=== PATIENT | female | born 1940 | race Caucasian/White ===

== ENCOUNTER 2017-03-14 11:59 | Inpatient (IN) | payer MEDICARE ==
[~2017-03-14] VITALS: Ht 172.7 cm; Wt 88.1 kg
[2017-03-14 16:15] VITALS: BP 138/79
--- NOTE | 2017-03-14 16:46 | Occupational Therapy Eval ---
OT Evaluation-General/PLF Medical Diagnosis Admission Date Mar 14, 2017 at 16:15 Medical Diagnosis: L3-L5 laminectomy Onset Date: Mar 10, 2017 Therapy Diagnosis Therapy Diagnosis: decr self care, weakness, decr funct mobility, decr activity tolerance Precautions Precautions/Isolations: Standard Precautions Weight Bear Status Weight Bearing Restriction: Weight Bearing/Tolerated Referral Physician: Herb Referral Reason: Evaluation/Treatment Referral Comments No excessive bending, twisting, heavy lifting. Keep incision dry (no showering for 3 weeks, per pt) Medical History Pertinent Medical History: Atrial Fib, Neuropathy (L LE), Rheumatoid Arthritis Additional Medical History Spinal stenosis, lumbar. Spondylolisthesis L4-L5. Foot drop L. 15 year hx back problems. hernia repair Current History Elective procedure. Had OT and PT at Reviewed History: Yes Social History Home: Single Level Current Living Status: Spouse Entry Into Home: Ramp ADL-Prior Level of Function ADL PLOF Comments Pt reported that has been able to manage all of her basic self care needs prior to surgery. She used a 4WW and SPC at home. 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 She still drives and loves to garden and read. 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 Pain reported 2/10 and not described. Appearance Alert, cooperative Current Glasses/Contacts: Yes Hearing Aids: No Dentures/Partials: No Hand Dominance: Right Upper Extremity ROM Grossly WFL bilat. Arthritic changes in hands Upper Extremity Sensation Pt reports no problems Upper Extremity Strength grossly 4/5 bilat ADL-Treatment Functional [place] Measure 0=Not Assessed/NA 4=Minimal Assistance 1=Total Assistance 5=Supervision or Setup 2=Maximal Assistance 6=Modified [place] 3=Moderate Assistance 7=Complete IndependenceIRFPAI Quality Coding Scale 6 Independent with activity with or without an assistive device 5 Patient requires set up or clean up by helper. Patient completes activity by themselves 4 Supervision or touching assist (CGA). [place] provide cues , steadying assist 3 The helper provides less than half the effort to complete the activity 2 The helper provides more than half the effort to complete the activity 1 Dependent. The helper does all the effort to complete an activity 7 Patient refused to complete or attempt activity 9 The patient did not perform the activity before the current illness or injury 88 Not attempted due to Medical conditions or safety concerns Transfers (B, C, W/C) (FIM): 4 (CGA, FWW) Shower Transfer (FIM): 0 (Unable, per physician orders) Education OT Patient Education: Purpose of tx/functional activities, Rehab process, Transfer techniques, Use of adapted equipment Teaching Recipient: Patient Teaching Methods: Discussion Response to Teaching: Verbalize Understanding OT Short Term Goals Short Term Goals Time Frame: Mar 21, 2017 Eating(FIM): 7 Upper Body Dressing(FIM): 5 Lower Body Dressing(FIM): 5 Toileting(FIM): 5 Toilet/Commode Transfer(FIM): 5 1=Demonstrate adherence to instructed precautions during ADL tasks. 2=Patient will verbalize/demonstrate understanding of assistive devices/ modifications for ADL. 3=Patient will improve strength/tolerance for activity to enable patient to perform ADL's. OT Correction Goals Knitter Machine Goals Time Frame: April 04, 2017 Eating (FIM): 7 (no dentures) Eating (QC): 6 Groomin Oral Hygiene (QC): 6 Bathing(FIM): 6 Shower/Bathe Self (QC): 6 Upper Body Dressing(FIM): 6 Upper Body Dressing (QC): 6 Lower Body Dressing(FIM): 6 Lower Body Dressing (QC): 6 On/Off Footwear (QC): 6 Toileting(FIM): 6 Toileting Hygiene (QC): 6 Toilet/Commode Transfer(FIM): 6 Toilet/Commode Transfer (QC): 6 Shower Transfer(FIM): 6 Additional Goals: 1-Demonstrate ADL Tasks, 2-Verbalize Understanding, 3- ImproveStrength/Estuardo 1=Demonstrate adherence to instructed precautions during ADL tasks. 2=Patient will verbalize/demonstrate understanding of assistive devices/ modifications for ADL. 3=Patient will improve strength/tolerance for activity to enable patient to perform ADL's. OT Education/Plan Problem List/Assessment Assessment: Decreased Activ Tolerance, Decreased UE Strength, Dependent Transfers, Impaired Funct Balance, Impaired Self-Care Skills Pt would benefit from skilled OT to increase her independence in basic self care to allow her to return home safely to live with her and decrease caregiver burden. Discharge Recommendations Plan/Recommendations: Continue POC Target Placement home with spouse Treatment Plan/Plan of Care Treatment,Training & Education: Yes Patient would benefit from OT for education, treatment and training to promote independence in ADL's, mobility, safety and/or upper extremity function for ADL' s. Treatment Duration: April 04, 2017 # of days/week 5-6 Visits Per Week: 10-11 Minutes/Day (M-F): 75-90 Minutes/Day (Sat/Vera): PRN Agreement: Yes Rehab Potential: Good Time/GCodes Start Time: 16:10 Stop Time: 16:35 Total Time Billed (hr/min): 35 Billed Treatment Time visit, 25 minutes evaluation moderate intensity BALAJI LYNN OT Mar 14, 2017 16:46
[2017-03-14] MEDS ORDERED: DILTIAZEM 60 MG (CARDIZEM) TAB PO PRN (17:15)
--- NOTE | 2017-03-14 17:45 | PM&R Post Admission Assessment ---
Post Admission Physician Asses The preadmission screen agrees with the post admission assessment that the patient is a good candidate for inpatient rehabilitation. The patient will have a comprehensive program of inpatient rehabilitation with a goal of maximizing level of functional dependence prior to discharge home with [family]. The patient will have PT/OT ninety minutes per day, each discipline, five days a week for gait strengthening, conditioning, balance, ADLs , any patient/family/caregiver training necessary. Speech therapy to do cognitive assessment and treat as indicted. Rehabilitation nursing to assist with bowel, bladder, skin, wound care, medication administration, pain management. Parts Control Clerk to assist with discharge planning, community reentry. SCD's for DVT prophylaxis. She appears to be well motivated to participate in three hours of therapy a day. She should be able to tolerate three hours of therapy a day from a medical standpoint. She should benefit from the three hours of therapy a day. She has a reasonable discharge plan, reasonable discharge rehabilitation goals and a supportive family. She has various comorbidities that need to be closely monitored with medications and treatments adjusted on a daily basis as needed. These include: A FIb Chronic antoicoagulation RA Chronic pain Left foot drop with idiopathic Peripheral neuropathy Barriers to discharge for this patient who had been independent prior to this and for her to be modified independent to supervision for ADLs and mobility skills prior to discharge home with [family], so as to lessen the burden of the caregivers. Risks for this patient include: 1. Fall 2. Fracture 3. DVT 4. Pulmonary embolism 5. Wound infection 6. Skin breakdown 7. Contractures 8. Poorly controlled pain 9. Urinary retention 10. UTI 11. Respiratory infection 12. Aspiration 13. Poorly contolled A FIB 14. SUB or Supratherapeutic INR for chronic anticoagulation 15. Flare of RA Estimated Length of Stay: 14 days Prognosis: Rehab prognosis appears good for goal of discharge home with spouse modified independent to supervision for ADLs and mobility skills. ENRIQUE MEJIA MD Mar 14, 2017 17:45
[2017-03-14 18:17] VITALS: BP 119/60
--- NOTE | 2017-03-14 18:27 | HISTORY AND PHYSICAL ---
DATE OF SERVICE: 03/14/2017 CHIEF COMPLAINT: Difficulty with walking, left leg weakness and numbness. HISTORY OF PRESENT ILLNESS: The patient is a 76-year-old female who had recently moved to [place] with her to be near her daughter who had lumbar spine surgery for lumbar spinal stenosis with radiculopathy, left leg associated with weakness and numbness with Dr. Weinstein at [facility]. The patient is referred here for inpatient rehabilitation. Currently she is min assist for transfers, set up for eating and grooming, min assist for upper body dressing, mod assist for lower body dressing and toileting. PAST MEDICAL HISTORY: Lumbar spinal stenosis with spondylolisthesis L4-L5 associated with left foot drop. She has a left AFO. She reports the weakness and numbness is improving somewhat postoperatively. She has had a 15 year history of back pain. History of atrial fibrillation, rheumatoid arthritis, as well as idiopathic peripheral neuropathy associated with numbness and tingling in both legs. PAST SURGICAL HISTORY: As per above, hemorrhoidectomy, inguinal hernia repair, thyroid surgery, parathyroidectomy, colonoscopy, ablation of dysrhythmia focus with electrophysiological lab, cardiology. ALLERGIES: SULFA. FAMILY HISTORY: Noncontributory. SOCIAL HISTORY: Essentially as per above. She is retired. REVIEW OF SYSTEMS: A 10 point review of systems is significant for left leg pain, numbness, left foot drop, irregular heart beat. MEDICATIONS: Colace 100 mg p.o. b.i.d., ferrous sulfate 325 mg p.o. t.i.d., hydrocodone APAP 5/325 1-2 tablets p.o. q. 4 hours as needed, Tylenol 650 mg 2 tablets b.i.d. p.r.n. pain, amiodarone 200 mg p.o. daily, ASA 1 mg p.o. daily, vitamin D3 2000 units p.o. daily, diltiazem CD 120 mg p.o. daily, Lexapro 10 mg p.o. q. evening, folic acid 1 mg p.o. daily, Plaquenil 200 mg p.o. b.i.d., Xalatan 0.5% 1 drop both eyes at bedtime, Protonix 40 mg p.o. daily, multivitamin 1 tablet p.o. daily, Coumadin 4.5 mg at bedtime. PHYSICAL EXAMINATION: GENERAL: Significant for a pleasant female appearing stated age, alert and oriented, no acute distress. VITAL SIGNS: She is afebrile, pulse 74, blood pressure 103/55, respirations 18. HEENT: Vision ,hearing and speech grossly intact. No oral lesion is noted. NECK: Supple without mass. HEART: Regular rhythm. LUNGS: Clear. ABDOMEN: Soft, nontender, bowel sounds present. SPINE: Incision site covered with clean dressing, no drainage noted. EXTREMITIES: Trace edema both ankles, no calf tenderness. MUSCULOSKELETAL: The patient has functional passive range of motion of all 4 extremities. NEUROLOGIC: She has a left foot drop with poor left ankle dorsiflexion. She has numbness in the left foot but sensation to touch is grossly intact. This compared to the right. Strength in both upper extremities 4/5. She has arthritic changes in both hands. Strength right lower extremity 4- to 4/5, left lower extremity 4/5 proximal distal at the ankle, 2/5 dorsiflexion, plantar flexion 3+/5. Cognition appears grossly intact. IMPRESSION: 1. Ambulatory dysfunction secondary to lumbar spinal stenosis L3-L5 with spondylolisthesis L4-5 with resulting spinal cord dysfunction, nontraumatic with associated lumbosacral radiculopathy left leg with left foot drop. 2. Rheumatoid arthritis on Plaquenil. 3. Idiopathic peripheral neuropathy. 4. Glaucoma on eye drops. 5. Atrial fibrillation controlled with medications. 6. Chronic anticoagulation. PLAN: The patient will have a comprehensive program of inpatient rehabilitation with goal of maximizing level of function of independence prior to discharge home with spouse. She indicates that they bought a [employer] style home with easy access near their daughter in [place]. She indicates that Dr. Frances will be her PCP. The patient will have PT/OT 90 minutes per day each weak, 5 days a week for 2 weeks with goal of maximizing level of function independence prior to discharge home with spouse and home health care. The patient will have speech for cognitive assessment with treatment as indicated. Rehabilitation nursing to assist with bowel, bladder, skin, wound care, medication administration, pain management. computing services director to assist with discharge planning, community re-entry. Consult Dr. Frances for medical management. Routine admission labs including PT/INR. ESTIMATED LENGTH OF STAY: Two weeks. PROGNOSIS: Rehab prognosis appears good with a goal of discharging to home with spouse with home health care, modified independence to supervision for ADLs and mobility skills. DIET: Regular. CODE STATUS: Full code. Job ID: [id number] DocumentID: [id number] Dictated Date: 03/14/2017 17:33:14 Chief Engineering Division Date: 03/14/2017 18:26:48 Dictated By: ENRIQUE MEJIA MD MTDD
[2017-03-14 18:31] VITALS: BP 136/77
[2017-03-14] MEDS: HYDROXYCHLOROQUINE 200 MG (PLAQUENIL) TAB PO SCH (20:30)
[2017-03-14] MEDS: LATANOPROST 0.005% (XALATAN) OPHTH SOLN 2.5 ML OU SCH (20:30)
[2017-03-14] MEDS: DOCUSATE SODIUM 100 MG (COLACE) CAP PO SCH (20:30)
[2017-03-14] MEDS: warFARin 2 MG (COUMADIN) TAB PO SCH (20:30)
[2017-03-15] MEDS: HYDROcodone/APAP 5 MG/325 MG (LORTAB) TAB PO PRN ×2 (04:19→22:54)
[2017-03-15 05:39] VITALS: BP 106/67
[2017-03-15 06:08] LABS: BASOPHILS % (AUTO) 0 % (0-10); EOSINOPHILS # (AUTO) 0.2 10^3/uL (0.0-0.3); EOSINOPHILS % (AUTO) 4 % (0-10); LYMPHOCYTES # (AUTO) 0.7 X 10^3 (1.0-4.0); LYMPHOCYTES % (AUTO) 15 % (12-44); MEAN CORPUSCULAR HEMOGLOBIN 31 PG (25-34); MEAN CORPUSCULAR HGB CONC 31 G/DL (32-36); MEAN CORPUSCULAR VOLUME 100 FL (80-99); MEAN PLATELET VOLUME 9.8 FL (7.4-10.4); MONOCYTES # (AUTO) 0.5 X 10^3 (0.0-1.0); MONOCYTES % (AUTO) 11 % (0-12); NEUTROPHILS # (AUTO) 3.2 X 10^3 (1.8-7.8); NEUTROPHILS % (AUTO) 70 % (42-75); PLATELET COUNT 195 10^3/uL (130-400); RED BLOOD COUNT 2.28 10^6/uL (4.35-5.85); WHITE BLOOD COUNT 4.6 10^3/uL (4.3-11.0)
[2017-03-15 06:11] LABS: PROTHROMBIN TIME PATIENT 13.2 SEC (12.2-14.7)
[2017-03-15 06:20] LABS: ALANINE AMINOTRANSFERASE 36 U/L (0-55); ALBUMIN 2.7 G/DL (3.2-4.5); ANION GAP 8 MMOL/L (5-14); ASPARTATE AMINO TRANSFERASE 32 U/L (5-34); BILIRUBIN,TOTAL 0.7 MG/DL (0.1-1.0); BLOOD UREA NITROGEN 9 MG/DL (7-18); BUN/CREATININE RATIO 13; CALCIUM 8.2 MG/DL (8.5-10.1); CARBON DIOXIDE 27 MMOL/L (21-32); CHLORIDE 106 MMOL/L (98-107); CREATININE SERUM 0.69 MG/DL (0.60-1.30); GFR ESTIMATED > 60; GLUCOSE 95 MG/DL (70-105); POTASSIUM 3.2 MMOL/L (3.6-5.0); SODIUM 141 MMOL/L (135-145)
[2017-03-15] MEDS: PANTOPRAZOLE 40 MG (PROTONIX) TAB PO SCH (06:28)
[2017-03-15] MEDS: FERROUS SULF 325 MG (IRON) TAB PO SCH ×3 (06:28→16:44)
[2017-03-15] MEDS: MULTIVIT W/MINERALS TAB (THERAGRAN M) PO SCH (06:28)
--- NOTE | 2017-03-15 07:04 | Physical Therapy Evaluation ---
PT Evaluation-General Medical Diagnosis Admission Date Mar 14, 2017 at 16:15 Medical Diagnosis: L3-L5 laminectomy Onset Date: Mar 10, 2017 Therapy Diagnosis Therapy Diagnosis: general debility Height/Weight Height (Feet): 5 Height (Inches): 8.00 Weight (Pounds): 198 Weight (Ounces): 2.0 Precautions Precautions/Isolations: Fall Prevention, Standard Precautions Weight Bear Status Weight Bearing Restriction: Weight Bearing/Tolerated Referral Physician: Herb Reason for Referral: Evaluation/Treatment Medical History Pertinent Medical History: Atrial Fib, Arthritis, Neuropathy (L LE), Rheumatoid Arthritis Additional Medical History drop left LE (has AFO) Current History s/p spinal fusion Reviewed History: Yes Social History Home: Single Level Current Living Status: Spouse Entry Into Home: Ramp Prior/Core FIM Prior Level of Function Functional [place] Measure 0=Not Assessed/NA 4=Minimal Assistance 1=Total Assistance 5=Supervision or Setup 2=Maximal Assistance 6=Modified [place] 3=Moderate Assistance 7=Complete [place] Bed Mobility: 6 Transfers (B,C,W/C) (FIM): 6 Gait: 6 has FWW and cane established PT Evaluation-Current Subjective Patient agreeable to participate with PT. Pain Numeric Pain Scale: 2 Location: Lower Location Body Site: Back Pain Description: Acute Pt/Family Goals return to home Objective Patient Orientation: Normal For Age Problem Solving: Good ROM/Strength ROM Lower Extremities bilateral LE WFL Strenght Lower Extremities right knee flexion/extension 4/5; hip flexion 4/5; ankle dorsi/plantarflexion 4/ 5 left knee flexion/extension 3/5; hip flexion 3-/5; ankle dorsi 2-/5 plantarflexion 2/5 Integumentary/Posture Integumentary refer to nursing notes Bowel Incontinence: No Bladder Incontinence: No Posture slight trunk flexed posture in stand Neuromuscular (Tone, Coordination, Reflexes) diminished coordination secondary to bilateral LE neuropathy from spinal stenosis Sensory Vision: Wears Glasses Hearing: Functional Hand Dominance: Right Sensation Right Lower Extremit: Impaired Sensation Left Lower Extremity: Impaired Transfers Functional [place] Measure 0=Not Assessed/NA 4=Minimal Assistance 1=Total Assistance 5=Supervision or Setup 2=Maximal Assistance 6=Modified [place] 3=Moderate Assistance 7=Complete IndependenceIRFPAI Quality Coding Scale 6 Independent with activity with or without an assistive device 5 Patient requires set up or clean up by helper. Patient completes activity by themselves 4 Supervision or touching assist (CGA). [place] provide cues , steadying assist 3 The helper provides less than half the effort to complete the activity 2 The helper provides more than half the effort to complete the activity 1 Dependent. The helper does all the effort to complete an activity 7 Patient refused to complete or attempt activity 9 The patient did not perform the activity before the current illness or injury 88 Not attempted due to Medical conditions or safety concerns Transfers (B, C, W/C) (FIM): 5 Scootin Rollin Roll Left to Right (QC): 5 Supine to/from Sit: 5 Sit to/from Stand: 5 Sit to Lying (QC): 5 Lying to Sitting/Side of Bed(Q: 5 Sit to Stand (QC): 5 Chair/Kps-yw-Ddfzh Xfer(QC): 5 Car Transfer (QC): 5 (simulated) Gait Does the Patient Walk?: Yes Mode of Locomotion: Walk Anticipated Mode of Locomotion: Walk Gait (FIM): 5 Distance (FIM): 3=150 ft Walk 10 feet (QC): 5 Walk 50 ft with 2 Turns(QC): 5 Walk 150 ft (QC): 5 Walking 10ft/uneven surface-QC: 5 Distance: 250' x 4; 150' x 4 Gait Level of Assist: 5 Gait Persons Needed: 1 Gait Assistive Device: FWW Comments/Gait Description noted Trendelenburg gait with left drop foot with AFO in place Stairs Stairs (FIM): 4 #of Steps: 8 Level of Assist: 4 1 Step (curb) (QC): 4 4 Steps (QC): 4 12 Steps (QC): 88 step to sequence Balance Sitting Static: Normal Sitting Dynamic: Normal Standing Static: Normal Standing Dynamic: Normal Treatment Gait training with FWW and SBA to address functional mobility and strength. Ambulate FWW 250' x 4; 150' x 4 with steady gait sequence. Patient requires recovery periods secondary to fatigue. Assessment/Needs 77 y.o. female, will benefit from short term skilled PT to address functional strength and mobility to improve current LOF and to safely return to home with spouse at maximum LOF. Rehab Potential: Good PT Short Term Goals Short Term Goals Time Frame: Mar 21, 2017 Transfers (B,C,W/C) (FIM): 6 Gait (FIM): 6 Distance (FIM): 3=150 ft Gait Assistive Device: FWW PT Fpc Goals Fpc Goals PT Fpc Goals Time Frame: March 28, 2017 Transfers (B,C,W/C) (FIM): 6 Sit to Lying (QC): 6 Lying-Sitting on Side/Bed(QC): 6 Sit to Stand (QC): 6 Rollin Roll Left to Right (QC): 6 Chair/Efa-xq-Cjche Xfer(QC): 6 Car Transfer (QC): 6 Does the Patient Walk: Yes Gait (FIM): 6 Gait distance (FIM): 3=150 ft Distance: 250' Walk 10 feet (QC): 6 Walk 10ft-Uneven Surface(QC): 6 Walk 50ft with 2 Turns (QC): 6 Walk 150 ft (QC): 6 Gait Level of Assist: 6 Gait Assistive Device: FWW Stairs (FIM): 6 # of Steps: 12 1 Step (curb) (QC): 6 4 Steps (QC): 6 12 Steps (QC): 6 Stairs Level Of Assist: 6 Picking up an Object (QC): 88 Patient has precautions to not bend over, push or pull PT Plan Problem List Problem List: Activity Tolerance, Functional Strength Treatment/Plan Treatment Plan: Continue Plan of Care Treatment Plan: Bed Mobility, Education, Functional Activity Estuardo, Functional Strength, Group Therapy, Gait, Safety, Therapeutic Exercise, Transfers Treatment Duration: March 28, 2017 # of days/week 6 Minutes/Day (M-F): 60-90 Minutes/Day (Sat/Vera): PRN Pt/Family Agrees w/Plan: Yes Safety Risks/Education Patient Education: Safety Issues Teaching Recipient: Patient Teaching Methods: Discussion Response to Teaching: Verbalize Understanding Discharge Recommendations Therapy D/C Recommendations: Home w/ Family Support Time/GCodes Time In: 655 Time Out: 825 Total Billed Treatment Time: 90 Total Billed Treatment 1 visit EVHighC 60 min Gt x 2 30 min ERIS TURNER PT Mar 15, 2017 07:04
[2017-03-15] MEDS ORDERED: ONDANSETRON 4 MG (ZOFRAN) ORAL DISSOLVE TAB PO PRN (07:45)
[2017-03-15 08:05] VITALS: BP 123/72
[2017-03-15] MEDS: DILTIAZEM 60 MG (CARDIZEM) TAB PO SCH (08:06)
[2017-03-15] MEDS: VITAMIN D3 1,000 UNITS (CHOLECALCIFEROL) TABLET PO SCH (08:06)
[2017-03-15] MEDS: DOCUSATE SODIUM 100 MG (COLACE) CAP PO SCH ×2 (08:06→21:25)
[2017-03-15] MEDS: AMIODARONE 200 MG (CORDARONE) TAB PO SCH (08:06)
[2017-03-15] MEDS: FOLIC ACID 1 MG TAB PO SCH (08:07)
[2017-03-15] MEDS: ASPIRIN 81 MG CHEW (CHILDREN'S ASA) PO SCH (08:07)
[2017-03-15] MEDS: HYDROXYCHLOROQUINE 200 MG (PLAQUENIL) TAB PO SCH ×2 (08:08→21:25)
--- NOTE | 2017-03-15 10:59 | Occupational Ther Daily Note ---
OT Current Status-Daily Note Subjective Pt alert, sitting EOB with nrsg present. Pt agreed to therapy. No c/o pain at this time. Mental Status/Objective Patient Orientation: Person, Place, Time, Situation Functional [place] Measure 0=Not Assessed/NA 4=Minimal Assistance 1=Total Assistance 5=Supervision or Setup 2=Maximal Assistance 6=Modified [place] 3=Moderate Assistance 7=Complete [place] ADL-Treatment Functional [place] Measure 0=Not Assessed/NA 4=Minimal Assistance 1=Total Assistance 5=Supervision or Setup 2=Maximal Assistance 6=Modified [place] 3=Moderate Assistance 7=Complete IndependenceIRFPAI Quality Coding Scale 6 Independent with activity with or without an assistive device 5 Patient requires set up or clean up by helper. Patient completes activity by themselves 4 Supervision or touching assist (CGA). [place] provide cues , steadying assist 3 The helper provides less than half the effort to complete the activity 2 The helper provides more than half the effort to complete the activity 1 Dependent. The helper does all the effort to complete an activity 7 Patient refused to complete or attempt activity 9 The patient did not perform the activity before the current illness or injury 88 Not attempted due to Medical conditions or safety concerns Eating (FIM): 6 (Pt able to set self up and feed self.) Eating (QC): 6 (Pt able to set self up and feed self.) Grooming (FIM): 5 (Using FWW, pt stands at sink to complete grooming with SBA. Then sitting in recliner to apply makeup.) Oral Hygiene (QC): 4 (Standing at sink with SBA using FWW pt is able to complete.) Bathing (FIM): 4 (After set up, pt completed sponge bath (due to incision pt is not allowed to take shower at this time). Pt unable to reach to feet due to precautions. SBA when standing to cleanse buttocks and lauren area.) Bathing Location: L Arm, R Arm, L Upper Leg, R Upper Leg, Chest, Abdomen, Buttocks, Perineal Area Shower/Bathe Self (QC): 3 (After set up, pt completed sponge bath (due to incision pt is not allowed to take shower at this time). Pt unable to reach to feet due to precautions. SBA when standing to cleanse buttocks and lauren area.) Upper Body (FIM): 5 (After set up, pt is able to complete upper body dressing.) Upper Body Dressing (QC): 5 (After set up, pt is able to complete upper body dressing.) Lower Body Dressing (FIM): 2 (Pt is able to doff pants with SBA. Pt brings foot up to don underwear and pants without twisting or bending then SBA to hike pants over hips. Pt unable to don socks and shoes. Pt will be educated on using AE to complete lower body dressing.) Lower Body Dressing (QC): 2 (Pt is able to doff pants with SBA. Pt brings foot up to don underwear and pants without twisting or bending then SBA to hike pants over hips. Pt unable to don socks and shoes. Pt will be educated on using AE to complete lower body dressing.) On/Off Footwear (QC): 2 (Pt requires assistance to don socks and shoes. Pt is able to doff shoes after shoes are untied then assist to doff socks.) Toileting (FIM): 5 (Using FWW, grabbars and elevated seat pt is able to complete with SBA.) Toileting Hygiene (QC): 4 (Using FWW, grabbars and elevated seat pt is able to complete with SBA.) Transfers (B, C, W/C) (FIM): 4 (Using FWW, pt is CGA with stand pivot transfers when standing from a low surface.) Toilet/Commode Transfer (FIM): 4 (Using grabbars and elevated seat pt is able to complete transfer with CGA.) Toilet Transfer (QC): 4 (Using grabbars and elevated seat pt is able to complete transfer with CGA.) Pt was given AE for lower body dressing (dressing stick, video operator, long handle shoe horn and long handle sponge). Pt already has sock aide. Discussed ARU expectations and description then pt's home environment. Pt has tub shower and stated that daughter has gotten some kind of seat to transfer into shower then they need to put up more grabbars. After therapy, pt sitting in recliner with call light/phone in reach. All needs met in room. OT Short Term Goals Short Term Goals Time Frame: Mar 21, 2017 Eating(FIM): 7 Upper Body Dressing(FIM): 5 Lower Body Dressing(FIM): 5 Toileting(FIM): 5 Transfers (B,C,W/C) (FIM): 6 Toilet/Commode Transfer(FIM): 5 1=Demonstrate adherence to instructed precautions during ADL tasks. 2=Patient will verbalize/demonstrate understanding of assistive devices/ modifications for ADL. 3=Patient will improve strength/tolerance for activity to enable patient to perform ADL's. OT Correction Goals Electric Freight Car Operator Goals Time Frame: April 04, 2017 Eating (FIM): 7 (no dentures) Eating (QC): 6 Groomin Oral Hygiene (QC): 6 Bathing(FIM): 6 Shower/Bathe Self (QC): 6 Upper Body Dressing(FIM): 6 Upper Body Dressing (QC): 6 Lower Body Dressing(FIM): 6 Lower Body Dressing (QC): 6 On/Off Footwear (QC): 6 Toileting(FIM): 6 Toileting Hygiene (QC): 6 Toilet/Commode Transfer(FIM): 6 Toilet/Commode Transfer (QC): 6 Shower Transfer(FIM): 6 Additional Goals: 1-Demonstrate ADL Tasks, 2-Verbalize Understanding, 3- ImproveStrength/Estuardo 1=Demonstrate adherence to instructed precautions during ADL tasks. 2=Patient will verbalize/demonstrate understanding of assistive devices/ modifications for ADL. 3=Patient will improve strength/tolerance for activity to enable patient to perform ADL's. OT Education/Plan Problem List/Assessment Pt would benefit from skilled OT to increase her independence in basic self care to allow her to return home safely to live with her and decrease caregiver burden. Discharge Recommendations Plan/Recommendations: Continue POC Treatment Plan/Plan of Care Patient would benefit from OT for education, treatment and training to promote independence in ADL's, mobility, safety and/or upper extremity function for ADL' s. Treatment Duration: April 04, 2017 Visits Per Week: 10-11 Minutes/Day (M-F): 75-90 Minutes/Day (Sat/Vera): PRN Agreement: Yes Rehab Potential: Good Time/GCodes Start Time: 08:35 Stop Time: 10:05 Total Time Billed (hr/min): 90 Billed Treatment Time 1 visit-ADL 6 (90 min) JES FRANKS Mar 15, 2017 10:59
[2017-03-15] MEDS ORDERED: NS IV 500 ML 500 ML IV SCH (12:03)
--- NOTE | 2017-03-15 12:07 | Consultation-Hospitalist ---
HPI History of Present Illness: HPI/Chief Complaint CC: Medical management following lumbar spine surgery for lumbar stenosis causing left foot drop HPI: This is a 77-year-old white female new clinic patient of mine that moved from [place] to [place] to be closer to her daughter who is director of public works at assisted living facility in [place] who presents to inpatient rehabilitation following an uncomplicated lumbar spine surgery. I did speak with orthopedic surgery from [facility] who reported transfusion 1 unit without complications and 1 dose of iron infusion and overall had an uncomplicated hospital course. I reviewed her labs today showing hemoglobin of 7.1 and potassium 3.2 and I did speak with her in depth and she is agreeable to 1 more unit of blood and then continuing iron infusions for the full 4 more doses. Her bowel meds are doing pretty well and declines any additional medication. Limiting pain meds and doing well walking. Source: patient Exam Limitations: no limitations Date Seen 03/15/17 Attending Physician Lobito Estevez MD PCP No,Local Physician Referring Physician Date of Admission Mar 14, 2017 at 16:15 Home Medications & Allergies Home Medications Reviewed patient Home Medication Reconciliation Form Allergies Allergies Coded Allergies acetaminophen (Verified Allergy, Unknown, NAUSEA, 03/14/17) per pt doesn't want to take it because family and friends have had bad experiences (i.e. Confusion, hallucinations, etc.) oxycodone (Verified Allergy, Unknown, NAUSEA, 03/14/17) per pt doesn't want to take it because family and friends have had bad experiences (i.e. Confusion, hallucinations, etc.) Uncoded Allergies Sulfa ( Allergy, Unknown, RASH, 03/14/17) childhood reaction Past Ykjmpys-Zfztoe-Kasyzh Hx Patient Social History Marrital Status: Employed/Student: retired Alcohol Use: Denies Use Recreational Drug Use: No Smoking Status: Never a Smoker Physical Abuse Screen: No Sexual Abuse: No Recent Foreign Travel: No Contact w/other who traveled: No Recent Hop[facility]izations: Yes ([facility]) Recent Infectious Disease Expo: No Surgeries HX Surgeries: Yes Surgeries: Orthopedic Respiratory Hx Respiratory Disorders: No Cardiovascular Hx Cardiovascular Disorders: Yes Cardiac Disorders: Atrial Fibrillation, High Cholesterol, Hypertension Neurological Hx Neurological Disorders: Yes Neurological Disorders: Neuropathy Genitourinary Hx Genitourinary Disorders: No Gastrointestinal Hx Gastrointestinal Disorders: Yes Gastrointestinal Disorders: Hemorrhoids Musculoskeletal Hx Musculoskeletal Disorders: Yes Musculoskeletal Disorders: Arthritis, Rheumatoid Arthritis, Foot Drop Endocrine Hx Endocrine Disorders: No HEENT HX ENT Disorders: No HEENT Disorders: Glaucoma Cancer Hx Cancer: No Psychosocial Hx Psychiatric Problems: No Behavioral Health Disorders: Depression Integumentary HX Skin/Integumentary Disorder: No Blood Transfusions Adverse Reaction to a Blood Tr: No Review of Systems Constitutional: see HPI, weakness EENTM: no symptoms reported Respiratory: no symptoms reported Cardiovascular: no symptoms reported Gastrointestinal: no symptoms reported Genitourinary: no symptoms reported Musculoskeletal: back pain Skin: no symptoms reported Psychiatric/Neurological: No Symptoms Reported All Other Systems Reviewed Negative Unless Noted: Yes Physical Exam Physical Exam Vital Signs Vital Sign - Last 12Hours 03/14/17 16:15 Temp 97.0 Pulse 73 Resp 20 B/P (MAP) 138/79 Pulse Ox 98 O2 Delivery Room Air Capillary Refill : General Appearance: No Apparent Distress, WD/WN, Chronically ill Eyes: Bilateral Eye Normal Inspection, Bilateral Eye PERRL HEENT: PERRL/EOMI, Normal ENT Inspection, Pharynx Normal Neck: Full Range of Motion, Normal Inspection, Non Tender, Supple, Carotid Bruit Respiratory: Chest Non Tender, Lungs Clear, Normal Breath Sounds, No Accessory Muscle Use, No Respiratory Distress Cardiovascular: No Edema, No Gallop, No JVD, No Murmur, Normal Peripheral Pulses, Irregularly Irregular Gastrointestinal: Normal Bowel Sounds, No Organomegaly, No Pulsatile Mass, Non Tender, Soft Back: Normal Inspection, No CVA Tenderness, No Vertebral Tenderness Extremity: Normal Capillary Refill, Normal Inspection, Normal Range of Motion, Non Tender, No Calf Tenderness, No Pedal Edema Neurologic/Psychiatric: Alert, Oriented x3, No Motor/Sensory Deficits, Normal Mood/Affect Skin: Normal Color, Warm/Dry Lymphatic: No Adenopathy Results Results/Procedures Lab Laboratory Tests 03/15/17 05:15 Assessment/Plan Admission Diagnosis Assessment: Status post uncomplicated lumbar spine surgery due to severe lumbar stenosis causing left foot drop by Dr. 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 Monitor closely for AF with RVR Clinical Quality Measures DVT/VTE Risk/Contraindication: Risk Factor Score Per Nursin RFS Level Per Nursing on Admit: 4+=Very High YSABEL GREEN DO Mar 15, 2017 12:07
[2017-03-15] MEDS: KCL 10 MEQ TAB (MICRO K) PO SCH ×2 (13:45→16:44)
[2017-03-15 15:53] VITALS: BP 107/68
[2017-03-15 16:08] VITALS: BP 121/73
[2017-03-15 18:00] VITALS: BP 111/72
[2017-03-15 18:30] VITALS: BP 111/72
[2017-03-15] MEDS: LATANOPROST 0.005% (XALATAN) OPHTH SOLN 2.5 ML OU SCH (21:25)
[2017-03-15] MEDS: warFARin 2 MG (COUMADIN) TAB PO SCH (21:25)
[2017-03-15] MEDS: POLYETHYLENE GLYCOL 17 GM (MIRALAX) PACK PO SCH (21:25)
[2017-03-16 05:36] LABS: BASOPHILS % (AUTO) 0 % (0-10); EOSINOPHILS # (AUTO) 0.2 10^3/uL (0.0-0.3); EOSINOPHILS % (AUTO) 5 % (0-10); LYMPHOCYTES % (AUTO) 23 % (12-44); MEAN CORPUSCULAR HEMOGLOBIN 30 PG (25-34); MEAN CORPUSCULAR HGB CONC 31 G/DL (32-36); MEAN CORPUSCULAR VOLUME 96 FL (80-99); MEAN PLATELET VOLUME 9.2 FL (7.4-10.4); MONOCYTES # (AUTO) 0.5 X 10^3 (0.0-1.0); MONOCYTES % (AUTO) 11 % (0-12); NEUTROPHILS # (AUTO) 2.7 X 10^3 (1.8-7.8); NEUTROPHILS % (AUTO) 60 % (42-75); PLATELET COUNT 222 10^3/uL (130-400); RED BLOOD COUNT 2.95 10^6/uL (4.35-5.85); RED CELL DISTRIBUTION WIDTH 16.6 % (10.0-14.5); WHITE BLOOD COUNT 4.5 10^3/uL (4.3-11.0)
[2017-03-16 05:50] LABS: INR 1.1 (0.8-1.4); PROTHROMBIN TIME PATIENT 13.4 SEC (12.2-14.7)
[2017-03-16] MEDS: PANTOPRAZOLE 40 MG (PROTONIX) TAB PO SCH (06:25)
[2017-03-16] MEDS: MULTIVIT W/MINERALS TAB (THERAGRAN M) PO SCH (06:25)
[2017-03-16] MEDS: KCL 10 MEQ TAB (MICRO K) PO SCH ×3 (06:26→16:11)
[2017-03-16] MEDS: FERROUS SULF 325 MG (IRON) TAB PO SCH (06:26)
[2017-03-16 06:27] LABS: ALANINE AMINOTRANSFERASE 44 U/L (0-55); ANION GAP 9 MMOL/L (5-14); ASPARTATE AMINO TRANSFERASE 41 U/L (5-34); BLOOD UREA NITROGEN 9 MG/DL (7-18); BUN/CREATININE RATIO 12; CALCIUM 8.8 MG/DL (8.5-10.1); CARBON DIOXIDE 27 MMOL/L (21-32); CHLORIDE 107 MMOL/L (98-107); CREATININE SERUM 0.74 MG/DL (0.60-1.30); GFR ESTIMATED > 60; GLUCOSE 90 MG/DL (70-105); POTASSIUM 3.4 MMOL/L (3.6-5.0); SODIUM 143 MMOL/L (135-145); TOTAL PROTEIN 5.5 G/DL (6.4-8.2)
[2017-03-16] MEDS: VITAMIN D3 1,000 UNITS (CHOLECALCIFEROL) TABLET PO SCH (09:38)
[2017-03-16] MEDS: AMIODARONE 200 MG (CORDARONE) TAB PO SCH (09:38)
[2017-03-16] MEDS: DOCUSATE SODIUM 100 MG (COLACE) CAP PO SCH ×2 (09:39→21:07)
[2017-03-16] MEDS: ASPIRIN 81 MG CHEW (CHILDREN'S ASA) PO SCH (09:39)
[2017-03-16] MEDS: HYDROXYCHLOROQUINE 200 MG (PLAQUENIL) TAB PO SCH ×2 (09:39→21:07)
[2017-03-16] MEDS: DILTIAZEM 60 MG (CARDIZEM) TAB PO SCH (09:39)
[2017-03-16] MEDS: FOLIC ACID 1 MG TAB PO SCH (09:39)
[2017-03-16] MEDS: IRON SUCROSE INJECTION 200 MG in NS (IVPB) 100 ML IV SCH (11:05)
[2017-03-16 11:11] VITALS: BP 128/80
--- NOTE | 2017-03-16 14:02 | Progress Note-Hospitalist ---
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 I did speak with orthopedic surgery from [facility] who reported transfusion 1 unit without complications and 1 dose of iron infusion and overall had an uncomplicated hospital course. I reviewed her labs today showing hemoglobin of 7.1 and potassium 3.2 and I did speak with her in depth and she is agreeable to 1 more unit of blood and then continuing iron infusions for the full 4 more doses. Her bowel meds are doing pretty well and declines any additional medication. Limiting pain meds and doing well walking. Progress Notes/Assess & Plan Date Seen 03/16/17 Admission Dx/Process Assessment: Status post uncomplicated lumbar spine surgery due to severe lumbar stenosis causing left foot drop by Dr. 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 Hyperparathyroidism Diagonsis/Assessment & Plan Patient had an uneventful transfusion yesterday Started iron infusions today and will complete 4 more doses Having edema since she had her legs down all night because she couldn't sleep and she slept in a chair Daughter at the bedside right now No other issues Compression stockings placed Multivitamin makes her nauseated No fever, vital signs stable, pleasant, frail Irregular rate and rhythm 1+ edema Laboratory Tests 03/16/17 05:30 Assessment: Status post uncomplicated lumbar spine surgery due to severe lumbar stenosis causing left foot drop by Dr. 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
[2017-03-16 17:51] VITALS: BP 126/78
[2017-03-16] MEDS: warFARin 2 MG (COUMADIN) TAB PO SCH (21:08)
[2017-03-16] MEDS: HYDROcodone/APAP 5 MG/325 MG (LORTAB) TAB PO PRN (21:09)
[2017-03-16] MEDS: POLYETHYLENE GLYCOL 17 GM (MIRALAX) PACK PO SCH (21:11)
[2017-03-16] MEDS: LATANOPROST 0.005% (XALATAN) OPHTH SOLN 2.5 ML OU SCH (21:11)
[2017-03-17 06:00] VITALS: BP 129/77
[2017-03-17] MEDS: PANTOPRAZOLE 40 MG (PROTONIX) TAB PO SCH (06:30)
[2017-03-17] MEDS: KCL 10 MEQ TAB (MICRO K) PO SCH ×2 (06:31→17:30)
[2017-03-17] MEDS: HYDROXYCHLOROQUINE 200 MG (PLAQUENIL) TAB PO SCH ×2 (08:32→20:58)
[2017-03-17] MEDS: DILTIAZEM 60 MG (CARDIZEM) TAB PO SCH (08:32)
[2017-03-17] MEDS: AMIODARONE 200 MG (CORDARONE) TAB PO SCH (08:33)
[2017-03-17] MEDS: FOLIC ACID 1 MG TAB PO SCH (08:33)
[2017-03-17] MEDS: ASPIRIN 81 MG CHEW (CHILDREN'S ASA) PO SCH (08:33)
[2017-03-17] MEDS: DOCUSATE SODIUM 100 MG (COLACE) CAP PO SCH ×2 (08:33→20:59)
[2017-03-17] MEDS: VITAMIN D3 1,000 UNITS (CHOLECALCIFEROL) TABLET PO SCH (08:33)
--- NOTE | 2017-03-17 10:32 | ST Cognitive Linguistic Eval ---
Speech Evaluation-General Medical Diagnosis L3-L5 laminectomy Onset Date: Mar 10, 2017 Therapy Diagnosis Therapy Diagnosis: Cognitive Linguistic Function WNL Precautions Precautions/Isolations: Standard Precautions Referral Referring Physician: Dr. Lobito Estevez Reason for Referral: Evaluation/Treatment Cognitive Screen Medical History Pertinent Medical History: Atrial Fib, Arthritis, Neuropathy (L LE), Rheumatoid Arthritis Glaucoma Reviewed History: Yes Social History Current Living Status: Spouse Speech PLF-Current Status Prior Level of Function The patient denied cognitive, speech, or language challenges prior to admission. Subjective The patient was recently admitted to [facility] following a lumbar spine procedure. The patient greeted the clinician appropriately and agreed to participate in the cognitive screen on this date. Language Eval: Auditory Comprehends Simple Yes/No Ques: Functional Indent/Objects Multiple [place]: Functional Ident/Pics in Multiple [place]: Functional Follows 1-Step Commands: Functional Follows Complex Directions: Functional Follows General Conversations: Functional Language Eval: Verbal Language Completes Spontaneous Greeting: Functional Produces Auto, Serial Info: Functional Imitates Simple Words/Phrases: Functional Word Finding: Functional Requests Basic Needs: Functional States Basic Personal Info: Functional Expresses Complex Ideas: Functional Cognitive Patient Orientation The patient was oriented to name, location, month, day of week, date, and year ( independently). Objective Cognitive Domain Attention: WNL Memory: WNL Problem Solving: Functional Executive Functions: WNL Objective Impression The patient demonstrated cognitive linguistic skills within normal limits and appropriate for completion of ADL's. Communication/Social Cognition Comprehension: 6 Expression: 6 Social Interaction: 6 Problem Solvin Speech Patient Assess Expression of Ideas/Wants: Expression (4) Understanding [place] Content: Understands (4) Brief Interview-Mental Status: Yes Repetition of Three Words: Three (3) Temporal Orientation: Year: Correct (3) Temporal Orientation: Month: Accurate within 5 days(2) Temporal Orientation: Day: Correct (1) Recall : Wear to say "Sock": Yes, no cue required (2) Recall : Color: Yes, no cue required (2) Recall : Bed: Yes, no cue required (2) Speech-Plan Treatment Plan Speech Therapy Treatment Plan: Discontinue ST Evaluation, only. Rehab Potential: Good Safety Risks/Education Teaching Recipient: Patient Teaching Methods: Discussion Response to Teaching: Verbalize Understanding Education Topics Provided: Results, Recommendations, Plan of Care Time Speech Therapy Time In: 08:30 Speech Therapy Time Out: 08:45 Total Billed Time: 15 Billed Treatment Time 1, PETER RETANA Mar 17, 2017 10:31
--- NOTE | 2017-03-17 11:59 | Physical Therapy Daily Note ---
PT Daily Note-Current Subjective Pt. states she is not sleeping well here in this hospital bed . States she is making progress though and sees improvement in right foot DF already. Pain Numeric Pain Scale: 2 Location: Medial Location Body Site: Back Pain Description: Ache Mental Status Patient Orientation: Normal For Age Transfers Functional [place] Measure 0=Not Assessed/NA 4=Minimal Assistance 1=Total Assistance 5=Supervision or Setup 2=Maximal Assistance 6=Modified [place] 3=Moderate Assistance 7=Complete IndependenceIRFPAI Quality Coding Scale 6 Independent with activity with or without an assistive device 5 Patient requires set up or clean up by helper. Patient completes activity by themselves 4 Supervision or touching assist (CGA). [place] provide cues , steadying assist 3 The helper provides less than half the effort to complete the activity 2 The helper provides more than half the effort to complete the activity 1 Dependent. The helper does all the effort to complete an activity 7 Patient refused to complete or attempt activity 9 The patient did not perform the activity before the current illness or injury 88 Not attempted due to Medical conditions or safety concerns Transfers (B, C, W/C) (FIM): 5 Scootin Rollin Supine to/from Sit: 5 Sit to/from Stand: 5 Bed to/from Chair: 5 Gait Training Does the Patient Walk?: Yes Gait (FIM): 5 Distance (FIM): 3=150 ft (x3) Gait Level of Assist: 5 Gait Persons Needed: 1 Gait Assistive Device: FWW skilled instruction for DF with each step on right. improving. Pt. declines wearing AFO and shoe and hopes she will not have to wear AFO at all Stair Training Stair Training: Handrails/: 2 handrails Stairs (FIM): 5 #of Steps: 8 Stairs: Pattern: Step to Level of Assist: 5 Exercises Supine Ex: Ankle pumps, Quad Set, Rolling, Glut sets, Heel Slides, Short Arc Quads, Scooting, Hip abd/add Supine Reps: 15 Seated Therapy Exercises: Ankle pumps, Sit to stand, Long arc quads, Hip flexion Seated Reps: 10 Treatments experimented with rolling left and right and positioning on side for alternative position for sleep. Pt. found this comfortable and may try this tonight Assessment Current Status: Good Progress PT Short Term Goals Short Term Goals Time Frame: Mar 21, 2017 Transfers (B,C,W/C) (FIM): 6 Gait (FIM): 6 Distance (FIM): 3=150 ft Gait Assistive Device: FWW PT Penitentiary Goals Field Servicer Goals PT Penitentiary Goals Time Frame: March 28, 2017 Transfers (B,C,W/C) (FIM): 6 Sit to Lying (QC): 6 Lying-Sitting on Side/Bed(QC): 6 Sit to Stand (QC): 6 Rollin Roll Left to Right (QC): 6 Chair/Jih-zb-Wnhaw Xfer(QC): 6 Car Transfer (QC): 6 Does the Patient Walk: Yes Gait (FIM): 6 Gait distance (FIM): 3=150 ft Distance: 250' Walk 10 feet (QC): 6 Walk 10ft-Uneven Surface(QC): 6 Walk 50ft with 2 Turns (QC): 6 Walk 150 ft (QC): 6 Gait Level of Assist: 6 Gait Assistive Device: FWW Stairs (FIM): 6 # of Steps: 12 1 Step (curb) (QC): 6 4 Steps (QC): 6 12 Steps (QC): 6 Stairs Level Of Assist: 6 Picking up an Object (QC): 88 PT Plan Treatment/Plan Treatment Plan: Continue Plan of Care Treatment Plan: Bed Mobility, Education, Functional Activity [place], Functional Strength, Group Therapy, Gait, Safety, Therapeutic Exercise, Transfers Treatment Duration: March 28, 2017 Minutes/Day (M-F): 60-90 Minutes/Day (Sat/Vera): PRN Safety Risks/Education Patient Education: Gait Training, Transfer Techniques, Steps Teaching Recipient: Patient Teaching Methods: Demonstration, Discussion Response to Teaching: Verbalize Understanding, Return Demonstration Time/GCodes Time In: 1115 Time Out: 1200 Total Billed Treatment Time: 45 Total Billed Treatment 1,GT15m,FA15m,EX15m G Codes Necessary: MANASA Giron UNDERGROUND ELECTRICIAN Mar 17, 2017 11:58
--- NOTE | 2017-03-17 15:01 | Therapy Group Daily Note ---
Therapy Daily Group Note Patient Education Topic Home Safety Exercises LE Seated Exercise, Sit to/from Stand, UE Exercise Other/Notes Pt. attended group PT OT ST session this date. Pt. ambulated to from with FWW and CGA. Pt. introduced self and was social. Education and game this date focused on Home safety aspects. Pts did sit to stand and bag toss onto a safety topic written on scattered pieces of paper on floor. Pts expressed her views of safety of electrical cords etc. Voice exercises were also done per WAREHOUSE PICKER. Pt. to room after with min assist and bello at hand etc. Start Time: 13:00 Stop Time: 14:15 Total Billed Treatment Time: 75 Total Billed Treatment 1,GRP MANASA BARBER RRT Mar 17, 2017 15:01
--- NOTE | 2017-03-17 15:11 | Occupational Ther Daily Note ---
OT Current Status-Daily Note Subjective Pt alert, sitting in recliner. Pt agreed to therapy. No c/o pain. Mental Status/Objective Patient Orientation: Person, Place, Time, Situation Functional [place] Measure 0=Not Assessed/NA 4=Minimal Assistance 1=Total Assistance 5=Supervision or Setup 2=Maximal Assistance 6=Modified [place] 3=Moderate Assistance 7=Complete [place] Attachments: IV ADL-Treatment Pt stated that she had already completed sponge bath and dressed upper body and donned pants by self. Functional [place] Measure 0=Not Assessed/NA 4=Minimal Assistance 1=Total Assistance 5=Supervision or Setup 2=Maximal Assistance 6=Modified [place] 3=Moderate Assistance 7=Complete IndependenceIRFPAI Quality Coding Scale 6 Independent with activity with or without an assistive device 5 Patient requires set up or clean up by helper. Patient completes activity by themselves 4 Supervision or touching assist (CGA). [place] provide cues , steadying assist 3 The helper provides less than half the effort to complete the activity 2 The helper provides more than half the effort to complete the activity 1 Dependent. The helper does all the effort to complete an activity 7 Patient refused to complete or attempt activity 9 The patient did not perform the activity before the current illness or injury 88 Not attempted due to Medical conditions or safety concerns On/Off Footwear (QC): 3 (Pt able to use sock aide to don socks then requires min A to don shoes and tie.) Other Treatment Pt completed arm bike duration 15 min at 15 rausch resistance to increase strength and activity tolerance for daily functional skills. 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 Pt completed fine motor and UE strengthening tasks. 1# wt attached to wrist while completing resistive fine motor skills to increase strength for daily functional tasks. After therapy, pt sitting in recliner with call light/phone in reach. All needs met in room. Education OT Patient Education: Modified ADL techniques, Use of adapted equipment Teaching Recipient: Patient Teaching Methods: Demonstration Response to Teaching: Verbalize Understanding, Return Demonstration OT Short Term Goals Short Term Goals Time Frame: Mar 21, 2017 Eating(FIM): 7 Upper Body Dressing(FIM): 5 Lower Body Dressing(FIM): 5 Toileting(FIM): 5 Transfers (B,C,W/C) (FIM): 6 Toilet/Commode Transfer(FIM): 5 1=Demonstrate adherence to instructed precautions during ADL tasks. 2=Patient will verbalize/demonstrate understanding of assistive devices/ modifications for ADL. 3=Patient will improve strength/tolerance for activity to enable patient to perform ADL's. OT Livestock Commission Agent Goals Livestock Commission Agent Goals Time Frame: April 04, 2017 Eating (FIM): 7 (no dentures) Eating (QC): 6 Groomin Oral Hygiene (QC): 6 Bathing(FIM): 6 Shower/Bathe Self (QC): 6 Upper Body Dressing(FIM): 6 Upper Body Dressing (QC): 6 Lower Body Dressing(FIM): 6 Lower Body Dressing (QC): 6 On/Off Footwear (QC): 6 Toileting(FIM): 6 Toileting Hygiene (QC): 6 Toilet/Commode Transfer(FIM): 6 Toilet/Commode Transfer (QC): 6 Shower Transfer(FIM): 6 Additional Goals: 1-Demonstrate ADL Tasks, 2-Verbalize Understanding, 3- ImproveStrength/Estuardo 1=Demonstrate adherence to instructed precautions during ADL tasks. 2=Patient will verbalize/demonstrate understanding of assistive devices/ modifications for ADL. 3=Patient will improve strength/tolerance for activity to enable patient to perform ADL's. OT Education/Plan Problem List/Assessment Pt would benefit from skilled OT to increase her independence in basic self care to allow her to return home safely to live with her and decrease caregiver burden. Discharge Recommendations Plan/Recommendations: Continue POC Treatment Plan/Plan of Care Patient would benefit from OT for education, treatment and training to promote independence in ADL's, mobility, safety and/or upper extremity function for ADL' s. Treatment Duration: April 04, 2017 Visits Per Week: 10-11 Minutes/Day (M-F): 75-90 Minutes/Day (Sat/Vera): PRN Agreement: Yes Rehab Potential: Good Time/GCodes Start Time: 10:00 Stop Time: 11:00 Total Time Billed (hr/min): 60 Billed Treatment Time 1 visit-FA 2 (30 min) EX 2 (30 min) JES FRANKS Mar 17, 2017 15:11
[2017-03-17 18:00] VITALS: BP 138/83
--- NOTE | 2017-03-17 20:15 | PM & R (SOAP) Progress Note ---
Subjective Subjective/Events-last exam Patient was seen in her room earlier this evening and incision site viewed with RN Incision healing well and non drainage noted. Celeste in place Patient SBA for transfers Appreciate DR Tilley notes and orders.Had a transfusion of 1 unit PRBCS over the weekend for postop anemia Objective Exam Last Set of Vital Signs Vital Signs Date Time Temp Pulse Resp B/P (MAP) Pulse Ox O2 Delivery O2 Flow Rate FiO2 03/17/17 18:00 96.2 68 16 138/83 98 Room Air Capillary Refill : I&O Intake and Output 03/17/17 00:00 Intake Total 1280 ml Balance 1280 ml Intake Oral 1280 ml # Voids 6 # Bowel Movements 1 General: Alert, Oriented X3, Cooperative, No Acute Distress HEENT: Atraumatic, PERRLA, EOMI, Mucous Memb Moist/[place]: Supple, No JVD Lungs: Clear to Auscultation Heart: Regular Rate Abdomen: Normal Bowel Sounds, Soft, No Tenderness Extremities: No Edema Skin: Other (incision as per above) Neuro: Other (left foot drop) Results Lab Laboratory Tests 03/15/17 05:15: White Blood Count 4.6, Red Blood Count 2.28L, Hemoglobin 7.1L, Hematocrit 23L, Mean Corpuscular Volume 100H, Mean Corpuscular Hemoglobin 31, Mean Corpuscular Hemoglobin Concent 31L, Red Cell Distribution Width 14.0, Platelet Count 195, Mean Platelet Volume 9.8, Neutrophils (%) (Auto) 70, Lymphocytes (%) (Auto) 15, Monocytes (%) (Auto) 11, Eosinophils (%) (Auto) 4, Basophils (%) (Auto) 0, Neutrophils # (Auto) 3.2, Lymphocytes # (Auto) 0.7L, Monocytes # (Auto) 0.5, Eosinophils # (Auto) 0.2, Basophils # (Auto) 0.0, Prothrombin Time 13.2, INR Comment 1.0, Sodium Level 141, Potassium Level 3.2L, Chloride Level 106, Carbon Dioxide Level 27, Anion Gap 8, Blood Urea Nitrogen 9, Creatinine 0.69, Estimat Glomerular Filtration Rate > 60, BUN/Creatinine Ratio 13, Glucose Level 95, Calcium Level 8.2L, Total Bilirubin 0.7, Aspartate Amino Transf (AST/SGOT) 32, Alanine Aminotransferase (ALT/SGPT) 36, Alkaline Phosphatase 56, Total Protein 5.0L, Albumin 2.7L 03/16/17 05:30: White Blood Count 4.5, Red Blood Count 2.95L, Hemoglobin 8.8#L, Hematocrit 28L, Mean Corpuscular Volume 96, Mean Corpuscular Hemoglobin 30, Mean Corpuscular Hemoglobin Concent 31L, Red Cell Distribution Width 16.6H, Platelet Count 222, Mean Platelet Volume 9.2, Neutrophils (%) (Auto) 60, Lymphocytes (%) (Auto) 23, Monocytes (%) (Auto) 11, Eosinophils (%) (Auto) 5, Basophils (%) (Auto) 0, Neutrophils # (Auto) 2.7, Lymphocytes # (Auto) 1.0, Monocytes # (Auto) 0.5, Eosinophils # (Auto) 0.2, Basophils # (Auto) 0.0, Prothrombin Time 13.4, INR Comment 1.1, Sodium Level 143, Potassium Level 3.4L, Chloride Level 107, Carbon Dioxide Level 27, Anion Gap 9, Blood Urea Nitrogen 9, Creatinine 0.74, Estimat Glomerular Filtration Rate > 60, BUN/Creatinine Ratio 12, Glucose Level 90, Calcium Level 8.8, Total Bilirubin 1.0, Aspartate Amino Transf (AST/SGOT) 41H, Alanine Aminotransferase (ALT/SGPT) 44, Alkaline Phosphatase 62, Total Protein 5.5L, Albumin 3.0L Assessment/Plan Assessment Lumbar spinal stenosis s/p decompression and fusion KUM 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
[2017-03-17] MEDS: LATANOPROST 0.005% (XALATAN) OPHTH SOLN 2.5 ML OU SCH (20:58)
[2017-03-17] MEDS: warFARin 2 MG (COUMADIN) TAB PO SCH (20:58)
[2017-03-17] MEDS: POLYETHYLENE GLYCOL 17 GM (MIRALAX) PACK PO SCH (21:01)
[2017-03-17] MEDS: HYDROcodone/APAP 5 MG/325 MG (LORTAB) TAB PO PRN (23:02)
[2017-03-18 06:00] VITALS: BP 129/75
[2017-03-18] MEDS: KCL 10 MEQ TAB (MICRO K) PO SCH ×2 (06:32→17:09)
[2017-03-18] MEDS: PANTOPRAZOLE 40 MG (PROTONIX) TAB PO SCH (06:32)
[2017-03-18 06:36] LABS: INR 1.1 (0.8-1.4); PROTHROMBIN TIME PATIENT 13.7 SEC (12.2-14.7)
[2017-03-18] MEDS: IRON SUCROSE INJECTION 200 MG in NS (IVPB) 100 ML IV SCH (07:44)
[2017-03-18] MEDS: HYDROXYCHLOROQUINE 200 MG (PLAQUENIL) TAB PO SCH ×2 (07:52→20:11)
[2017-03-18] MEDS: VITAMIN D3 1,000 UNITS (CHOLECALCIFEROL) TABLET PO SCH (07:52)
[2017-03-18] MEDS: DOCUSATE SODIUM 100 MG (COLACE) CAP PO SCH ×2 (07:53→20:08)
[2017-03-18] MEDS: DILTIAZEM 60 MG (CARDIZEM) TAB PO SCH (07:53)
[2017-03-18] MEDS: ASPIRIN 81 MG CHEW (CHILDREN'S ASA) PO SCH (07:53)
[2017-03-18] MEDS: FOLIC ACID 1 MG TAB PO SCH (07:54)
[2017-03-18] MEDS: AMIODARONE 200 MG (CORDARONE) TAB PO SCH (07:54)
--- NOTE | 2017-03-18 11:59 | Physical Therapy Daily Note ---
PT Daily Note-Current Subjective Pt. feels she is better today and has more DF in feet/ankles today. Pain Numeric Pain Scale: 2 Location: Right Location Body Site: Hip Pain Description: Ache Mental Status Patient Orientation: Normal For Age Transfers Functional [place] Measure 0=Not Assessed/NA 4=Minimal Assistance 1=Total Assistance 5=Supervision or Setup 2=Maximal Assistance 6=Modified [place] 3=Moderate Assistance 7=Complete IndependenceIRFPAI Quality Coding Scale 6 Independent with activity with or without an assistive device 5 Patient requires set up or clean up by helper. Patient completes activity by themselves 4 Supervision or touching assist (CGA). [place] provide cues , steadying assist 3 The helper provides less than half the effort to complete the activity 2 The helper provides more than half the effort to complete the activity 1 Dependent. The helper does all the effort to complete an activity 7 Patient refused to complete or attempt activity 9 The patient did not perform the activity before the current illness or injury 88 Not attempted due to Medical conditions or safety concerns Transfers (B, C, W/C) (FIM): 6 Scootin Rollin Supine to/from Sit: 6 Sit to/from Stand: 6 Bed to/from Chair: 6 Gait Training Does the Patient Walk?: Yes Gait (FIM): 5 Distance (FIM): 3=150 ft (175x2) Gait Level of Assist: 5 Gait Persons Needed: 1 Gait Assistive Device: FWW kyphotic, slow, careful about DF concentrating on DF Stair Training Stair Training: Handrails/: 2 handrails Stairs (FIM): 5 #of Steps: 8 Stairs: Pattern: Step to Level of Assist: 5 Exercises Supine Ex: Ankle pumps, Quad Set, Rolling, Glut sets, Heel Slides, Short Arc Quads, Scooting, Hip abd/add Supine Reps: 15 NuStep Minutes: 10 NuStep Workload: 2 Treatments sidelying clam shells x12 ea Assessment Current Status: Good Progress good progress PT Short Term Goals Short Term Goals Time Frame: Mar 21, 2017 Transfers (B,C,W/C) (FIM): 6 Gait (FIM): 6 Distance (FIM): 3=150 ft Gait Assistive Device: FWW PT Longterm Goals Dealer Compliance Representative Goals PT Longterm Goals Time Frame: March 28, 2017 Transfers (B,C,W/C) (FIM): 6 Sit to Lying (QC): 6 Lying-Sitting on Side/Bed(QC): 6 Sit to Stand (QC): 6 Rollin Roll Left to Right (QC): 6 Chair/Hyh-hj-Myfix Xfer(QC): 6 Car Transfer (QC): 6 Does the Patient Walk: Yes Gait (FIM): 6 Gait distance (FIM): 3=150 ft Distance: 250' Walk 10 feet (QC): 6 Walk 10ft-Uneven Surface(QC): 6 Walk 50ft with 2 Turns (QC): 6 Walk 150 ft (QC): 6 Gait Level of Assist: 6 Gait Assistive Device: FWW Stairs (FIM): 6 # of Steps: 12 1 Step (curb) (QC): 6 4 Steps (QC): 6 12 Steps (QC): 6 Stairs Level Of Assist: 6 Picking up an Object (QC): 88 PT Plan Treatment/Plan Treatment Plan: Continue Plan of Care Treatment Plan: Bed Mobility, Education, Functional Activity Estuardo, Functional Strength, Group Therapy, Gait, Safety, Therapeutic Exercise, Transfers Treatment Duration: March 28, 2017 Minutes/Day (M-F): 60-90 Minutes/Day (Sat/Vera): PRN Safety Risks/Education Patient Education: Gait Training, Transfer Techniques, Steps Teaching Recipient: Patient, Primary Caregiver Response to Teaching: Verbalize Understanding, Return Demonstration, Reinforcement Needed Time/GCodes Time In: 1100 Time Out: 1200 Total Billed Treatment Time: 60 Total Billed Treatment 1,FA20m,EX25m,GT15m G Codes Necessary: MANASA Giron CANDY DECORATOR Mar 18, 2017 11:59
--- NOTE | 2017-03-18 15:00 | Physical Therapy Daily Note ---
PT Daily Note-Current Subjective Pt. sleeping hard in the chair upon arrival. States she would like to go home Fri or Sat but she has some iron injections scheduled Pain Numeric Pain Scale: 0-No Pain Mental Status Patient Orientation: Normal For Age Transfers Functional [place] Measure 0=Not Assessed/NA 4=Minimal Assistance 1=Total Assistance 5=Supervision or Setup 2=Maximal Assistance 6=Modified [place] 3=Moderate Assistance 7=Complete IndependenceIRFPAI Quality Coding Scale 6 Independent with activity with or without an assistive device 5 Patient requires set up or clean up by helper. Patient completes activity by themselves 4 Supervision or touching assist (CGA). [place] provide cues , steadying assist 3 The helper provides less than half the effort to complete the activity 2 The helper provides more than half the effort to complete the activity 1 Dependent. The helper does all the effort to complete an activity 7 Patient refused to complete or attempt activity 9 The patient did not perform the activity before the current illness or injury 88 Not attempted due to Medical conditions or safety concerns all TRFs mod I Gait Training Gait Assistive Device: FWW gait [id number], retro gait and side steps in narrow areas, no LOB Stair Training up/down 12 steps with SBA only Assessment Current Status: Good Progress PT Short Term Goals Short Term Goals Time Frame: Mar 21, 2017 Transfers (B,C,W/C) (FIM): 6 Gait (FIM): 6 Distance (FIM): 3=150 ft Gait Assistive Device: FWW PT Tattoo And Body Artist Goals Snf Goals PT Tattoo And Body Artist Goals Time Frame: March 28, 2017 Transfers (B,C,W/C) (FIM): 6 Sit to Lying (QC): 6 Lying-Sitting on Side/Bed(QC): 6 Sit to Stand (QC): 6 Rollin Roll Left to Right (QC): 6 Chair/Vux-ip-Cndvl Xfer(QC): 6 Car Transfer (QC): 6 Does the Patient Walk: Yes Gait (FIM): 6 Gait distance (FIM): 3=150 ft Distance: 250' Walk 10 feet (QC): 6 Walk 10ft-Uneven Surface(QC): 6 Walk 50ft with 2 Turns (QC): 6 Walk 150 ft (QC): 6 Gait Level of Assist: 6 Gait Assistive Device: FWW Stairs (FIM): 6 # of Steps: 12 1 Step (curb) (QC): 6 4 Steps (QC): 6 12 Steps (QC): 6 Stairs Level Of Assist: 6 Picking up an Object (QC): 88 PT Plan Treatment/Plan Treatment Plan: Continue Plan of Care Treatment Plan: Bed Mobility, Education, Functional Activity Estuardo, Functional Strength, Group Therapy, Gait, Safety, Therapeutic Exercise, Transfers Treatment Duration: March 28, 2017 Minutes/Day (M-F): 60-90 Minutes/Day (Sat/Vera): PRN Safety Risks/Education Patient Education: Gait Training, Transfer Techniques, Steps Teaching Recipient: Patient Teaching Methods: Demonstration, Discussion Response to Teaching: Verbalize Understanding, Return Demonstration discussed safe chair approach and management of FWW during this Time/GCodes Time In: 1430 Time Out: 1500 Total Billed Treatment Time: 30 Total Billed Treatment 1,GT30m G Codes Necessary: MANASA Giron CLINICAL IMMUNOLOGIST Mar 18, 2017 15:00
--- NOTE | 2017-03-18 15:25 | Occupational Ther Daily Note ---
OT Current Status-Daily Note Subjective Pt seen in room, up in recliner, agreeable to OT. No pain mentioned Appearance Alert, cooperative Mental Status/Objective Functional [place] Measure 0=Not Assessed/NA 4=Minimal Assistance 1=Total Assistance 5=Supervision or Setup 2=Maximal Assistance 6=Modified [place] 3=Moderate Assistance 7=Complete [place] ADL-Treatment Pt was concerned about edema on tops of feet and around ankles. She said she had worn LENNY hose and, when she took them off, she was swollen around the tops of the socks and the tops of her feet. it was also uncomfortable and made it harder to put slipper socks on. Gentle retrograde massage done to tops of both feet and around ankles and pt education on how to do it so that she can have her and daughter help her with this. Edema did decrease around ankles and top of foot and pt reported her feet felt much better. Got the OK from Dr Estevez to put jared wraps on feet to maintain the decreased edema. Feet wrapped in figure of 8 wrap to just above ankles and larger slipper socks put on over them. Pt walked to gym with SBA for safety, FWW and said her feet felt good. Pt can take the wraps off if they become uncomfortable or when she is in bed. Functional [place] Measure 0=Not Assessed/NA 4=Minimal Assistance 1=Total Assistance 5=Supervision or Setup 2=Maximal Assistance 6=Modified [place] 3=Moderate Assistance 7=Complete IndependenceIRFPAI Quality Coding Scale 6 Independent with activity with or without an assistive device 5 Patient requires set up or clean up by helper. Patient completes activity by themselves 4 Supervision or touching assist (CGA). [place] provide cues , steadying assist 3 The helper provides less than half the effort to complete the activity 2 The helper provides more than half the effort to complete the activity 1 Dependent. The helper does all the effort to complete an activity 7 Patient refused to complete or attempt activity 9 The patient did not perform the activity before the current illness or injury 88 Not attempted due to Medical conditions or safety concerns Other Treatment In the gym, pt did 15 minutes bilat UE exercise on the arm bike set at 25W resistance. This is to strengthen arms to help with transfers and safety during ADLs. She did not require any rest or recovery breaks. Pt walked back to room with SBA for safety, FWW and was left up in recliner, all needs met. Education OT Patient Education: Progress toward Goal/Update tx plan, Purpose of tx/ functional activities, Other (edema management and retrograde massage, jared wrapping) Teaching Recipient: Patient Teaching Methods: Demonstration, Discussion Response to Teaching: Verbalize Understanding, Return Demonstration OT Short Term Goals Short Term Goals Time Frame: Mar 21, 2017 Eating(FIM): 7 Upper Body Dressing(FIM): 5 Lower Body Dressing(FIM): 5 Toileting(FIM): 5 Transfers (B,C,W/C) (FIM): 6 Toilet/Commode Transfer(FIM): 5 1=Demonstrate adherence to instructed precautions during ADL tasks. 2=Patient will verbalize/demonstrate understanding of assistive devices/ modifications for ADL. 3=Patient will improve strength/tolerance for activity to enable patient to perform ADL's. OT Cause Analyst Goals Cause Analyst Goals Time Frame: April 04, 2017 Eating (FIM): 7 (no dentures) Eating (QC): 6 Groomin Oral Hygiene (QC): 6 Bathing(FIM): 6 Shower/Bathe Self (QC): 6 Upper Body Dressing(FIM): 6 Upper Body Dressing (QC): 6 Lower Body Dressing(FIM): 6 Lower Body Dressing (QC): 6 On/Off Footwear (QC): 6 Toileting(FIM): 6 Toileting Hygiene (QC): 6 Toilet/Commode Transfer(FIM): 6 Toilet/Commode Transfer (QC): 6 Shower Transfer(FIM): 6 Additional Goals: 1-Demonstrate ADL Tasks, 2-Verbalize Understanding, 3- ImproveStrength/Estuardo 1=Demonstrate adherence to instructed precautions during ADL tasks. 2=Patient will verbalize/demonstrate understanding of assistive devices/ modifications for ADL. 3=Patient will improve strength/tolerance for activity to enable patient to perform ADL's. OT Education/Plan Problem List/Assessment Pt would benefit from skilled OT to increase her independence in basic self care to allow her to return home safely to live with her and decrease caregiver burden. Discharge Recommendations Plan/Recommendations: Continue POC Treatment Plan/Plan of Care Patient would benefit from OT for education, treatment and training to promote independence in ADL's, mobility, safety and/or upper extremity function for ADL' s. Treatment Duration: April 04, 2017 Visits Per Week: 10-11 Minutes/Day (M-F): 75-90 Minutes/Day (Sat/Vera): PRN Agreement: Yes Rehab Potential: Good Time/GCodes Start Time: 10:00 Stop Time: 11:00 Total Time Billed (hr/min): 60 Billed Treatment Time visit, 40 minutes neuromotor, 20 minutes exercise BALAJI LYNN OT Mar 18, 2017 15:25
--- NOTE | 2017-03-18 15:50 | Occupational Ther Daily Note ---
OT Current Status-Daily Note Subjective Pt seen in room, up in recliner, agreeable to OT. Pt reported feet still felt good in the jared wraps Appearance Alert, cooperative Mental Status/Objective Functional [place] Measure 0=Not Assessed/NA 4=Minimal Assistance 1=Total Assistance 5=Supervision or Setup 2=Maximal Assistance 6=Modified [place] 3=Moderate Assistance 7=Complete [place] ADL-Treatment Functional [place] Measure 0=Not Assessed/NA 4=Minimal Assistance 1=Total Assistance 5=Supervision or Setup 2=Maximal Assistance 6=Modified [place] 3=Moderate Assistance 7=Complete IndependenceIRFPAI Quality Coding Scale 6 Independent with activity with or without an assistive device 5 Patient requires set up or clean up by helper. Patient completes activity by themselves 4 Supervision or touching assist (CGA). [place] provide cues , steadying assist 3 The helper provides less than half the effort to complete the activity 2 The helper provides more than half the effort to complete the activity 1 Dependent. The helper does all the effort to complete an activity 7 Patient refused to complete or attempt activity 9 The patient did not perform the activity before the current illness or injury 88 Not attempted due to Medical conditions or safety concerns Toileting (FIM): 5 Toilet/Commode Transfer (FIM): 5 Other Treatment Pt walked to gym with SBA for safety, FWW and did bilat UE exercise with 1# exercise bar. Although she has a 10# lifting restriction for her back, she reported that her earth moving technician has limited her to about 3# lifting with her hands, to prevent wrist swelling. Pt did 15 reps bilat UE ex with bar, working on shoulders, elbows and wrists. She also did 15 reps bilat UE ex with 1# weight on each arm, for shoulders, elbows, forearms and wrists. Pt did 10 reps bilat shoulder AROM with hold to help decrease tension in shoulders and increase comfortable range, and she was shown how to do arm chair pushups to strengthen shoulders, as needed for transfers. These did not cause any pain in her back. Pt walked back to room, toileted with SBA and SBA toilet transfer and then was returned to her recliner, all needs met. Education OT Patient Education: Exercise program, Progress toward Goal/Update tx plan Teaching Recipient: Patient Teaching Methods: Discussion Response to Teaching: Verbalize Understanding OT Short Term Goals Short Term Goals Time Frame: Mar 21, 2017 Eating(FIM): 7 Upper Body Dressing(FIM): 5 Lower Body Dressing(FIM): 5 Toileting(FIM): 5 Transfers (B,C,W/C) (FIM): 6 Toilet/Commode Transfer(FIM): 5 1=Demonstrate adherence to instructed precautions during ADL tasks. 2=Patient will verbalize/demonstrate understanding of assistive devices/ modifications for ADL. 3=Patient will improve strength/tolerance for activity to enable patient to perform ADL's. OT Care Home Goals Care Home Goals Time Frame: April 04, 2017 Eating (FIM): 7 (no dentures) Eating (QC): 6 Groomin Oral Hygiene (QC): 6 Bathing(FIM): 6 Shower/Bathe Self (QC): 6 Upper Body Dressing(FIM): 6 Upper Body Dressing (QC): 6 Lower Body Dressing(FIM): 6 Lower Body Dressing (QC): 6 On/Off Footwear (QC): 6 Toileting(FIM): 6 Toileting Hygiene (QC): 6 Toilet/Commode Transfer(FIM): 6 Toilet/Commode Transfer (QC): 6 Shower Transfer(FIM): 6 Additional Goals: 1-Demonstrate ADL Tasks, 2-Verbalize Understanding, 3- ImproveStrength/[place] 1=Demonstrate adherence to instructed precautions during ADL tasks. 2=Patient will verbalize/demonstrate understanding of assistive devices/ modifications for ADL. 3=Patient will improve strength/tolerance for activity to enable patient to perform ADL's. OT Education/Plan Problem List/Assessment Pt would benefit from skilled OT to increase her independence in basic self care to allow her to return home safely to live with her and decrease caregiver burden. Discharge Recommendations Plan/Recommendations: Continue POC Treatment Plan/Plan of Care Patient would benefit from OT for education, treatment and training to promote independence in ADL's, mobility, safety and/or upper extremity function for ADL' s. Treatment Duration: April 04, 2017 Visits Per Week: 10-11 Minutes/Day (M-F): 75-90 Minutes/Day (Sat/Vera): PRN Agreement: Yes Rehab Potential: Good Time/GCodes Start Time: 13:00 Stop Time: 13:30 Total Time Billed (hr/min): 30 Billed Treatment Time visit, 25 minutes exercise, 5 minutes ADL BALAJI LYNN OT Mar 18, 2017 15:50
[2017-03-18 18:59] VITALS: BP 135/80
--- NOTE | 2017-03-18 19:36 | PM & R (SOAP) Progress Note ---
Subjective Subjective/Events-last exam Patient was seen in her room this AM Progressing well with therapies Appreciate DR Tilley note and dulce anemia improving with replacement,Patient Modified Independent for transfers Objective Exam Last Set of Vital Signs Vital Signs Date Time Temp Pulse Resp B/P (MAP) Pulse Ox O2 Delivery O2 Flow Rate FiO2 03/18/17 06:00 98.3 72 18 129/75 93 Room Air Capillary Refill : I&O Intake and Output 03/18/17 00:00 Intake Total 2200 ml Balance 2200 ml Intake Oral 2200 ml # Voids 9 General: Alert, Oriented X3, Cooperative, No Acute Distress HEENT: Atraumatic, PERRLA, EOMI, Mucous Memb Moist/[place] Neck: Supple, No JVD Lungs: Clear to Auscultation Heart: Regular Rate Abdomen: Normal Bowel Sounds, Soft, No Tenderness Extremities: No Edema Skin: Other (incision as per above) Neuro: Other (left foot drop) Results Lab Laboratory Tests 03/16/17 05:30: White Blood Count 4.5, Red Blood Count 2.95L, Hemoglobin 8.8#L, Hematocrit 28L, Mean Corpuscular Volume 96, Mean Corpuscular Hemoglobin 30, Mean Corpuscular Hemoglobin Concent 31L, Red Cell Distribution Width 16.6H, Platelet Count 222, Mean Platelet Volume 9.2, Neutrophils (%) (Auto) 60, Lymphocytes (%) (Auto) 23, Monocytes (%) (Auto) 11, Eosinophils (%) (Auto) 5, Basophils (%) (Auto) 0, Neutrophils # (Auto) 2.7, Lymphocytes # (Auto) 1.0, Monocytes # (Auto) 0.5, Eosinophils # (Auto) 0.2, Basophils # (Auto) 0.0, Prothrombin Time 13.4, INR Comment 1.1, Sodium Level 143, Potassium Level 3.4L, Chloride Level 107, Carbon Dioxide Level 27, Anion Gap 9, Blood Urea Nitrogen 9, Creatinine 0.74, Estimat Glomerular Filtration Rate > 60, BUN/Creatinine Ratio 12, Glucose Level 90, Calcium Level 8.8, Total Bilirubin 1.0, Aspartate Amino Transf (AST/SGOT) 41H, Alanine Aminotransferase (ALT/SGPT) 44, Alkaline Phosphatase 62, Total Protein 5.5L, Albumin 3.0L 03/18/17 06:15: Prothrombin Time 13.7, INR Comment 1.1 Assessment/Plan Assessment Lumbar spinal stenosis s/p decompression and fusion [facility] Left foot drop associated with above RA on Plaquenil Hypokalemia replacement provided A FIB controlled with meds Chronic anticoagulation Post-op anemia improved s/p transfusion 1 unit PRBCS Plan Continue PT/OT F/U with DR Frances PRN Team CONference tomorrow 03/19/17 Monitor INR and adjust meds as needed ENRIQUE MEJIA MD Mar 18, 2017 19:36
--- NOTE | 2017-03-18 19:42 | Individualized Plan of Care ---
Individualized Plan of Care Rehab Nursing IPOC Order Admission Date Mar 14, 2017 at 16:15 Current Orders Orders Cbc With Automated Diff (03/19/17 06:00) Comprehensive Metabolic Panel (03/19/17 06:00) Protime With Inr (03/19/17 06:00) Patient Visit (03/18/17 ) Functional Activities, Ea 15 (03/18/17 ) Gait Training, Ea 15 Min (03/18/17 ) Exercise Therap, Ea 15 Min (03/18/17 ) Rehab Nursing Orders: Diseage Management, Edu in Press Rel Techn, Hydration Management, Nutrition Management, Pain Management PT IPOC Problem List: Activity Tolerance, Functional Strength Treatment Plan: Continue Plan of Care Bed Mobility, Education, Functional Activity Estuardo, Functional Strength, Group Therapy, Gait, Safety, Therapeutic Exercise, Transfers Treatment Duration: March 28, 2017 Visits Per Week: 10-11 Minutes/Day (M-F): 60-90 Minutes/Day (Sat/Vera): PRN OT IPOC Problems: Decreased Activ Tolerance, Decreased UE Strength, Dependent Transfers , Impaired Funct Balance, Impaired Self-Care Skills OT Problems Pt would benefit from skilled OT to increase her independence in basic self care to allow her to return home safely to live with her and decrease caregiver burden. Treatment Duration: April 04, 2017 Visits Per Week: 10-11 Minutes/Day (M-F): 75-90 Minutes/Day (Sat/Vera): PRN ST IPOC Speech Therapy Treatment Plan: Discontinue ST Physician IPOC Medical Issues being managed closely and that require the 24 hour availability of a physician: postop anemia, Chronic anticoagulation for a fib pain management , Medical Issues: Bowel/Bladder Function, DVT Prophylaxis, Falls Precautions, Fluid/Electrolyte/Nutrition Balance, Infection Protection, Pain Management, Wound Care, Other (List) (as per above) Brief Synthesis of Preadmission Screen, Post-Admission Evaluation, and Therapy Evaluations: Patient is a 77 yo female who recently moved to this area to be near daughter who has had corrective Lumbar spine surgery for painful Spinal stenosis assocated with left foot drop and radiculopathy.Referred to IRU for ongoing care and therapies Had significant Postop anemia and Transfusion provided with improvement Patient chronically anticoagulated with Coumadin for A FIB Whitaker d been Modified Independent prior to this Medical Prognosis: good Anticipated Length of Stay: 03/28/17 Rehab Goals Modified Independent for adls and mobility skills Anticipated discharge destinat: Home with spouse and C ENRIQUE MEJIA MD Mar 18, 2017 19:42
[2017-03-18] MEDS: POLYETHYLENE GLYCOL 17 GM (MIRALAX) PACK PO SCH (20:07)
[2017-03-18] MEDS: warFARin 2 MG (COUMADIN) TAB PO SCH (20:07)
[2017-03-18] MEDS: LATANOPROST 0.005% (XALATAN) OPHTH SOLN 2.5 ML OU SCH (20:09)
[2017-03-19 05:00] VITALS: BP 123/79
[2017-03-19] MEDS: PANTOPRAZOLE 40 MG (PROTONIX) TAB PO SCH (06:13)
[2017-03-19] MEDS: KCL 10 MEQ TAB (MICRO K) PO SCH ×2 (06:14→11:29)
[2017-03-19 06:46] LABS: BASOPHILS % (AUTO) 1 % (0-10); EOSINOPHILS # (AUTO) 0.4 10^3/uL (0.0-0.3); EOSINOPHILS % (AUTO) 6 % (0-10); LYMPHOCYTES # (AUTO) 1.1 X 10^3 (1.0-4.0); LYMPHOCYTES % (AUTO) 18 % (12-44); MEAN CORPUSCULAR HEMOGLOBIN 30 PG (25-34); MEAN CORPUSCULAR HGB CONC 31 G/DL (32-36); MEAN CORPUSCULAR VOLUME 97 FL (80-99); MEAN PLATELET VOLUME 8.9 FL (7.4-10.4); MONOCYTES # (AUTO) 0.4 X 10^3 (0.0-1.0); MONOCYTES % (AUTO) 7 % (0-12); NEUTROPHILS % (AUTO) 68 % (42-75); PLATELET COUNT 387 10^3/uL (130-400); RED CELL DISTRIBUTION WIDTH 15.2 % (10.0-14.5); WHITE BLOOD COUNT 5.9 10^3/uL (4.3-11.0)
[2017-03-19 06:49] LABS: INR 1.2 (0.8-1.4); PROTHROMBIN TIME PATIENT 15.1 SEC (12.2-14.7)
[2017-03-19 07:04] LABS: ALBUMIN 3.6 G/DL (3.2-4.5); BILIRUBIN,TOTAL 0.8 MG/DL (0.1-1.0); CALCIUM 9.6 MG/DL (8.5-10.1); CREATININE SERUM 0.92 MG/DL (0.60-1.30); POTASSIUM 4.4 MMOL/L (3.6-5.0); TOTAL PROTEIN 6.6 G/DL (6.4-8.2)
[2017-03-19] MEDS: FOLIC ACID 1 MG TAB PO SCH (08:05)
[2017-03-19] MEDS: ASPIRIN 81 MG CHEW (CHILDREN'S ASA) PO SCH (08:06)
[2017-03-19] MEDS: AMIODARONE 200 MG (CORDARONE) TAB PO SCH (08:06)
[2017-03-19] MEDS: HYDROXYCHLOROQUINE 200 MG (PLAQUENIL) TAB PO SCH ×2 (08:06→20:54)
[2017-03-19] MEDS: DILTIAZEM 60 MG (CARDIZEM) TAB PO SCH (08:07)
[2017-03-19] MEDS: DOCUSATE SODIUM 100 MG (COLACE) CAP PO SCH ×2 (08:07→20:55)
[2017-03-19] MEDS: VITAMIN D3 1,000 UNITS (CHOLECALCIFEROL) TABLET PO SCH (08:07)
--- NOTE | 2017-03-19 08:57 | Occupational Ther Daily Note ---
OT Current Status-Daily Note Subjective Pt seen in room, up in recliner, agreeable to OT. No pain mentioned. Appearance Alert, cooperative Mental Status/Objective Functional [place] Measure 0=Not Assessed/NA 4=Minimal Assistance 1=Total Assistance 5=Supervision or Setup 2=Maximal Assistance 6=Modified [place] 3=Moderate Assistance 7=Complete [place] ADL-Treatment Pt described how she bathed herself with setup this morning. She sits on a chair at the sink and nursing brought her towels. She ran her sponge bath water and washed all parts, standing at the sink for support, if needed. She dressed herself after clothes were brought to her but put her dirty ones away, with supervision. She did not have to use any assistive devices for dressing this morning but has been using the hand wrapper operator to cone picker items. She also grooms at the sink mod I. She reported that the BSC over the toilet now feels too tall for her (it was helpful when she first came here to have the arms for help with transfers. She walked to the bathroom SBA, FWW and practiced getting on and off tall toilet, problem-solving where to put her hands for best support and to avoid twisting. She was able to get up and down without help and felt safe with the transfer. Pt and OT problem-solved where her might place a grab bar by her toilet at home. Pt education/discussion on other equipment she may need in her bathroom. Pt educ on different types of reachers - some are better for use in the kitchen. She is interested in energy conservation and joint protection information, since she has RA and some ulnar drift already in her hands (jessy L index). There are many assistive devices that can help save her hands from potential future deformities and make ADLs easier. Pt had questions about how long to use her walker, when she can use a cane, when she can use her FWW - referred to PT. She also reported that she is not wearing her AFO at this time because the felt that it was contributing to numbness in her foot - she said her foot does not drag when she walks. Pt walked to closet with FWW and retrieved a book - pt educ on keeping close to objects in closet to avoid strain on her back and risk of falling. pt left up in recliner, all needs met. Functional [place] Measure 0=Not Assessed/NA 4=Minimal Assistance 1=Total Assistance 5=Supervision or Setup 2=Maximal Assistance 6=Modified [place] 3=Moderate Assistance 7=Complete IndependenceIRFPAI Quality Coding Scale 6 Independent with activity with or without an assistive device 5 Patient requires set up or clean up by helper. Patient completes activity by themselves 4 Supervision or touching assist (CGA). [place] provide cues , steadying assist 3 The helper provides less than half the effort to complete the activity 2 The helper provides more than half the effort to complete the activity 1 Dependent. The helper does all the effort to complete an activity 7 Patient refused to complete or attempt activity 9 The patient did not perform the activity before the current illness or injury 88 Not attempted due to Medical conditions or safety concerns Education OT Patient Education: Energy conservation, Modified ADL techniques, Purpose of tx/functional activities, Safety issues, Use of adapted equipment, Other (joint protection) Teaching Methods: Discussion Response to Teaching: Verbalize Understanding, Return Demonstration OT Short Term Goals Short Term Goals Time Frame: Mar 21, 2017 Eating(FIM): 7 Upper Body Dressing(FIM): 5 Lower Body Dressing(FIM): 5 Toileting(FIM): 5 Transfers (B,C,W/C) (FIM): 6 Toilet/Commode Transfer(FIM): 5 1=Demonstrate adherence to instructed precautions during ADL tasks. 2=Patient will verbalize/demonstrate understanding of assistive devices/ modifications for ADL. 3=Patient will improve strength/tolerance for activity to enable patient to perform ADL's. OT Long-Term Goals Long-Term Goals Time Frame: April 04, 2017 Eating (FIM): 7 (no dentures) Eating (QC): 6 Groomin Oral Hygiene (QC): 6 Bathing(FIM): 6 Shower/Bathe Self (QC): 6 Upper Body Dressing(FIM): 6 Upper Body Dressing (QC): 6 Lower Body Dressing(FIM): 6 Lower Body Dressing (QC): 6 On/Off Footwear (QC): 6 Toileting(FIM): 6 Toileting Hygiene (QC): 6 Toilet/Commode Transfer(FIM): 6 Toilet/Commode Transfer (QC): 6 Shower Transfer(FIM): 6 Additional Goals: 1-Demonstrate ADL Tasks, 2-Verbalize Understanding, 3- ImproveStrength/[place] 1=Demonstrate adherence to instructed precautions during ADL tasks. 2=Patient will verbalize/demonstrate understanding of assistive devices/ modifications for ADL. 3=Patient will improve strength/tolerance for activity to enable patient to perform ADL's. OT Education/Plan Problem List/Assessment Pt would benefit from skilled OT to increase her independence in basic self care to allow her to return home safely to live with her and decrease caregiver burden. Discharge Recommendations Plan/Recommendations: Continue POC Treatment Plan/Plan of Care Patient would benefit from OT for education, treatment and training to promote independence in ADL's, mobility, safety and/or upper extremity function for ADL' s. Treatment Duration: April 04, 2017 Visits Per Week: 10-11 Minutes/Day (M-F): 75-90 Minutes/Day (Sat/Vera): PRN Agreement: Yes Rehab Potential: Good Time/GCodes Start Time: 08:10 Stop Time: 08:50 Total Time Billed (hr/min): 40 Billed Treatment Time visit, 40 minutes ADL BALAJI LYNN OT Mar 19, 2017 08:57
--- NOTE | 2017-03-19 11:13 | Progress Note-Hospitalist ---
Progress Note HPI/CC on Admission CC: Medical management following lumbar spine surgery for lumbar stenosis causing left foot drop HPI: This is a 77-year-old white female new clinic patient of mine that moved from [place] to [place] to be closer to her daughter who is speech and hearing director at assisted living facility in [place] who presents to inpatient rehabilitation following an uncomplicated lumbar spine surgery. I did speak with orthopedic surgery from [facility] who reported transfusion 1 unit without complications and 1 dose of iron infusion and overall had an uncomplicated hospital course. I reviewed her labs today showing hemoglobin of 7.1 and potassium 3.2 and I did speak with her in depth and she is agreeable to 1 more unit of blood and then continuing iron infusions for the full 4 more doses. Her bowel meds are doing pretty well and declines any additional medication. Limiting pain meds and doing well walking. Progress Notes/Assess & Plan Date Seen 03/19/17 Admission Dx/Process Assessment: Status post uncomplicated lumbar spine surgery due to severe lumbar stenosis causing left foot drop by Dr. 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 Pt will restart Lovenox and will be able to take her Warfarin as well. Pt bridged five days before her recent surgery. Physical exam stable Pt was able to ambulate today No fever, vital signs stable, pleasant, frail Irregular rate and rhythm 1+ edema Assessment: Status post uncomplicated lumbar spine surgery due to severe lumbar stenosis causing left foot drop by Dr. Weinstein at [facility] POD # 9 Postop anemia requiring 1 unit of blood while hospitalized at and s/p 1 more unit 4 days ago Chronic fibrillation with history of rapid ventricular response placed on Coumadin therapy and restarted 2 days ago INR 1.1 Iron deficiency requiring iron infusions starting tomorrow for 4 more doses to complete the one they gave her a [facility] Rheumatoid arthritis Left foot drop with other peripheral neuropathy Hyperparathyroidism Edema Plan: Iron infusions - last one Friday morning. Monitor INR Stop MVI b/c it nauseates her Monitor closely for AF with RVR Compression stockings Possible Lasix Possible DC Friday. Lovenox at home for 5 days. Continue Coumadin Scribed by Wallace Chung under the direct supervision of Dr. Frances. YSABEL FRANCES DO Mar 19, 2017 11:13
[2017-03-19] MEDS: ENOXAPARIN 80 MG/0.8 ML (LOVENOX) SYR SC SCH ×2 (11:36→22:13)
--- NOTE | 2017-03-19 11:56 | Progress Note-Hospitalist ---
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 I did speak with orthopedic surgery from [facility] who reported transfusion 1 unit without complications and 1 dose of iron infusion and overall had an uncomplicated hospital course. I reviewed her labs today showing hemoglobin of 7.1 and potassium 3.2 and I did speak with her in depth and she is agreeable to 1 more unit of blood and then continuing iron infusions for the full 4 more doses. Her bowel meds are doing pretty well and declines any additional medication. Limiting pain meds and doing well walking. Progress Notes/Assess & Plan Date Seen 03/19/17 Admission Dx/Process Assessment: Status post uncomplicated lumbar spine surgery due to severe lumbar stenosis causing left foot drop by Dr. 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 Pt will restart Lovenox and will be able to take her Warfarin as well. Pt bridged five days before her recent surgery. Physical exam stable Pt was able to ambulate today No fever, vital signs stable, pleasant, frail Irregular rate and rhythm 1+ edema yesterday but improved trace Laboratory Tests 03/19/17 06:32 Assessment: Status post uncomplicated lumbar spine surgery due to severe lumbar stenosis causing left foot drop by Dr. 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 Monitor INR Monitor closely for AF with RVR Compression stockings Possible DC Friday. Lovenox at home for ~5 days. Continue Coumadin but increase dose at 8mg today Scribed by Wallace Chung under the direct supervision of Dr. Frances. YSABEL FRANCES DO Mar 19, 2017 11:56
--- NOTE | 2017-03-19 12:02 | Physical Therapy Daily Note ---
PT Daily Note-Current Subjective Pt. feels ready to be up ad sulema and states she spoke with Dr Frances this morning who states she will have an infusion on Friday and can then go home . Pt. is thrilled Pain Numeric Pain Scale: 3 Location: Right Location Body Site: Hip Pain Description: Ache Comment: with supine heel slides Mental Status Patient Orientation: Normal For Age Transfers Functional [place] Measure 0=Not Assessed/NA 4=Minimal Assistance 1=Total Assistance 5=Supervision or Setup 2=Maximal Assistance 6=Modified [place] 3=Moderate Assistance 7=Complete IndependenceIRFPAI Quality Coding Scale 6 Independent with activity with or without an assistive device 5 Patient requires set up or clean up by helper. Patient completes activity by themselves 4 Supervision or touching assist (CGA). [place] provide cues , steadying assist 3 The helper provides less than half the effort to complete the activity 2 The helper provides more than half the effort to complete the activity 1 Dependent. The helper does all the effort to complete an activity 7 Patient refused to complete or attempt activity 9 The patient did not perform the activity before the current illness or injury 88 Not attempted due to Medical conditions or safety concerns Transfers (B, C, W/C) (FIM): 6 Scootin Rollin Supine to/from Sit: 6 Sit to/from Stand: 6 Bed to/from Chair: 6 Gait Training Does the Patient Walk?: Yes Gait (FIM): 6 Distance (FIM): 3=150 ft (200x3) Gait Level of Assist: 6 Gait Persons Needed: 0 Gait Assistive Device: FWW improved DF left but pt. needs to concentrate on this with each step Stair Training Stair Training: Handrails/: 2 handrails Stairs (FIM): 6 #of Steps: 12 Stairs: Pattern: Step to Level of Assist: 6 Exercises Supine Ex: Ankle pumps, Quad Set, Rolling, Glut sets, Heel Slides, Short Arc Quads, Scooting, Straight leg raise (w assist x5 ea only), Hip abd/add Standing: Hip Abduction, Hamstring curls, Heel/toe raises, Marching, Mini squats, Sit to Stand Standing Reps: 12 NuStep Minutes: 10 NuStep Workload: 2 Treatments observed up ad sulema in bathroom etc, no LOB, safe habits etc Assessment Current Status: Excellent Progress meets goals PT Short Term Goals Short Term Goals Time Frame: Mar 21, 2017 Transfers (B,C,W/C) (FIM): 6 (met 4-25) Gait (FIM): 6 (met 4-25) Distance (FIM): 3=150 ft Gait Assistive Device: FWW PT Senior Living Goals Change Control Manager Goals PT Change Control Manager Goals Time Frame: March 28, 2017 Transfers (B,C,W/C) (FIM): 6 Sit to Lying (QC): 6 Lying-Sitting on Side/Bed(QC): 6 Sit to Stand (QC): 6 Rollin Roll Left to Right (QC): 6 Chair/[id number]-Apvtd Xfer(QC): 6 Car Transfer (QC): 6 Does the Patient Walk: Yes Gait (FIM): 6 Gait distance (FIM): 3=150 ft Distance: 250' Walk 10 feet (QC): 6 Walk 10ft-Uneven Surface(QC): 6 Walk 50ft with 2 Turns (QC): 6 Walk 150 ft (QC): 6 Gait Level of Assist: 6 Gait Assistive Device: FWW Stairs (FIM): 6 # of Steps: 12 1 Step (curb) (QC): 6 4 Steps (QC): 6 12 Steps (QC): 6 Stairs Level Of Assist: 6 Picking up an Object (QC): 88 PT Plan Treatment/Plan Treatment Plan: Continue Plan of Care Treatment Plan: Bed Mobility, Education, Functional Activity Estuardo, Functional Strength, Group Therapy, Gait, Safety, Therapeutic Exercise, Transfers Treatment Duration: March 28, 2017 Visits Per Week: 10-11 Minutes/Day (M-F): 60-90 Minutes/Day (Sat/Vera): PRN Safety Risks/Education Patient Education: Gait Training, Transfer Techniques, Steps, Issued Written HEP, Correct Positioning, Disease Process, Safety Issues Teaching Recipient: Patient Teaching Methods: Demonstration, Discussion Response to Teaching: Verbalize Understanding, Return Demonstration Time/GCodes Time In: 1105 Time Out: 1205 Total Billed Treatment Time: 60 Total Billed Treatment 1,FA30m,EX30m G Codes Necessary: MANASA Giron SENIOR GROUP MANAGER Mar 19, 2017 12:02
--- NOTE | 2017-03-19 13:29 | Occupational Ther Daily Note ---
OT Current Status-Daily Note Subjective Pt seen in room, up in recliner, agreeable to OT. No pain mentioned. Appearance Alert, cooperative. Very involved in discharge planning Mental Status/Objective Functional [place] Measure 0=Not Assessed/NA 4=Minimal Assistance 1=Total Assistance 5=Supervision or Setup 2=Maximal Assistance 6=Modified [place] 3=Moderate Assistance 7=Complete [place] ADL-Treatment Pt provided with handout on figure of 8 jared wrap instructions and reviewed specifics for her feet. She is able to verbalize technique for retrograde massage for feet and reported that her feet felt much better after she did this. Pt given written instructions/education on work simplification/energy conservation and she will read it for discussion tomorrow. Pt provided with written information on joint protection, with focus on her hands. We went through an ADL equipment catalog and identified devices or techniques that will help her save her joints, especially small joints in fingers. Pt verbalized understanding of techniques. She was left up in her recliner, all needs met. Functional [place] Measure 0=Not Assessed/NA 4=Minimal Assistance 1=Total Assistance 5=Supervision or Setup 2=Maximal Assistance 6=Modified [place] 3=Moderate Assistance 7=Complete IndependenceIRFPAI Quality Coding Scale 6 Independent with activity with or without an assistive device 5 Patient requires set up or clean up by helper. Patient completes activity by themselves 4 Supervision or touching assist (CGA). [place] provide cues , steadying assist 3 The helper provides less than half the effort to complete the activity 2 The helper provides more than half the effort to complete the activity 1 Dependent. The helper does all the effort to complete an activity 7 Patient refused to complete or attempt activity 9 The patient did not perform the activity before the current illness or injury 88 Not attempted due to Medical conditions or safety concerns Toileting (FIM): 6 (tall toilet, grab bar, FWW) Toilet/Commode Transfer (FIM): 6 (Grab bar, tall toilet, FWW) Other Treatment Pt transferred mod I from recliner and walked to gym with FWW without assistance. No LOB observed during tx. Pt transferred in and out of chair with arms without help but does push up from arm rests. Pt did 16 minutes bilat UE exercise on arm bike set at 20-25W resistance and did not take nay breaks. ( Increased time). This is to strengthen arms which she uses to push up and down from recliner. Pt walked back to room with FWW, no help needed. Pt anticipates discharge to home on Friday after her last iron treatment. Education OT Patient Education: Energy conservation, Exercise program, Modified ADL techniques, Purpose of tx/functional activities, Use of adapted equipment Teaching Recipient: Patient Response to Teaching: Verbalize Understanding, Return Demonstration OT Short Term Goals Short Term Goals Time Frame: Mar 21, 2017 Eating(FIM): 7 Upper Body Dressing(FIM): 5 Lower Body Dressing(FIM): 5 Toileting(FIM): 5 Transfers (B,C,W/C) (FIM): 6 (met 4-25) Toilet/Commode Transfer(FIM): 5 1=Demonstrate adherence to instructed precautions during ADL tasks. 2=Patient will verbalize/demonstrate understanding of assistive devices/ modifications for ADL. 3=Patient will improve strength/tolerance for activity to enable patient to perform ADL's. OT Jail Goals Dried Yeast Supervisor Goals Time Frame: April 04, 2017 Eating (FIM): 7 (no dentures) Eating (QC): 6 Groomin Oral Hygiene (QC): 6 Bathing(FIM): 6 Shower/Bathe Self (QC): 6 Upper Body Dressing(FIM): 6 Upper Body Dressing (QC): 6 Lower Body Dressing(FIM): 6 Lower Body Dressing (QC): 6 On/Off Footwear (QC): 6 Toileting(FIM): 6 Toileting Hygiene (QC): 6 Toilet/Commode Transfer(FIM): 6 Toilet/Commode Transfer (QC): 6 Shower Transfer(FIM): 6 Additional Goals: 1-Demonstrate ADL Tasks, 2-Verbalize Understanding, 3- ImproveStrength/Estuardo 1=Demonstrate adherence to instructed precautions during ADL tasks. 2=Patient will verbalize/demonstrate understanding of assistive devices/ modifications for ADL. 3=Patient will improve strength/tolerance for activity to enable patient to perform ADL's. OT Education/Plan Problem List/Assessment Pt would benefit from skilled OT to increase her independence in basic self care to allow her to return home safely to live with her and decrease caregiver burden. Discharge Recommendations Plan/Recommendations: Continue POC Treatment Plan/Plan of Care Patient would benefit from OT for education, treatment and training to promote independence in ADL's, mobility, safety and/or upper extremity function for ADL' s. Treatment Duration: April 04, 2017 Visits Per Week: 10-11 Minutes/Day (M-F): 75-90 Minutes/Day (Sat/Vera): PRN Agreement: Yes Rehab Potential: Good Time/GCodes Start Time: 10:05 Stop Time: 11:00 Total Time Billed (hr/min): 55 Billed Treatment Time visit, exercise 25 minutes, ADL 30 minutes BALAJI LYNN OT Mar 19, 2017 13:29
--- NOTE | 2017-03-19 14:02 | Physical Therapy Daily Note ---
PT Daily Note-Current Subjective Pt. states the Nustep is what she likes the most, feels like it loosens her up and strengthens her the most. Pt. requests HEP Pain Numeric Pain Scale: 0-No Pain Mental Status Patient Orientation: Normal For Age Transfers Functional [place] Measure 0=Not Assessed/NA 4=Minimal Assistance 1=Total Assistance 5=Supervision or Setup 2=Maximal Assistance 6=Modified [place] 3=Moderate Assistance 7=Complete IndependenceIRFPAI Quality Coding Scale 6 Independent with activity with or without an assistive device 5 Patient requires set up or clean up by helper. Patient completes activity by themselves 4 Supervision or touching assist (CGA). [place] provide cues , steadying assist 3 The helper provides less than half the effort to complete the activity 2 The helper provides more than half the effort to complete the activity 1 Dependent. The helper does all the effort to complete an activity 7 Patient refused to complete or attempt activity 9 The patient did not perform the activity before the current illness or injury 88 Not attempted due to Medical conditions or safety concerns all TRFs mod I Gait Training Gait Assistive Device: FWW up ad sulema ambulates to from gym indep Exercises Supine Ex: Ankle pumps, Quad Set, Rolling, Glut sets, Heel Slides, Short Arc Quads, Scooting, Hip abd/add Supine Reps: 12 Standing: Hip Abduction, Heel/toe raises Standing Reps: 12 pt. demonstrated ability to do HEP from written illustrated guide NuStep Minutes: 12 NuStep Workload: 2 Assessment Current Status: Excellent Progress meets goals PT Short Term Goals Short Term Goals Time Frame: Mar 21, 2017 Transfers (B,C,W/C) (FIM): 6 (met 4-25) Gait (FIM): 6 (met 4-25) Distance (FIM): 3=150 ft Gait Assistive Device: FWW PT Document Specialist Goals Mcfp Goals PT Mcfp Goals Time Frame: March 28, 2017 Transfers (B,C,W/C) (FIM): 6 Sit to Lying (QC): 6 Lying-Sitting on Side/Bed(QC): 6 Sit to Stand (QC): 6 Rollin Roll Left to Right (QC): 6 Chair/Uui-im-Deyil Xfer(QC): 6 Car Transfer (QC): 6 Does the Patient Walk: Yes Gait (FIM): 6 Gait distance (FIM): 3=150 ft Distance: 250' Walk 10 feet (QC): 6 Walk 10ft-Uneven Surface(QC): 6 Walk 50ft with 2 Turns (QC): 6 Walk 150 ft (QC): 6 Gait Level of Assist: 6 Gait Assistive Device: FWW Stairs (FIM): 6 # of Steps: 12 1 Step (curb) (QC): 6 4 Steps (QC): 6 12 Steps (QC): 6 Stairs Level Of Assist: 6 Picking up an Object (QC): 88 PT Plan Treatment/Plan Treatment Plan: Bed Mobility, Education, Functional Activity Estuardo, Functional Strength, Group Therapy, Gait, Safety, Therapeutic Exercise, Transfers Treatment Duration: March 28, 2017 Visits Per Week: 10-11 Minutes/Day (M-F): 60-90 Minutes/Day (Sat/Vera): PRN Safety Risks/Education Patient Education: Gait Training, Transfer Techniques, Issued Written HEP, Correct Positioning, Safety Issues Teaching Recipient: Patient Teaching Methods: Demonstration, Discussion Response to Teaching: Verbalize Understanding, Return Demonstration Time/GCodes Time In: 1330 Time Out: 1400 Total Billed Treatment Time: 30 Total Billed Treatment 1,EX30m G Codes Necessary: MANASA Giron CLOTHESPIN MACHINE OPERATOR Mar 19, 2017 14:02
--- NOTE | 2017-03-19 15:19 | PM & R (SOAP) Progress Note ---
Subjective Subjective/Events-last exam Patient was seen inher room this AM Progressing well with therapies Patient Modified Independent for transfers Appreciate DR Tilley note and current labs Objective Exam Last Set of Vital Signs Vital Signs Date Time Temp Pulse Resp B/P (MAP) Pulse Ox O2 Delivery O2 Flow Rate FiO2 03/19/17 08:03 88 18 98 Room Air 03/19/17 05:00 99.1 123/79 Capillary Refill : I&O Intake and Output 03/19/17 00:00 Intake Total 1466 ml Balance 1466 ml Intake Oral 1370 ml IV Total 96 ml # Voids 10 General: Alert, Oriented X3, Cooperative, No Acute Distress HEENT: Atraumatic, PERRLA, EOMI, Mucous Memb Moist/[place] Neck: Supple, No JVD Lungs: Clear to Auscultation Heart: Regular Rate Abdomen: Normal Bowel Sounds, Soft, No Tenderness Extremities: No Edema Skin: Other (incision as per above) Neuro: Other (left foot drop) Results Lab Laboratory Tests 03/18/17 06:15: Prothrombin Time 13.7, INR Comment 1.1 03/19/17 06:32: Prothrombin Time 15.1H, INR Comment 1.2, White Blood Count 5.9, Red Blood Count 3.80L, Hemoglobin 11.5#, Hematocrit 37, Mean Corpuscular Volume 97, Mean Corpuscular Hemoglobin 30, Mean Corpuscular Hemoglobin Concent 31L, Red Cell Distribution Width 15.2H, Platelet Count 387, Mean Platelet Volume 8.9, Neutrophils (%) (Auto) 68, Lymphocytes (%) (Auto) 18, Monocytes (%) (Auto) 7, Eosinophils (%) (Auto) 6, Basophils (%) (Auto) 1, Neutrophils # (Auto) 4.0, Lymphocytes # (Auto) 1.1, Monocytes # (Auto) 0.4, Eosinophils # (Auto) 0.4H, Basophils # (Auto) 0.0, Sodium Level 140, Potassium Level 4.4, Chloride Level 104, Carbon Dioxide Level 26, Anion Gap 10, Blood Urea Nitrogen 9, Creatinine 0.92, Estimat Glomerular Filtration Rate 60, BUN/Creatinine Ratio 10, Glucose Level 96, Calcium Level 9.6, Total Bilirubin 0.8, Aspartate Amino Transf (AST/ SGOT) 34, Alanine Aminotransferase (ALT/SGPT) 44, Alkaline Phosphatase 75, Total Protein 6.6, Albumin 3.6 Assessment/Plan Assessment Lumbar spinal stenosis s/p decompression and fusion [facility] 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
[2017-03-19 15:41] VITALS: BP 107/61
[2017-03-19] MEDS: ACETAMINOPHEN 325 MG TABLET/CAPLET (TYLENOL) PO PRN (18:02)
[2017-03-19] MEDS: warFARin 2 MG (COUMADIN) TAB PO SCH (20:53)
[2017-03-19] MEDS: POLYETHYLENE GLYCOL 17 GM (MIRALAX) PACK PO SCH (20:54)
[2017-03-19] MEDS: LATANOPROST 0.005% (XALATAN) OPHTH SOLN 2.5 ML OU SCH (20:56)
[2017-03-20 06:00] VITALS: BP 126/73
[2017-03-20] MEDS: PANTOPRAZOLE 40 MG (PROTONIX) TAB PO SCH (06:07)
[2017-03-20 06:36] LABS: BASOPHILS # (AUTO) 0.1 10^3/uL (0.0-0.1); BASOPHILS % (AUTO) 1 % (0-10); EOSINOPHILS # (AUTO) 0.4 10^3/uL (0.0-0.3); EOSINOPHILS % (AUTO) 9 % (0-10); LYMPHOCYTES % (AUTO) 22 % (12-44); MEAN CORPUSCULAR HEMOGLOBIN 31 PG (25-34); MEAN CORPUSCULAR HGB CONC 31 G/DL (32-36); MEAN CORPUSCULAR VOLUME 98 FL (80-99); MEAN PLATELET VOLUME 8.8 FL (7.4-10.4); MONOCYTES # (AUTO) 0.3 X 10^3 (0.0-1.0); MONOCYTES % (AUTO) 7 % (0-12); NEUTROPHILS % (AUTO) 63 % (42-75); PLATELET COUNT 361 10^3/uL (130-400); RED BLOOD COUNT 3.48 10^6/uL (4.35-5.85); WHITE BLOOD COUNT 4.8 10^3/uL (4.3-11.0)
[2017-03-20 06:49] LABS: INR 1.4 (0.8-1.4); PROTHROMBIN TIME PATIENT 16.8 SEC (12.2-14.7)
[2017-03-20 07:02] LABS: ALBUMIN 3.6 G/DL (3.2-4.5); BILIRUBIN,TOTAL 0.6 MG/DL (0.1-1.0); CALCIUM 9.6 MG/DL (8.5-10.1); CREATININE SERUM 1.01 MG/DL (0.60-1.30); POTASSIUM 4.3 MMOL/L (3.6-5.0); TOTAL PROTEIN 6.5 G/DL (6.4-8.2)
[2017-03-20] MEDS: IRON SUCROSE INJECTION 200 MG in NS (IVPB) 100 ML IV SCH (07:54)
[2017-03-20] MEDS: KCL 10 MEQ TAB (MICRO K) PO SCH (07:54)
[2017-03-20] MEDS: DOCUSATE SODIUM 100 MG (COLACE) CAP PO SCH ×2 (07:55→20:43)
[2017-03-20] MEDS: HYDROXYCHLOROQUINE 200 MG (PLAQUENIL) TAB PO SCH ×2 (07:55→20:43)
[2017-03-20] MEDS: FOLIC ACID 1 MG TAB PO SCH (07:55)
[2017-03-20] MEDS: ASPIRIN 81 MG CHEW (CHILDREN'S ASA) PO SCH (07:55)
[2017-03-20] MEDS: DILTIAZEM 60 MG (CARDIZEM) TAB PO SCH (07:55)
[2017-03-20] MEDS: AMIODARONE 200 MG (CORDARONE) TAB PO SCH (07:55)
[2017-03-20] MEDS: VITAMIN D3 1,000 UNITS (CHOLECALCIFEROL) TABLET PO SCH (07:56)
--- NOTE | 2017-03-20 07:57 | PM & R (SOAP) Progress Note ---
Subjective Subjective/Events-last exam Patient was seen in her room this AM Patient Mod Independent for transfers. Objective Exam Last Set of Vital Signs Vital Signs Date Time Temp Pulse Resp B/P (MAP) Pulse Ox O2 Delivery O2 Flow Rate FiO2 03/20/17 06:00 98.1 68 20 126/73 96 Room Air Capillary Refill : I&O Intake and Output 03/20/17 00:00 Intake Total 2990 ml Balance 2990 ml Intake Oral 2990 ml # Voids 8 # Bowel Movements 2 General: Alert, Oriented X3, Cooperative, No Acute Distress HEENT: Atraumatic, PERRLA, EOMI, Mucous Memb Moist/[place] Neck: Supple, No JVD Lungs: Clear to Auscultation Heart: Regular Rate Abdomen: Normal Bowel Sounds, Soft, No Tenderness Extremities: No Edema Skin: Other (incision as per above) Neuro: Other (left foot drop) Results Lab Laboratory Tests 03/18/17 06:15: Prothrombin Time 13.7, INR Comment 1.1 03/19/17 06:32: Prothrombin Time 15.1H, INR Comment 1.2, White Blood Count 5.9, Red Blood Count 3.80L, Hemoglobin 11.5#, Hematocrit 37, Mean Corpuscular Volume 97, Mean Corpuscular Hemoglobin 30, Mean Corpuscular Hemoglobin Concent 31L, Red Cell Distribution Width 15.2H, Platelet Count 387, Mean Platelet Volume 8.9, Neutrophils (%) (Auto) 68, Lymphocytes (%) (Auto) 18, Monocytes (%) (Auto) 7, Eosinophils (%) (Auto) 6, Basophils (%) (Auto) 1, Neutrophils # (Auto) 4.0, Lymphocytes # (Auto) 1.1, Monocytes # (Auto) 0.4, Eosinophils # (Auto) 0.4H, Basophils # (Auto) 0.0, Sodium Level 140, Potassium Level 4.4, Chloride Level 104, Carbon Dioxide Level 26, Anion Gap 10, Blood Urea Nitrogen 9, Creatinine 0.92, Estimat Glomerular Filtration Rate 60, BUN/Creatinine Ratio 10, Glucose Level 96, Calcium Level 9.6, Total Bilirubin 0.8, Aspartate Amino Transf (AST/ SGOT) 34, Alanine Aminotransferase (ALT/SGPT) 44, Alkaline Phosphatase 75, Total Protein 6.6, Albumin 3.6 03/20/17 06:25: Prothrombin Time 16.8H, INR Comment 1.4, White Blood Count 4.8, Red Blood Count 3.48L, Hemoglobin 10.6L, Hematocrit 34L, Mean Corpuscular Volume 98, Mean Corpuscular Hemoglobin 31, Mean Corpuscular Hemoglobin Concent 31L, Red Cell Distribution Width 15.0H, Platelet Count 361, Mean Platelet Volume 8.8, Neutrophils (%) (Auto) 63, Lymphocytes (%) (Auto) 22, Monocytes (%) (Auto) 7, Eosinophils (%) (Auto) 9, Basophils (%) (Auto) 1, Neutrophils # (Auto) 3.0, Lymphocytes # (Auto) 1.0, Monocytes # (Auto) 0.3, Eosinophils # (Auto) 0.4H, Basophils # (Auto) 0.1, Sodium Level 142, Potassium Level 4.3, Chloride Level 106, Carbon Dioxide Level 27, Anion Gap 9, Blood Urea Nitrogen 12, Creatinine 1.01, Estimat Glomerular Filtration Rate 53, BUN/Creatinine Ratio 12, Glucose Level 86, Calcium Level 9.6, Total Bilirubin 0.6, Aspartate Amino Transf (AST/ SGOT) 31, Alanine Aminotransferase (ALT/SGPT) 38, Alkaline Phosphatase 69, Total Protein 6.5, Albumin 3.6 Assessment/Plan Assessment Lumbar spinal stenosis s/p decompression and fusion [facility] 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
[2017-03-20] MEDS: ENOXAPARIN 80 MG/0.8 ML (LOVENOX) SYR SC SCH ×2 (11:09→22:18)
--- NOTE | 2017-03-20 12:51 | Physical Therapy Daily Note ---
PT Daily Note-Current Subjective Patient in recliner pre tx, agrees to PT, states her pain is not too bad 03/03. Appearance Patient in recliner post tx with nurse call, phone, tray, all needs met. Mental Status Patient Orientation: Normal For Age Transfers Functional [place] Measure 0=Not Assessed/NA 4=Minimal Assistance 1=Total Assistance 5=Supervision or Setup 2=Maximal Assistance 6=Modified [place] 3=Moderate Assistance 7=Complete IndependenceIRFPAI Quality Coding Scale 6 Independent with activity with or without an assistive device 5 Patient requires set up or clean up by helper. Patient completes activity by themselves 4 Supervision or touching assist (CGA). [place] provide cues , steadying assist 3 The helper provides less than half the effort to complete the activity 2 The helper provides more than half the effort to complete the activity 1 Dependent. The helper does all the effort to complete an activity 7 Patient refused to complete or attempt activity 9 The patient did not perform the activity before the current illness or injury 88 Not attempted due to Medical conditions or safety concerns Transfers (B, C, W/C) (FIM): 6 Scootin Rollin Roll Left to Right (QC): 6 Supine to/from Sit: 6 Sit to/from Stand: 6 Sit to Lying (QC): 6 Sit to Stand (QC): 6 Chair/Ghi-wq-Iqaax Xfer(QC): 6 Bed to/from Chair: 6 Gait Training Gait (FIM): 6 Distance: 400', 150' Walk 10 feet (QC): 6 Walk 50 ft with 2 Turns(QC): 6 Walk 150 ft (QC): 6 Walking 10ft/uneven surface-QC: 6 Gait Assistive Device: FWW slow gait, slightly antalgic Stair Training Stair Training: Handrails/: 2 handrails Stairs (FIM): 6 #of Steps: 12 1 Step (curb) (QC): 6 4 Steps (QC): 6 12 Steps (QC): 6 Stairs: Pattern: Step to Exercises Standing: Hip Abduction, Hamstring curls, Heel/toe raises, Marching, Mini squats Standing Reps: 20 LAQ alternating for 5 min NuStep Minutes: 15 NuStep Workload: 4 Treatments bed mobility and transfers, ambulation, stair training, functional strengthening Assessment Current Status: Fair Progress Patient has good mobility, needs occasional rest break due to fatigue PT Short Term Goals Short Term Goals Time Frame: Mar 21, 2017 Transfers (B,C,W/C) (FIM): 6 (met 4-25) Gait (FIM): 6 (met 4-25) Distance (FIM): 3=150 ft Gait Assistive Device: FWW PT Supervisor Coil Winding Goals Prison Goals PT Prison Goals Time Frame: March 28, 2017 Transfers (B,C,W/C) (FIM): 6 Sit to Lying (QC): 6 Lying-Sitting on Side/Bed(QC): 6 Sit to Stand (QC): 6 Rollin Roll Left to Right (QC): 6 Chair/Ywh-vx-Hflft Xfer(QC): 6 Car Transfer (QC): 6 Does the Patient Walk: Yes Gait (FIM): 6 Gait distance (FIM): 3=150 ft Distance: 250' Walk 10 feet (QC): 6 Walk 10ft-Uneven Surface(QC): 6 Walk 50ft with 2 Turns (QC): 6 Walk 150 ft (QC): 6 Gait Level of Assist: 6 Gait Assistive Device: FWW Stairs (FIM): 6 # of Steps: 12 1 Step (curb) (QC): 6 4 Steps (QC): 6 12 Steps (QC): 6 Stairs Level Of Assist: 6 Picking up an Object (QC): 88 PT Plan Problem List Problem List: Activity Tolerance, Functional Strength, Safety, Balance, Gait, Transfer Treatment/Plan Treatment Plan: Continue Plan of Care Treatment Plan: Bed Mobility, Education, Functional Activity Estuardo, Functional Strength, Group Therapy, Gait, Safety, Therapeutic Exercise, Transfers Treatment Duration: March 28, 2017 Visits Per Week: 10-11 Minutes/Day (M-F): 60-90 Minutes/Day (Sat/Vera): PRN Safety Risks/Education Patient Education: Gait Training, Transfer Techniques, Steps, Correct Positioning, Safety Issues Teaching Recipient: Patient Teaching Methods: Demonstration, Discussion Response to Teaching: Reinforcement Needed Time/GCodes Time In: 1100 Time Out: 1200 Total Billed Treatment Time: 60 Total Billed Treatment 1 visit GT 15 min EX 30 min FA 15 min SILKE OSUNA PT Mar 20, 2017 12:51
--- NOTE | 2017-03-20 13:13 | Occupational Ther Daily Note ---
OT Current Status-Daily Note Subjective Pt seen in room, up in recliner, agreeable to OT. No pain mentioned. Appearance Alert, cooperative Mental Status/Objective Functional [place] Measure 0=Not Assessed/NA 4=Minimal Assistance 1=Total Assistance 5=Supervision or Setup 2=Maximal Assistance 6=Modified [place] 3=Moderate Assistance 7=Complete [place] ADL-Treatment Pt was shown commercially available support stocking. She reported she had done retrograde massage on her feet last night and this morning and the swelling was decreased (and her feet felt better). She tried on the support stockings and said later that she liked how they worked. She was provided with information on how to order them. She is also interested in purchasing a FWW and long shoe horn (information written on white board for SW). She also had questions on other items that she might purchase in a catalog and she was encouraged to order them herself (insurance will not cover them). Pt was provided information on community options for continued exercise after discharge, including [facility] and given contact information. All information for discharge planning. Functional [place] Measure 0=Not Assessed/NA 4=Minimal Assistance 1=Total Assistance 5=Supervision or Setup 2=Maximal Assistance 6=Modified [place] 3=Moderate Assistance 7=Complete IndependenceIRFPAI Quality Coding Scale 6 Independent with activity with or without an assistive device 5 Patient requires set up or clean up by helper. Patient completes activity by themselves 4 Supervision or touching assist (CGA). [place] provide cues , steadying assist 3 The helper provides less than half the effort to complete the activity 2 The helper provides more than half the effort to complete the activity 1 Dependent. The helper does all the effort to complete an activity 7 Patient refused to complete or attempt activity 9 The patient did not perform the activity before the current illness or injury 88 Not attempted due to Medical conditions or safety concerns Other Treatment Pt walked to gym with FWW, no assistance and transferred in and out of chair with arms, using arm rests for safe transfers. pt did 15 minutes bilat UE exercise with arm bike set at 25-30W resistance (increased resistance), with no breaks. This is to strengthen arms for safe transfers. She returned to her room and was left up in recliner, all needs met. Education OT Patient Education: Exercise program, Modified ADL techniques, Progress toward Goal/Update tx plan, Use of adapted equipment Teaching Recipient: Patient Teaching Methods: Demonstration, Discussion Response to Teaching: Verbalize Understanding, Return Demonstration OT Short Term Goals Short Term Goals Time Frame: Mar 21, 2017 Eating(FIM): 7 Upper Body Dressing(FIM): 5 Lower Body Dressing(FIM): 5 Toileting(FIM): 5 Transfers (B,C,W/C) (FIM): 6 (met 4-25) Toilet/Commode Transfer(FIM): 5 1=Demonstrate adherence to instructed precautions during ADL tasks. 2=Patient will verbalize/demonstrate understanding of assistive devices/ modifications for ADL. 3=Patient will improve strength/tolerance for activity to enable patient to perform ADL's. OT [facility] Goals Movie Machine Operator Goals Time Frame: April 04, 2017 Eating (FIM): 7 (no dentures) Eating (QC): 6 Groomin Oral Hygiene (QC): 6 Bathing(FIM): 6 Shower/Bathe Self (QC): 6 Upper Body Dressing(FIM): 6 Upper Body Dressing (QC): 6 Lower Body Dressing(FIM): 6 Lower Body Dressing (QC): 6 On/Off Footwear (QC): 6 Toileting(FIM): 6 Toileting Hygiene (QC): 6 Toilet/Commode Transfer(FIM): 6 Toilet/Commode Transfer (QC): 6 Shower Transfer(FIM): 6 Additional Goals: 1-Demonstrate ADL Tasks, 2-Verbalize Understanding, 3- ImproveStrength/[place] 1=Demonstrate adherence to instructed precautions during ADL tasks. 2=Patient will verbalize/demonstrate understanding of assistive devices/ modifications for ADL. 3=Patient will improve strength/tolerance for activity to enable patient to perform ADL's. OT Education/Plan Problem List/Assessment Pt would benefit from skilled OT to increase her independence in basic self care to allow her to return home safely to live with her and decrease caregiver burden. Discharge Recommendations Plan/Recommendations: Continue POC Treatment Plan/Plan of Care Patient would benefit from OT for education, treatment and training to promote independence in ADL's, mobility, safety and/or upper extremity function for ADL' s. Treatment Duration: April 04, 2017 Visits Per Week: 10-11 Minutes/Day (M-F): 75-90 Minutes/Day (Sat/Vera): PRN Agreement: Yes Rehab Potential: Good Time/GCodes Start Time: 08:30 Stop Time: 09:35 Total Time Billed (hr/min): 65 Billed Treatment Time visit, 45 minutes ADL, 20 minutes exercise BALAJI LYNN OT Mar 20, 2017 13:13
--- NOTE | 2017-03-20 13:22 | Occupational Ther Daily Note ---
OT Current Status-Daily Note Subjective Pt seen in room, up in recliner, agreeable to OT. No pain reported. Mental Status/Objective Functional [place] Measure 0=Not Assessed/NA 4=Minimal Assistance 1=Total Assistance 5=Supervision or Setup 2=Maximal Assistance 6=Modified [place] 3=Moderate Assistance 7=Complete [place] ADL-Treatment Functional [place] Measure 0=Not Assessed/NA 4=Minimal Assistance 1=Total Assistance 5=Supervision or Setup 2=Maximal Assistance 6=Modified [place] 3=Moderate Assistance 7=Complete IndependenceIRFPAI Quality Coding Scale 6 Independent with activity with or without an assistive device 5 Patient requires set up or clean up by helper. Patient completes activity by themselves 4 Supervision or touching assist (CGA). [place] provide cues , steadying assist 3 The helper provides less than half the effort to complete the activity 2 The helper provides more than half the effort to complete the activity 1 Dependent. The helper does all the effort to complete an activity 7 Patient refused to complete or attempt activity 9 The patient did not perform the activity before the current illness or injury 88 Not attempted due to Medical conditions or safety concerns Other Treatment Pt sit to stand from chair with mod I, FWW. Walked to gym without help, FWW. Pt did bilat UE activities with 1# weight on each arm (graded clothes pins, arc activity with short and medium extensions), to strengthen arms for transfers and for putting on compression socks. Opportunity provided for pt educ on using her palms for pinching clothes pins instead of her fingers (for joint protection ). Pt walked back to her room, left up in recliner, all needs met. Education OT Patient Education: Exercise program, Purpose of tx/functional activities Teaching Recipient: Patient Teaching Methods: Discussion Response to Teaching: Verbalize Understanding OT Short Term Goals Short Term Goals Time Frame: Mar 21, 2017 Eating(FIM): 7 Upper Body Dressing(FIM): 5 Lower Body Dressing(FIM): 5 Toileting(FIM): 5 Transfers (B,C,W/C) (FIM): 6 (met 4-25) Toilet/Commode Transfer(FIM): 5 1=Demonstrate adherence to instructed precautions during ADL tasks. 2=Patient will verbalize/demonstrate understanding of assistive devices/ modifications for ADL. 3=Patient will improve strength/tolerance for activity to enable patient to perform ADL's. OT Interior Design Director Goals Interior Design Director Goals Time Frame: April 04, 2017 Eating (FIM): 7 (no dentures) Eating (QC): 6 Groomin Oral Hygiene (QC): 6 Bathing(FIM): 6 Shower/Bathe Self (QC): 6 Upper Body Dressing(FIM): 6 Upper Body Dressing (QC): 6 Lower Body Dressing(FIM): 6 Lower Body Dressing (QC): 6 On/Off Footwear (QC): 6 Toileting(FIM): 6 Toileting Hygiene (QC): 6 Toilet/Commode Transfer(FIM): 6 Toilet/Commode Transfer (QC): 6 Shower Transfer(FIM): 6 Additional Goals: 1-Demonstrate ADL Tasks, 2-Verbalize Understanding, 3- ImproveStrength/[place] 1=Demonstrate adherence to instructed precautions during ADL tasks. 2=Patient will verbalize/demonstrate understanding of assistive devices/ modifications for ADL. 3=Patient will improve strength/tolerance for activity to enable patient to perform ADL's. OT Education/Plan Problem List/Assessment Pt would benefit from skilled OT to increase her independence in basic self care to allow her to return home safely to live with her and decrease caregiver burden. Discharge Recommendations Plan/Recommendations: Continue POC Treatment Plan/Plan of Care Patient would benefit from OT for education, treatment and training to promote independence in ADL's, mobility, safety and/or upper extremity function for ADL' s. Treatment Duration: April 04, 2017 Visits Per Week: 10-11 Minutes/Day (M-F): 75-90 Minutes/Day (Sat/Vera): PRN Agreement: Yes Rehab Potential: Good Time/GCodes Start Time: 10:35 Stop Time: 11:05 Total Time Billed (hr/min): 30 Billed Treatment Time visit, 30 minutes exercise BALAJI LYNN OT Mar 20, 2017 13:22
--- NOTE | 2017-03-20 14:03 | Physical Therapy Daily Note ---
PT Daily Note-Current Subjective Patient in recliner pre tx, agrees to PT, has pain of 1-2/10 Appearance Patient in recliner post tx with nurse call, phone, tray, all needs met. Mental Status Patient Orientation: Normal For Age Transfers Functional [place] Measure 0=Not Assessed/NA 4=Minimal Assistance 1=Total Assistance 5=Supervision or Setup 2=Maximal Assistance 6=Modified [place] 3=Moderate Assistance 7=Complete IndependenceIRFPAI Quality Coding Scale 6 Independent with activity with or without an assistive device 5 Patient requires set up or clean up by helper. Patient completes activity by themselves 4 Supervision or touching assist (CGA). [place] provide cues , steadying assist 3 The helper provides less than half the effort to complete the activity 2 The helper provides more than half the effort to complete the activity 1 Dependent. The helper does all the effort to complete an activity 7 Patient refused to complete or attempt activity 9 The patient did not perform the activity before the current illness or injury 88 Not attempted due to Medical conditions or safety concerns Transfers (B, C, W/C) (FIM): 6 Sit to/from Stand: 6 Gait Training Gait (FIM): 6 Distance: 1000'x2 Gait Assistive Device: FWW Patient ambulated from her room to outdoors and over sidewalks and had to navigate around cracks and rough spots. She took a rest outside and then headed back inside and back to her room. Patient used a left AFO Treatments transfers, ambulation. Assessment Current Status: Fair Progress Improving strength and endurance PT Short Term Goals Short Term Goals Time Frame: Mar 21, 2017 Transfers (B,C,W/C) (FIM): 6 (met 4-25) Gait (FIM): 6 (met 4-25) Distance (FIM): 3=150 ft Gait Assistive Device: FWW PT Skilled Nursing Goals Skilled Nursing Goals PT Skilled Nursing Goals Time Frame: March 28, 2017 Transfers (B,C,W/C) (FIM): 6 Sit to Lying (QC): 6 Lying-Sitting on Side/Bed(QC): 6 Sit to Stand (QC): 6 Rollin Roll Left to Right (QC): 6 Chair/Umq-dj-Oizka Xfer(QC): 6 Car Transfer (QC): 6 Does the Patient Walk: Yes Gait (FIM): 6 Gait distance (FIM): 3=150 ft Distance: 250' Walk 10 feet (QC): 6 Walk 10ft-Uneven Surface(QC): 6 Walk 50ft with 2 Turns (QC): 6 Walk 150 ft (QC): 6 Gait Level of Assist: 6 Gait Assistive Device: FWW Stairs (FIM): 6 # of Steps: 12 1 Step (curb) (QC): 6 4 Steps (QC): 6 12 Steps (QC): 6 Stairs Level Of Assist: 6 Picking up an Object (QC): 88 PT Plan Problem List Problem List: Activity Tolerance, Functional Strength, Safety, Balance, Gait, Transfer Treatment/Plan Treatment Plan: Continue Plan of Care Treatment Plan: Bed Mobility, Education, Functional Activity [place], Functional Strength, Group Therapy, Gait, Safety, Therapeutic Exercise, Transfers Treatment Duration: March 28, 2017 Visits Per Week: 10-11 Minutes/Day (M-F): 60-90 Minutes/Day (Sat/Vera): PRN Safety Risks/Education Patient Education: Gait Training, Transfer Techniques, Safety Issues Teaching Recipient: Patient Teaching Methods: Demonstration, Discussion Response to Teaching: Reinforcement Needed Time/GCodes Time In: 1330 Time Out: 1400 Total Billed Treatment Time: 30 Total Billed Treatment 1 visit GT 30 min SILKE OSUNA PT Mar 20, 2017 14:02
[2017-03-20] MEDS: ACETAMINOPHEN 325 MG TABLET/CAPLET (TYLENOL) PO PRN (18:11)
[2017-03-20 18:36] VITALS: BP 125/81
[2017-03-20] MEDS: warFARin 2 MG (COUMADIN) TAB PO SCH (20:43)
[2017-03-20] MEDS: POLYETHYLENE GLYCOL 17 GM (MIRALAX) PACK PO SCH (20:43)
[2017-03-20] MEDS: LATANOPROST 0.005% (XALATAN) OPHTH SOLN 2.5 ML OU SCH (20:45)
[2017-03-21 05:30] VITALS: BP 130/71
[2017-03-21] MEDS: PANTOPRAZOLE 40 MG (PROTONIX) TAB PO SCH (06:29)
--- NOTE | 2017-03-21 09:15 | PM & R (SOAP) Progress Note ---
Subjective Subjective/Events-last exam Patient was seen in her room this AM Has progressed well Patient Modified Independent for mobility with WW Current meds reviewed Objective Exam Last Set of Vital Signs Vital Signs Date Time Temp Pulse Resp B/P (MAP) Pulse Ox O2 Delivery O2 Flow Rate FiO2 03/21/17 05:30 98.9 67 20 130/71 96 Room Air Capillary Refill : I&O Intake and Output 03/21/17 00:00 Intake Total 1690 ml Balance 1690 ml Intake Oral 1690 ml # Voids 8 General: Alert, Oriented X3, Cooperative, No Acute Distress HEENT: Atraumatic, PERRLA, EOMI, Mucous Memb Moist/[place] Neck: Supple, No JVD Lungs: Clear to Auscultation Heart: Regular Rate Abdomen: Normal Bowel Sounds, Soft, No Tenderness Extremities: No Edema Skin: Other (incision as per above) Neuro: Other (left foot drop) Results Lab Laboratory Tests 03/19/17 06:32: White Blood Count 5.9, Red Blood Count 3.80L, Hemoglobin 11.5#, Hematocrit 37, Mean Corpuscular Volume 97, Mean Corpuscular Hemoglobin 30, Mean Corpuscular Hemoglobin Concent 31L, Red Cell Distribution Width 15.2H, Platelet Count 387, Mean Platelet Volume 8.9, Neutrophils (%) (Auto) 68, Lymphocytes (%) (Auto) 18, Monocytes (%) (Auto) 7, Eosinophils (%) (Auto) 6, Basophils (%) (Auto) 1, Neutrophils # (Auto) 4.0, Lymphocytes # (Auto) 1.1, Monocytes # (Auto) 0.4, Eosinophils # (Auto) 0.4H, Basophils # (Auto) 0.0, Prothrombin Time 15.1H, INR Comment 1.2, Sodium Level 140, Potassium Level 4.4, Chloride Level 104, Carbon Dioxide Level 26, Anion Gap 10, Blood Urea Nitrogen 9, Creatinine 0.92, Estimat Glomerular Filtration Rate 60, BUN/Creatinine Ratio 10, Glucose Level 96, Calcium Level 9.6, Total Bilirubin 0.8, Aspartate Amino Transf (AST/SGOT) 34, Alanine Aminotransferase (ALT/SGPT) 44, Alkaline Phosphatase 75, Total Protein 6.6, Albumin 3.6 03/20/17 06:25: White Blood Count 4.8, Red Blood Count 3.48L, Hemoglobin 10.6L, Hematocrit 34L, Mean Corpuscular Volume 98, Mean Corpuscular Hemoglobin 31, Mean Corpuscular Hemoglobin Concent 31L, Red Cell Distribution Width 15.0H, Platelet Count 361, Mean Platelet Volume 8.8, Neutrophils (%) (Auto) 63, Lymphocytes (%) (Auto) 22, Monocytes (%) (Auto) 7, Eosinophils (%) (Auto) 9, Basophils (%) (Auto) 1, Neutrophils # (Auto) 3.0, Lymphocytes # (Auto) 1.0, Monocytes # (Auto) 0.3, Eosinophils # (Auto) 0.4H, Basophils # (Auto) 0.1, Prothrombin Time 16.8H, INR Comment 1.4, Sodium Level 142, Potassium Level 4.3, Chloride Level 106, Carbon Dioxide Level 27, Anion Gap 9, Blood Urea Nitrogen 12, Creatinine 1.01, Estimat Glomerular Filtration Rate 53, BUN/Creatinine Ratio 12, Glucose Level 86, Calcium Level 9.6, Total Bilirubin 0.6, Aspartate Amino Transf (AST/SGOT) 31, Alanine Aminotransferase (ALT/SGPT) 38, Alkaline Phosphatase 69, Total Protein 6.5, Albumin 3.6 Assessment/Plan Assessment Lumbar spinal stenosis s/p decompression and fusion [facility] Left foot drop associated with above RA on Plaquenil Hypokalemia replacement provided A FIB controlled with meds Chronic anticoagulation Post-op anemia improved s/p transfusion 1 unit PRBCS Plan Continue PT/OT F/U with DR Frances PRErin Team CONference held 03-19-17-See report for full functional update and POC Monitor INR and adjust meds as needed Discharge set for Friday03/22/17 to home with family See orders F/U with PCP and Surgeon F/U INR Friday03/24/17 ENRIQUE MEJIA MD Mar 21, 2017 09:15
[2017-03-21] MEDS ORDERED: ASPI-999 PO (09:27)
[2017-03-21] MEDS ORDERED: CITA20TA7 PO (09:27)
[2017-03-21] MEDS ORDERED: CHOL100045 PO (09:27)
[2017-03-21] MEDS ORDERED: POTA10TA6 PO (09:27)
[2017-03-21] MEDS ORDERED: ACET325T49 PO (09:27)
[2017-03-21] MEDS ORDERED: HYDR-3812 PO (09:27)
[2017-03-21] MEDS ORDERED: WARF2TAB PO (09:27)
[2017-03-21] MEDS ORDERED: FOLI1TAB24 PO (09:27)
[2017-03-21] MEDS ORDERED: Multivitamins/Minerals Therap PO (09:27)
[2017-03-21] MEDS ORDERED: AMIO200T2 PO (09:27)
[2017-03-21] MEDS ORDERED: PANT40TA3 PO (09:27)
[2017-03-21] MEDS ORDERED: DOCU100C37 PO (09:27)
[2017-03-21] MEDS ORDERED: HYDR200T46 PO (09:27)
[2017-03-21] MEDS ORDERED: DILT60TA PO ×2 (09:27)
[2017-03-21] MEDS: AMIODARONE 200 MG (CORDARONE) TAB PO SCH (09:53)
[2017-03-21] MEDS: KCL 10 MEQ TAB (MICRO K) PO SCH (09:53)
[2017-03-21] MEDS: DOCUSATE SODIUM 100 MG (COLACE) CAP PO SCH ×2 (09:53→20:48)
[2017-03-21] MEDS: FOLIC ACID 1 MG TAB PO SCH (09:53)
[2017-03-21] MEDS: ASPIRIN 81 MG CHEW (CHILDREN'S ASA) PO SCH (09:53)
[2017-03-21] MEDS: HYDROXYCHLOROQUINE 200 MG (PLAQUENIL) TAB PO SCH ×2 (09:53→20:48)
[2017-03-21] MEDS: VITAMIN D3 1,000 UNITS (CHOLECALCIFEROL) TABLET PO SCH (09:53)
[2017-03-21] MEDS: DILTIAZEM 60 MG (CARDIZEM) TAB PO SCH (09:53)
[2017-03-21] MEDS: ENOXAPARIN 80 MG/0.8 ML (LOVENOX) SYR SC SCH ×2 (10:40→22:21)
--- NOTE | 2017-03-21 10:43 | Physical Therapy Daily Note ---
PT Daily Note-Current Subjective Pt. states she feels ready to DC tomorrow. Mental Status Patient Orientation: Normal For Age Transfers Functional [place] Measure 0=Not Assessed/NA 4=Minimal Assistance 1=Total Assistance 5=Supervision or Setup 2=Maximal Assistance 6=Modified [place] 3=Moderate Assistance 7=Complete IndependenceIRFPAI Quality Coding Scale 6 Independent with activity with or without an assistive device 5 Patient requires set up or clean up by helper. Patient completes activity by themselves 4 Supervision or touching assist (CGA). [place] provide cues , steadying assist 3 The helper provides less than half the effort to complete the activity 2 The helper provides more than half the effort to complete the activity 1 Dependent. The helper does all the effort to complete an activity 7 Patient refused to complete or attempt activity 9 The patient did not perform the activity before the current illness or injury 88 Not attempted due to Medical conditions or safety concerns Transfers (B, C, W/C) (FIM): 6 Scootin Rollin Roll Left to Right (QC): 6 Supine to/from Sit: 6 Sit to/from Stand: 6 Sit to Lying (QC): 6 Sit to Stand (QC): 6 Chair/Rzx-as-Ansin Xfer(QC): 6 Bed to/from Chair: 6 Gait Training Does the Patient Walk?: Yes Gait (FIM): 6 Distance (FIM): 3=150 ft (400) Walk 10 feet (QC): 6 Walk 50 ft with 2 Turns(QC): 6 Walk 150 ft (QC): 6 Walking 10ft/uneven surface-QC: 6 Gait Level of Assist: 6 Gait Persons Needed: 0 Gait Assistive Device: FWW this ASSOCIATE PROFESSOR OF ENGINEERING cuing pt to concentrate on DF during gait secondary to old foot drop that seems to have improved a slight bit since surgery Stair Training Stair Training: Handrails/: 2 handrails Stairs (FIM): 6 #of Steps: 12 1 Step (curb) (QC): 6 4 Steps (QC): 6 12 Steps (QC): 6 Stairs: Pattern: Reciprocal Level of Assist: 6 Exercises Seated Therapy Exercises: Ankle pumps, Sit to stand Seated Reps: 12 Standing: Hip Abduction, Hamstring curls, Heel/toe raises, Marching, Mini squats, Sit to Stand Standing Reps: 15 NuStep Minutes: 15 NuStep Workload: 2 Assessment Current Status: Excellent Progress PT Short Term Goals Short Term Goals Time Frame: Mar 21, 2017 Transfers (B,C,W/C) (FIM): 6 (met 4-25) Gait (FIM): 6 (met 4-25) Distance (FIM): 3=150 ft Gait Assistive Device: FWW PT Retirement Goals Retirement Goals PT Interventional Physiatrist Goals Time Frame: March 28, 2017 Transfers (B,C,W/C) (FIM): 6 Sit to Lying (QC): 6 Lying-Sitting on Side/Bed(QC): 6 Sit to Stand (QC): 6 Rollin Roll Left to Right (QC): 6 Chair/Qov-ib-Ztbbj Xfer(QC): 6 Car Transfer (QC): 6 Does the Patient Walk: Yes Gait (FIM): 6 Gait distance (FIM): 3=150 ft Distance: 250' Walk 10 feet (QC): 6 Walk 10ft-Uneven Surface(QC): 6 Walk 50ft with 2 Turns (QC): 6 Walk 150 ft (QC): 6 Gait Level of Assist: 6 Gait Assistive Device: FWW Stairs (FIM): 6 # of Steps: 12 1 Step (curb) (QC): 6 4 Steps (QC): 6 12 Steps (QC): 6 Stairs Level Of Assist: 6 Picking up an Object (QC): 88 PT Plan Treatment/Plan Treatment Plan: Continue Plan of Care Treatment Plan: Bed Mobility, Education, Functional Activity [place], Functional Strength, Group Therapy, Gait, Safety, Therapeutic Exercise, Transfers Treatment Duration: March 28, 2017 Visits Per Week: 10-11 Minutes/Day (M-F): 60-90 Minutes/Day (Sat/Vera): PRN Safety Risks/Education Patient Education: Gait Training, Transfer Techniques, Steps Teaching Recipient: Patient Teaching Methods: Demonstration, Discussion Response to Teaching: Verbalize Understanding, Return Demonstration Time/GCodes Time In: 930 Time Out: 1030 Total Billed Treatment Time: 60 Total Billed Treatment 1,GT20m,FA15m,EX25 G Codes Necessary: MANASA Giron ASSOCIATE PROFESSOR OF ENGINEERING Mar 21, 2017 10:43
--- NOTE | 2017-03-21 10:54 | Occupational Ther Daily Note ---
OT Current Status-Daily Note Subjective Pt seen in room, up in recliner, agreeable to OT. No pain mentioned. Appearance Alert, cooperative Mental Status/Objective Patient Orientation: Person, Place, Time, Situation Functional [place] Measure 0=Not Assessed/NA 4=Minimal Assistance 1=Total Assistance 5=Supervision or Setup 2=Maximal Assistance 6=Modified [place] 3=Moderate Assistance 7=Complete [place] ADL-Treatment Pt walked to commons area without help, FWW and was shown different devices available to use as walker tray or walker bag. She is also appreciative of seat and basket available on 4WW at home. Pt left up in chair, all needs met. Functional [place] Measure 0=Not Assessed/NA 4=Minimal Assistance 1=Total Assistance 5=Supervision or Setup 2=Maximal Assistance 6=Modified [place] 3=Moderate Assistance 7=Complete IndependenceIRFPAI Quality Coding Scale 6 Independent with activity with or without an assistive device 5 Patient requires set up or clean up by helper. Patient completes activity by themselves 4 Supervision or touching assist (CGA). [place] provide cues , steadying assist 3 The helper provides less than half the effort to complete the activity 2 The helper provides more than half the effort to complete the activity 1 Dependent. The helper does all the effort to complete an activity 7 Patient refused to complete or attempt activity 9 The patient did not perform the activity before the current illness or injury 88 Not attempted due to Medical conditions or safety concerns Eating (FIM): 7 (No dentures. Orders own food. No difficulties cutting food or feeding herself. ) Eating (QC): 6 Grooming (FIM): 6 (Pt applied makeup, washed face and hands at sink, brushed hair, brushed teeth, either standing at sink with FWW for balance or sitting at sink (modified technique)) Oral Hygiene (QC): 6 Bathing (FIM): 6 (Washed and dried all parts, seated at sink (modified technique). Set up her own bath water for spongebath. Not allowed to shower per doctor's orders. Has long handled sponge) Shower/Bathe Self (QC): 6 Upper Body (FIM): 6 (Retrieved clean clothes from closet and put dirty ones away, FWW for balance. No help needed to hook bra or doff/don shirt) Upper Body Dressing (QC): 6 Lower Body Dressing (FIM): 6 (Retrieved clean clothes from closet and put dirty ones away, FWW for balance. No help needed to don socks, pants. Stood with FWW for balance. Has used long handled shoe horn to put shoes on. Also used evening sitter) Lower Body Dressing (QC): 6 On/Off Footwear (QC): 6 Toileting (FIM): 6 (Tall toilet, grab bar, FWW. managed clothing and hygiene without help) Toileting Hygiene (QC): 6 Transfers (B, C, W/C) (FIM): 6 (FWW, pushed up from chair consistently) Toilet/Commode Transfer (FIM): 6 (Tall toilet, grab bar, modified technique. Pt educ availability of versaframe for arm rests for toilet at home) Toilet Transfer (QC): 6 Shower Transfer(FIM): 0 (Not allowed, per physician orders) Education OT Patient Education: Modified ADL techniques, Progress toward Goal/Update tx plan, Purpose of tx/functional activities, Use of adapted equipment Teaching Recipient: Patient Teaching Methods: Demonstration, Discussion Response to Teaching: Verbalize Understanding OT Short Term Goals Short Term Goals Time Frame: Mar 21, 2017 Eating(FIM): 7 Upper Body Dressing(FIM): 5 Lower Body Dressing(FIM): 5 Toileting(FIM): 5 Transfers (B,C,W/C) (FIM): 6 (met -) Toilet/Commode Transfer(FIM): 5 1=Demonstrate adherence to instructed precautions during ADL tasks. 2=Patient will verbalize/demonstrate understanding of assistive devices/ modifications for ADL. 3=Patient will improve strength/tolerance for activity to enable patient to perform ADL's. OT Tutorial Laboratory Supervisor Goals Tutorial Laboratory Supervisor Goals Time Frame: April 04, 2017 Eating (FIM): 7 (no denturesMet 03-21-17) Eating (QC): 6 (Met 03-21-17) Groomin (Met 03-21-17) Oral Hygiene (QC): 6 (Met 03-21-17) Bathing(FIM): 6 (Met 03-21-17) Shower/Bathe Self (QC): 6 (Met 03-21-17) Upper Body Dressing(FIM): 6 (Met 03-21-17) Upper Body Dressing (QC): 6 (Met 03-21-) Lower Body Dressing(FIM): 6 (Met 03-21-17) Lower Body Dressing (QC): 6 (Met 03-21-17) On/Off Footwear (QC): 6 (Met 03-21-) Toileting(FIM): 6 (Met 03-21-17) Toileting Hygiene (QC): 6 (Met 03-21-17) Toilet/Commode Transfer(FIM): 6 (Met 03-21-17) Toilet/Commode Transfer (QC): 6 (Met 03-21-17) Shower Transfer(FIM): 6 (Not met. Not allowed to shower) Additional Goals: 1-Demonstrate ADL Tasks, 2-Verbalize Understanding, 3- ImproveStrength/[place] 1=Demonstrate adherence to instructed precautions during ADL tasks. 2=Patient will verbalize/demonstrate understanding of assistive devices/ modifications for ADL. 3=Patient will improve strength/tolerance for activity to enable patient to perform ADL's. OT Education/Plan Problem List/Assessment Pt would benefit from skilled OT to increase her independence in basic self care to allow her to return home safely to live with her and decrease caregiver burden. Discharge Recommendations Plan/Recommendations: Continue POC (DC scheduled for tomorrow) Treatment Plan/Plan of Care Patient would benefit from OT for education, treatment and training to promote independence in ADL's, mobility, safety and/or upper extremity function for ADL' s. Treatment Duration: April 04, 2017 Visits Per Week: 10-11 Minutes/Day (M-F): 75-90 Minutes/Day (Sat/Vera): PRN Agreement: Yes Rehab Potential: Good Time/GCodes Start Time: 08:30 Stop Time: 09:30 Total Time Billed (hr/min): 60 Billed Treatment Time visit, 60 minutes ADL BALAJI LYNN OT Mar 21, 2017 10:54
--- NOTE | 2017-03-21 11:10 | Progress Note-Hospitalist ---
Progress Note HPI/CC on Admission CC: Medical management following lumbar spine surgery for lumbar stenosis causing left foot drop HPI: This is a 77-year-old white female new clinic patient of mine that moved from [place] to [place] to be closer to her daughter who is assistant finance director at assisted living facility in [place] who presents to inpatient rehabilitation following an uncomplicated lumbar spine surgery. I did speak with orthopedic surgery from [facility] who reported transfusion 1 unit without complications and 1 dose of iron infusion and overall had an uncomplicated hospital course. I reviewed her labs today showing hemoglobin of 7.1 and potassium 3.2 and I did speak with her in depth and she is agreeable to 1 more unit of blood and then continuing iron infusions for the full 4 more doses. Her bowel meds are doing pretty well and declines any additional medication. Limiting pain meds and doing well walking. Progress Notes/Assess & Plan Date Seen 03/21/17 Admission Dx/Process Assessment: Status post uncomplicated lumbar spine surgery due to severe lumbar stenosis causing left foot drop by Dr. Weinstein at [facility] POD # 5 Postop anemia requiring 1 unit of blood while hospitalized at and requiring 1 more today Chronic fibrillation with history of rapid ventricular response placed on Coumadin therapy and restarted last night INR 1.0 Iron deficiency requiring iron infusions starting tomorrow for 4 more doses to complete the one they gave her a [facility] Rheumatoid arthritis Left foot drop with other peripheral neuropathy Hyperparathyroidism Diagonsis/Assessment & Plan Patient doing very well and plans for discharge tomorrow Will have home physical therapy We'll check labs tomorrow and hopefully we don't have to discharge on Lovenox because I did increase her Coumadin dose to 8 mg instead of the 4.5 she is usually on She will complete the iron infusion tomorrow Does not need any pain medicine Bowel movements are normal No fever, vital signs stable, pleasant,much improved Irregular rate and rhythm trace edema Assessment: Status post uncomplicated lumbar spine surgery due to severe lumbar stenosis causing left foot drop by Dr. Weinstein at [facility] POD # 11 Postop anemia requiring 1 unit of blood while hospitalized at and s/p 1 more unit 6 days ago Chronic fibrillation with history of rapid ventricular response placed on Coumadin therapy and restarted 2 days ago INR 1.1 Iron deficiency requiring iron infusions starting tomorrow for 4 more doses to complete the one they gave her a [facility] Rheumatoid arthritis Left foot drop with other peripheral neuropathy Hyperparathyroidism Edema improved Plan: Iron infusions - last one Friday morning. Monitor INR Monitor closely for AF with RVR Compression stockings DC Friday. Lovenox at home if INR not therapeutic before DC Continue Coumadin 8mg daily YSABEL GREEN DO Mar 21, 2017 11:10
--- NOTE | 2017-03-21 13:55 | Therapy Group Daily Note ---
Therapy Daily Group Note Patient Education Topic Home Safety Other/Notes Pt was an active participant in OT group. She introduced herself by sharing her rehab story with others. She contributed to group discussion /education on home safety (especially pertinent since she is going home tomorrow) and was able to identify ways that she has done or will do to be safer at home. She walked independently, FWW to and from group, with no LOB observed. Start Time: 12:30 Stop Time: 13:30 Total Billed Treatment Time: 60 Total Billed Treatment visit, 60 minutes group BALAJI LYNN OT Mar 21, 2017 13:55
--- NOTE | 2017-03-21 14:53 | Therapy Team Discharge Summary ---
Therapy Discharge Summary Discharge Recommendations Date of Discharge March 22, 2017 Therapy D/C Recommendations: Home w/ Family Support Occupational Therapy Pt was seen for skilled OT to increase her independence in basic self care to allow her to safely return home after back surgery to live with her . On admission she needed no help with eating; was SBA/superv/setup with grooming, upper body dressing, toileting; needed min to CGA for bathing and toilet transfer; and needed max assist with lower body dressing. By discharge she was modified independent with all basic ADLs (not allowed to do showers/transfer, per physician orders). Equipment used included director radio, dressing stick, sock aid ,long handled shoe horn, FWW. She has a shower chair at home and will install grab bars in multiple locations. She will be receiving physical therapy in her home and home OT is not recommended. See tx plan for goals met. DC OT. PT Jail Goals Recycling Director Goals PT Jail Goals Time Frame: March 28, 2017 Transfers (B,C,W/C) (FIM): 6 Roll Left to Right (QC): 6 Sit to Lying (QC): 6 Lying-Sitting on Side/Bed(QC): 6 Sit to Stand (QC): 6 Chair/Vfk-kk-Tmxyc Xfer(QC): 6 Car Transfer (QC): 6 Does the Patient Walk: Yes Gait (FIM): 6 Gait distance (FIM): 3=150 ft Distance: 250' Walk 10 feet (QC): 6 Walk 10ft-Uneven Surface(QC): 6 Walk 50ft with 2 Turns (QC): 6 Walk 150 ft (QC): 6 Gait Level of Assist: 6 Gait Assistive Device: FWW Stairs (FIM): 6 # of Steps: 12 1 Step (curb) (QC): 6 4 Steps (QC): 6 12 Steps (QC): 6 Stairs Level Of Assist: 6 Picking up an Object (QC): 88 OT Jail Goals Jail Goals Time Frame: April 04, 2017 Eating (FIM): 7 (no denturesMet 03-21-17) Eating (QC): 6 (Met 03-21-17) Oral Hygiene (QC): 6 (Met 03-21-17) Grooming(FIM): 6 (Met 03-21-17) Bathing(FIM): 6 (Met 03-21-17) Shower/Bathe Self (QC): 6 (Met 03-21-17) Upper Body Dressing(FIM): 6 (Met 03-21-17) Upper Body Dressing (QC): 6 (Met 03-21-17) Lower Body Dressing(FIM): 6 (Met 03-21-17) Lower Body Dressing (QC): 6 (Met 03-21-17) On/Off Footwear (QC): 6 (Met 03-21-17) Toileting(FIM): 6 (Met 03-21-17) Toileting Hygiene (QC): 6 (Met 03-21-17) Toilet/Commode Transfer(FIM): 6 (Met 03-21-17) Toilet/Commode Transfer (QC): 6 (Met 03-21-17) Shower Transfer(FIM): 6 (Not met. Not allowed to shower) Additional Goals: 1-Demonstrate ADL Tasks, 2-Verbalize Understanding, 3- ImproveStrength/Estuardo 1=Demonstrate adherence to instructed precautions during ADL tasks. 2=Patient will verbalize/demonstrate understanding of assistive devices/ modifications for ADL. 3=Patient will improve strength/tolerance for activity to enable patient to perform ADL's. BALAJI LYNN OT Mar 21, 2017 14:53
[2017-03-21] MEDS: ACETAMINOPHEN 325 MG TABLET/CAPLET (TYLENOL) PO PRN (17:51)
[2017-03-21 18:02] VITALS: BP 114/70
[2017-03-21] MEDS: warFARin 2 MG (COUMADIN) TAB PO SCH (20:48)
[2017-03-21] MEDS: POLYETHYLENE GLYCOL 17 GM (MIRALAX) PACK PO SCH (20:48)
[2017-03-21] MEDS: LATANOPROST 0.005% (XALATAN) OPHTH SOLN 2.5 ML OU SCH (20:50)
[2017-03-22 05:30] LABS: BASOPHILS % (AUTO) 1 % (0-10); EOSINOPHILS # (AUTO) 0.4 10^3/uL (0.0-0.3); EOSINOPHILS % (AUTO) 11 % (0-10); LYMPHOCYTES % (AUTO) 27 % (12-44); MEAN CORPUSCULAR HEMOGLOBIN 30 PG (25-34); MEAN CORPUSCULAR HGB CONC 31 G/DL (32-36); MEAN CORPUSCULAR VOLUME 99 FL (80-99); MEAN PLATELET VOLUME 8.9 FL (7.4-10.4); MONOCYTES # (AUTO) 0.3 X 10^3 (0.0-1.0); MONOCYTES % (AUTO) 8 % (0-12); NEUTROPHILS # (AUTO) 1.9 X 10^3 (1.8-7.8); NEUTROPHILS % (AUTO) 53 % (42-75); PLATELET COUNT 324 10^3/uL (130-400); RED BLOOD COUNT 3.24 10^6/uL (4.35-5.85); WHITE BLOOD COUNT 3.6 10^3/uL (4.3-11.0)
[2017-03-22] MEDS: PANTOPRAZOLE 40 MG (PROTONIX) TAB PO SCH (06:03)
[2017-03-22 06:12] LABS: INR 2.1 (0.8-1.4); PROTHROMBIN TIME PATIENT 23.1 SEC (12.2-14.7)
[2017-03-22 06:25] LABS: ALBUMIN 3.1 G/DL (3.2-4.5); BILIRUBIN,TOTAL 0.3 MG/DL (0.1-1.0); CALCIUM 8.8 MG/DL (8.5-10.1); CREATININE SERUM 0.93 MG/DL (0.60-1.30); POTASSIUM 4.3 MMOL/L (3.6-5.0); TOTAL PROTEIN 5.6 G/DL (6.4-8.2)
[2017-03-22 06:48] VITALS: BP 131/74
[2017-03-22] MEDS: IRON SUCROSE INJECTION 200 MG in NS (IVPB) 100 ML IV SCH (07:47)
[2017-03-22] MEDS ORDERED: WARF-47 PO (08:48)
--- NOTE | 2017-03-22 08:55 | Progress Note-Hospitalist ---
Progress Note HPI/CC on Admission CC: Medical management following lumbar spine surgery for lumbar stenosis causing left foot drop HPI: This is a 77-year-old white female new clinic patient of mine that moved from [place] to [place] to be closer to her daughter who is school program director at assisted living facility in [place] who presents to inpatient rehabilitation following an uncomplicated lumbar spine surgery. I did speak with orthopedic surgery from [facility] who reported transfusion 1 unit without complications and 1 dose of iron infusion and overall had an uncomplicated hospital course. I reviewed her labs today showing hemoglobin of 7.1 and potassium 3.2 and I did speak with her in depth and she is agreeable to 1 more unit of blood and then continuing iron infusions for the full 4 more doses. Her bowel meds are doing pretty well and declines any additional medication. Limiting pain meds and doing well walking. Progress Notes/Assess & Plan Date Seen 03/22/17 Admission Dx/Process Assessment: Status post uncomplicated lumbar spine surgery due to severe lumbar stenosis causing left foot drop by Dr. 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 Hyperparathyroidism Diagonsis/Assessment & Plan Patient doing very well and plans for discharge today Will have home physical therapy and that is been ordered INR is 2.1 so will not require Lovenox and she is on 8 mg of Coumadin today She has completed the iron infusions so she will not require oral iron therapy Does not need any pain medicine Bowel movements are normal and she has been instructed to take MiraLAX and stool softeners at home No fever, vital signs stable, pleasant,much improved Laboratory Tests 03/22/17 05:20 Laboratory Tests 03/20/17 06:25: Prothrombin Time 16.8, INR Comment 1.4 03/22/17 05:20: Prothrombin Time 23.1, INR Comment 2.1 Assessment: Status post uncomplicated lumbar spine surgery due to severe lumbar stenosis causing left foot drop by Dr. 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 YSABEL GREEN DO Mar 22, 2017 08:55
[2017-03-22] MEDS: ASPIRIN 81 MG CHEW (CHILDREN'S ASA) PO SCH (09:09)
[2017-03-22] MEDS: VITAMIN D3 1,000 UNITS (CHOLECALCIFEROL) TABLET PO SCH (09:09)
[2017-03-22] MEDS: DILTIAZEM 60 MG (CARDIZEM) TAB PO SCH (09:09)
[2017-03-22] MEDS: FOLIC ACID 1 MG TAB PO SCH (09:09)
[2017-03-22] MEDS: AMIODARONE 200 MG (CORDARONE) TAB PO SCH (09:10)
[2017-03-22] MEDS: HYDROXYCHLOROQUINE 200 MG (PLAQUENIL) TAB PO SCH (09:10)
[2017-03-22] MEDS: DOCUSATE SODIUM 100 MG (COLACE) CAP PO SCH (09:10)
[2017-03-22] MEDS: KCL 10 MEQ TAB (MICRO K) PO SCH (09:10)
[2017-03-22] MEDS: ENOXAPARIN 80 MG/0.8 ML (LOVENOX) SYR SC SCH (10:27)
--- NOTE | 2017-03-22 10:40 | Therapy Team Discharge Summary ---
Therapy Discharge Summary Discharge Recommendations Date of Discharge Therapy D/C Recommendations: Home w/ Family Support Physical Therapy Patient came to rehab post L3-L5 laminectomy. Upon admission patient performed bed mobility and transfers with SBA, ambulated 250' with a rolling walker with SBA and use of AFO, and could go up and down 8 steps using 2 handrails with CGA. Patient has been performing bed mobility and transfer training, balance and endurance training, functional strengthening, stair training, gait training , and education. 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 Now, patient performs bed mobility and transfers with mod I, ambulates 400' with a rolling walker with mod I (including 50' with at least 2 turns of 90 degrees, and 10' over an uneven surface), and can go up and down 12 steps using 2 handrails with mod I. Patient is being discharged from this facility today and will be discharged from PT at this time. PT Direct Support Specialist Goals Fpc Goals PT Fpc Goals Time Frame: March 28, 2017 Transfers (B,C,W/C) (FIM): 6 Roll Left to Right (QC): 6 Sit to Lying (QC): 6 Lying-Sitting on Side/Bed(QC): 6 Sit to Stand (QC): 6 Chair/Gne-ay-Rcrkv Xfer(QC): 6 Car Transfer (QC): 6 Does the Patient Walk: Yes Gait (FIM): 6 Gait distance (FIM): 3=150 ft Distance: 250' Walk 10 feet (QC): 6 Walk 10ft-Uneven Surface(QC): 6 Walk 50ft with 2 Turns (QC): 6 Walk 150 ft (QC): 6 Gait Level of Assist: 6 Gait Assistive Device: FWW Stairs (FIM): 6 # of Steps: 12 1 Step (curb) (QC): 6 4 Steps (QC): 6 12 Steps (QC): 6 Stairs Level Of Assist: 6 Picking up an Object (QC): 88 OT Fpc Goals Direct Support Specialist Goals Time Frame: April 04, 2017 Eating (FIM): 7 (no denturesMet 03-21-17) Eating (QC): 6 (Met 03-21-17) Oral Hygiene (QC): 6 (Met 03-21-17) Grooming(FIM): 6 (Met 03-21-17) Bathing(FIM): 6 (Met 03-21-17) Shower/Bathe Self (QC): 6 (Met 03-21-17) Upper Body Dressing(FIM): 6 (Met 03-21-17) Upper Body Dressing (QC): 6 (Met 03-21-17) Lower Body Dressing(FIM): 6 (Met 03-21-17) Lower Body Dressing (QC): 6 (Met 03-21-17) On/Off Footwear (QC): 6 (Met 03-21-17) Toileting(FIM): 6 (Met 03-21-17) Toileting Hygiene (QC): 6 (Met 03-21-17) Toilet/Commode Transfer(FIM): 6 (Met 03-21-17) Toilet/Commode Transfer (QC): 6 (Met 03-21-17) Shower Transfer(FIM): 6 (Not met. Not allowed to shower) Additional Goals: 1-Demonstrate ADL Tasks, 2-Verbalize Understanding, 3- ImproveStrength/Estuardo 1=Demonstrate adherence to instructed precautions during ADL tasks. 2=Patient will verbalize/demonstrate understanding of assistive devices/ modifications for ADL. 3=Patient will improve strength/tolerance for activity to enable patient to perform ADL's. SILKE OSUNA PT Mar 22, 2017 10:40
[2017-03-22 10:50] VITALS: BP 127/71
== END 2017-03-22 10:54 | disposition home health service (06) | DRG 950 ==
LOC: ENPENDDIS 03-22 12:00
PROVIDERS: ADMIT Physical Medicine & Rehabilitation; ATTEND Physical Medicine & Rehabilitation
DX: Z48.89 Encounter for other specified surgical aftercare (principal); Z98.1 Arthrodesis status; M21.372 Foot drop, left foot; I48.2 Chronic atrial fibrillation; M06.9 Rheumatoid arthritis, unspecified; G60.9 Hereditary and idiopathic neuropathy, unspecified; H40.9 Unspecified glaucoma; I10 Essential (primary) hypertension; D64.9 Anemia, unspecified; E61.1 Iron deficiency; E21.3 Hyperparathyroidism, unspecified; E87.6 Hypokalemia; Z79.01 Long term (current) use of anticoagulants
CPT/HCPCS: 36415; 80053; 85025; 85610; 86850; 86900; 86901; 86920

== ENCOUNTER 2018-11-03 06:13 | Outpatient (CLI) | payer MEDICARE ==
[~2018-11-03] VITALS: Ht 172.7 cm; Wt 80.9 kg
[~2018-11-03 06:13] MED LIST: ACET325T49 PO; ACHD5005 PO; AMIO200T4 PO; ASPI-999 PO; CHOL100045 PO; CITA20TA9 PO; DILT60TA PO; DOCU100C37 PO; FOLI1TAB24 PO; HYDR200T46 PO; Multivitamins/Minerals Therap PO; PANT40TA3 PO; POTA10TA6 PO; WARF-47 PO; WARF2TAB PO
[2018-11-03] MEDS ORDERED: LEVO125T6 PO (12:25)
[2018-11-03] MEDS ORDERED: ESCI10TA55 PO (12:25)
[2018-11-03] MEDS ORDERED: CALC-823 PO (12:25)
[2018-11-03] MEDS ORDERED: AMIO200T4 PO (12:25)
[2018-11-03] MEDS ORDERED: WARF-48 PO (12:25)
[2018-11-03] MEDS ORDERED: LATA2.5D19 OP (12:25)
== END 2018-11-03 12:30 | disposition home or self-care (01) ==
LOC: PREOP 06:13
PROVIDERS: ATTEND Surgery
DX: Z01.818 Encounter for other preprocedural examination (principal)

== ENCOUNTER 2018-11-10 12:18 | Day surgery (SDC) | payer MEDICARE ==
[~2018-11-10] VITALS: Ht 172.7 cm; Wt 80.9 kg
[~2018-11-10 12:18] MED LIST changes: +CALC-823 PO; +ESCI10TA55 PO; +LATA2.5D19 OP; +LEVO125T6 PO; +WARF-48 PO
[2018-11-10] MEDS ORDERED: LACTATED RINGERS 1,000 ML IV ONE (12:37)
[2018-11-10 12:40] VITALS: BP 135/71
--- NOTE | 2018-11-10 12:52 | Progress Note-Pre Operative ---
Pre-Operative Progress Note H&P Reviewed The H&P was reviewed, patient examined and no changes noted. Date Seen by Provider: Nov 10, 2018 Time Seen by Provider: 12:51 Date H&P Reviewed: Nov 10, 2018 Time H&P Reviewed: 12:51 Pre-Operative Diagnosis: screening colonoscopy ORA MATTHEWS DO Nov 10, 2018 12:52
[2018-11-10] MEDS ORDERED: LACTATED RINGERS 1,000 ML IV STA (13:06)
[2018-11-10] MEDS ORDERED: PROPOFOL INJECTION 50 ML IV ONE (14:25)
[2018-11-10 15:20] VITALS: BP 100/55
--- NOTE | 2018-11-10 15:22 | Progress Note-Post Operative ---
Post-Operative Progess Note Surgeon (s)/Agribusiness Internship (s) Surgeon ORA MATTHEWS DO Agribusiness Internship: na Pre-Operative Diagnosis screening colonoscopy Post-Operative Diagnosis diverticulosis Procedure & Operative Findings Date of Procedure 11/10/18 Procedure Performed/Findings colonoscopy Anesthesia Type per carbon accountant Estimated Blood Loss Estimated blood loss (mL): none Specimens/Packing Specimens Removed na ORA MATTHEWS DO Nov 10, 2018 15:22
--- NOTE | 2018-11-10 15:24 | Discharge Inst-Simple/Standard ---
Discharge Inst-Standard Patient Instructions/Follow Up Plan of Care/Instructions/FU: Repeat colonoscopy in 5 years any issues before that be seen at that time. Activity as Tolerated: Yes Discharge Diet: Regular Diet (high fiber) ORA MATTHEWS DO Nov 10, 2018 15:24
[2018-11-10 15:50] VITALS: BP 123/80
--- NOTE | 2018-11-10 16:09 | Anesthesia-General Post-Op ---
MAC Patient Condition Mental Status/LOC: Same as Preop Cardiovascular: Satisfactory Nausea/Vomiting: Absent Respiratory: Satisfactory Pain: Controlled Complications: Absent Post Op Complications Complications None Follow Up Care/Instructions Patient Instructions None needed. Anesthesiology Discharge Order Discharge Order Patient is doing well, no complaints, stable vital signs, no apparent adverse anesthesia problems. No complications reported per nursing. BRIGID JACKMAN CRNA Nov 10, 2018 16:09
--- NOTE | 2018-11-11 02:21 | OPERATIVE REPORT ---
DATE OF SERVICE: 11/10/2018 PREOPERATIVE DIAGNOSIS: Screening colonoscopy. POSTOPERATIVE DIAGNOSIS: Diverticulosis. PROCEDURE: Colonoscopy. SURGEON: Ora Arellano DO ANESTHESIA: Per CORE ANALYST. ESTIMATED BLOOD LOSS: None. COMPLICATIONS: None. INDICATIONS: The patient is a 78-year-old female with family history of colon cancer. She needs screening colonoscopy. She understands risks and benefits and wished to proceed with procedure. Consent was signed and on the chart. DESCRIPTION OF PROCEDURE: The patient was taken to the endoscopy suite, placed in left lateral recumbent position. Timeout was performed. Digital rectal exam was performed. No palpable polyps, masses or ulcerations. Scope was inserted in the rectum and advanced all the way to the cecum with minimal difficulty. Prep was adequate. Scope was then slowly retracted back. There were no polyps, masses or ulceration in the cecum, ascending, transverse, descending and sigmoid colon. In the sigmoid colon, minimal amount of diverticulosis present. Scope was then slowly retracted back into the rectum, where it was also retroflexed noting no other pathology. Scope was returned to its normal position, slowly withdrawn until completely removed. The patient tolerated the procedure well without any complication. She was taken to recovery room in stable condition. RECOMMENDATIONS: The patient will need repeat colonoscopy in 5 years unless she has any problems before that, she should be seen at that time. We would recommend high fiber diet. Job ID: [id number] DocumentID: [id number] Dictated Date: 11/10/2018 15:26:06 Home Care Rn Date: 11/11/2018 02:20:03 Dictated By: ORA ARELLANO DO
== END 2018-11-10 15:55 | disposition home or self-care (01) ==
LOC: ENDO 12:18
PROVIDERS: ATTEND Surgery
DX: Z12.11 Encounter for screening for malignant neoplasm of colon (principal); K57.30 Diverticulosis of large intestine without perforation or abscess without bleeding; Z80.0 Family history of malignant neoplasm of digestive organs; I10 Essential (primary) hypertension; I48.91 Unspecified atrial fibrillation; K21.9 Gastro-esophageal reflux disease without esophagitis; Z79.01 Long term (current) use of anticoagulants; Z79.82 Long term (current) use of aspirin; Z79.899 Other long term (current) drug therapy

== ENCOUNTER 2020-01-12 12:19 | Outpatient (RCR) | payer MEDICARE | END 2020-04-11 | disposition home or self-care (01) | LOC: CARD 12:19 | PROVIDERS: ATTEND Internal Medicine Interventional Cardiology | DX: I48.0 Paroxysmal atrial fibrillation (principal) | CPT/HCPCS: 93306 ==

== ENCOUNTER 2020-05-09 05:38 | Outpatient (RCR) | payer MEDICARE ==
[~2020-05-09] VITALS: Ht 172.7 cm; Wt 77.7 kg
[~2020-05-09 05:38] MED LIST changes: +ASPI-586 PO; +CYAN100088 PO; +DILT120T11 PO; +GABA-486 PO; +HYDR200T78 PO; -LATA2.5D19 OP; +LATA2.5D19 OU; +WARF4TAB70 PO
== END 2020-05-09 15:12 | disposition home or self-care (01) ==
LOC: PREOP 05:38
PROVIDERS: ATTEND Specialist
DX: Z01.818 Encounter for other preprocedural examination (principal); Z11.59 Encounter for screening for other viral diseases
CPT/HCPCS: 87635

== ENCOUNTER 2020-05-12 07:48 | Day surgery (SDC) | payer MEDICARE ==
[~2020-05-12] VITALS: Ht 172.7 cm; Wt 77.7 kg
[2020-05-12 08:15] VITALS: BP 124/58
[2020-05-12] MEDS ORDERED: POVIDONE (BETADINE) OPHTH SOLN 5% 30 ML OP ONE (08:15)
[2020-05-12] MEDS ORDERED: MOXIFLOXACIN OPHTH SOLN 5 MG/ML 0.3 ML SYRINGE OP ONE (08:15)
[2020-05-12] MEDS ORDERED: TIMOLOL MALEATE 0.5% 5 ML (TIMOPTIC) BTL OU PRN (08:15)
[2020-05-12] MEDS ORDERED: LIDOCAINE PF 1% 2 ML VIAL IR PRN (08:15)
[2020-05-12] MEDS: TETRACAINE 0.5% OPHTH SOLN 4 ML BTL (SINGLE DOSE ONLY) OP PRN ×4 (08:19→08:53)
[2020-05-12] MEDS: CYCLOPENTOLATE 1% (CYCLOGYL) 2 ML DROPS OP SCH ×3 (08:34→08:53)
[2020-05-12] MEDS: PHENYLEPHRINE 10% OPHTH (NEO-SYN) 5 ML BTL OU SCH ×3 (08:34→08:53)
--- NOTE | 2020-05-12 09:12 | Ophthalmologist Pre-Op Note ---
Pre-Operative Progress Note H&P Reviewed The H&P was reviewed, patient examined and no changes noted. Date H&P Reviewed: May 12, 2020 Time H&P Reviewed: 09:12 Pre-Op Dx Cataract, Left Eye MARIO LAURENT MD May 12, 2020 09:12
[2020-05-12] MEDS ORDERED: MIDAZOLAM 2 MG/2 ML (VERSED) VIAL ONE (09:18)
--- NOTE | 2020-05-12 09:35 | Ophthalmology Operative Report ---
Cataract removal/placement IOL PREOPERATIVE DIAGNOSIS: Cataract Left Eye POSTOPERATIVE DIAGNOSIS: Cataract Left Eye PROCEDURE: Cataract removal and placement of posterior chamber implant, left eye SURGEON: Jackson Laurent ANESTHESIA: Topical with sedation COMPLICATIONS: None ESTIMATED BLOOD LOSS: Minimal DESCRIPTION OF PROCEDURE: After proper informed consent was obtained, the patient, a 80 female, was taken to the Operating Room and the left eye was anesthetized with tetracaine. The left eye was then prepped and draped in the usual manner. A wire lid speculum was placed. A paracentesis was made at the left hand position. Preservative free lidocaine was injected into the anterior chamber followed by viscoelastic. A clear corneal incision was made in the temporal position. A capsulorrhexis was preformed and the central nuclear and cortical material were removed. The posterior capsule was polished and an Christopher 21.0 AU00T0 was placed into the capsular bag. The residual viscoelastic was aspirated and balanced saline solution was injected into the anterior chamber. Moxifloxacin was injected into the anterior chamber. The wound was checked and found to be water tight. The patient tolerated the procedure well without complications. JACKSON LAURENT MD May 12, 2020 09:35
[2020-05-12 09:50] VITALS: BP 139/65
== END 2020-05-12 09:50 | disposition home or self-care (01) ==
LOC: SDC 07:48
PROVIDERS: ATTEND Specialist
DX: H25.12 Age-related nuclear cataract, left eye (principal); H40.9 Unspecified glaucoma; I48.91 Unspecified atrial fibrillation; G62.9 Polyneuropathy, unspecified; M06.9 Rheumatoid arthritis, unspecified; Z79.82 Long term (current) use of aspirin; Z79.899 Other long term (current) drug therapy; Z79.890 Hormone replacement therapy; Z88.2 Allergy status to sulfonamides; Z88.5 Allergy status to narcotic agent
CPT/HCPCS: 66984; V2632

== ENCOUNTER 2020-05-16 05:35 | Outpatient (CLI) | payer MEDICARE | END 2020-05-16 15:45 | disposition home or self-care (01) | LOC: SDC 05:35 | PROVIDERS: ATTEND Specialist | DX: Z01.818 Encounter for other preprocedural examination (principal); Z11.59 Encounter for screening for other viral diseases | CPT/HCPCS: 87635 ==

== ENCOUNTER 2020-05-19 07:00 | Day surgery (SDC) | payer MEDICARE ==
--- NOTE | 2020-05-12 11:45 | Anesthesia-General Post-Op ---
MAC Patient Condition Mental Status/LOC: Same as Preop Cardiovascular: Satisfactory Nausea/Vomiting: Absent Respiratory: Satisfactory Pain: Controlled Complications: Absent Post Op Complications Complications None Follow Up Care/Instructions Patient Instructions None needed. Anesthesiology Discharge Order Discharge Order Patient is doing well, no complaints, stable vital signs, no apparent adverse anesthesia problems. No complications reported per nursing. TROY MARIE USED CAR SALESPERSON May 12, 2020 11:45
[~2020-05-19] VITALS: Ht 172 cm; Wt 77.7 kg
[2020-05-19 07:00] VITALS: BP 121/62
--- OUTSIDE RECORDS SUMMARY | 2020-05-19 07:07 | XMS REPORT | Encounter Summary ---
Author Author [facility] Organization [facility] Address Unknown Phone Unavailable Care Team Providers Care Production Troubleshooter Name Role Phone PCP Unavailable Encounter Details Care Team Description Date Type Department Paroxysmal atrial fibrillati on (HCC) 10/01/2016 [facility] Encounter Center (Non-Invasive Cardiology) [address] [place] [address] [id number] Social History Date Tobacco Use Types Packs/Day Years Used Never Assessed Sex Assigned at Date Recorded Not on file Industry Job Start Date Occupation Not on file Not on file Not on file Travel End Travel History Travel Start No recent travel history available. documented as of this encounter Plan of Treatment Not on filedocumented as of this encounter Procedures Comments Procedure Name Priority Date/Time Associated Diag nosis NM MPI SPECT 1 DAY REST Routine 10/01/2016 AND STRESS PARMARCOLOGIC 2:08 PM EVENT SET UP SPECIALIST documented in this encounter Results * Nuclear Medicine MPI SpeCT 1 Day Rest And Stress Parmarcologic (10/01/2016 2:08 PM EVENT SET UP SPECIALIST) Specimen Narrative Performed At [facility] [address] [place] [address] [id number] Myocardial Perfusion Report VIRGINIE CANALESPOP Exam Date: 10/01/2016 12:40 Ordering Phys: JULIANA NICHOLS MD Exam Location: [facility] - Nuclear Referring Phys:TYLOR MELISSA MD Age: 76 Gender: F Ht (in):68 Wt (lb):183 BSA 2.01 Stress RN/Tech: : : 1940 Technologist: Frank CHAKRABORTY CC Physician: CC Physician: Indications: af Cardiac History: afib Allergies: sulfa, percocet Cardiac Meds: See Epic MAR Meds past 24 hrs: Pretest Chest Pain: Nurses Notes: Patient denied any c hest pain during resting Lexiscan. Consent: The procedure was explained to the patient in lay terms. Consent was witnessed. History and Stress Test Performed By: Nelia Cardenas STRESS TEST Pharmacologic Protocol:Lexiscan Dose 0.4 mg Duration (m:s):0:10 Aminophylline: : Resting HR (bpm):77 Resting BP (mm Hg): 140 / 86 MPHR: 146 Target HR 124 (bpm): Peak HR (bpm): 88 Peak BP (mmHg ): 116 / 60 % MPHR: 60 Double Product: 62577 BP Response: Normal blood press ure response during stress Stress Termination:Stress Infusion comp lete Symptoms: No chest pain or symptoms Stress Summary: No acute changes not ed ECG Resting ECG: Sinus rhythm. Normal repolarization. Stress ECG: Sinus rhythm. No ST c hanges. EKG Cat Tender:Lenin Espinosa M.D. IMAGE PROTOCOL Rest/Stress 1 Day Radiopharmaceutical Dose (mC i) Duration (min) Img Date Img Time Inj to Img Time (min) Rest: Tc-99m Sestamibi 11.0 01-Oct-2016 12:54 45 Stress: Tc-99m Sestamibi 31.1 01-Oct-2016 14:08 30 Post-Injection Exercise:No exercise fol lowed the intravenous injection Rest Administration Site:IV - Left Hand Person Administering:Frank CHAKRABORTY Stress Administration Site:IV - Left Whitaker nd Person Administering:Nelia Diggs [facility] SPECT RESULTS Technical Quality: Technically adequa te study Raw Data Analysis: Breast attenuation Stress Perfus ion Rest Perfusion Summed Stress Score :0 Summed Rest Score: 0 Summed Difference Score: 0 0 - Normal 1 - Equivocal 2 - Abnormal 3 - Severe 4 - Absent Perfusion: Stress images show a normal pattern of perfusion. Resting images show no change in the pattern of perfusion. FUNCTION (calculated via Gated SPECT) Resting LV EF:74 % Post Stress LV EF:74 % TID: 0.86 EDV: 125 ml ESV: 32 ml EDVI: 62 ml/m ESVI: 16 ml/m Technical Quality: Gated SPECT brooke ears to be visually accurate LV Size & Function: Normal left vent ricular size and function. Wall Motion Wall Thickening LV Regional Function: 0 - Normal 1 - Equivocal 2 - Hypokinetic 0 - Normal 1 - Equivocal 2 - Abnormal 3 - None 3 - Akinetic 4 - Dyskinetic Normal regional wall motion. IMPRESSIONS Normal LV perfusion study. EF 74%. Scan indicates low risk for cardiac mirta nts. LENIN ESPINOSA MD (Electronically Signed) Final Date:02 October 2016 17:42 Procedure Note Interface, Radiology Results Conversion Epic - 02/14/2019 7:41 PM CDT [facility] [address] [facility] [address] Myocardial Perfusion Report SARARADHACOREY Exam Date: 10/01/2016 12:40 Ordering Phys: JULIANA NICHOLS MD Exam Location: [facility] HV - Nuclear Referring Phys:TYLOR MELISSA MD Age: 76 Gender: F Ht (in):68 Wt (lb):183 BSA 2.01 Stress RN/Tech: : : 1940 Technologist: Frank CHAKRABORTY CC Physician: CC Physician: Indications: af Cardiac History: afib Allergies: sulfa, percocet Cardiac Meds: See [facility] Meds past 24 hrs: Pretest Chest Pain: Nurses Notes: Patient denied any chest pain during resting Lexiscan. Consent: The procedure was explained to the patient in lay terms. Consent was witnessed. History and Stress Test Performed By: Nelia Salter STRESS TEST Pharmacologic Protocol:Lexiscan Dose 0.4 mg Duration (m:s):0:10 Aminophylline: : Resting HR (bpm):77 Resting BP (mmHg): 140 / 86 MPHR: 146 Target HR 124 (bpm): Peak HR (bpm): 88 Peak BP (mmHg): 116 / 60 % MPHR: 60 Double Product: 07075 BP Response: Normal blood pressure response during stress Stress Termination:Stress Infusion complete Symptoms: No chest pain or symptoms Stress Summary: No acute changes noted ECG Resting ECG: Sinus rhythm. Normal repolarization. Stress ECG: Sinus rhythm. No ST changes. EKG Cat Tender:Lenin Espinosa M.D. IMAGE PROTOCOL Rest/Stress 1 Day Radiopharmaceutical Dose (mCi) Duration (min) Img Date Img Time Inj to Img Time (min) Rest: Tc-99m Sestamibi 11.0 01-Oct-2016 12:54 45 Stress: Tc-99m Sestamibi 31.1 01-Oct-2016 14:08 30 Post-Injection Exercise:No exercise followed the intravenous injection Rest Administration Site:IV - Left Hand Person Administering:Frank Wells [facility] Stress Administration Site:IV - Left Hand Person Administering:Nelia Diggs [facility] SPECT RESULTS Technical Quality: Technically adequate study Raw Data Analysis: Breast attenuation Stress Perfusion Rest Perfusion Summed Stress Score:0 Summed Rest Score: 0 Summed Difference Score: 0 0 - Normal 1 - Equivocal 2 - Abnormal 3 - Severe 4 - Absent Perfusion: Stress images show a normal pattern of perfusion. Resting images show no change in the pattern of perfusion. FUNCTION (calculated via Gated SPECT) Resting LV EF:74 % Post Stress LV EF:74 % TID: 0.86 EDV: 125 ml ESV: 32 ml EDVI: 62 ml/m ESVI: 16 ml/m Technical Quality: Gated SPECT appears to be visually accurate LV Size & Function: Normal left ventricular size and function. Wall Motion Wall Thickening LV Regional Function: 0 - Normal 1 - Equivocal 2 - Hypokinetic 0 - Normal 1 - Equivocal 2 - Abnormal 3 - None 3 - Akinetic 4 - Dyskinetic Normal regional wall motion. IMPRESSIONS Normal LV perfusion study. EF 74%. Scan indicates low risk for cardiac events. LENIN ESPINOSA MD (Electronically Signed) Final Date:02 October 2016 17:42 Performing Organization Address City/State/Zipcode Ph one Number [facility] documented in this encounter Visit Diagnoses Diagnosis Paroxysmal atrial fibrillation (HCC) documented in this encounter
--- OUTSIDE RECORDS SUMMARY | 2020-05-19 07:07 | XMS REPORT | Encounter Summary ---
Author Author [facility] Organization [facility] Address Unknown Phone Unavailable Care Team Providers Care Product Applications Scientist Name Role Phone PCP Unavailable Encounter Details Care Team Description Date Type Department Arnoldo Garcia MD [address] [id number] Paroxysmal atrial fibrillation (HCC); Spinal stenosis of thoracolumbar region; Polyneuropathy; Neoplasm of uncertain behavior of thyroid gland 06/11/2017 Hospital [facility] PHASE II Encounter [address] [address] Social History Date Tobacco Use Types Packs/Day [...] Procedure Name Priority Date/Time Associated Diag nosis PROTIME-INR Routine 06/11/2017 6:27 AM CDT CBC NO DIFF Routine 06/11/2017 6:27 AM CDT BASIC METABOLIC PANEL STAT 06/11/2017 6:27 AM CDT ECG 12-LEAD STAT 06/11/2017 5:33 AM CDT TISSUE EXAM Routine 06/11/2017 12:00 AM CDT documented in this encounter Results * Protime-INR (06/11/2017 6:27 AM CDT) PROTHROMBIN 12.9 11.8 - 15.0 s [facility] EPIC TIME INR 1.0 [facility] EPIC Comment: (NOTE) THERAPEUTIC GOALS FOR PATIENTS ON ORAL ANTICOAGULANTS ========= Standard risk factors for thromboembolic disease: INR of 2.0-3.0 Higher risk of thrombosis (e.g [facility] heart valve): INR of 2.5-3.5 Specimen Blood (substance) - Plasma Performing Organization Address [facility] Ph one Number [facility] EPIC * Basic Metabolic Panel (06/11/2017 6:27 AM CDT) SODIUM 141 136 - 145 mmol/L [facility] EP[facility] POTASSIUM 3.7 3.5 - 5.1 mmol/L [facility] CHLORIDE 109 (H) 98 - 107 mmol/L [facility] CO2 27 21 - 32 mmol/L [facility] ANION GAP 5 5 - 15 [facility] BUN 19 (H) 7 - 18 mg/dL ST EPIC CREATININE, 1.10 0.55 - 1.30 mg/dL [facility] SERUM OR PLASMA GLUCOSE, SERUM 98 80 - 115 mg/dL [facility] CALCIUM 8.8 8.5 - 10.0 mg/dL [facility] EP[facility] GFR ESTIMATED 48 [facility] EP[facility] NOT AFR/AM Comment: GFR <60: CHRONIC KIDNEY DISEASE if found over a 3 month period. GFR <15: KIDNEY FAILURE GFR ESTIMATED 59 [facility] EP[facility] IF AFR/AM Comment: GFR <60: CHRONIC KIDNEY DISEASE if found over a 3 month period. GFR <15: KIDNEY FAILURE Specimen Blood (substance) - Serum Performing Organization Address [facility] Ph one Number [facility] EPIC * CBC No Diff (06/11/2017 6:27 AM CDT) WBC 4.15 4.00 - 10.80 10*3/uL [facility] EP[facility] RBC 3.93 (L) 4.20 - 5.40 10*6/uL [facility] HEMOGLOBIN 12.3 12.0 - 16.0 g/dL [facility] EP[facility] HCT 38.6 37.0 - 47.0 % [facility] EP[facility] MCV 98 81 - 99 fL [facility] EP[facility] MCH 31 26.0 - 34.0 pg [facility] EP[facility] MCHC 31.9 31.0 - 37.0 g/dL ST EPIC MPV 10.0 9.4 - 12.3 fL [facility] PLATELET COUNT 156 150 - 400 10*3/uL [facility] EPIC RDW COEFFICIENT 13.5 11.5 - 14.5 % [facility] OF VARIATION RDW STANDARD 49.0 (H) 36.4 - 46.3 fL [facility] DEVIATION NUCLEATED RBC, 0.00 0.00 10*3/uL [facility] ABSOLUTE NUCLEATED RBC, 0.0 0.0 % [facility] PERCENT Specimen Blood (substance) - Blood Performing Organization Address [facility] one Number [facility] * ECG 12 lead (06/11/2017 5:33 AM CDT) Specimen [place]arrative [place] [address] Test Date: 2017-06-11 Pat Name: COREY CANALES Department: Room: 2 Gender: F Sampler Tester: TRAVIS WHITAKERB: 1940 Requested By: Order Number: Reading : Selma Johansen M.D. Measurements Intervals Bard Rate: 69 P: 38 MN: 164 QRS: 68 QRSD: 108 T: 46 QT: 448 QTc: 480 Interpretive Statements SINUS RHYTHM Electronically Signed On 06-11-17 07:00 :03 CDT by Selma Johansen M.D. Procedure Note Interface, Cardiology Conversion Results [facility] - 02/17/2019 10:15 [place] [address] Test Date: 2017-06-11 Pat Name: COREY CANALES Department: Room: 2 Gender: F Sampler Tester: TRAVIS : 1940 Requested By: Order Number: Reading : Selma Johansen M.D. Measurements Intervals Bard Rate: 69 P: 38 MN: 164 QRS: 68 QRSD: 108 T: 46 QT: 448 QTc: 480 Interpretive Statements SINUS RHYTHM Electronically Signed On 06-11-17 07:00:03 CDT by Selma Johansen M.D. Performing Organization Address [facility] one Number [facility] * Tissue Exam (06/11/2017 12:00 AM CDT) Specimen Narrative Performed At [address], [place] [address] Fax: [place] [facility], [facility] DO Lino Cruz M D Jonathan D. Boyd, MD Rachel E. Donohue, MD Richard R. Gomez, MD William P. Schaetzel, DO Mark S. Synovec, MD Linda M. Wells, MD Surgical Pathology Report Patient Name: COREY CANALES Med. Rec. #: [id number] : 1940 (Age: 77) Gender: F Provider: ARNOLDO GARCIA Collected: 06/11/2017 Received: 06/11/2017 Pt. Location: [facility] Patient Type: Outpatient DIAGNOSIS: Left thyroid lobe, lobectomy: 1. 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 Gerry Baxter MD Electronically Signed Out ( 7) rrg CLINICAL INFORMATION: Left thyroid neoplasm GROSS DESCRIPTION: Specimen arrives fresh labeled "left th yroid lobe." It consists of a red-garcia fragment of tissue which weighs 21.5 gr ams and measures 5.3 cm x 3.6 cm x 2.3 cm. The specimen is inked blue prior to sectioning. Of note, the outside of the thyroid has a multinodular appearan ce. The cut surface demonstrates multiple nodules with beefy-garcia to garcia- white mottled appearance and occasional calcifications. A distinct dominant n odule is not identified. Medication Technician sections are submitted in cassettes A1- A4. JDB MICROSCOPIC DESCRIPTION: Microscopic findings support the diagno sis. Separate description not indicated. Performing Organization Address City/State/Zipcode Ph one Number [facility] EPIC documented in this encounter Visit Diagnoses Diagnosis Paroxysmal atrial fibrillation (HCC) Spinal stenosis of thoracolumbar region Polyneuropathy Neoplasm of uncertain behavior of thyro id gland documented in this encounter
--- OUTSIDE RECORDS SUMMARY | 2020-05-19 07:07 | XMS REPORT | Encounter Summary ---
Author Author [facility] Organization [facility] Address Unknown Phone Unavailable Care Team Providers Care Assistant Chief Train Dispatcher Name Role Phone PCP Unavailable Encounter Details Care Team Description Date Type Department Arturo Chavis MD [address] [place], [place] [id number] Paroxysmal atrial fibrillation (HCC) 09/26/2016 [facility] CARDIOLOGY Encounter [address] [facility] [place] [address] Social History Date Tobacco Use Types Packs/Day Years Used Never Assessed Sex Assigned at Date Recorded Not on file Industry Job Start Date Occupation Not on file Not on file Not on file Travel End Travel History Travel Start No recent travel history available. documented as of this encounter Plan of Treatment Not on filedocumented as of this encounter Visit Diagnoses Diagnosis Paroxysmal atrial fibrillation (HCC) documented in this encounter
--- OUTSIDE RECORDS SUMMARY | 2020-05-19 07:07 | XMS REPORT | Encounter Summary ---
Author Author [facility] Organization [facility] Address Unknown Phone Unavailable Care Team Providers Care Director Staffing Name Role Phone PCP Unavailable Encounter Details Care Team Description Date Type Department Baldo Ramos MD [address] [place], [place] [address] Polyneuropathy; Paroxysmal atrial fibrillation (HCC); Spinal stenosis of thoracolumbar region 02/07/2017 [facility] CARDIOLOGY Encounter [address] [place] [address] Social History Date Tobacco Use [...] as of this encounter Visit Diagnoses Diagnosis Polyneuropathy Paroxysmal atrial fibrillation (HCC) Spinal stenosis of thoracolumbar region documented in this encounter
--- OUTSIDE RECORDS SUMMARY | 2020-05-19 07:07 | XMS REPORT | Encounter Summary ---
Author Author [facility] Organization [facility] Address Unknown Phone Unavailable Care Team Providers Care Engineer Byproduct Name Role Phone PCP Unavailable Encounter Details Care Team Description Date Type Department Baldo Ramos MD [address] [place] [address] Encounter for other preprocedural examin ation; Paroxysmal atrial fibrillation (HCC); Spinal stenosis of thoracolumbar region 10/31/2016 [facility] CARDIOLOGY Encounter [address] [facility] [place] [address] Social History Date Tobacco Use [...] as of this encounter Visit Diagnoses Diagnosis Encounter for other preprocedural exami nation Paroxysmal atrial fibrillation (HCC) Spinal stenosis of thoracolumbar region documented in this encounter
--- OUTSIDE RECORDS SUMMARY | 2020-05-19 07:07 | XMS REPORT | Encounter Summary ---
Author Author [facility] Organization [facility] Address Unknown Phone Unavailable Care Team Providers Care Churn Tender Name Role Phone PCP Unavailable Encounter Details Care Team Description Date Type Department Baldo Ramos MD [address] [place] [address] Paroxysmal atrial fibrillation (HCC); Polyneuropathy; Spinal stenosis of thoracolumbar region 01/02/2017 [facility] CARDIOLOGY Encounter [address] [place] [address] Social History Date Tobacco Use [...] Visit Diagnoses Diagnosis Paroxysmal atrial fibrillation (HCC) Polyneuropathy Spinal stenosis of thoracolumbar region documented in this encounter
--- OUTSIDE RECORDS SUMMARY | 2020-05-19 07:07 | XMS REPORT | Encounter Summary ---
Author Author [facility] Organization [facility] Address Unknown Phone Unavailable Care Team Providers Care Special Collections Librarian Name Role Phone PCP Unavailable Encounter Details Care Team Description Date Type Department Arturo Chavis MD [address] [place], [place] [address] Paroxysmal atrial fibrillation (HCC) 08/08/2016 [facility] CARDIOLOGY Encounter [address] [place] [address] Social History Date Tobacco Use [...]
--- OUTSIDE RECORDS SUMMARY | 2020-05-19 07:07 | XMS REPORT | Encounter Summary ---
Author Author [facility] Organization [facility] Address Unknown Phone Unavailable Care Team Providers Care Mammographer Name Role Phone PCP Unavailable Encounter Details Care Team Description Date Type Department Paroxysmal atrial fibrillati on (HCC) 08/16/2016 Hospital [facility] EKG Encounter [address] [address] Social History Date Tobacco Use Types Packs/Day [...] Procedure Name Priority Date/Time Associated Diag nosis CARDIAC EVENT MONITOR Routine 09/18/2016 3:15 PM CDT documented in this encounter Results * Cardiac event monitor (09/18/2016 3:15 PM CDT) Specimen [facility]ative [facility] [address] [place] [address] Test Date: 2016-09-18 Pat Name: COREY CANALES Department: Room: Gender: Facilities Maintenance Assistant: Jeanette Mcadams : 1940 Requested By: Order Number: Reading MD: Arturo Chavis M.D. Interpretive Statements underlying rhythm is sinus rhythm she had a burden of about 17% of atrial fibrillation Electronically Signed On 09-18-16 15:33 :24 CDT by Arturo Chavis M.D. Procedure Note Interface, Cardiology Conversion Results Epic - 02/17/2019 9:19 PM CDT [facility] [place] [address] Test Date: 2016-09-18 Pat Name: COREY CANALES Department: Room: Gender: Facilities Maintenance Assistant: Jeanette Mcadams : 1940 Requested By: Order Number: María MD: Arturo Chavis M.D. Interpretive Statements underlying rhythm is sinus rhythm she had a burden of about 17% of atrial fibrillation Electronically Signed On 09-18-16 15:33:24 CDT by Arturo Chavis M.D. Performing Organization Address City/State/Zipcode Ph one Number [facility] documented in this encounter Visit Diagnoses Diagnosis Paroxysmal atrial fibrillation (HCC) documented in this encounter
--- OUTSIDE RECORDS SUMMARY | 2020-05-19 07:07 | XMS REPORT | Clinical Summary ---
Author Organization Unknown Address Unknown Phone Unavailable Care Team Providers Care Education Rep Name Role Phone PP Unavailable Allergies Comments Active Allergy Reactions Severity Noted Date "Pt reports her had a terrible reaction to it, and she never wants to experience that" Oxycodone Other (see 06/11/2016 comments) "it's been years ago, I know I had a reaction and they told me never to take it again" Sulfa (Sulfonamide Unknown 06/11/2016 Antibiotics) Medications Not on file Active Problems Problem Noted Date Neoplasm of uncertain behavior of thyroid gland 05/24 Paroxysmal atrial fibrillation 06/11/2016 Spinal stenosis of thoracolumbar region 06/11/2016 Neuropathy 06/11/2016 Falls 06/11/2016 Social History Date Tobacco Use Types Packs/Day Years Used Never Smoker Smokeless Tobacco: Never Used Drinks/Week oz/Week Comments Alcohol Use 0.0 No Sex Assigned at Date Recorded Not on file Industry Job Start Date Occupation Not on file Not on file Not on file Travel End Travel History Travel Start No recent travel history available. Plan of Treatment Not on file Results Not on filefrom Last 3 Months
--- OUTSIDE RECORDS SUMMARY | 2020-05-19 07:08 | XMS REPORT | Encounter Summary ---
Author Author [facility] Organization [facility] Address Unknown Phone Unavailable Care Team Providers Care Hardening Machine Operator Name Role Phone PCP Unavailable Encounter Details Care Team Description Date Type Department Baldo Ramos MD [address] [place], [place] [address] 12/27/2010 [facility] CARDIOLOGY Encounter [address] [facility] [place] [address] Social History Date Tobacco Use Types Packs/Day Years Used Never Assessed Sex Assigned at Date Recorded Not on file Industry Job Start Date Occupation Not on file Not on file Not on file Travel End Travel History Travel Start No recent travel history available. documented as of this encounter Plan of Treatment Not on filedocumented as of this encounter Visit Diagnoses Not on filedocumented in this encounter
--- OUTSIDE RECORDS SUMMARY | 2020-05-19 07:08 | XMS REPORT | Encounter Summary ---
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) dr juarez therapy 06/11/2016 [facility] Encounter [address] [address] Social History Date Tobacco Use [...] Procedure Name Priority Date/Time Associated Diag nosis ECG 12-LEAD Routine 06/11/2016 11:09 AM CDT documented in this encounter Results * ECG 12 lead (06/11/2016 11:09 AM CDT) Specimen Narrative Performed At [facility] [address] [place] [address] Test Date: 2016-06-11 Pat Name: COREY CANALES Department: Room: Gender: F Nursing Support Worker: Oumou Head : 1940 Requested By: Order Number: María MD: Baldo Ramos M.D. Measurements Intervals [place] Rate: P: IN: QRS: QRSD: T: QT: QTc: Interpretive Statements Electronically Signed On 06-12-16 15:00 :11 CDT by Baldo Ramos M.D. Procedure Note Interface, Cardiology Conversion Results Epic - 02/17/2019 8:41 PM CDT [facility] [place] [address] Test Date: 2016-06-11 Pat Name: COREY CANALES Department: Room: Gender: F Nursing Support Worker: Oumou Head : 1940 Requested By: Order Number: María MD: Baldo Ramos M.D. Measurements Intervals [place] Rate: P: IN: QRS: QRSD: T: QT: QTc: Interpretive Statements Electronically Signed On 06-12-16 15:00:11 CDT by Baldo Ramos M.D. Performing Organization Address City/State/Zipcode Ph one Number [facility] documented in this encounter Visit Diagnoses Diagnosis Other termite control technician (current) drug therapy documented in this encounter
--- OUTSIDE RECORDS SUMMARY | 2020-05-19 07:08 | XMS REPORT | Encounter Summary ---
Author Author [facility] Organization [facility] Address Unknown Phone Unavailable Care Team Providers Care Wet Machine Tender Name Role Phone PCP Unavailable Encounter Details Care Team Description Date Type Department Baldo Ramos MD [address] [place], [place] [address] 07/09/2013 [facility] CARDIOLOGY Encounter [address] [facility] [place] [address] Social History Date Tobacco Use [...]
--- OUTSIDE RECORDS SUMMARY | 2020-05-19 07:08 | XMS REPORT | Encounter Summary ---
Author Author [facility] Organization [facility] Address Unknown Phone Unavailable Care Team Providers Care Ice Cream Dipper Name Role Phone PCP Unavailable Encounter Details Care Team Description Date Type Department Atrial fibrillation (HCC) 07/23/2016 [facility] ica Encounter Center [address] [phone] Social History Date Tobacco Use [...] Procedure Name Priority Date/Time Associated Diag nosis CT ANGIOGRAM HEART W/ Routine 07/23/2016 CONTRAST, STRUCTURE, AND 2:53 PM CDT MORPHOLOGY AMMONIA Routine 07/23/2016 12:56 PM CDT documented in this encounter Results * CT angiogram heart with contrast, structure, and morphology (07/23/2016 2:53 PM CDT) Specimen Impressions Performed At 1. Calcium score is 9 suggesting minimal plaque vic olmedo [facility] 2. Patent coronary arteries. Right megan nant circulation. 3. Normal Left ventricular systolic fun ction with EF59% 4. Mildly dilated left atrium. No evide nce of thrombus in the left atrium or left atrial appendage 5. Normal pulmonary venous drainage. No accessory veins noted Finalized by Selma Johansen on 07/25/2016 17:35 [facility] Extracardiac structures: Assessment of the extracardiac structures shows a 14 x 22 mm left adrenal nodule. This measures 5 Hounsfield units, consistent with a benign adrenal adenoma. There is also a 3 mm diameter nodule in the lateral segment of the right middle lobe. This is sufficiently small that no further f ollow-up is recommended. Quality Review: As part is the quality review process for the cardiac CT angiography program, this exam has b een reviewed by Dr. Jey Davidson M.D. who concurs with the interpretatio n. Finalized by Jey Davidson on 07/26/20 16 14:23 [facility] Narrative Performed At EXAM: CT CARDIAC MORPHOLOGY W CONTRAST [facility] EXAM DATE: 07/23/2016 INDICATION: Atrial fibrillation prior to ablation DESCRIPTION OF PROCEDURE: After discussing risks, benefits and al ternatives of the procedure and obtaining written informed consent, the patient had cardiac CT performed utilizing a multi-detector CT scanner. Images were reconstructed and sent to [employer] 3-D workstation. The patient received 10 mg lopressor IV was administered and 0.4mg of sublingual nitroglycerin was given. 80 cc Omnipaque 350 IV was given. FINDINGS: This study quality appears good. FUNCTIONAL STUDY: A functional study was performed and sh ows normal LV systolic function, ejection fraction 59%. CALCIUM SCORING: Calcium scoring sugges michael a total calcium score of 9 using the Agatston scale. AORTA: The aorta is normal. Ascending a warren measures 29mm and descending thoracic aorta [id number] mm . LEFT VENTRICULAR MYOCARDIUM: The left v entricular myocardium is unremarkable RIGHT VENTRICULAR MYOCARDIUM: The right ventricular myocardium is unremarkable. LEFT ATRIUM: The left atrium is mildly enlarged in size. No other abnormality is identified. No thrombus noted in the left atrial ap pendage RIGHT ATRIUM: The right atrium is misty l in size. RIGHT VENTRICLE: The right ventricle is unremarkable. PULMONARY ARTERY: The pulmonary artery is normal. No central pulmonary embolism. PULMONARY VEINS: The pulmonary veins ar e unremarkable. No accessory pulmonary veins noted VALVULAR STRUCTURES: The aortic valve is trileaflet and norm al. The mitral valve is unremarkable PERICARDIUM: The pericardium is normal. CORONARY ARTERIES: The coronary arter ies are patent. No anomalous coronaries noted LEFT MAIN CORONARY ARTERY: Patent. LEFT ANTERIOR DESCENDING: The left ante rior descending is patent and nonobstructive. Mid LAD is tortuous. CIRCUMFLEX: Patent. Small and nondomina nt RIGHT CORONARY: The right coronary is d ominant supplying a PDA. Patent. There is a high OM/ramus branch that appears patent Procedure Note Interface, Radiology Results Conversion Epic - 02/14/2019 5:16 PM CDT EXAM: CT CARDIAC MORPHOLOGY W CONTRAST EXAM DATE: 07/23/2016 INDICATION: Atrial fibrillation prior to ablation DESCRIPTION OF PROCEDURE: After discussing risks, benefits and alternatives of the procedure and obtaining written informed consent, the patient had cardiac CT performed utilizing a multi-detector CT scanner. Images were reconstructed and sent to [employer] 3-D workstation. The patient received 10 mg lopressor IV was administered and 0.4mg of sublingual nitroglycerin was given. 80 cc Omnipaque 350 IV was given. FINDINGS: This study quality appears good. FUNCTIONAL STUDY: A functional study was performed and shows normal LV systolic function, ejection fraction 59%. CALCIUM SCORING: Calcium scoring suggested a total calcium score of 9 using the Agatston scale. AORTA: The aorta is normal. Ascending aorta measures 29mm and descending thoracic aorta [id number] mm. LEFT VENTRICULAR MYOCARDIUM: The left ventricular myocardium is unremarkable RIGHT VENTRICULAR MYOCARDIUM: The right ventricular myocardium is unremarkable. LEFT ATRIUM: The left atrium is mildly enlarged in size. No other abnormality is identified. No thrombus noted in the left atrial appendage RIGHT ATRIUM: The right atrium is normal in size. RIGHT VENTRICLE: The right ventricle is unremarkable. PULMONARY ARTERY: The pulmonary artery is normal. No central pulmonary embolism. PULMONARY VEINS: The pulmonary veins are unremarkable. No accessory pulmonary veins noted VALVULAR STRUCTURES: The aortic valve is trileaflet and normal. The mitral valve is unremarkable PERICARDIUM: The pericardium is normal. CORONARY ARTERIES: The coronary arteries are patent. No anomalous coronaries noted LEFT MAIN CORONARY ARTERY: Patent. LEFT ANTERIOR DESCENDING: The left anterior descending is patent and nonobstructive. Mid LAD is tortuous. CIRCUMFLEX: Patent. Small and nondominant RIGHT CORONARY: The right coronary is dominant supplying a PDA. Patent. There is a high OM/ramus branch that appears patent IMPRESSION: 1. Calcium score is 9 suggesting minimal plaque burden. 2. Patent coronary arteries. Right domin ant circulation. 3. Normal Left ventricular systolic func tion with EF59% 4. Mildly dilated left atrium. No eviden ce of thrombus in the left atrium or left atrial appendage 5. Normal pulmonary venous drainage. No accessory veins noted Finalized by Selma Johansen on 07/25/2016 17:35 [facility] Extracardiac structures: Assessment of the extracardiac structures shows a 14 x 22 mm left adrenal nodule. This measures 5 Hounsfield units, consistent with a benign adrenal adenoma. There is also a 3 mm diameter nodule in the lateral segment of the right middle lobe. This is sufficiently small that no further follow-up is recommended. Quality Review: As part is the quality review process for the cardiac CT angiography program, this exam has been reviewed by Dr. Jey Davidson M.D. who concurs with the interpretation. Finalized by Jey Davidson on 07/26/2016 14:23 [facility] Performing Organization Address City/[facility] Ph one Number [facility] * Ammonia (07/23/2016 12:56 PM CDT) CREATININE POCT 0.8 0.6 - 1.3 mg/dL [facility] GFR ESTIMATED >60 [facility] NOT AFR/AM Comment: GFR <60: CHRONIC KIDNEY DISEASE, if found over a 3 month period. GFR <15: KIDNEY FAILURE GFR ESTIMATED >60 [facility] IF AFR/AM Comment: GFR <60: CHRONIC KIDNEY DISEASE, if found over a 3 month period. GFR <15: KIDNEY FAILURE POC COMMENT SEE NOTES [facility] Comment: POINT OF EMERGENCY DEPARTMENT RN [id number] Specimen Blood Performing Organization Address City/State/[facility] Ph one Number [facility] documented in this encounter Visit Diagnoses Diagnosis Atrial fibrillation (HCC) Atrial fibrillation documented in this encounter
--- OUTSIDE RECORDS SUMMARY | 2020-05-19 07:08 | XMS REPORT | Encounter Summary ---
Author Author [facility] Organization [facility] Address Unknown Phone Unavailable Care Team Providers Care Painter Maintenance Name Role Phone PCP Unavailable Encounter Details Care Team Description Date Type Department Paroxysmal atrial fibrillati on (HCC) 06/11/2016 [facility] EKG Encounter [address] [phone] Social History Date Tobacco Use [...] Associated Diag nosis CARDIAC EVENT MONITOR Routine 06/26/2016 1:15 PM CDT documented in this encounter Results * Cardiac event monitor (06/26/2016 1:15 PM CDT) Specimen Narrative Performed At [facility] [address] [place] [address] Test Date: 2016-06-26 Pat Name: COREY CANALES Department: Room: Gender: F Dynamite Reclaimer: Jeanette Mcadams : 1940 Requested By: Order Number: María CAMACHO: Baldo Ramos M.D. Interpretive Statements Cardionet monitoring showed a baseline Sinus Rhythm. on 06-12-16 1343 hrs. patient developed atrial fibrillation with rapid ventricular response. on 06/18/2016 the patient had atrial fib and a 3 beat run of complex ventricular ectopy. on 06/18/15 52 and 1600 hrs. the patient had further complex ventricular ectopy with up to 5 beat runs of VT.dur ing that time the patient was in atrial fib. On 06/22/2016 the patient had a short ru n of atrial fib. the final tracing show the patient to b e in sinus rhythm. Electronically Signed On 06-27-16 09:14 :43 CDT by Baldo Ramos M.D. Procedure Note Interface, Cardiology Conversion Results Epic - 02/17/2019 8:41 PM CDT [facility] [address] [place] [address] Test Date: 2016-06-26 Pat Name: COREY CANALES Department: Room: Gender: F Dynamite Reclaimer: Jeanette Mcadams : 1940 Requested By: Order Number: María MD: Baldo Ramos M.D. Interpretive Statements Cardionet monitoring showed a baseline Sinus Rhythm. on 06-12-16 1343 hrs. patient developed atrial fibrillation with rapid ventricular response. on 06/18/2016 the patient had atrial fib and a 3 beat run of complex ventricular ectopy. on 06/18/15 52 and 1600 hrs. the patient had further complex ventricular ectopy with up to 5 beat runs of VT.during that time the patient was in atrial fib. On 06/22/2016 the patient had a short run of atrial fib. the final tracing show the patient to be in sinus rhythm. Electronically Signed On 06-27-16 09:14:43 CDT by Baldo Ramos M.D. Performing Organization Address City/State/Zipcode Ph one Number [facility] documented in this encounter Visit Diagnoses Diagnosis Paroxysmal atrial fibrillation (HCC) documented in this encounter
--- OUTSIDE RECORDS SUMMARY | 2020-05-19 07:08 | XMS REPORT | Encounter Summary ---
Author Author [facility] Organization [facility] Address Unknown Phone Unavailable Care Team Providers Care Linoleum Floor Installer Name Role Phone PCP Unavailable Encounter Details Care Team Description Date Type Department ProviderPedro MD [address] [place] [address] 04/16/2016 [facility] [address] Encounter [address] [facility], [address] [place] [address] Social History Date Tobacco Use Types Packs/Day [...] Procedure Name Priority Date/Time Associated Diag nosis POCT PT/INR Routine 04/16/2016 9:20 AM CDT documented in this encounter Results * POCT PT/INR (04/16/2016 9:20 AM CDT) PROTIME POCT 11.8 [facility] INR POCT 1.0 [facility] Comment: (NOTE) THERAPEUTIC GOALS FOR PATIENTS ON ORAL ANTICOAGULANTS ========= Standard risk factors for thromboembolic disease: INR of 2.0-3.0 Higher risk of [facility] INR of 2.5-3.5 POC COMMENT SEE NOTES [facility] Comment: POINT OF OPTOMETRY PROFESSOR [id number] Specimen Blood Performing Organization Address City/State/Zipcode Ph one Number [facility] documented in this encounter Visit Diagnoses Not on filedocumented in this encounter
--- OUTSIDE RECORDS SUMMARY | 2020-05-19 07:08 | XMS REPORT | Encounter Summary ---
Author Author [facility] Organization [facility] Address Unknown Phone Unavailable Care Team Providers Care Dielectric Testing Machine Operator Name Role Phone PCP Unavailable Encounter Details Care Team Description Date Type Department 06/10/2014 Hospital [facility] EKG Encounter [address] [address] Social History Date Tobacco Use [...] Procedure Name Priority Date/Time Associated Diag nosis TRANSTHORACIC ECHO (TTE) Routine 06/10/2014 COMPLETE 9:10 AM CDT documented in this encounter Results * Transthoracic echo (TTE) complete (06/10/2014 9:10 AM CDT) Specimen Narrative Performed At [facility] [address] [place] [id number] Transthoracic Echo Report COREY CANALES Exam Date: 06/10/2014 09:15 Performing Physician:Sarah Martins M.D. Exam Location: [facility] - Echo Ordering Physician: SARAH MARTINS MD : 1940 Age 74 Gender: F Referring Physician:TYLOR MELISSA MD Ht (cm): 173 Wt (kg): 84.00 BSA: 2.03 Studio Producer: Analilia bender Stat: NO Studio Producer Called In:NO CC: Indications: A fib CPT Codes: BP: 133 / 76 Rhythm: Contrast: No MEASUREMENTS (Male / Female) Normal V alues 2D ECHO LV Diastolic Diameter JAQUAN 4.90 cm 4.2 - 5.9 / 3 LV Ejection Fraction 4C A 57.34 % LV Systolic Diameter PLAX 3.60 cm LV Ejection Fraction MOD 57.04 % IVS Diastolic Thickness 1.10 cm 0.6 - 1.0 / 0 LV Ejection Fraction 2C A 56.33 % LVPW Diastolic Thickness 1.00 cm 0.6 - 1.0 / 0 RA Area 4C View 14.99 cm LVOT Diameter 1.90 cm IVC Diameter Expiration 3.09 cm LV Ejection Fraction MOD 53.45 % M-MODE Aortic Root Diameter MM 2.50 cm AV Cusp Separation MM 1.60 cm LA Systolic Diameter MM 4.40 cm TAPSE 3.14 cm LA Ao Ratio MM 1.76 DOPPLER AV Peak Velocity 1.53 m/ s Mitral E to A Ratio 1.75 AV Peak Gradient 9.36 mm Hg Mitral A Duration 141.00 ms AV Mean Velocity 1.12 m/ s MV Deceleration Time 225.00 ms AV Mean Gradient 5.60 mm Hg LV E' Lateral Velocity 0.12 m/s AV Velocity Time Integral 42.90 cm Mitral E to LV E' Lateral 5.60 LVOT Peak Velocity 1.15 m/s LV E' Septal Velocity 0.08 m/s LVOT Peak Gradient 5.29 mmH g Mitral E to LV E' Septal 8.54 LVOT Mean Velocity 0.78 m/s Pulmonary Vein Systolic V 0.72 m/s LVOT Mean Gradient 2.80 mmH g Pulmonary Vein Diastolic 0.61 m/s LVOT Velocity Time Integr 28.00 cm Pulmonary Vein S/D Ratio 1.18 AV Area Cont Eq vti 1.85 cm Pulmonary Vein A Velocity 0.28 m/s AV Area Cont Eq pk 2.13 cm Pulmonary Vein A Duration 151.40 ms MV Peak Velocity 2.56 m/ s Pulmonary Vein A to Zayra 0.73 MV Peak Gradient 26.32 m mHg TR Peak Velocity 2.38 m/s MV Mean Velocity 0.42 m/ s TR Peak Gradient 22.66 mmHg MV Mean Gradient 0.80 mm Hg Right Atrial Pressure 3.00 mmHg MV Velocity Time Integral 30.90 cm Pulmonary Artery Systolic 25.66 mmHg MV PHT Velocity 0.66 m /s Right Ventricular Systoli 25.66 mmHg MV Pressure Half Time 122.70 ms PV Peak Velocity 0.84 m/s MV Area PHT 1.79 cm PV Peak Gradient 2.84 mmHg Mitral E Point Velocity 0.67 m/s RV S' Velocity 0.13 m/s Mitral A Point Velocity 0.38 m/s RVOT Peak Velocity 0.69 m/s Technical Quality FINDINGS Left Ventricle Normal left ventri cular size and function, Left Ventricular Ejection Fraction is visually estimated to be 55 %. Normal Lef t Ventricular wall thickness. There are no segmental wall motion abnormalities. Right Ventricle Normal right ventr icular size and function. Right Atrium Normal right atri al size and function. Left Atrium Mildly enlarged left atrium. Interatrial Septum Interatrial septum i s intact without evidence of ASD or PFO noted on 2-D or Doppler imaging. Mitral Valve Mild mitral regur gitation. The mitral valve is unremarkable. Pulmonary Veins Normal pulmonary v eins. Aortic Valve Trileaflet aortic valve. There is no significant stenosis n oted on 2-D or Doppler imaging. Mild ao rtic insufficie ncy. Tricuspid Valve Mild tricuspid ins ufficiency. Normal RVSP measured < 35 mmHg. Pulmonic Valve Trace (physiologic ) pulmonic insufficiency. Pericardium No significant p ericardial effusion. Aorta Normal size A ortic Root. IVC Dilated infe rior vena cava (IVC)/hepatic vein. CONCLUSIONS Dilated inferior vena cava (IVC)/hepati c vein. Mild mitral regurgitation. The mitral valve is unremarkable. Mildly enlarged left atrium. SARAH MARTINS MD (Electronically Signed) Final Date:10 June 2014 11:03 Procedure Note Interface, Cardiology Conversion Results [facility] - 02/17/2019 12:10 PM CDT [facility] [place] [id number] Transthoracic Echo Report SARARADHA COREY Exam Date: 06/10/2014 09:15 Performing Physician:Sarah Martins M.D. Exam Location: [facility] - Echo Ordering Physician: SARAH MARTINS MD : 1940 Age 74 Gender: F Referring Physician:TYLOR MELISSA MD Ht (cm): 173 Wt (kg): 84.00 BSA: 2.03 Studio Producer: Analilia Mayer Stat: NO Studio Producer Called In:NO CC: Indications: A fib CPT Codes: BP: 133 / 76 Rhythm: Contrast: No MEASUREMENTS (Male / Female) Normal Values 2D ECHO LV Diastolic Diameter JAQUAN 4.90 cm 4.2 - 5.9 / 3 LV Ejection Fraction 4C A 57.34 % LV Systolic Diameter PLAX 3.60 cm LV Ejection Fraction MOD 57.04 % IVS Diastolic Thickness 1.10 cm 0.6 - 1.0 / 0 LV Ejection Fraction 2C A 56.33 % LVPW Diastolic Thickness 1.00 cm 0.6 - 1.0 / 0 RA Area 4C View 14.99 cm LVOT Diameter 1.90 cm IVC Diameter Expiration 3.09 cm LV Ejection Fraction MOD 53.45 % M-MODE Aortic Root Diameter MM 2.50 cm AV Cusp Separation MM 1.60 cm LA Systolic Diameter MM 4.40 cm TAPSE 3.14 cm LA Ao Ratio MM 1.76 DOPPLER AV Peak Velocity 1.53 m/s Mitral E to A Ratio 1.75 AV Peak Gradient 9.36 mmHg Mitral A Duration 141.00 ms AV Mean Velocity 1.12 m/s MV Deceleration Time 225.00 ms AV Mean Gradient 5.60 mmHg LV E' Lateral Velocity 0.12 m/s AV Velocity Time Integral 42.90 cm Mitral E to LV E' Lateral 5.60 LVOT Peak Velocity 1.15 m/s LV E' Septal Velocity 0.08 m/s LVOT Peak Gradient 5.29 mmHg Mitral E to LV E' Septal 8.54 LVOT Mean Velocity 0.78 m/s Pulmonary Vein Systolic V 0.72 m/s LVOT Mean Gradient 2.80 mmHg Pulmonary Vein Diastolic 0.61 m/s LVOT Velocity Time Integr 28.00 cm Pulmonary Vein S/D Ratio 1.18 AV Area Cont Eq vti 1.85 cm Pulmonary Vein A Velocity 0.28 m/s AV Area Cont Eq pk 2.13 cm Pulmonary Vein A Duration 151.40 ms MV Peak Velocity 2.56 m/s Pulmonary Vein A to Zayra 0.73 MV Peak Gradient 26.32 mmHg TR Peak Velocity 2.38 m/s MV Mean Velocity 0.42 m/s TR Peak Gradient 22.66 mmHg MV Mean Gradient 0.80 mmHg Right Atrial Pressure 3.00 mmHg MV Velocity Time Integral 30.90 cm Pulmonary Artery Systolic 25.66 mmHg MV PHT Velocity 0.66 m/s Right Ventricular Systoli 25.66 mmHg MV Pressure Half Time 122.70 ms PV Peak Velocity 0.84 m/s MV Area PHT 1.79 cm PV Peak Gradient 2.84 mmHg Mitral E Point Velocity 0.67 m/s RV S' Velocity 0.13 m/s Mitral A Point Velocity 0.38 m/s RVOT Peak Velocity 0.69 m/s Technical Quality FINDINGS Left Ventricle Normal left ventricular size and function, Left Ventricular Ejection Fraction is visually estimated to be 55 %. Normal Left Ventricular wall thickness. There are no segmental wall motion abnormalities. Right Ventricle Normal right ventricular size and function. Right Atrium Normal right atrial size and function. Left Atrium Mildly enlarged left atrium. Interatrial Septum Interatrial septum is intact without evidence of ASD or PFO noted on 2-D or Doppler imaging. Mitral Valve Mild mitral regurgitation. The mitral valve is unremarkable. Pulmonary Veins Normal pulmonary veins. Aortic Valve Trileaflet aortic valve. There is no significant stenosis noted on 2-D or Doppler imaging. Mild aortic insufficiency. Tricuspid Valve Mild tricuspid insufficiency. Normal RVSP measured < 35 mmHg. Pulmonic Valve Trace (physiologic) pulmonic insufficiency. Pericardium No significant pericardial effusion. Aorta Normal size Aortic Root. IVC Dilated inferior vena cava (IVC)/hepatic vein. CONCLUSIONS Dilated inferior vena cava (IVC)/hepatic vein. Mild mitral regurgitation. The mitral valve is unremarkable. Mildly enlarged left atrium. SARAH MARTINS MD (Electronically Signed) Final Date:10 June 2014 11:03 Performing Organization Address City/State/Zipcode Ph one Number [facility] documented in this encounter Visit Diagnoses Not on filedocumented in this encounter
--- OUTSIDE RECORDS SUMMARY | 2020-05-19 07:08 | XMS REPORT | Encounter Summary ---
Author Author [facility] Organization [facility] Address Unknown Phone Unavailable Care Team Providers Care Cafeteria Cook Name Role Phone PCP Unavailable Encounter Details Care Team Description Date Type Department ProviderPedro MD [address] [place] [address] 03/11/[address] [facility] [address] Encounter [address] [facility], [address] [place] [address] Social History Date Tobacco Use [...] Date/Time Associated Diag nosis POCT PT/INR Routine 03/11/2016 9:33 AM CDT documented in this encounter Results * POCT PT/INR (03/11/2016 9:33 AM CDT) PROTIME POCT UNABLE TO CALCULATE [facility] PROTHROMBIN TIME IN SECONDS DUE TO LOW INR VALUE INR POCT <0.9 [facility] Comment: (NOTE) THERAPEUTIC GOALS FOR PATIENTS ON ORAL ANTICOAGULANTS ========= Standard risk factors for thromboembolic disease: INR of 2.0-3.0 Higher risk of thrombosis (e.g. [facility] heart valve): INR of 2.5-3.5 Specimen Blood Performing Organization Address City/State/Zipcode Ph one Number [facility] documented in this encounter Visit Diagnoses Not on filedocumented in this encounter
--- OUTSIDE RECORDS SUMMARY | 2020-05-19 07:08 | XMS REPORT | Encounter Summary ---
Author Author [facility] Organization [facility] Address Unknown Phone Unavailable Care Team Providers Care Instrumentation Supervisor Name Role Phone PCP Unavailable Encounter Details Care Team Description Date Type Department Baldo Ramos MD [address] [place], [place] [id number] 06/10/2014 [facility] CARDIOLOGY Encounter [address] [facility] [place] [address] Social History Date Tobacco Use [...]
--- OUTSIDE RECORDS SUMMARY | 2020-05-19 07:08 | XMS REPORT | Clinical Summary ---
Author Author [facility] Address Unknown Phone Unavailable Care Team Providers Care Research Associate Policy Name Role Phone Jorgito Lin MD PCP Allergies Comments Active Allergy Reactions Severity Noted Date Pt does not take this medication Percocet Oxycodone Hcl Other (See Medium Comments) unknown to Pt Sulfa Antibiotics Other (See Medium Comments) Medications End Date Status Medication Sig Dispensed Refills Start Date Active latanoprost (XALATAN) instill 1 0 05/17/20 1 0.005 % ophthalmic drop by 1 solution ophthalmic route every day into affected eye(s)in the evening Active folic acid (FOLVITE) 1 MG take 1 tablet 90 3 tablet (1MG) by 1 oral route every day Active aspirin 81 MG tablet take 1 tablet 0 (81MG) by 1 oral route every day Active Cholecalciferol (VITAMIN Take 1,000 0 D) 1000 UNITS TABS Units by mouth daily. Active hydroxychloroquine Take 1 tablet 180 tablet 0 02/20 (PLAQUENIL) 200 MG tablet (200 mg 7 total) by mouth 2 (two) times daily. Active amiodarone (PACERONE) 200 200 mg daily 0 11/24 MG tablet 7 Active dilTIAZem (CARDIZEM) 60 Take 60 mg by 0 MG tabletIndications: mouth as 7 Tachyarrhythmia needed. Indications: Rapid Irregular Heart Rhythm Active dilTIAZem (TIAZAC) 120 MG Take 120 mg 0 12/26 24 hr capsule by mouth 7 daily. Active Calcium Citrate-Vitamin D Take 1 tablet 0 (CALCIUM + D PO) by mouth daily. Active pantoprazole (PROTONIX) Take 40 mg by 0 40 MG tablet mouth daily. 6 Active warfarin (COUMADIN) 2.5 Take 2.5 mg 0 MG tablet by mouth 7 daily. Combined with 2.0 (4.5mg total daily dose) Active warfarin (COUMADIN) 2 MG Take 2 mg by 0 03/22 tablet mouth daily. 7 Combined with 2.5 (4.5 total daily dose) Active multivitamin Take 1 tablet 0 (THERAPEUTIC) TABS tablet by mouth daily. Active Problems Problem Noted Date Atrial fibrillation 05/31/2017 Spinal stenosis of thoracolumbar region 05/31/2017 Pain in joint, forearm Leukocytopenia, unspecified Rheumatoid arthritis(714.0) Immunizations Name Administration Dates Next Due INFLUENZA IIV3 HD (Adults 08/19/2014 =>67 y/o-FLUZONE HD) Influenza IIV3 MDV 07/31/2012, 08/13/2011 (Multi-dose vial) Influenza IIV3 PFree 07/26/2013, 08/21/2012, Influenza TIV (HX thru 08/18/2009, 12/10/2006 Aug 23 2010) Td(adult), adsorbed 06/22/1993 Family History Medical History Relation Name Comments Other Other Mother - Cause of D eath:brain cancer Relation Name Status Comments Mother (Age 61) Other Social History Date Tobacco Use Types Packs/Day Years Used Never Smoker Smokeless Tobacco: Never Used Drinks/Week oz/Week Comments Alcohol Use 0 Standard drinks or equivalent 0.0 Alcoholic Drinks/day: Never No Sex Assigned at Date Recorded Not on file Industry Job Start Date Occupation Not on file Not on file Not on file Travel End Travel History Travel Start No recent travel history available. Last Filed Vital Signs Reading Time Taken Comments Vital Sign 148/73 05/14/2017 11:28 AM CDT Blood Pressure 67 05/14/2017 11:28 AM CDT Pulse - - Temperature - - Respiratory Rate - - Oxygen Saturation - - Inhaled Oxygen Concentration 82.1 kg (181 lb) 05/14/2017 11:28 AM CDT Weight 172.7 cm (5' 8") 05/14/2017 11:28 AM CDT Height 27.52 05/14/2017 11:28 AM CDT Body Mass Index Plan of Treatment Health Maintenance Due Date Last Done Comments Annual Wellness Visit 1940 DTaP,Tdap,and Td Vaccines 1961 06/22/1993 (1 - Tdap) Zoster Recombinant 02/02/1992 Vaccine (RZV,Shingrix) (1 of 2 - [facility] 2 Dose Standard) Pneumo-Vaccine: 65+Yrs (1 2007 of 1 - PPSV23) Influenza Vaccine (Season 07/25/2020 09/03/2016, Ended) 08/19/2014, 07/26/2013, Additional history exists Pneumo-Vaccine: Peds (0-5 Aged Out No longer el igible based on patient's age to Yrs) & At-Risk Patients complete this topic (6-64 Yrs) Results Not on filefrom Last 3 Months Insurance Type Payer Benefit Subscriber ID Effective Phone Address Plan / Dates Group Medicare MEDICARE MEDICARE xxxxxxxxxx 2007-P [phone] [address] [facility] [place] [address] BC PLAN 67 xxxxxxxxxxxx 2012-P [phone] [address] (NEVER resent [place] [facility]) [id number] Advance Directives For more information, please contact: [phone] Patient Client Sales And Service Officer Explanation Type Date Recorded Advance Directives and Living Will Power of Audio Visual Manager
--- OUTSIDE RECORDS SUMMARY | 2020-05-19 07:08 | XMS REPORT | Encounter Summary ---
Author Author [facility] Organization [facility] Address Unknown Phone Unavailable Care Team Providers Care Expediter Name Role Phone PCP Unavailable Encounter Details Care Team Description Date Type Department 05/23/2016 Hospital [facility] EKG Encounter [address] [id number] Social History Date Tobacco Use [...] Associated Diag nosis TRANSTHORACIC ECHO (TTE) Routine 05/23/2016 COMPLETE 8:55 AM CDT documented in this encounter Results * Transthoracic echo (TTE) complete (05/23/2016 8:55 AM CDT) Specimen Narrative Performed At [facility] [address] [place] [id number] Transthoracic Echo Report COREY CANALES Exam Date: 05/23/2016 09:03 Performing Physician:Sarah Martins M.D. Exam Location: [facility] - Echo Ordering Physician: SARAH MARTINS MD : 1940 Age 76 Gender: F Referring Physician:TYLOR MELISSA MD Ht (cm): 175 Wt (kg): 79.83 BSA: 1.98 Log Feeder: Estee Scott Stat: NO Log Feeder Called In:NO CC: Indications: Afib CPT Codes: BP: 120 / 70 HR: 110 Rhythm: Atrial fibrillation Contrast: No MEASUREMENTS (Male / Female) Normal V alues 2D ECHO IVS Diastolic Thickness 0.90 cm 0.6 - 1.0 / 0 LV Ejection Fraction MOD 50.98 % >= 55 % LVPW Diastolic Thickness 1.10 cm 0.6 - 1.0 / 0 LV Ejection Fraction MOD 53.47 % RV Internal Dim ED PLAX 3.30 cm LV Ejection Fraction 4C A 53.49 % Aortic Root Diameter 2.70 cm LV Ejection Fraction MOD 47.52 % LA Systolic Diameter LX 3.20 cm 3.0 - 4.0 / 2 LV Ejection Fraction 2C A 51.02 % LA Ao Ratio 1.19 RA Area 4C View 19.20 cm M-MODE TAPSE 1 .95 cm DOPPLER AV Peak Velocity 1.26 m/ s MV Velocity Time Integral 10.41 cm AV Peak Gradient 6.33 mm Hg Mitral E Point Velocity 0.72 m/s AV Mean Velocity 0.93 m/ s MV Deceleration Time 134.00 ms AV Mean Gradient 3.86 mm Hg TR Peak Velocity 2.06 m/s AV Velocity Time Integral 20.98 cm TR Peak Gradient 16.97 mmHg LVOT Peak Velocity 0.80 m/s Right Atrial Pressure 3.00 mmHg LVOT Peak Gradient 2.54 mmH g Pulmonary Artery Systolic 19.97 mmHg AV Area Cont Eq vti 1.56 cm Right Ventricular Systoli 19.97 mmHg AV Area Cont Eq pk 1.61 cm PV Peak Velocity 0.81 m/s MV Peak Velocity 0.60 m/ s PV Peak Gradient 2.61 mmHg MV Peak Gradient 1.42 mm Hg RV S' Velocity 0.11 m/s MV Mean Velocity 0.47 m/ s RVOT Peak Velocity 0.56 m/s MV Mean Gradient 0.97 mm Hg Technical Quality FINDINGS Left Ventricle Low normal Left Ve ntricular systolic function, Left Ventricular Ejection Fraction visually estimated to be 45- 50%. No re gional wall motion abnormalities noted. Unable to assess diastolic function due to underl angle atrial fib rillation rhythm. Right Ventricle Normal right ventr icular size and function. Right Atrium Mildly enlarged r ight atrium. Left Atrium Mildly enlarged left atrium. Interatrial Septum Interatrial septum i s intact without evidence of ASD or PFO noted on 2-D or Doppler imaging. Mitral Valve Structurally norm al mitral valve. Mild mitral regurgitation. Pulmonary Veins Pulmonary veins no t well visualized. Aortic Valve Trileaflet aortic valve. Aortic valve sclerosis without stenosis. There is trace-mild aortic in sufficiency. Tricuspid Valve Structurally mitsy l tricuspid valve. Mild tricuspid insufficiency. Right Ventricular systol ic pressure/ Pulmonary Artery Systolic is calculated approximately 20 mmHg. Pulmonic Valve Structurally misty l pulmonic valve. Trace (physiologic) pulmonic insufficiency. Pericardium No significant p ericardial effusion. Aorta Aortic root a nd proximal aorta seems to be of normal caliber without aneurysm or dissection. IVC Inferior jazlyn a cava (IVC)/hepatic vein is of normal caliber with normal (> 50%) inspiratory changes . The estimated RAP is 3 mmHg. CONCLUSIONS Low normal Left Ventricular systolic fu nction, Left Ventricular Ejection Fraction visually estimated to be 45-50 %. No regional wall motion abnormalities noted. Unable to a ssess diastolic function due to underlying atrial fibrillation rhythm. Mildly enlarged left atrium. Mildly enlarged right atrium. Mild mitral regurgitation. Aortic valve sclerosis without stenosis . SARAH MARTINS MD (Electronically Signed) Final Date:24 May 2016 08:03 Procedure Note Interface, Cardiology Conversion Results Epic - 02/17/2019 11:46 AM CDT [facility] [place] [address] [place] [address] Transthoracic Echo Report COREY CANALES Exam Date: 05/23/2016 09:03 Performing Physician:Sarah Martins M.D. Exam Location: [facility] - Echo Ordering Physician: SARAH MARTINS MD : 1940 Age 76 Gender: F Referring Physician:TYLOR MELISSA MD Ht (cm): 175 Wt (kg): 79.83 BSA: 1.98 Log Feeder: Estee Scott Stat: NO Log Feeder Called In:NO CC: Indications: Afib CPT Codes: BP: 120 / 70 HR: 110 Rhythm: Atrial fibrillation Contrast: No MEASUREMENTS (Male / Female) Normal Values 2D ECHO IVS Diastolic Thickness 0.90 cm 0.6 - 1.0 / 0 LV Ejection Fraction MOD 50.98 % >= 55 % LVPW Diastolic Thickness 1.10 cm 0.6 - 1.0 / 0 LV Ejection Fraction MOD 53.47 % RV Internal Dim ED PLAX 3.30 cm LV Ejection Fraction 4C A 53.49 % Aortic Root Diameter 2.70 cm LV Ejection Fraction MOD 47.52 % LA Systolic Diameter LX 3.20 cm 3.0 - 4.0 / 2 LV Ejection Fraction 2C A 51.02 % LA Ao Ratio 1.19 RA Area 4C View 19.20 cm M-MODE TAPSE 1.95 cm DOPPLER AV Peak Velocity 1.26 m/s MV Velocity Time Integral 10.41 cm AV Peak Gradient 6.33 mmHg Mitral E Point Velocity 0.72 m/s AV Mean Velocity 0.93 m/s MV Deceleration Time 134.00 ms AV Mean Gradient 3.86 mmHg TR Peak Velocity 2.06 m/s AV Velocity Time Integral 20.98 cm TR Peak Gradient 16.97 mmHg LVOT Peak Velocity 0.80 m/s Right Atrial Pressure 3.00 mmHg LVOT Peak Gradient 2.54 mmHg Pulmonary Artery Systolic 19.97 mmHg AV Area Cont Eq vti 1.56 cm Right Ventricular Systoli 19.97 mmHg AV Area Cont Eq pk 1.61 cm PV Peak Velocity 0.81 m/s MV Peak Velocity 0.60 m/s PV Peak Gradient 2.61 mmHg MV Peak Gradient 1.42 mmHg RV S' Velocity 0.11 m/s MV Mean Velocity 0.47 m/s RVOT Peak Velocity 0.56 m/s MV Mean Gradient 0.97 mmHg Technical Quality FINDINGS Left Ventricle Low normal Left Ventricular systolic function, Left Ventricular Ejection Fraction visually estimated to be 45- 50%. No regional wall motion abnormalities noted. Unable to assess diastolic function due to underlying atrial fibrillation rhythm. Right Ventricle Normal right ventricular size and function. Right Atrium Mildly enlarged right atrium. Left Atrium Mildly enlarged left atrium. Interatrial Septum Interatrial septum is intact without evidence of ASD or PFO noted on 2-D or Doppler imaging. Mitral Valve Structurally normal mitral valve. Mild mitral regurgitation. Pulmonary Veins Pulmonary veins not well visualized. Aortic Valve Trileaflet aortic valve. Aortic valve sclerosis without stenosis. There is trace-mild aortic insufficiency. Tricuspid Valve Structurally normal tricuspid valve. Mild tricuspid insufficiency. Right Ventricular systolic pressure/ Pulmonary Artery Systolic is calculated approximately 20 mmHg. Pulmonic Valve Structurally normal pulmonic valve. Trace (physiologic) pulmonic insufficiency. Pericardium No significant pericardial effusion. Aorta Aortic root and proximal aorta seems to be of normal caliber without aneurysm or dissection. IVC Inferior vena cava (IVC)/hepatic vein is of normal caliber with normal (> 50%) inspiratory changes. The estimated RAP is 3 mmHg. CONCLUSIONS Low normal Left Ventricular systolic function, Left Ventricular Ejection Fraction visually estimated to be 45-50%. No regional wall motion abnormalities noted. Unable to assess diastolic function due to underlying atrial fibrillation rhythm. Mildly enlarged left atrium. Mildly enlarged right atrium. Mild mitral regurgitation. Aortic valve sclerosis without stenosis. SARAH MARTINS MD (Electronically Signed) Final Date:24 May 2016 08:03 Performing Organization Address City/State/Zipcode Ph one Number [facility] documented in this encounter Visit Diagnoses Not on filedocumented in this encounter
--- OUTSIDE RECORDS SUMMARY | 2020-05-19 07:08 | XMS REPORT | Encounter Summary ---
Author Author [facility] Organization [facility] Address Unknown Phone Unavailable Care Team Providers Care Emergency Medicine Specialist Name Role Phone PCP Unavailable Encounter Details Care Team Description Date Type Department Arturo Chavis MD [address] [place], [place] [id number] Paroxysmal atrial fibrillation (HCC) 07/08/2016 [facility] CARDIOLOGY Encounter [address] [facility] [place] [address] Social History Date Tobacco Use [...]
--- OUTSIDE RECORDS SUMMARY | 2020-05-19 07:08 | XMS REPORT | Encounter Summary ---
Author Author [facility] Organization [facility] Address Unknown Phone Unavailable Care Team Providers Care Heating And Cooling Systems Engineer Name Role Phone PCP Unavailable Encounter Details Care Team Description Date Type Department Baldo Ramos MD [address] [place], [place] [address] 09/12/2015 [facility] CARDIOLOGY Encounter [address] [facility] [place] [address] Social History Date Tobacco Use [...]
--- OUTSIDE RECORDS SUMMARY | 2020-05-19 07:08 | XMS REPORT | Encounter Summary ---
Author Author [facility] Organization [facility] Address Unknown Phone Unavailable Care Team Providers Care Manager Vehicle Name Role Phone PCP Unavailable Encounter Details Care Team Description Date Type Department Baldo Ramos MD [address] [place] [address] Paroxysmal atrial fibrillation (HCC); Spinal stenosis of thoracolumbar region; Polyneuropathy; Unspecified fall, subsequent encounter 06/11/2016 [facility] CARDIOLOGY Encounter [address] [facility] [place] [address] Social History Date Tobacco Use [...] (HCC) Spinal stenosis of thoracolumbar region Polyneuropathy Unspecified fall, subsequent encounter documented in this encounter
--- OUTSIDE RECORDS SUMMARY | 2020-05-19 07:08 | XMS REPORT | Encounter Summary ---
Author Author [facility] Organization [facility] Address Unknown Phone Unavailable Care Team Providers Care Sales Lead Generator Name Role Phone PCP Unavailable Encounter Details Care Team Description Date Type Department ProviderPedro MD [address] [place] [id number] 03/01/[address] [facility] [address] Encounter [address] [facility], [address] [place] [address] Social History Date Tobacco Use [...]
--- OUTSIDE RECORDS SUMMARY | 2020-05-19 07:08 | XMS REPORT | Encounter Summary ---
Author Author [facility] Organization [facility] Address Unknown Phone Unavailable Care Team Providers Care Plating Foreman Name Role Phone PCP Unavailable Encounter Details Care Team Description Date Type Department ProviderPedro MD [address] [place] [id number] 07/02/[address] [facility] [address] [address] Encounter [address] [facility], [address] [place] [address] Social History Date Tobacco Use [...]
--- OUTSIDE RECORDS SUMMARY | 2020-05-19 07:08 | XMS REPORT | Encounter Summary ---
Author Author [facility] Organization [facility] Address Unknown Phone Unavailable Care Team Providers Care Box Chipper Name Role Phone PCP Unavailable Encounter Details Care Team Description Date Type Department Aubrey Ellington Jr., MD [address] [place], [place] [id number] 12/27/2010 [facility] CARDIOLOGY Encounter [address] [facility] [place] [address] Social History Date Tobacco Use [...]
--- OUTSIDE RECORDS SUMMARY | 2020-05-19 07:08 | XMS REPORT | Encounter Summary ---
Author Author [facility] Organization [facility] Address Unknown Phone Unavailable Care Team Providers Care Waterworks Pump Station Operator Name Role Phone PCP Unavailable Encounter Details Care Team Description Date Type Department ProviderPedro MD [address] [place] [address] 07/12/[address] [facility] [address] Encounter [address] [facility], [address] [place] [address] Social History Date Tobacco Use [...] Date/Time Associated Diag nosis POCT PT/INR Routine 07/15/2016 9:19 AM CDT documented in this encounter Results * POCT PT/INR (07/15/2016 9:19 AM CDT) PROTIME POCT UNABLE TO CALCULATE [facility] PROTHROMBIN TIME IN SECONDS DUE TO LOW INR VALUE INR POCT <0.9 [facility] Comment: (NOTE) THERAPEUTIC GOALS FOR PATIENTS ON ORAL ANTICOAGULANTS ========= Standard risk factors for thromboembolic disease: INR of 2.0-3.0 Higher risk of thrombosis (e.g. [facility] heart valve): INR of 2.5-3.5 Specimen Blood Performing Organization Address City/State/Zipcode Ph one Number [facility] documented in this encounter Visit Diagnoses Not on filedocumented in this encounter
--- OUTSIDE RECORDS SUMMARY | 2020-05-19 07:08 | XMS REPORT | Encounter Summary ---
Author Author [facility] Organization [facility] Address Unknown Phone Unavailable Care Team Providers Care Video Journalist Name Role Phone PCP Unavailable Encounter Details Care Team Description Date Type Department Juliana Chavis MD [address] [place] [address] [phone] Paroxysmal atrial fibrillation (HCC) 07/30/2016 Hospital [facility] 6 MED SURG - Encounter [address] 08/01/2016 [place] [address] Social History Date Tobacco Use Types Packs/Day [...] Priority Date/Time Associated Diag nosis PROTIME-INR Routine 08/01/2016 5:22 AM CDT PROTIME-INR Routine 07/31/2016 5:28 AM CDT CBC NO DIFF Routine 07/31/2016 5:28 AM CDT BASIC METABOLIC PANEL Routine 07/31/2016 5:28 AM CDT TRANSTHORACIC ECHO (TTE) Routine 07/31/2016 LIMITED 12:00 AM CDT THYROID STIMULATING Routine 07/30/2016 HORMONE 12:24 PM CDT HEPATIC FUNCTION PANEL Routine 07/30/2016 12:24 PM CDT EP - INTERVENTION Routine 07/30/2016 11:50 AM CDT TRANSESOPHAGEAL ECHO Routine 07/30/2016 (OPAL) 9:18 AM CDT XR CHEST 2 VW STAT 07/30/2016 8:34 AM CDT PROTIME-INR STAT 07/30/2016 7:11 AM CDT CBC NO DIFF STAT 07/30/2016 7:11 AM CDT BASIC METABOLIC PANEL STAT 07/30/2016 7:11 AM CDT ECG 12-LEAD STAT 07/30/2016 6:51 AM CDT documented in this encounter Results * Protime-INR (08/01/2016 5:22 AM CDT) PROTHROMBIN 30.2 (H) 11.8 - 15.0 s [facility] EP[facility] TIME INR 2.9 [facility] EP[facility] Comment: (NOTE) THERAPEUTIC GOALS FOR PATIENTS ON ORAL ANTICOAGULANTS ========= Standard risk factors for thromboembolic disease: INR of 2.0-3.0 Higher risk of thrombosis (e.g mech heart valve): INR of 2.5-3.5 Specimen Blood (substance) - Plasma Performing Organization Address City/State/Zipcode Ph one Number [facility] EP[facility] * Protime-INR (07/31/2016 5:28 AM CDT) PROTHROMBIN 24.6 (H) 11.8 - 15.0 s [facility] EP[facility] TIME INR 2.2 [facility] EPIC Comment: (NOTE) THERAPEUTIC GOALS FOR PATIENTS ON ORAL ANTICOAGULANTS ========= Standard risk factors for thromboembolic disease: INR of 2.0-3.0 Higher risk of thrombosis (e.g mech heart valve): INR of 2.5-3.5 Specimen Blood (substance) - Plasma Performing Organization Address [facility] one Number [facility] EPIC * CBC No Diff (07/31/2016 5:28 AM CDT) Pathologist [facility] WBC 8.3 4.0 - 10.8 10*3/uL [facility] EP[facility] RBC 3.26 (L) 4.20 - 5.40 10*6/uL [facility] HEMOGLOBIN 10.4 (L) 12.0 - 16.0 g/dL [facility] HCT 32.9 (L) 37.0 - 47.0 % [facility] MCV 101 (H) 81 - 99 fL [facility] MCH 32 26.0 - 34.0 pg [facility] EP[facility] MCHC 31.6 31.0 - 37.0 g/dL ST EPIC MPV 9.8 9.4 - 12.3 fL [facility] PLATELET COUNT 178 150 - 400 10*3/uL [facility] RDW COEFFICIENT 13.2 11.5 - 14.5 % ST EPIC OF VARIATION RDW STANDARD 49.1 (H) 36.4 - 46.3 fL [facility] EP[facility] DEVIATION NUCLEATED RBC, 0.00 0.00 10*3/uL [facility] EP[facility] ABSOLUTE NUCLEATED RBC, 0.0 0.0 % [facility] EP[facility] PERCENT Specimen Blood (substance) - Serum Performing Organization Address [facility] one Number [facility] EPIC * Basic Metabolic Panel (07/31/2016 5:28 AM CDT) Pathologist [facility] SODIUM 143 136 - 145 mmol/L [facility] EP[facility] POTASSIUM 4.2 3.5 - 5.1 mmol/L [facility] CHLORIDE 108 (H) 98 - 107 mmol/L [facility] CO2 25 21 - 32 mmol/L [facility] ANION GAP 10 5 - 15 [facility] BUN 12 7 - 18 mg/dL [facility] CREATININE, 0.76 0.55 - 1.30 mg/dL [facility] SERUM OR PLASMA GLUCOSE, SERUM 98 80 - 115 mg/dL [facility] CALCIUM 8.7 8.5 - 10.0 mg/dL [facility] GFR ESTIMATED >60 [facility] NOT AFR/AM Comment: GFR <60: CHRONIC KIDNEY DISEASE, if found over a 3 month period. GFR <15: KIDNEY FAILURE GFR ESTIMATED >60 [facility] EP[facility] IF AFR/AM Comment: GFR <60: CHRONIC KIDNEY DISEASE, if found over a 3 month period. GFR <15: KIDNEY FAILURE Specimen Blood (substance) - Serum Performing Organization Address City/State/Zipcode Ph one Number [facility] * Transthoracic echo (TTE) limited (07/31/2016 12:00 AM CDT) Specimen Narrative Performed At [facility] Noninvasive Cardiology [address] [place] [address] [id number] Transthoracic Echo Report ANDIE PAL Exam Date: 07/31/2016 07:58 Exam Location: [facility] Echo Ordering Physician: JULIANA CHAVIS : 1940 Age 76 Gender: F Referring Physician: : Ht (cm): 173 Wt (kg): 77.565 BSA: 1.94 Blue Leather Setter: Last Reynaga Stat: NO Blue Leather Setter Called In:NO CC: Indications: R/O PEFF CPT Codes: BP: 121 / 75 Rhythm: Atrial fibrillation Contrast: No Technical Quality FINDINGS Left Ventricle Normal left ventri cular size and function. LVEF is visually estimated to be 60-65%. Pericardium Trivial Localize d pericardial effusion over the right ventricle without significant tamponade physiology. CONCLUSIONS LVEF is visually estimated to be 60-65% . Normal left ventricular size and functi on. Trivial Localized pericardial effusion over the right ventricle without significant tamponade physiology. AUBREY ESPINOSA MD (Electronically Signed) Final Date:31 July 2016 11:45 Procedure Note Interface, Cardiology Conversion Results [facility] - 02/17/2019 11:56 AM CDT Noninvasive Cardiology [address] [place] [address] [id number] Transthoracic Echo Report ANDIE PAL Exam Date: 07/31/2016 07:58 Exam Location: [facility] Echo Ordering Physician: JULIANA CHAVIS DOB: 1940 Age 76 Gender: F Referring Physician: : Ht (cm): 173 Wt (kg): 77.565 BSA: 1.94 Blue Leather Setter: Last Reynaga Stat: NO Blue Leather Setter Called In:NO CC: Indications: R/O PEFF CPT Codes: BP: 121 / 75 Rhythm: Atrial fibrillation Contrast: No Technical Quality FINDINGS Left Ventricle Normal left ventricular size and function. LVEF is visually estimated to be 60-65%. Pericardium Trivial Localized pericardial effusion over the right ventricle without significant tamponade physiology. CONCLUSIONS LVEF is visually estimated to be 60-65%. Normal left ventricular size and function. Trivial Localized pericardial effusion over the right ventricle without significant tamponade physiology. AUBREY ESPINOSA MD (Electronically Signed) Final Date:31 July 2016 11:45 Performing Organization Address [facility] one Number [facility] * Thyroid Stimulating Hormone (07/30/2016 12:24 PM CDT) TSH 3RD 1.020 0.350 - 4.900 [facility] GENERATION u[iU]/mL Specimen Blood (substance) - Serum Performing Organization Address [facility] one Number [facility] EPIC * Hepatic Function Panel (07/30/2016 12:24 PM CDT) TOTAL PROTEIN 6.1 6.0 - 8.3 g/dL [facility] EP[facility] ALBUMIN, SERUM 3.0 (L) 3.4 - 5.0 g/dL [facility] ALKALINE 48 45 - 117 U/L [facility] PHOSPHATASE ALT-SGPT 34 13 - 56 U/L [facility] AST-SGOT 36 15 - 37 U/L [facility] EP[facility] BILIRUBIN, 1.1 (H) 0.2 - 1.0 mg/dL [facility] EP[facility] TOTAL BILIRUBIN, 0.3 (H) 0 - 0.2 mg/dL [facility] DIRECT Specimen Blood (substance) - Blood Performing Organization Address [facility] one Number [facility] EPIC * EP - intervention (07/30/2016 11:50 AM CDT) Specimen Narrative Performed At [facility] Cardiac Care Manager Cna [address] [address] E lectrophysiology Report - A ANDIE Roe Exam Date: 07/30/2016 12:38 Perf. Phys: Juliana Chavis M.D. Ag 76 Gender: F Exam Location: [facility] Referring Phys: e: Ht (cm): 158 Wt (kg): 77.700 BSA: 1.9 CPT Codes Procedures Identify InOu tPatient IV s ite check TIME OUT OPAL Sono site Dutta th Insertion Dutta th Exchange Dutta th Insertion Dutta th Exchange Dutta th Insertion Dutta th Exchange ACT Card ioversion EPS Dutta th Removal Dutta th Removal Dutta th Removal Comp lication Liliam tolbert Taylor sport Medications IV Solutio ns 30mL/hr 5144-42-47W91:40:32 BUFF ERED 1% LIDOCAINE 20mL 6287-78-93G65:39:47 Palmira, Juliana BUFF ERED 1% LIDOCAINE 20mL [id number]:42:18 Palmira, Juliana BUFF ERED 1% LIDOCAINE 20mL [id number]:43:58 Palmira, Juliana BUFF ERED 1% LIDOCAINE 20mL [id number]:46:02 Palmira, Juliana HEPA RIN 5000units [id number]:46:17 HEPA RIN 5000units [id number]:08:17 ISUP REL BOLUS 2mcg [id number]:14:15 PROT AMINE 30mg [id number]:20:48 LASI X (FUROSEMIDE) 20mg [id number]:22:27 Complications NO OCCURREN CARRIE Attending Staff [facility], Juliana rodriguez, Tawny Recorder Demarco sandra, Brook Pick Up Driver Milb urn, Iram Scrub Pineda ales, Silvia Other Milb urn, Iram X-Ray Peka rek, Tuyet Scrub Harika er, Monica Scrub Meseret is, Renee Pick Up Driver Fluoro Time m in 14.2 Conclusions Complex el ectrophysiology study with and without use of Isuprel. 2. Fluoroscopic placement of c atheter in the coronary sinus. 3. Transeptal catheterization x1 under ICE guidance. 3D electroanatomica l mapping of left atrium using nav[employer] KARENA system 4. R adiofrequency circumferential ablation around the pulmonary veins HIST ORY OF PRESENT ILLNESS: The patient is a 76-year-old female who has a history of paroxysmal atri al fibrillation with recurrent episodes, hence was taken for an AFib ablation. Risks and b enefits were expl ained, consent was obtained. PROC EDURE NOTE: The patient brought into the e lectrophysiology lab in the usual fasti ng, nonsedated stat e, prepped and draped in the usual manner. General anesthesia was introduced by the member of the [facility] thesiology staff. Subsequently, using 2% lidocaine as local anesthesia and modified Seldin harvinder tech nique, a 7-Latvian sheath was placed into the right internal jugular vein and then 10-Frenc h sheath into the left femoral vein and an 8-Latvian sheath into the right femoral vein. Through the sheath in the right inte rnal jugular vein, a CRD Deca catheter was advanced under fluoroscopic guidance into the co ronary sinu s. Through the other sheaths, quadripolar catheter was advanced into the right atrium, His and subs equently the His catheter was advanced into the ventricle. The patient was in Sinus rhy thm on pres entation.Sinus cycle length of 630 milliseconds.AH interval was 78ms, HV was 38 millisecon ds. With decr emental atrial pacing, AV block was 320 milliseconds. AVNERP 600<270ms. With RV pacing VA block was 380ms. Subsequently, the ICE catheter was advanced under fluoroscopic guidance into the ri ght atri um. Using a Preface sheath and BRK needle, transseptal catheterization was perform ed and left atrium was entered. Cautery was used. This was exchanged over to an Agilis sheath with a large curve tacticath [facility]. Raghav catheter. Electroanatomical mapping was performed and it was merged with the CT scan. 70-80% of t he left atrium was diseased. Subsequently the radiofrequency circumferential ablation of the pulmonary vein s was performed. At 10 and 2 output pacing, the lines were checked and if there was cond uction/capture, more ablation was performed. Isuprel was given as boluses and stimulation wa s perf ormed with induction of arrhythmia of left atrial flutter. Cardioversion at 250J converte d to sinus rhyt hm. ACT was kept close to 350ms. Temperature probe was placed in esophagus. With any rise of temp erature on the probe, the ablation would be turned off. Most of ablation was performed at 15-20W. At this time, procedure was deemed complete so all sheaths and catheters were removed. Adequate hemo stasis was obtained by applying manual pressure to the sheath incision site. CONC LUSION: 1. S inus rhythm on presentation with normal baseline conduction interval. 2. R adiofrequency ablation circumferentially around the pulmonary veins Event Log T08:38:07 Patient identified by armband and verbally. 201508:38:18 Pre-procedure questions/concerns addressed. Patient indicates an under standing, no f urther concerns at this time. 201508:38:27 Patient is Inpatient. 201508:39:17 Consent signed and verified 201508:39:19 No aspiration risks. 201508:39:20 Mild anxiety. 201508:39:22 NPO Status - Elective Procedure - Per Policy 201508:39:23 MD notified 201508:39:24 An IV was noted in the Forearm (left). 201508:40:32 Patient arrived on 30 mL/hr IV Solutions via Peripheral IV. Pump/Drip Flow = 30 ml/hr usin g NaCl 0.9% 1000ml. 201508:41:01 Pain assessment initial:denies pain at this time. 201508:41:14 Michael ZMT OPERATOR ,with anesthesia present to sedate, medicate, intubation, a-line and tree tor vitals. see anesthesia chart. 2015:45:51 Pressure channel 2 zeroed. 201508:48:39 Vitals capture started with the following parameters, Patient=Adult, In terval=3 min, Init ial Utgvjfob=264 mmHg, Deflation Rate=5 mmHg, Cuff placed on Left Arm 201508:48:50 Assessment: Initial Case, HR=79 BPM, Rhythm=NSR, Chest Pain=0, Edema=No ne, [place] r=Normal, Skin = Warm, Dry Righ t Pulses: Paolo Ped=2, Post Tib=2 Left Pulses: Paolo Ped=2, Post Tib=2 Lowe r Right Extremities: Color=Normal L... 201508:50:05 HR=78 bpm, PKKB=093/47 mmhg, SpO2=98.0 %, Pain=0, Stella=10 201508:52:24 HR=80 bpm, IKOV=582/66 mmhg, SpO2=96.0 % 2015:55:23 HR=77 bpm, SFNY=819/64 mmhg, UgH0=766.0 % 2015:58:19 HR=72 bpm, AYKQ=385/44 mmhg, XxS6=964.0 % 2015:01:23 HR=90 bpm, JJKL=399/40 mmhg, SpO2=99.0 % 2015:04:48 HR=88 bpm, JMYW=084/66 mmhg, SpO2=99.0 % 2015:08:07 HR=94 bpm, UECN=020/91 mmhg, WyE3=247.0 % 2015:10:01 MD arrived 2015:10:04 Time out to confirm correct patient, procedure and site was perform ed by staff and MD. 2015:10:28 HR=91 bpm, AJYC=818/74 mmhg, EyD8=087.0 % 2015:11:02 Case Start 2015:12:58 OPAL probe passed by Dr. Chavis 2015:13:30 HR=95 bpm, JUJB=795/93 mmhg, ZnS9=388.0 % 2015:16:26 HR=81 bpm, TUSZ=959/68 mmhg, CrB8=521.0 % 2015:17:41 OPAL complete. 2015:19:27 HR=78 bpm, GYFO=285/66 mmhg, HwS3=301.0 % 2015:22:23 HR=77 bpm, KRRN=050/64 mmhg, JoM4=382.0 % 2015:23:02 Bilateral groins and Right IJ prepped and draped in sterile fashion. 2015:23:03 Chloraprep used to prep insertion sites 2015:25:23 HR=72 bpm, OFBT=085/56 mmhg, SpO2=99.0 % 2015:28:23 HR=70 bpm, ERBD=821/55 mmhg, SpO2=99.0 % 2015:31:23 HR=69 bpm, KRZE=587/54 mmhg, SpO2=99.0 % 2015:34:22 HR=69 bpm, TORP=244/49 mmhg, SpO2=99.0 % 2015:34:27 MD arrived 2015:37:24 HR=67 bpm, TAUH=608/52 mmhg, SpO2=99.0 % 2015:39:26 Time out to confirm correct patient, procedure and site was perform ed by staff and MD. 2015:39:29 Case Start 2015:39:43 Ultrasound performed. 2015:39:47 20 mL BUFFERED 1% LIDOCAINE given in lab by Palmira, Juliana in Right Neck via Subc utaneous. Reason: For Local Anesthetic. 2015:40:24 In the Rt Int Jugular a Micropuncture Intro Set. 5F w/7cm needl e was inserted and adva nced. 2015:40:26 HR=68 bpm, AXVY=173/50 mmhg, SpO2=99.0 % 2015:41:49 The existing sheath was exchanged for a Dallas Intro Sheath. 7F x 10 cm in the Rt Int Jugular. 2015:42:18 20 mL BUFFERED 1% LIDOCAINE given in lab by Palmira, Juliana in Right Groin vi a Subc utaneous. Reason: For Local Anesthetic. 2015:43:27 HR=68 bpm, RCDH=918/49 mmhg, SpO2=99.0 % 201509:43:58 20 mL BUFFERED 1% LIDOCAINE given in lab by Palmira, Juliana in Left Groin via Subc utaneous. Reason: For Local Anesthetic. 2015:44:15 In the Fem Vein (left) a Micropuncture Intro Set. 5F w/7cm needl e was inserted and adva nced. 201509:45:06 The existing sheath was exchanged for a [place] Intro Sheath. 10F x 25 c m in the Fem Vein (left). 2015:46:02 20 mL BUFFERED 1% LIDOCAINE given in lab by Juliana Chavis in Right Groin vi a Subc utaneous. Reason: For Local Anesthetic. 2015:46:17 5000 units HEPARIN given in lab via Peripheral IV. Ordered by Margarito Chavis er. Reason: For Anticoagulation. Dose verified by. given by Michael ASTORGA 2015:46:23 HR=67 bpm, CNZX=711/48 mmhg, SpO2=99.0 % 2015:47:24 In the Fem Vein (right) a Micropuncture Intro Set. 5F w/7cm needl e was inserted and adva nced. 2015:47:42 The existing sheath was exchanged for a [place] Intro Sheath. 8F x 10 cm in the Fem Vein (right). 2015:49:27 HR=74 bpm, NIBP=98/43 mmhg, SpO2=99.0 % 2015:54:04 HR=97 bpm, NIBP=89/31 mmhg, SpO2=99.0 % 2015:55:19 HR=56 bpm, HJRU=196/56 mmhg, SpO2=98.0 % 2015:56:41 Reference ECG taken 2015:59:03 HR=64 bpm, OQUG=054/60 mmhg, SpO2=99.0 % 201509:59:20 The existing sheath was exchanged for a Preface Sheath 8fr x 62cm in the Fem Vein (rig ht). 20150:01:30 HR=63 bpm, AJTU=071/56 mmhg, SpO2=99.0 % 2015:05:14 HR=59 bpm, OEFK=350/41 mmhg, SpO2=99.0 % 2015:06:54 Trans-septal stick made. 2015:08:17 5000 units HEPARIN given in lab via Peripheral IV. Ordered by Margarito Chavis er. Reason: For Anticoagulation. Dose verified by. given by Michael ASTORGA 2015:08:54 The existing sheath was exchanged for a Agilis NxT Introducer/Med Curl 8. 5fr in the Fem Vein (right). 2015:08:55 HR=56 bpm, LHXH=204/59 mmhg, SpO2=99.0 % 2015:09:27 Recorded ECG: HR=59 Condition=Condition 1 2015:10:21 Recorded Pressure: LA, HR=62, Condition=Condition 1 ([place]) [place] [address]:10:31 HR=63 bpm, YFXS=285/72 mmhg, SpO2=99.0 % 2015:17:25 HR=63 bpm, PPYK=927/51 mmhg, SpO2=99.0 % 2015:20:19 HR=61 bpm, WUSP=125/51 mmhg, SpO2=98.0 % 2015:23:58 HR=62 bpm, MSPD=775/61 mmhg, SpO2=98.0 % 2015:25:00 Ablation procedure started. 2015:26:23 HR=60 bpm, RRXN=793/42 mmhg, SpO2=98.0 % 2015:29:05 ACT drawn. Resulting Activated Clotting Time = Performed by Joyd Chavis. out of rang e high 2015:30:01 HR=63 bpm, TNLP=417/51 mmhg, SpO2=98.0 % 2015:32:57 HR=61 bpm, KNIW=515/49 mmhg, SpO2=98.0 % 2015:36:09 HR=67 bpm, XMWM=353/47 mmhg, SpO2=99.0 % 2015:38:20 HR=85 bpm, CDBG=921/64 mmhg, SpO2=99.0 % 2015:40:00 BP relieved CM. 2015:41:16 HR=72 bpm, ZABK=360/60 mmhg, SpO2=98.0 % 2015:44:23 HR=56 bpm, WTTS=428/53 mmhg, SpO2=98.0 % 2015:44:55 Family updated. 2015:47:21 HR=60 bpm, EULR=362/51 mmhg, SpO2=98.0 % 2015:50:25 HR=86 bpm, NABA=373/44 mmhg, SpO2=98.0 % 2015:50:36 ACT drawn. Resulting Activated Clotting Time = Performed by Brook Castillo. out of range [facility] 2015:50:54 Vitals capture started with the following parameters, Patient=Adult, In terval=3 min, Init ial Jhrdheei=035 mmHg, Deflation Rate=5 mmHg, Cuff placed on Left Arm 2015:51:44 AL relieved BP. 2015:52:26 HR=85 bpm, JAQW=551/48 mmhg, SpO2=98.0 % 2015:55:06 HR=73 bpm, XYUX=276/55 mmhg, SpO2=98.0 % 2015:56:51 JH relieved SC 2015:57:33 HR=71 bpm, WCEJ=383/55 mmhg, SpO2=98.0 % 2015:00:36 HR=82 bpm, KLCR=022/40 mmhg, SpO2=98.0 % 2015:03:34 HR=78 bpm, KVJH=333/53 mmhg, SpO2=98.0 % 2015:07:13 HR=73 bpm, QOSI=066/58 mmhg, SpO2=98.0 % 2015:09:43 HR=72 bpm, UCUI=421/55 mmhg, SpO2=98.0 % 2015:11:00 ACT drawn. Resulting Activated Clotting Time = . Performed by Renee Pereira. out of r [facility] 2015:12:43 HR=88 bpm, UBFJ=597/45 mmhg, SpO2=98.0 % 2015:14:15 2 mcg ISUPREL BOLUS given in lab via Peripheral IV. Ordered by Margarito Chavis er. given by Naheed vega CRNA 2015:16:26 FT=548 bpm, ROSZ=558/66 mmhg, SpO2=97.0 % 2015:18:50 Recorded ECG: CZ=197 Condition=Condition 1 2015:19:11 Patient synchronize cardioverted at 200 joules - biphasic. The post card ioversion rhyt hm was noted as NSR. 2015:19:12 HR=95 bpm, DRVK=662/77 mmhg, SpO2=97.0 % 2015:19:30 Sheath removed from Lt Atrium 2015:20:48 30 mg PROTAMINE given in lab via Peripheral IV. Ordered by Juliana Chavis. given by Michael ASTORGA. 2015:21:37 HR=90 bpm, MTQF=409/52 mmhg, SpO2=98.0 % 2015:22:27 20 mg LASIX (FUROSEMIDE)(furosemide) given in lab v ia Peripheral IV. Ordered by Juliana Chavis. given by Michael WELSH 2015:24:36 HR=83 bpm, PUCW=256/39 mmhg, SpO2=98.0 % 2015:28:15 HR=88 bpm, NIBP=92/37 mmhg, SpO2=98.0 % 2015:28:20 Procedure Finish Time 2015:31:29 HR=85 bpm, VEHX=699/82 mmhg, SpO2=98.0 % 2015:31:56 A Mapping Study was performed. 2015:32:36 A Stimulation After IV Drug Study was performed. 2015:32:54 A Ablation - atrial fib Study was performed. 2015:33:45 HR=86 bpm, FPDJ=376/53 mmhg, SpO2=99.0 % 2015:34:56 ACT drawn. Resulting Activated Clotting Time = 182 seconds. Performed by Monica felipe 2015:36:34 The Rt Int Jugular Dallas Intro Sheath. 7F x 10 cm sheath was removed a nd hemo stasis achieved using Manual Compression. 2015:36:41 HR=86 bpm, ZFVB=747/55 mmhg, SpO2=98.0 % 2015:37:12 The Fem Vein (right) Agilis NxT Introducer/Med Curl 8.5fr sheath was re moved and hemo stasis achieved using Manual Compression. 2015:38:28 The Fem Vein (left) Dallas Intro Sheath. 10F x 25 cm sheath was re moved and hemo stasis achieved using Manual Compression. 2015:39:43 HR=93 bpm, WJKT=621/56 mmhg, IdF1=800.0 % 2015:42:37 HR=94 bpm, MQPJ=058/66 mmhg, SpO2=99.0 % 2015:45:39 HR=94 bpm, ZETG=326/67 mmhg, SpO2=99.0 %, Pain=0, Stella=10 2015:46:25 Assessment: Final Case, HR=94 BPM, Rhythm=NSR, FFKV=767/67 mmhg, Chest Pain =0, Edema=None, Color=Normal, Skin = Warm, Dry Righ t Pulses: Paolo Ped=2, Post Tib=2 Left Pulses: Paolo Ped=2, Post Tib=2 Lowe r Right Extremities:... 2015:47:42 Pain assessment post procedure: denies pain at this time. 2015:47:51 No complications noted. 2015:48:07 Vitals capture stopped. 2015:48:16 No nausea/vomiting. 2015:48:18 Post-procedure instructions given; patient acknowledges understanding of inst ructions. 2015:48:19 Plan of care followed. 2015:48:20 Puncture site looks unremarkable. 2015:48:22 Dressing:Bandaid applied to Rt IJ, Rt and Lt groins. 2015:49:38 Report will be given at bedside. 2015:49:42 Pt transported by bed. JULIANA CHAVIS MD (Electronically Signed) Final Date:30 July 2016 14:57 Amended: 31 July 2016 08:00 Procedure Note Interface, Cardiology Conversion Results Epic - 02/20/2019 1:55 PM CDT Cardiac Care Manager Cna [address] [address] Electrophysiology Report - A ANDIE Roe Exam Date: 07/30/2016 12:38 Perf. Phys: Juliana Chavis M.D. Ag 76 Gender: F Exam Location: [facility] Referring Phys: e: Ht (cm): 158 Wt (kg): 77.700 BSA: 1.9 CPT Codes Procedures Identify InOutPatient IV site check TIME OUT OPAL Sonosite Sheath Insertion Sheath Exchange Sheath Insertion Sheath Exchange Sheath Insertion Sheath Exchange ACT Cardioversion EPS Sheath Removal Sheath Removal Sheath Removal Complication Dressing Transport Medications IV Solutions 30mL/hr 4418-14-41E44:40:32 BUFFERED 1% LIDOCAINE 20mL 4825-04-78R33:39:47 Palmira, Juliana BUFFERED 1% LIDOCAINE 20mL 1236-55-20I35:42:18 Palmira, Juliana BUFFERED 1% LIDOCAINE 20mL 3620-47-53S75:43:58 Palmira, Juliana BUFFERED 1% LIDOCAINE 20mL [id number]:46:02 Palmira, Juliana HEPARIN 5000units [id number]:46:17 HEPARIN 5000units [id number]:08:17 ISUPREL BOLUS 2mcg 0630-45-61F56:14:15 PROTAMINE 30mg [id number]:20:48 LASIX (FUROSEMIDE) 20mg [id number]:22:27 Complications NO OCCURRENCES Attending Staff Juliana Chavis MD, Brook Merlos Pick Up DriverIram Cox Brenda Other Milburn, Connie X-Ray Stephanie, Tuyet Tillman, Monica Pereira, Renee Pick Up Driver Fluoro Time min 14.2 Conclusions Complex electrophysiology study with and without use of Isuprel. 2. Fluoroscopic placement of catheter in the coronary sinus. 3. Transeptal catheterization x1 under ICE guidance. 3D electroanatomical mapping of left atrium using [employer] system 4. Radiofrequency circumferential ablation around the pulmonary veins HISTORY OF PRESENT ILLNESS: The patient is a 76-year-old female who has a history of paroxysmal atrial fibrillation with recurrent episodes, hence was taken for an AFib ablation. Risks and benefits were explained, consent was obtained. PROCEDURE NOTE: The patient brought into the electrophysiology lab in the usual fasting, nonsedated state, prepped and draped in the usual manner. General anesthesia was introduced by the member of the anesthesiology staff. Subsequently, using 2% lidocaine as local anesthesia and modified Seldinger technique, a 7-Latvian sheath was placed into the right internal jugular vein and then 10-Latvian sheath into the left femoral vein and an 8-Latvian sheath into the right femoral vein. Through the sheath in the right internal jugular vein, a CRD Deca catheter was advanced under fluoroscopic guidance into the coronary sinus. Through the other sheaths, quadripolar catheter was advanced into the right atrium, His and subsequently the His catheter was advanced into the ventricle. The patient was in Sinus rhythm on presentation.Sinus cycle length of 630 milliseconds.AH interval was 78ms, HV was 38 milliseconds. With decremental atrial pacing, AV block was 320 milliseconds. AVNERP 600<270ms. With RV pacing VA block was 380ms. Subsequently, the ICE catheter was advanced under fluoroscopic guidance into the right atrium. Using a Preface sheath and BRK needle, transseptal catheterization was performed and left atrium was entered. Cautery was used. This was exchanged over to an Agilis sheath with a large curve tacticath [facility]. Raghav catheter. Electroanatomical mapping was performed and it was merged with the CT scan. 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 Subsequently the radiofrequency circumferential ablation of the pulmonary veins was performed. At 10 and 2 output pacing, the lines were checked and if there was conduction/capture, more ablation was performed. Isuprel was given as boluses and stimulation was performed with induction of arrhythmia of left atrial flutter. Cardioversion at 250J converted to sinus rhythm. ACT was kept close to 350ms. Temperature probe was placed in esophagus. With any rise of temperature on the probe, the ablation would be turned off. Most of ablation was performed at 15-20W. At this time, procedure was deemed complete so all sheaths and catheters were removed. Adequate hemostasis was obtained by applying manual pressure to the sheath incision site. CONCLUSION: 1. Sinus rhythm on presentation with normal baseline conduction interval. 2. Radiofrequency ablation circumferentially around the pulmonary veins Event Log 7471-13-64L14:38:07 Patient identified by armband and verbally. 3987-73-83M43:38:18 Pre-procedure questions/concerns addressed. Patient indicates an understanding, no further concerns at this time. 2727-87-64H33:38:27 Patient is Inpatient. 7197-64-11T42:39:17 Consent signed and verified 6747-00-04P17:39:19 No aspiration risks. 9671-52-21I94:39:20 Mild anxiety. 2107-95-15C36:39:22 NPO Status - Elective Procedure - Per Policy 9034-98-65A30:39:23 MD notified 0298-66-04A20:39:24 An IV was noted in the Forearm (left). 8550-29-17P51:40:32 Patient arrived on 30 mL/hr IV Solutions via Peripheral IV. Pump/Drip Flow = 30 ml/hr using NaCl 0.9% 1000ml. 0528-36-86N82:41:01 Pain assessment initial:denies pain at this time. 3321-29-25E45:41:14 Michael ZMT OPERATOR ,with anesthesia present to sedate, medicate, intubation, a-line and monitor vitals. see anesthesia chart. 4557-76-97H32:45:51 Pressure channel 2 zeroed. 0369-30-68U24:48:39 Vitals capture started with the following parameters, Patient=Adult, Interval=3 min, Initial Xgealnhw=024 mmHg, Deflation Rate=5 mmHg, Cuff placed on Left Arm 7098-65-35S18:48:50 Assessment: Initial Case, HR=79 BPM, Rhythm=NSR, Chest Pain=0, Edema=None, Color=Normal, Skin = Warm, Dry Right Pulses: Paolo Ped=2, Post Tib=2 Left Pulses: Paolo Ped=2, Post Tib=2 Lower Right Extremities: Color=Normal L... 2807-35-51S38:50:05 HR=78 bpm, FWHG=186/47 mmhg, SpO2=98.0 %, Pain=0, Stella=10 4268-91-63D95:52:24 HR=80 bpm, LWCM=115/66 mmhg, SpO2=96.0 % 5716-14-57H60:55:23 HR=77 bpm, GQDP=469/64 mmhg, DzE9=102.0 % 6279-07-21K25:58:19 HR=72 bpm, LONM=598/44 mmhg, ZxZ7=019.0 % 5100-88-95J88:01:23 HR=90 bpm, ATTY=051/40 mmhg, SpO2=99.0 % 0333-84-19J63:04:48 HR=88 bpm, EDTQ=874/66 mmhg, SpO2=99.0 % 5987-80-67I07:08:07 HR=94 bpm, APBK=754/91 mmhg, MsA5=377.0 % 5272-31-08J67:10:01 MD olivier 6381-74-21K63:10:04 Time out to confirm correct patient, procedure and site was performed by staff and MD. 2327-71-20Z58:10:28 HR=91 bpm, LLVU=346/74 mmhg, PmO0=051.0 % 7521-77-94Y87:11:02 Case Start 5954-19-68L28:12:58 OPAL probe passed by Dr. Chavis 5547-28-24S34:13:30 HR=95 bpm, TNIF=142/93 mmhg, JgL0=613.0 % 1348-26-01C51:16:26 HR=81 bpm, UMPL=421/68 mmhg, HlJ5=600.0 % 5134-78-61A63:17:41 OPAL complete. 8761-67-80G40:19:27 HR=78 bpm, ZCCY=566/66 mmhg, SrT6=335.0 % 8022-94-89Q38:22:23 HR=77 bpm, RKQF=107/64 mmhg, XjB3=477.0 % 1476-44-46I82:23:02 Bilateral groins and Right IJ prepped and draped in sterile fashion. 1693-33-52M34:23:03 Chloraprep used to prep insertion sites 9540-75-28W61:25:23 HR=72 bpm, SSKP=610/56 mmhg, SpO2=99.0 % 1773-86-62H22:28:23 HR=70 bpm, AZIY=254/55 mmhg, SpO2=99.0 % 6807-58-41I43:31:23 HR=69 bpm, FNFN=004/54 mmhg, SpO2=99.0 % 6122-16-04S52:34:22 HR=69 bpm, VDAL=676/49 mmhg, SpO2=99.0 % 5989-81-35P47:34:27 MD arrived 3986-86-06S06:37:24 HR=67 bpm, KQDE=357/52 mmhg, SpO2=99.0 % 0112-31-80A27:39:26 Time out to confirm correct patient, procedure and site was performed by staff and MD. 5821-05-27F45:39:29 Case Start 9280-36-85F68:39:43 Ultrasound performed. 9594-82-51D37:39:47 20 mL BUFFERED 1% LIDOCAINE given in lab by Juliana Chavis in Right Neck via Subcutaneous. Reason: For Local Anesthetic. 0487-57-59U43:40:24 In the Rt Int Jugular a Micropuncture Intro Set. 5F w/7cm needle was inserted and advanced. 0887-47-11G48:40:26 HR=68 bpm, MJEK=883/50 mmhg, SpO2=99.0 % 0080-04-20M31:41:49 The existing sheath was exchanged for a Dallas Intro Sheath. 7F x 10 cm in the Rt Int Jugular. 7649-25-83A79:42:18 20 mL BUFFERED 1% LIDOCAINE given in lab by Palmira Juliana in Right Groin via Subcutaneous. Reason: For Local Anesthetic. 6085-20-91S67:43:27 HR=68 bpm, ZKMV=527/49 mmhg, SpO2=99.0 % 7944-03-65L56:43:58 20 mL BUFFERED 1% LIDOCAINE given in lab by Palmira Juliana in Left Groin via Subcutaneous. Reason: For Local Anesthetic. 7996-54-95K64:44:15 In the Fem Vein (left) a Micropuncture Intro Set. 5F w/7cm needle was inserted and advanced. 8000-36-07U90:45:06 The existing sheath was exchanged for a [place] Intro Sheath. 10F x 25 cm in the Fem Vein (left). 3027-24-30I73:46:02 20 mL BUFFERED 1% LIDOCAINE given in lab by Palmira Juliana in Right Groin via Subcutaneous. Reason: For Local Anesthetic. 3122-89-57E27:46:17 5000 units HEPARIN given in lab via Peripheral IV. Ordered by Juliana Chavis. Reason: For Anticoagulation. Dose verified by. given by Michael ASTORGA 7385-64-20I39:46:23 HR=67 bpm, PPPA=995/48 mmhg, SpO2=99.0 % 1898-50-86R30:47:24 In the Fem Vein (right) a Micropuncture Intro Set. 5F w/7cm needle was inserted and advanced. 1282-90-28K08:47:42 The existing sheath was exchanged for a [place] Intro Sheath. 8F x 10 cm in the Fem Vein (right). 5180-08-77F50:49:27 HR=74 bpm, NIBP=98/43 mmhg, SpO2=99.0 % 7000-41-05R41:54:04 HR=97 bpm, NIBP=89/31 mmhg, SpO2=99.0 % 8192-40-13E47:55:19 HR=56 bpm, NOQQ=552/56 mmhg, SpO2=98.0 % 4549-88-72P57:56:41 Reference ECG taken 9970-17-58D97:59:03 HR=64 bpm, FOGU=672/60 mmhg, SpO2=99.0 % 6934-71-23X61:59:20 The existing sheath was exchanged for a Preface Sheath 8fr x 62cm in the Fem Vein (right). 9648-69-18G07:01:30 HR=63 bpm, JVSU=170/56 mmhg, SpO2=99.0 % 5416-04-87H50:05:14 HR=59 bpm, JRBN=494/41 mmhg, SpO2=99.0 % 4910-87-09Y09:06:54 Trans-septal stick made. 3397-46-25O39:08:17 5000 units HEPARIN given in lab via Peripheral IV. Ordered by Juliana Chavis. Reason: For Anticoagulation. Dose verified by. given by Michael ASTORGA 6665-48-60K78:08:54 The existing sheath was exchanged for a Agilis NxT Introducer/Med Curl 8.5fr in the Fem Vein (right). 7695-03-62R37:08:55 HR=56 bpm, RTTP=662/59 mmhg, SpO2=99.0 % 7475-63-07Q17:09:27 Recorded ECG: HR=59 Condition=Condition 1 9271-36-84C79:10:21 Recorded Pressure: LA, HR=62, Condition=Condition 1 (Left Atrium) LA 9802-22-81L61:10:31 HR=63 bpm, CFSJ=072/72 mmhg, SpO2=99.0 % 3778-53-95E88:17:25 HR=63 bpm, XXGB=445/51 mmhg, SpO2=99.0 % 0721-57-31N34:20:19 HR=61 bpm, ZBWC=883/51 mmhg, SpO2=98.0 % 1654-26-71L21:23:58 HR=62 bpm, JXIR=568/61 mmhg, SpO2=98.0 % 5163-37-98E29:25:00 Ablation procedure started. 2679-17-94E49:26:23 HR=60 bpm, NFJO=086/42 mmhg, SpO2=98.0 % 5148-50-29W68:29:05 ACT drawn. Resulting Activated Clotting Time = Performed by Juliana Chavis. out of range high 2882-18-26N30:30:01 HR=63 bpm, BHSA=854/51 mmhg, SpO2=98.0 % 2610-02-12L68:32:57 HR=61 bpm, NDJY=848/49 mmhg, SpO2=98.0 % 2666-44-41V62:36:09 HR=67 bpm, KYPK=165/47 mmhg, SpO2=99.0 % 9389-46-06W06:38:20 HR=85 bpm, WHIV=669/64 mmhg, SpO2=99.0 % 0733-50-46D74:40:00 BP relieved CM. 1220-78-17Q82:41:16 HR=72 bpm, YAWG=926/60 mmhg, SpO2=98.0 % 3853-35-80E57:44:23 HR=56 bpm, AGBH=820/53 mmhg, SpO2=98.0 % 5408-77-40P11:44:55 Family updated. 3180-28-10L69:47:21 HR=60 bpm, ZTER=696/51 mmhg, SpO2=98.0 % 8559-84-26I86:50:25 HR=86 bpm, IFJM=060/44 mmhg, SpO2=98.0 % 5802-62-55P26:50:36 ACT drawn. Resulting Activated Clotting Time = Performed by Brook Castillo. out of range high 9309-43-14P86:50:54 Vitals capture started with the following parameters, Patient=Adult, Interval=3 min, Initial Okvdcxpo=310 mmHg, Deflation Rate=5 mmHg, Cuff placed on Left Arm 0137-61-95B00:51:44 AL relieved BP. 9834-80-00U64:52:26 HR=85 bpm, XEVK=100/48 mmhg, SpO2=98.0 % 5758-61-36W57:55:06 HR=73 bpm, MWWJ=326/55 mmhg, SpO2=98.0 % 9295-32-86P09:56:51 JH relieved SC 6589-34-54Y03:57:33 HR=71 bpm, KLXL=903/55 mmhg, SpO2=98.0 % 2483-60-00R59:00:36 HR=82 bpm, YWDJ=973/40 mmhg, SpO2=98.0 % 2599-38-18O13:03:34 HR=78 bpm, OSGE=801/53 mmhg, SpO2=98.0 % 9513-37-62L15:07:13 HR=73 bpm, HRRE=284/58 mmhg, SpO2=98.0 % 2553-41-87Z14:09:43 HR=72 bpm, XPOJ=321/55 mmhg, SpO2=98.0 % 9482-91-05M73:11:00 ACT drawn. Resulting Activated Clotting Time = . Performed by Renee Pereira. out of range high 4005-34-22Y16:12:43 HR=88 bpm, POKD=182/45 mmhg, SpO2=98.0 % 2727-68-12Q99:14:15 2 mcg ISUPREL BOLUS given in lab via Peripheral IV. Ordered by Juliana Chavis. given by Michael ASTORGA 0707-41-76A53:16:26 ZG=414 bpm, JJLQ=749/66 mmhg, SpO2=97.0 % 0782-93-66G35:18:50 Recorded ECG: EC=179 Condition=Condition 1 2175-84-49M88:19:11 Patient synchronize cardioverted at 200 joules - biphasic. The post cardioversion rhythm was noted as NSR. 2001-32-05N08:19:12 HR=95 bpm, GGMS=468/77 mmhg, SpO2=97.0 % 7410-77-84T58:19:30 Sheath removed from Lt Atrium 0925-80-20M06:20:48 30 mg PROTAMINE given in lab via Peripheral IV. Ordered by Juliana Chavis. given by Michael ASTORGA. 2158-85-32O03:21:37 HR=90 bpm, NEGZ=567/52 mmhg, SpO2=98.0 % 7930-65-02A92:22:27 20 mg LASIX (FUROSEMIDE)(furosemide) given in lab vi a Peripheral IV. Ordered by Juliana Chavis. given by Michael ASTORGA. 6173-50-78U04:24:36 HR=83 bpm, LURO=077/39 mmhg, SpO2=98.0 % 3537-75-23A97:28:15 HR=88 bpm, NIBP=92/37 mmhg, SpO2=98.0 % 6131-23-02W64:28:20 Procedure Finish Time 9708-27-59L54:31:29 HR=85 bpm, HYLF=330/82 mmhg, SpO2=98.0 % 1291-81-59W47:31:56 A Mapping Study was performed. 8219-23-33J19:32:36 A Stimulation After IV Drug Study was performed. 7372-62-28O36:32:54 A Ablation - atrial fib Study was performed. 4559-00-46T33:33:45 HR=86 bpm, NWSB=538/53 mmhg, SpO2=99.0 % 7626-45-55P73:34:56 ACT drawn. Resulting Activated Clotting Time = 182 seconds. Performed by Monica Tillman. 2403-93-72I12:36:34 The Rt Int Jugular Dallas Intro Sheath. 7F x 10 cm sheath was removed and hemostasis achieved using Manual Compression. 8395-94-06G78:36:41 HR=86 bpm, UIDP=872/55 mmhg, SpO2=98.0 % 2323-64-27Y27:37:12 The Fem Vein (right) Agilis NxT Introducer/Med Curl 8.5fr sheath was removed and hemostasis achieved using Manual Compression. 7814-93-02A59:38:28 The Fem Vein (left) Dallas Intro Sheath. 10F x 25 cm sheath was removed and hemostasis achieved using Manual Compression. 0483-42-52Q01:39:43 HR=93 bpm, PZXL=511/56 mmhg, GcO0=127.0 % 7586-59-08L60:42:37 HR=94 bpm, PZLV=894/66 mmhg, SpO2=99.0 % 1475-59-35B94:45:39 HR=94 bpm, QXLR=410/67 mmhg, SpO2=99.0 %, Pain=0, Stella=10 5928-77-34S65:46:25 Assessment: Final Case, HR=94 BPM, Rhythm=NSR, YICM=956/67 mmhg, Chest Pain=0, Edema=None, Color=Normal, Skin = Warm, Dry Right Pulses: Paolo Ped=2, Post Tib=2 Left Pulses: Paolo Ped=2, Post Tib=2 Lower Right Extremities:... 7699-79-22E11:47:42 Pain assessment post procedure: denies pain at this time. 9964-54-71Y97:47:51 No complications noted. 9726-10-17H57:48:07 Vitals capture stopped. 0338-52-55G85:48:16 No nausea/vomiting. 6044-25-95Y16:48:18 Post-procedure instructions given; patient acknowledges understanding of instructions. 0867-26-56T00:48:19 Plan of care followed. 6392-51-53V19:48:20 Puncture site looks unremarkable. 3353-79-78D03:48:22 Dressing:Bandaid applied to Rt IJ, Rt and Lt groins. 1992-61-78J82:49:38 Report will be given at bedside. 4596-21-24G76:49:42 Pt transported by bed. JULIANA CHAVIS MD (Electronically Signed) Final Date:30 July 2016 14:57 Amended: 31 July 2016 08:00 Performing Organization Address City/State/Zipcode Ph one Number [facility] * Transesophageal echo (OPAL) (07/30/2016 9:18 AM CDT) Specimen Narrative Performed At [facility] Noninvasive Cardiology [address] [place] [id number] Transesophageal Echo Report ANDIE PAL Exam Date: 07/30/2016 07:20 Performing Physician:Juliana Chavis M.D. Age 76 Gender: F Exam Location: [facility] Ordering Physician: JULIANA CHAVIS MD : Referring Physician: Ht (cm):173 Wt (kg): 78.999 BSA: 1.96 Blue Leather Setter: Myrna Patel R DCS Stat: NO Blue Leather Setter Called In:NO Indications: atrial fibrillation CPT Codes: Rhythm: Contrast:No Medications under [place] Technical Quality Left Atrium Moderately enlar ged left atrium. LA Appendage No thrombus detec michael in the left atrial appendage. IA Septum Intact Mitral Valve Mild mitral regur gitation. Aortic Valve trileaflet There is no significant stenosis noted on 2-D or Doppler imaging. There is no significan t regurgitat ion noted on 2-D or Doppler imaging. Pericardium No significant p ericardial effusion. Aorta Normal aortic root for body surface area. CONCLUSIONS JULIANA CHAVIS MD (Electronically Signed) Final Date:30 July 2016 12:06 Procedure Note Interface, Cardiology Conversion Results [facility] - 02/17/2019 9:09 PM CDT Noninvasive Cardiology [address] [place] [address] [id number] Transesophageal Echo Report ANDIE PAL Exam Date: 07/30/2016 07:20 Performing Physician:Juliana Chavis M.D. Age 76 Gender: F Exam Location: [facility] Ordering Physician: JULIANA CHAVIS MD : Referring Physician: Ht (cm):173 Wt (kg): 78.999 BSA: 1.96 Blue Leather Setter: Myrna Patel RDCS Stat: NO Blue Leather Setter Called In:NO Indications: atrial fibrillation CPT Codes: Rhythm: Contrast:No Medications under [place] Technical Quality Left Atrium Moderately enlarged left atrium. LA Appendage No thrombus detected in the left atrial appendage. IA Septum Intact Mitral Valve Mild mitral regurgitation. Aortic Valve trileaflet There is no significant stenosis noted on 2-D or Doppler imaging. There is no significant regurgitation noted on 2-D or Doppler imaging. Pericardium No significant pericardial effusion. Aorta Normal aortic root for body surface area. CONCLUSIONS JULIANA CHAVIS MD (Electronically Signed) Final Date:30 July 2016 12:06 Performing Organization Address [facility] one Number [facility] * X-Ray Chest 2 Views (07/30/2016 8:34 AM CDT) Specimen Narrative Performed At EXAM: XR CHEST 2 VIEWS TIEN JARRETT EXAM DATE: 07/30/2016 INDICATION: Preop pacemaker placement TECHNIQUE: PA and lateral views COMPARISON: May 25, 2009 FINDINGS: The heart size is normal. The great vessels appear unremarkable. There is no hilar or mediastinal mass. The lungs are clear. There is no pleural effusion or pneumot horax. There are no significant osseous abnorm alities. IMPRESSION: No acute cardiopulmonary process. Finalized by Jey Davidson on 07/30/20 16 08:35 [facility] Procedure Note Interface, Radiology Results Conversion Epic - 02/14/2019 5:28 PM CDT EXAM: XR CHEST 2 VIEWS EXAM DATE: 07/30/2016 INDICATION: Preop pacemaker placement TECHNIQUE: PA and lateral views COMPARISON: May 25, 2009 FINDINGS: The heart size is normal. The great vessels appear unremarkable. There is no hilar or mediastinal mass. The lungs are clear. There is no pleural effusion or pneumothorax. There are no significant osseous abnormalities. IMPRESSION: No acute cardiopulmonary process. Finalized by Jey Davidson on 07/30/2016 08:35 [facility] Performing Organization Address [facility] one Number TIEN JARRETT * CBC No Diff (07/30/2016 7:11 AM CDT) WBC 6.1 4.0 - 10.8 10*3/uL [facility] RBC 3.61 (L) 4.20 - 5.40 10*6/uL [facility] HEMOGLOBIN 11.6 (L) 12.0 - 16.0 g/dL [facility] HCT 36.8 (L) 37.0 - 47.0 % [facility] MCV 102 (H) 81 - 99 fL [facility] MCH 32 26.0 - 34.0 pg [facility] MCHC 31.5 31.0 - 37.0 g/dL [facility] MPV 9.3 (L) 9.4 - 12.3 fL [facility] PLATELET COUNT 192 150 - 400 10*3/uL [facility] RDW COEFFICIENT 13.1 11.5 - 14.5 % [facility] OF VARIATION RDW STANDARD 49.2 (H) 36.4 - 46.3 fL [facility] DEVIATION NUCLEATED RBC, 0.00 0.00 10*3/uL [facility] ABSOLUTE NUCLEATED RBC, 0.0 0.0 % [facility] PERCENT Specimen Blood (substance) - Serum Performing Organization Address [facility] one Number [facility] * Protime-INR (07/30/2016 7:11 AM CDT) PROTHROMBIN 22.7 (H) 11.8 - 15.0 s [facility] TIME INR 2.0 ST EPIC Comment: (NOTE) THERAPEUTIC GOALS FOR PATIENTS ON ORAL ANTICOAGULANTS ========= Standard risk factors for thromboembolic disease: INR of 2.0-3.0 Higher risk of thrombosis (e.g mech heart valve): INR of 2.5-3.5 Specimen Blood (substance) - Plasma Performing Organization Address [facility] one Number [facility] * Basic Metabolic Panel (07/30/2016 7:11 AM CDT) SODIUM 144 136 - 145 mmol/L [facility] POTASSIUM 3.7 3.5 - 5.1 mmol/L ST [facility] CHLORIDE 110 (H) 98 - 107 mmol/L [facility] CO2 27 21 - 32 mmol/L [facility] ANION GAP 7 5 - 15 [facility] BUN 12 7 - 18 mg/dL [facility] CREATININE, 0.87 0.55 - 1.30 mg/dL [facility] SERUM OR PLASMA GLUCOSE, SERUM 86 80 - 115 mg/dL [facility] CALCIUM 9.2 8.5 - 10.0 mg/dL [facility] GFR ESTIMATED >60 [facility] NOT AFR/AM Comment: GFR <60: CHRONIC KIDNEY DISEASE, if found over a 3 month period. GFR <15: KIDNEY FAILURE GFR ESTIMATED >60 [facility] IF AFR/AM Comment: GFR <60: CHRONIC KIDNEY DISEASE, if found over a 3 month period. GFR <15: KIDNEY FAILURE Specimen Blood (substance) - Serum Performing Organization Address [facility] Ph one Number [facility] * ECG 12 lead (07/30/2016 6:51 AM CDT) Specimen Narrative Performed At [facility] [address] [place] [address] Test Date: 2016-07-30 Pat Name: ANDIE PAL Department: Room: 2 Gender: F Perianesthesia Nurse: : 1940 Requested By: Order Number: Reading MD: Aubrey Espinosa M.D. Measurements Intervals [place] Rate: 79 P: 33 NV: 148 QRS: 47 QRSD: 98 T: 39 QT: 396 QTc: 454 Interpretive Statements SINUS RHYTHM Normal ECG Electronically Signed On 07-30-16 10:51 :05 CDT by Aubrey Espinosa M.D. Procedure Note Interface, Cardiology Conversion Results Epic - 02/17/2019 9:09 [place] [address] Test Date: 2016-07-30 Pat Name: ANDIE PAL Department: Room: 2 Gender: F Perianesthesia Nurse: : 1940 Requested By: Order Number: Reading MD: Aubrey Espinosa M.D. Measurements Intervals [place] Rate: 79 P: 33 NV: 148 QRS: 47 QRSD: 98 T: 39 QT: 396 QTc: 454 Interpretive Statements SINUS RHYTHM Normal ECG Electronically Signed On 07-30-16 10:51:05 CDT by Aubrey Espinosa M.D. Performing Organization Address [facility] one Number [facility] documented in this encounter Visit Diagnoses Diagnosis Paroxysmal atrial fibrillation (HCC) documented in this encounter
[2020-05-19] MEDS: TETRACAINE 0.5% OPHTH SOLN 4 ML BTL (SINGLE DOSE ONLY) OU PRN ×4 (07:09→07:34)
--- OUTSIDE RECORDS SUMMARY | 2020-05-19 07:10 | XMS REPORT | Continuity of Care Document ---
Author Organization Unknown Address Unknown Phone Unavailable Allergies Active Description Code Type Severity Reaction Onset Reported/Identified Relationship to Patient Clinical Status Yes OXYCODONE HCL 5011 DRUG INGREDI N/A N/A Yes SULFA ANTIBIOTICS 33 Drug Class N/A N/A Yes PERCOCET UNKNOWN UNKNOWN Yes SULFA (SULFONAMIDE ANTIBIOTICS) UNKNOWN UNKNOWN Yes MDX - SULFA (sulfonamide) X22 Drug Allergy Unknown N/A 02/06/2009 Yes SULFA (sulfonamide) X22 Dr ug Allergy Unknown N/A 02/06/2009 Yes Food Allergies: Food Allergies: Drug Allergy Unknown N/A 08/12/2011 Yes Medication Allergies: Medication Aller gies: Drug Allergy Unknown N/A 011 Yes MDX - Acetaminophen X509 Dr ug Allergy Unknown N/A 05/18/2015 Yes MDX - Oxycodone X741 Drug Allergy Unknown N/A 05/18/2015 Yes MDX - SULFA (sulfonamide) X22 Drug Allergy Unknown N/A 05/18/2015 Yes SULFA ANTIBIOTICS 34 Drug Class Med Other 05/14/2016 Yes OXYCODONE HCL 5011 DRUG INGREDI Med Other 05/14/2016 Yes acetaminophen [id number] Ranjit g Allergy Unknown N/A 08/01/2016 Yes oxycodone [id number] Drug Allergy Unknown N/A 08/01/2016 Yes Sulfa (Sulfonamide Antibiotics) [id number] 0491 Drug Allergy Unknown N/A 016 Yes acetaminophen [id number] Ranjit g Allergy Unknown NAUSEA 03/14/2017 Yes oxycodone [id number] Drug Allergy Unknown NAUSEA 03/14/2017 Yes Sulfa Sulfa Unknown RASH 03/14/2017 Yes Sulfa (Sulfonamide Antibiotics) [id number] 0491 Drug Allergy Unknown Rash 020 Medications There is no data. Problems Date Dx Coded Attending Type Code Diagnosis Diagnosed By 10/23/1511 ANASTASIIA CAMACHO, MARIO Khan Ot Z01.818 ENCOUNTER FOR OTHER PREPROCEDURAL EXAMIN 10/23/1511 ANASTASIIA CAMACHO, MARIO Khan Ot Z11.59 ENCOUNTER FOR SCREENING FOR OTHER VIRAL 10/06/2014 Ditto, Tylor E A 427.31 10/06/2014 Ditto, Tylor E A 427.31 10/07/2014 Ditto, Tylor E A 427.31 10/07/2014 Ditto, Tylro E A 427.31 10/12/2014 Ditto, Tylor E A 427.31 10/19/2014 Ditto, Tylor E A 427.31 10/27/2014 Ditto, Tylor E A 427.31 11/03/2014 Ditto, Tylor E A 427.31 11/04/2014 Ditto, Tylor E A 427.31 11/04/2014 Ditto, Tylor E A 427.31 11/09/2014 Ditto, Tylor E A 427.31 11/23/2014 Ditto, Tylor E A 427.31 11/29/2014 Ditto, Tylor E A V72.60 11/29/2014 Ditto, Tylor E W 793.81 11/29/2014 Ditto, Tylor E W V16.3 11/29/2014 Ditto, Tylor E A V76.11 11/29/2014 Ditto, Tylor E A V76.12 11/29/2014 Ditto, Tylor E A 793.81 11/29/2014 Ditto, Tylor E W V16.3 12/06/2014 Ditto, Tylor E A 793.81 12/06/2014 Ditto, Tylor E W V16.3 12/06/2014 Ditto, Tylor E W V67.59 12/08/2014 Ditto, Tylor E A 793.81 12/08/2014 Ditto, Tylor E W V16.3 12/08/2014 Ditto, Tylor E W V67.59 12/08/2014 Ditto, Tylor E A 427.31 12/09/2014 Ditto, Tylor E A 427.31 12/09/2014 Ditto, Tylor E A 427.31 12/09/2014 Ditto, Tylor E A 793.81 12/09/2014 Ditto, Tylor E W V16.3 12/09/2014 Ditto, Tylor E W V67.59 12/14/2014 Ditto, Tylor E A 427.31 12/21/2014 Ditto, Tylor E A 793.81 12/21/2014 Ditto, Tylor E W V16.3 12/21/2014 Ditto, Tylor E W V67.59 12/28/2014 Ditto, Tylor E A 793.81 12/28/2014 Ditto, Tylor E W V16.3 12/28/2014 Ditto, Tylor E W V67.59 05/18/2015 Ditto, Tylor E A V72.60 05/18/2015 Ditto, Tylor E W 793.81 05/18/2015 Ditto, Tylor E W V16.3 05/18/2015 Ditto, Tylor E A V76.11 05/18/2015 Ditto, Tylor E A V76.12 05/18/2015 Ditto, Tylor E A 793.81 05/18/2015 Ditto, Tylor E W V16.3 05/18/2015 Ditto, Tylor E A 793.81 05/18/2015 Ditto, Tylor E W V16.3 05/18/2015 Ditto, Tylor E W V67.59 05/29/2015 Ditto, Tylor E A V72.60 06/06/2015 Ditto, Tylor E A V76.12 06/06/2015 Ditto, Tylor E A V76.12 06/14/2015 Ditto, Tylor E A V76.12 06/16/2015 Ditto, Tylor E A V76.12 07/03/2015 Ditto, Tylor E A V76.12 07/03/2015 Ditto, Tylor E A V76.12 07/03/2015 Ditto, Tylor E A V76.12 07/05/2015 Ditto, Tylor E A 793.81 07/05/2015 Ditto, Tylor E W V16.3 07/05/2015 Ditto, Tylor E A 793.81 07/05/2015 Ditto, Tylor E W V16.3 07/05/2015 Ditto, Tylor E W V67.59 07/05/2015 Ditto, Tylor E A V76.12 07/05/2015 Ditto, Tylor E A V72.60 07/06/2015 Ditto, Tylor E A V76.12 09/19/2015 Ditto, Tylor E A I48.91 09/20/2015 Ditto, Tylor E A I48.91 09/22/2015 Ditto, Tylor E A I48.91 09/22/2015 Ditto, Tylor E A I48.91 09/25/2015 Ditto, Tylor E A I48.91 10/11/2015 Ditto, Tylor E A I48.91 10/17/2015 Ditto, Tylor E A I48.91 10/18/2015 Ditto, Tylor E A I48.91 10/23/2015 Ditto, Tylor E A I48.91 10/25/2015 Ditto, Tylor E A I48.91 11/08/2015 Ditto, Tylor E A I48.91 11/14/2015 Ditto, Tylor E A I48.91 11/15/2015 Ditto, Tylor E A I48.91 11/15/2015 Ditto, Tylor E A I48.91 11/20/2015 Ditto, Tylor E A I48.91 11/28/2015 Ditto, Tylor E W M48.06 11/28/2015 Ditto, Tylor E A M54.32 11/29/2015 Ditto, Tylor E W M48.06 11/29/2015 Ditto, Tylor E A M54.32 11/29/2015 Ditto, Tylor E A I48.91 11/29/2015 Ditto, Tylor E W M48.06 11/29/2015 Ditto, Tylor E A M54.32 11/30/2015 Ditto, Tylor E A I48.91 12/01/2015 Ditto, Tylor E A I48.91 12/01/2015 Ditto, Tylor E A I48.91 12/05/2015 Ditto, Tylor E A I48.91 12/05/2015 Ditto, Tylor E W M48.06 12/05/2015 Ditto, Tylor E A M54.32 12/05/2015 Ditto, Tylor E A I48.91 12/06/2015 Ditto, Tylor E W M48.06 12/06/2015 Ditto, Tylor E A M54.32 12/06/2015 A 427.31 12/06/2015 Ditto, Tylor E A I48.91 12/06/2015 Ditto, Tylor E A I48.91 12/06/2015 Ditto, Tylor E A I48.91 12/06/2015 Ditto, Tylor E A I48.91 12/06/2015 Ditto, Tylor E A I48.91 12/07/2015 Ditto, Tylor E A I48.91 12/13/2015 Ditto, Tylor E W M48.06 12/13/2015 Ditto, Tylor E A M54.32 12/13/2015 Ditto, Tylor E A I48.91 12/15/2015 Ditto, Tylor E A I48.91 12/19/2015 Ditto, Tylor E W M48.06 12/19/2015 Ditto, Tylor E A M54.32 12/19/2015 Ditto, Tylor E W M48.06 12/19/2015 Ditto, Tylor E A M54.32 12/19/2015 Ditto, Tylor E A I48.91 12/19/2015 Ditto, Tylor E W M48.06 12/19/2015 Ditto, Tylor E A M54.32 12/20/2015 Ditto, Tylor E W M48.06 12/20/2015 Ditto, Tylor E A M54.32 12/20/2015 Ditto, Tylor E A I48.91 12/21/2015 Ditto, Tylor E A I48.91 12/22/2015 Ditto, Tylor E W M48.06 12/22/2015 Ditto, Tylor E A M54.32 12/25/2015 Ditto, Tylor E W M48.06 12/25/2015 Ditto, Tylor E A M54.32 12/26/2015 Ditto, Tylor E A I48.91 12/26/2015 Ditto, Tylor E A I48.91 12/27/2015 Ditto, Tylor E A I48.91 12/28/2015 Ditto, Tylor E A I48.91 12/29/2015 Ditto, Tylor E W M48.06 12/29/2015 Ditto, Tylor E A M54.32 12/29/2015 Ditto, Tylor E A I48.91 12/29/2015 Ditto, Tylor E A I48.91 12/31/2015 Ditto, Tylor E W M48.06 12/31/2015 Ditto, Tylor E A M54.32 01/01/2016 Ditto, Tylor E A I48.91 01/02/2016 Ditto, Tylor E W M48.06 01/02/2016 Ditto, Tylor E A M54.32 01/02/2016 Ditto, Tylor E W M48.06 01/02/2016 Ditto, Tylor E A M54.32 01/02/2016 Ditto, Tylor E W M48.06 01/02/2016 Ditto, Tylor E A M54.32 01/02/2016 Ditto, Tylor E A I48.91 01/03/2016 Ditto, Tylor E W M48.06 01/03/2016 Ditto, Tylor E A M54.32 01/03/2016 Ditto, Tylor E A I48.91 01/05/2016 Ditto, Tylor E W M48.06 01/05/2016 Ditto, Tylor E A M54.32 01/09/2016 Ditto, Tylor E W M48.06 01/09/2016 Ditto, Tylor E A M54.32 01/09/2016 Ditto, Tylor E A I48.91 01/10/2016 Ditto, Tylor E W M48.06 01/10/2016 Ditto, Tylor E A M54.32 01/11/2016 Ditto, Tylor E A I48.91 01/12/2016 Ditto, Tylor E W M48.06 01/12/2016 Ditto, Tylor E A M54.32 01/12/2016 Ditto, Tylor E A I48.91 01/15/2016 Ditto, Tylor E W M48.06 01/15/2016 Ditto, Tylor E A M54.32 01/15/2016 Ditto, Tylor E W M48.06 01/15/2016 Ditto, Tylor E A M54.32 01/15/2016 Ditto, Tylor E W M48.06 01/15/2016 Ditto, Tylor E A M54.32 01/15/2016 Ditto, Tylor E W M48.06 01/15/2016 Ditto, Tylor E A M54.32 01/16/2016 Ditto, Tylor E W M48.06 01/16/2016 Ditto, Tylor E A M54.32 01/16/2016 Ditto, Tylor E A I48.91 01/16/2016 Ditto, Tylor E W M48.06 01/16/2016 Ditto, Tylor E A M54.32 01/16/2016 Ditto, Tylor E A I48.91 01/17/2016 Ditto, Tylor E A I48.91 01/17/2016 Ditto, Tylor E W M48.06 01/17/2016 Ditto, Tylor E A M54.32 01/17/2016 Ditto, Tylor E W M48.06 01/17/2016 Ditto, Tylor E A M54.32 01/18/2016 Ditto, Tylor E W M48.06 01/18/2016 Ditto, Tylor E A M54.32 01/19/2016 Ditto, Tylor E W M48.06 01/19/2016 Ditto, Tylor E A M54.32 01/19/2016 Ditto, Tylor E W M48.06 01/19/2016 Ditto, Tylor E A M54.32 01/19/2016 Ditto, Tylor E W M48.06 01/19/2016 Ditto, Tylor E A M54.32 01/23/2016 Ditto, Tylor E A I48.91 01/24/2016 Ditto, Tylor E W M48.06 01/24/2016 Ditto, Tylor E A M54.32 01/24/2016 Ditto, Tylor E W M48.06 01/24/2016 Ditto, Tylor E A M54.32 01/24/2016 Ditto, Tylor E W M48.06 01/24/2016 Ditto, Tylor E A M54.32 01/24/2016 Ditto, Tylor E W M48.06 01/24/2016 Ditto, Tylor E A M54.32 01/24/2016 Ditto, Tylor E W M48.06 01/24/2016 Ditto, Tylor E A M54.32 01/24/2016 Ditto, Tylor E W M48.06 01/24/2016 Ditto, Tylor E A M54.32 01/24/2016 Ditto, Tylor E W M48.06 01/24/2016 Ditto, Tylor E A M54.32 01/24/2016 Ditto, Tylor E W M48.06 01/24/2016 Ditto, Tylor E A M54.32 01/24/2016 Ditto, Tylor E W M48.06 01/24/2016 Ditto, Tylor E A M54.32 01/24/2016 Ditto, Tylor E W M48.06 01/24/2016 Ditto, Tylor E A M54.32 01/24/2016 Ditto, Tylor E W M48.06 01/24/2016 Ditto, Tylor E A M54.32 01/24/2016 Ditto, Tylor E W M48.06 01/24/2016 Ditto, Tylor E A M54.32 01/26/2016 Ditto, Tylor E A I48.91 01/26/2016 Ditto, Tylor E W M48.06 01/26/2016 Ditto, Tylor E A M54.32 01/26/2016 Ditto, Tylor E A I48.91 01/29/2016 Ditto, Tylor E W M48.06 01/29/2016 Ditto, Tylor E A M54.32 02/02/2016 WHITE-SLOUGH, KRISTIN SYSTEMS DEVELOPMENT MANAGER W M16.12 02/02/2016 WHITE-SLOUGH, KRISTIN SYSTEMS DEVELOPMENT MANAGER W M51.17 02/02/2016 WHITE-SLOUGH, KRISTIN SYSTEMS DEVELOPMENT MANAGER A M54.32 02/02/2016 WHITE-SLOUGH, KRISTIN CASIANON W M89.8X8 02/06/2016 WHITE-SLOUGH, KRISTIN CASIANON W M16.12 02/06/2016 WHITE-SLOUGH, KRISTIN CASIANON W M51.17 02/06/2016 WHITE-SLOUGH, KRISTIN SYSTEMS DEVELOPMENT MANAGER A M54.32 02/06/2016 WHITE-SLOUGH, KRISTIN CASIANON W M89.8X8 02/08/2016 Ditto, Tylor E W M48.06 02/08/2016 Ditto, Tylor E A M54.32 02/09/2016 Ditto, Tylor E A I48.91 02/10/2016 Ditto, Tylor E W M48.06 02/10/2016 Ditto, Tylor E A M54.32 02/14/2016 Ditto, Tylor E W M48.06 02/14/2016 Ditto, Tylor E A M54.32 02/14/2016 Ditto, Tylor E A I48.91 02/15/2016 Ditto, Tylor E A I48.91 02/16/2016 Ditto, Tylor E W M48.06 SPINAL STENOSIS, LUMBAR REGION 02/16/2016 Ditto, Tylor E A M54.32 SCIATICA, LEFT SIDE 02/20/2016 Ditto, Tylor E A I48.91 02/27/2016 WHITE-SLOUGH, KRISTIN SYSTEMS DEVELOPMENT MANAGER W M16.12 02/27/2016 KRISTIN MAHONEY APRN W M51.17 02/27/2016 KRISTIN MAHONEY APRN A M54.32 02/27/2016 KRISTIN MAHONEY APRN W M89.8X8 03/08/2016 Dijaseo, Tylor E A I48.91 UNSPECIFIED ATRIAL FIBRILLATION 03/18/2016 Ditto, Tylor E A I48.91 UNSPECIFIED ATRIAL FIBRILLATION 03/19/2016 Ditto, Tylor E A I48.91 UNSPECIFIED ATRIAL FIBRILLATION 03/26/2016 Ditto, Tylor E A I48.91 UNSPECIFIED ATRIAL FIBRILLATION 03/27/2016 Ditto, Tylor E A I48.91 UNSPECIFIED ATRIAL FIBRILLATION 03/29/2016 Ditto, Tylor E A I48.91 UNSPECIFIED ATRIAL FIBRILLATION 03/29/2016 Ditto, Tylor E A I48.91 UNSPECIFIED ATRIAL FIBRILLATION 03/31/2016 Ditto, Tylor E A I48.91 UNSPECIFIED ATRIAL FIBRILLATION 04/01/2016 Ditto, Tylor E A I48.91 UNSPECIFIED ATRIAL FIBRILLATION 04/16/2016 Ditto, Tylor E A I48.91 UNSPECIFIED ATRIAL FIBRILLATION 04/16/2016 Ditto, Tylor E A I48.91 UNSPECIFIED ATRIAL FIBRILLATION 04/29/2016 Ditto, Tylor E A I48.91 UNSPECIFIED ATRIAL FIBRILLATION 04/30/2016 Ditto, Tylor E A I48.91 UNSPECIFIED ATRIAL FIBRILLATION 05/13/2016 Ditto, Tylor E A I48.91 UNSPECIFIED ATRIAL FIBRILLATION 05/13/2016 Ditto, Tylor E A I48.91 UNSPECIFIED ATRIAL FIBRILLATION 05/13/2016 Tylor Lin W Z51.81 ENCOUNTER FOR THERAPEUTIC DRUG LEVEL MON 05/13/2016 Tylor Lin W Z79.01 FPC (CURRENT) USE OF ANTICOAGULANT 05/15/2016 Riley Tylor E A I48.91 UNSPECIFIED ATRIAL FIBRILLATION 05/15/2016 Tylor Lin W Z51.81 ENCOUNTER FOR THERAPEUTIC DRUG LEVEL MON 05/15/2016 Tylor Lin W Z79.01 PATIENT SUPPORT ASSISTANT (CURRENT) USE OF ANTICOAGULANT 05/20/2016 Riley Tylor E A I48.0 PAROXYSMAL ATRIAL FIBRILLATION 05/20/2016 Tylor Lin I48.91 UNSPECIFIED ATRIAL FIBRILLATION 05/20/2016 Tylor Lin Z51.81 ENCOUNTER FOR THERAPEUTIC DRUG LEVEL MON 05/20/2016 Tylor Lin Z79.01 FPC (CURRENT) USE OF ANTICOAGULANT 05/21/2016 Tylor Lin I48.0 PAROXYSMAL ATRIAL FIBRILLATION 05/21/2016 Tylor Lin E78.4 OTHER HYPERLIPIDEMIA 05/21/2016 Tylor Lin I48.0 PAROXYSMAL ATRIAL FIBRILLATION 05/21/2016 Tylor Lin M81.0 AGE- RELATED OSTEOPOROSIS W/O CURRENT PAT 05/21/2016 Tylor Lin V76.12 OTH SCREEN MAMMO-MALIGN NEOPLASM OF GENESIS 05/21/2016 Tylor Lin V72.60 LABORATORY EXAMINATION, UNSPECIFIED 05/22/2016 Tylor Lin I48.91 UNSPECIFIED ATRIAL FIBRILLATION 05/22/2016 Tylor Lin Z51.81 ENCOUNTER FOR THERAPEUTIC DRUG LEVEL MON 05/22/2016 Tylor Lin Z79.01 PATIENT SUPPORT ASSISTANT (CURRENT) USE OF ANTICOAGULANT 05/22/2016 Tylor Lin E78.4 OTHER HYPERLIPIDEMIA 05/22/2016 Tylor Lin I48.0 PAROXYSMAL ATRIAL FIBRILLATION 05/22/2016 Tylor Lin M81.0 AGE- RELATED OSTEOPOROSIS W/O CURRENT PAT 05/28/2016 Tylor Lin I48.0 PAROXYSMAL ATRIAL FIBRILLATION 05/28/2016 Tylor Lin Z00.00 ENCNTR FOR GENERAL ADULT MEDICAL EXAM W05/29/2016 Tylor Lin I48.0 PAROXYSMAL ATRIAL FIBRILLATION 05/29/2016 Tylor Lin I48.0 PAROXYSMAL ATRIAL FIBRILLATION 05/29/2016 Tylor Lin I48.91 UNSPECIFIED ATRIAL FIBRILLATION 05/29/2016 Tylor Lin Z51.81 ENCOUNTER FOR THERAPEUTIC DRUG LEVEL MON 05/29/2016 Tylor Lin Z79.01 FPC (CURRENT) USE OF ANTICOAGULANT 05/30/2016 Riley Tylor E A E78.4 OTHER HYPERLIPIDEMIA 05/30/2016 Riley Tylor E A I48.0 PAROXYSMAL ATRIAL FIBRILLATION 05/30/2016 Riley Tylor E A M81.0 AGE- RELATED OSTEOPOROSIS W/O CURRENT PAT 05/31/2016 Riley Tylor E A I48.0 PAROXYSMAL ATRIAL FIBRILLATION 06/03/2016 Linden Line E A E78.4 OTHER HYPERLIPIDEMIA 06/03/2016 Barbarao Tylor E A I48.0 PAROXYSMAL ATRIAL FIBRILLATION 06/03/2016 Riley Tylor E A M81.0 AGE- RELATED OSTEOPOROSIS W/O CURRENT PAT 06/03/2016 Linden Line E A E78.4 OTHER HYPERLIPIDEMIA 06/03/2016 Barbarao Tylor E A I48.0 PAROXYSMAL ATRIAL FIBRILLATION 06/03/2016 Riley Tylor E A M81.0 AGE- RELATED OSTEOPOROSIS W/O CURRENT PAT 06/05/2016 Lniden Line E A E78.4 OTHER HYPERLIPIDEMIA 06/05/2016 Riley Tylor E A I48.0 PAROXYSMAL ATRIAL FIBRILLATION 06/05/2016 Riley Tylor E A M81.0 AGE- RELATED OSTEOPOROSIS W/O CURRENT PAT 06/05/2016 Linden Line E A I48.0 PAROXYSMAL ATRIAL FIBRILLATION 06/05/2016 Riley Tylor E A Z51.81 ENCOUNTER FOR THERAPEUTIC DRUG LEVEL MON 06/05/2016 Tylor Lin Z79.01 FPC (CURRENT) USE OF ANTICOAGULANT 06/05/2016 Riley Tylor E A I48.91 UNSPECIFIED ATRIAL FIBRILLATION 06/05/2016 Linden Line E A Z51.81 ENCOUNTER FOR THERAPEUTIC DRUG LEVEL Fri06/05/2016 Tylor Lin Z79.01 FPC (CURRENT) USE OF ANTICOAGULANT 06/07/2016 Riley Tylor E A I48.0 PAROXYSMAL ATRIAL FIBRILLATION 06/07/2016 Riley Tylor E A Z51.81 ENCOUNTER FOR THERAPEUTIC DRUG LEVEL MON 06/07/2016 Tylor Lin Z79.01 FPC (CURRENT) USE OF ANTICOAGULANT 06/11/2016 SARAH RAMOS Z79.899 Other parts counterman (current) drug therapy 06/11/2016 SARAH RAMOS I48.0 Paroxysmal atrial fibrillation 06/12/2016 Dijaseo, Tylor E A Z12.31 ENCNTR SCREEN MAMMOGRAM FOR MALIGNANT NE 06/12/2016 Ditto Tylor E A Z12.11 ENCOUNTER FOR SCREENING FOR MALIGNANT NE 06/14/2016 Ditto Tylor E A Z12.11 ENCOUNTER FOR SCREENING FOR MALIGNANT NE 06/14/2016 Ditto Tylor E A I48.0 PAROXYSMAL ATRIAL FIBRILLATION 06/18/2016 Dijaseo Tylor E A Z12.31 ENCNTR SCREEN MAMMOGRAM FOR MALIGNANT NE 06/18/2016 Barbarao, Tylor E A Z12.31 ENCNTR SCREEN MAMMOGRAM FOR MALIGNANT NE 06/19/2016 Sarah Ramos I48.0 PAROXYSMAL ATRIAL FIBRILLATION 06/20/2016 Riely Tylor E A Z12.31 ENCNTR SCREEN MAMMOGRAM FOR MALIGNANT NE 06/20/2016 Sarah Ramos I48.0 PAROXYSMAL ATRIAL FIBRILLATION 06/25/2016 Linden Line E A Z12.31 ENCNTR SCREEN MAMMOGRAM FOR MALIGNANT NE 06/27/2016 Sarah Ramos I48.0 PAROXYSMAL ATRIAL FIBRILLATION 06/27/2016 Sarah Ramos Z51.81 ENCOUNTER FOR THERAPEUTIC DRUG LEVEL MON 06/27/2016 Sarah Ramos Z79.01 FPC (CURRENT) USE OF ANTICOAGULANT 06/27/2016 Sarah Ramos I48.0 PAROXYSMAL ATRIAL FIBRILLATION 06/27/2016 Sarah Ramos Z51.81 ENCOUNTER FOR THERAPEUTIC DRUG LEVEL MON 06/27/2016 Sarah Ramos Z79.01 PATIENT SUPPORT ASSISTANT (CURRENT) USE OF ANTICOAGULANT 06/29/2016 Sarah Ramos I48.0 PAROXYSMAL ATRIAL FIBRILLATION 06/29/2016 Sarah Ramos Z51.81 ENCOUNTER FOR THERAPEUTIC DRUG LEVEL MON 06/29/2016 Sarah Ramos Z79.01 FPC (CURRENT) USE OF ANTICOAGULANT 07/01/2016 Dijaseo, Tylor E A I48.0 PAROXYSMAL ATRIAL FIBRILLATION 07/02/2016 Barbarao Tylor E A I48.0 PAROXYSMAL ATRIAL FIBRILLATION 07/03/2016 Tylor Lin E A I48.0 PAROXYSMAL ATRIAL FIBRILLATION 07/05/2016 Tylor Lin A E78.4 OTHER HYPERLIPIDEMIA 07/05/2016 Tylor Lin A I48.0 PAROXYSMAL ATRIAL FIBRILLATION 07/05/2016 Tylor Lin A M81.0 AGE- RELATED OSTEOPOROSIS W/O CURRENT PAT 07/05/2016 Tylor Lin E A I48.0 PAROXYSMAL ATRIAL FIBRILLATION 07/05/2016 Tylor Lin A Z51.81 ENCOUNTER FOR THERAPEUTIC DRUG LEVEL MON 07/05/2016 Tylor Lin W Z79.01 PATIENT SUPPORT ASSISTANT (CURRENT) USE OF ANTICOAGULANT 07/05/2016 Tylor Lin A Z12.11 ENCOUNTER FOR SCREENING FOR MALIGNANT NE 07/07/2016 Tylor Lin E A I48.0 PAROXYSMAL ATRIAL FIBRILLATION 07/08/2016 MAGDALENA, JULIANA K. A I48.0 Paroxysmal atrial fibrillation 07/17/2016 Sarah Ramos I48.0 PAROXYSMAL ATRIAL FIBRILLATION 07/17/2016 Sarah Ramos Z51.81 ENCOUNTER FOR THERAPEUTIC DRUG LEVEL MON 07/17/2016 Sarah Ramos Z79.01 PATIENT SUPPORT ASSISTANT (CURRENT) USE OF ANTICOAGULANT 07/22/2016 Tylor Lin E A I48.0 PAROXYSMAL ATRIAL FIBRILLATION 07/23/2016 MAGDALENA, JULIANA K. A I48.91 Unspecified atrial fibrillation 07/23/2016 Tylor Lin E A I48.0 PAROXYSMAL ATRIAL FIBRILLATION 07/25/2016 Tylor Lin E A I48.0 PAROXYSMAL ATRIAL FIBRILLATION 07/26/2016 [place] Line E A I48.0 PAROXYSMAL ATRIAL FIBRILLATION 07/28/2016 [place] Line E A I48.0 PAROXYSMAL ATRIAL FIBRILLATION 08/01/2016 MAGDALENA, JULIANA K. A I48.0 Paroxysmal atrial fibrillation 08/01/2016 TARSHA COLLIER APRN A L03.11 4 CELLULITIS OF LEFT UPPER LIMB 08/01/2016 TARSHA COLLIER APRN W T81.4X XA INFECTION FOLLOWING A PROCEDURE, INITIAL 08/02/2016 TARSHA COLLIER APRN A I48.0 PAROXYSMAL ATRIAL FIBRILLATION 08/03/2016 TARSHA COLLIER APRN A I48.0 PAROXYSMAL ATRIAL FIBRILLATION 08/07/2016 Tylor Lin A I48.0 PAROXYSMAL ATRIAL FIBRILLATION 08/08/2016 JULIANA NICHOLS A I48.0 Paroxysmal atrial fibrillation 08/08/2016 DijaseoTylor A I48.0 PAROXYSMAL ATRIAL FIBRILLATION 08/09/2016 TARSHA COLLIER APRN A I48.0 PAROXYSMAL ATRIAL FIBRILLATION 08/09/2016 TARSAH COLLIER APRN A L03.11 4 CELLULITIS OF LEFT UPPER LIMB 08/11/2016 TARSHA COLLIER APRN A I48.0 PAROXYSMAL ATRIAL FIBRILLATION 08/11/2016 TARSHA COLLIER APRN A L03.11 4 CELLULITIS OF LEFT UPPER LIMB 08/12/2016 Tylor Lin E A I48.0 PAROXYSMAL ATRIAL FIBRILLATION 08/12/2016 Tylor Lin A Z12.31 ENCNTR SCREEN MAMMOGRAM FOR MALIGNANT NE 08/14/2016 Tylor Lin E A I48.0 PAROXYSMAL ATRIAL FIBRILLATION 08/16/2016 ALEJANDRINA ISAAC A I48. 0 Paroxysmal atrial fibrillation 08/20/2016 Tylor Lin E A I48.0 PAROXYSMAL ATRIAL FIBRILLATION 08/21/2016 Tylor Lin E A I48.0 PAROXYSMAL ATRIAL FIBRILLATION 08/22/2016 Tylor Lin E A I48.0 PAROXYSMAL ATRIAL FIBRILLATION 08/28/2016 [place] E A I48.0 PAROXYSMAL ATRIAL FIBRILLATION 08/29/2016 [place] E A I48.0 PAROXYSMAL ATRIAL FIBRILLATION 08/29/2016 TARSHA COLLIER APRN A I48.0 PAROXYSMAL ATRIAL FIBRILLATION 08/29/2016 TARSHA COLLIER APRN A L03.11 4 CELLULITIS OF LEFT UPPER LIMB 08/29/2016 [place] E A I48.0 PAROXYSMAL ATRIAL FIBRILLATION 09/03/2016 [place] E A I48.0 PAROXYSMAL ATRIAL FIBRILLATION 09/03/2016 BarbaraoLindene E A I48.0 PAROXYSMAL ATRIAL FIBRILLATION 09/03/2016 Tylor Lin A Z51.81 ENCOUNTER FOR THERAPEUTIC DRUG LEVEL MON 09/03/2016 Tylor Lin Z79.01 PATIENT SUPPORT ASSISTANT (CURRENT) USE OF ANTICOAGULANT 09/04/2016 Riley Tylor E A I48.0 PAROXYSMAL ATRIAL FIBRILLATION 09/05/2016 [place]bar[place] Tylor E A I48.0 PAROXYSMAL ATRIAL FIBRILLATION 09/05/2016 [place]bar[place] Tylor E A Z51.81 ENCOUNTER FOR THERAPEUTIC DRUG LEVEL MON 09/05/2016 Tylor Lin W Z79.01 PATIENT SUPPORT ASSISTANT (CURRENT) USE OF ANTICOAGULANT 09/06/2016 [place]barao Tylor E A I48.0 PAROXYSMAL ATRIAL FIBRILLATION 09/06/2016 [place]bar[place] Tylor E A Z51.81 ENCOUNTER FOR THERAPEUTIC DRUG LEVEL MON 09/06/2016 BarbaraoLindene E W Z79.01 PATIENT SUPPORT ASSISTANT (CURRENT) USE OF ANTICOAGULANT 09/08/2016 [place] Tylor E A I48.0 PAROXYSMAL ATRIAL FIBRILLATION 09/08/2016 [place]bar[place] Tylor E A Z51.81 ENCOUNTER FOR THERAPEUTIC DRUG LEVEL MON 09/08/2016 Tylor Lin W Z79.01 PATIENT SUPPORT ASSISTANT (CURRENT) USE OF ANTICOAGULANT 09/10/2016 Riley Tylor E A I48.0 PAROXYSMAL ATRIAL FIBRILLATION 09/10/2016 [place] Tylor E A I48.0 PAROXYSMAL ATRIAL FIBRILLATION 09/10/2016 Barbarao, Tylor E A I48.0 PAROXYSMAL ATRIAL FIBRILLATION 09/10/2016 Barbarao Tylor E A I48.0 PAROXYSMAL ATRIAL FIBRILLATION 09/10/2016 [place] Tylor E A Z51.81 ENCOUNTER FOR THERAPEUTIC DRUG LEVEL MON 09/10/2016 Tylor Lin W Z79.01 PATIENT SUPPORT ASSISTANT (CURRENT) USE OF ANTICOAGULANT 09/11/2016 [place]bar[place] Tylor E A I48.0 PAROXYSMAL ATRIAL FIBRILLATION 09/12/2016 Barbarao, Tylor E A I48.0 PAROXYSMAL ATRIAL FIBRILLATION 09/12/2016 Ditto Tylor E A Z51.81 ENCOUNTER FOR THERAPEUTIC DRUG LEVEL MON 09/12/2016 [place] Humberto W Z79.01 FPC (CURRENT) USE OF ANTICOAGULANT 09/17/2016 Barbarao, Tylor E A I48.0 PAROXYSMAL ATRIAL FIBRILLATION 09/18/2016 [place]bar[place] Tylor E A I48.0 PAROXYSMAL ATRIAL FIBRILLATION 09/19/2016 [place] Tylor E A I48.0 PAROXYSMAL ATRIAL FIBRILLATION 09/19/2016 Ditto Tylor E A Z51.81 ENCOUNTER FOR THERAPEUTIC DRUG LEVEL MON 09/19/2016 [place] E W Z79.01 PATIENT SUPPORT ASSISTANT (CURRENT) USE OF ANTICOAGULANT 09/20/2016 [place]bar[place] Tylor E A I48.0 PAROXYSMAL ATRIAL FIBRILLATION 09/20/2016 Dijaseo Tylor E A Z51.81 ENCOUNTER FOR THERAPEUTIC DRUG LEVEL MON 09/20/2016 [place] E W Z79.01 PATIENT SUPPORT ASSISTANT (CURRENT) USE OF ANTICOAGULANT 09/21/2016 [place] Tylor E A I48.0 PAROXYSMAL ATRIAL FIBRILLATION 09/21/2016 Dijaseo Tylor E A Z51.81 ENCOUNTER FOR THERAPEUTIC DRUG LEVEL MON 09/21/2016 Linden Lnie E W Z79.01 FPC (CURRENT) USE OF ANTICOAGULANT 09/24/2016 Riley Tylor E A I48.0 PAROXYSMAL ATRIAL FIBRILLATION 09/25/2016 Riley Tylor E A I48.0 PAROXYSMAL ATRIAL FIBRILLATION 09/25/2016 Riley Tylor E A Z51.81 ENCOUNTER FOR THERAPEUTIC DRUG LEVEL MON 09/25/2016 [place] E W Z79.01 PATIENT SUPPORT ASSISTANT (CURRENT) USE OF ANTICOAGULANT 09/26/2016 MAGDALENA, JULIANA Rizo A I48.0 Paroxysmal atrial fibrillation 09/27/2016 [place] Tylor E A I48.0 PAROXYSMAL ATRIAL FIBRILLATION 09/27/2016 Dijaseo Tylor E A Z51.81 ENCOUNTER FOR THERAPEUTIC DRUG LEVEL MON 09/27/2016 Tylor Lin E W Z79.01 PATIENT SUPPORT ASSISTANT (CURRENT) USE OF ANTICOAGULANT 09/27/2016 [place]bar[place] Tylor E A I48.0 PAROXYSMAL ATRIAL FIBRILLATION 09/27/2016 Barbarao Tylor E A Z51.81 ENCOUNTER FOR THERAPEUTIC DRUG LEVEL MON 09/27/2016 [place] E W Z79.01 FPC (CURRENT) USE OF ANTICOAGULANT 09/27/2016 [place]bar[place] Tylor E A I48.0 PAROXYSMAL ATRIAL FIBRILLATION 09/27/2016 Dijaseo Tylor E A Z51.81 ENCOUNTER FOR THERAPEUTIC DRUG LEVEL MON 09/27/2016 [place] E W Z79.01 PATIENT SUPPORT ASSISTANT (CURRENT) USE OF ANTICOAGULANT 09/29/2016 Riley Tylor E A I48.0 PAROXYSMAL ATRIAL FIBRILLATION 09/29/2016 Dijaseo Tylor E A Z51.81 ENCOUNTER FOR THERAPEUTIC DRUG LEVEL MON 09/29/2016 Tylor Lin W Z79.01 FPC (CURRENT) USE OF ANTICOAGULANT 10/04/2016 Dijaseo Tylor E A I48.0 PAROXYSMAL ATRIAL FIBRILLATION 10/04/2016 [place] Tylor E A Z51.81 ENCOUNTER FOR THERAPEUTIC DRUG LEVEL MON 10/04/2016 [place] Humberto W Z79.01 FPC (CURRENT) USE OF ANTICOAGULANT 10/06/2016 Dijaseo Tylor E A I48.0 PAROXYSMAL ATRIAL FIBRILLATION 10/06/2016 [place] Tylor E A Z51.81 ENCOUNTER FOR THERAPEUTIC DRUG LEVEL MON 10/06/2016 BarbaraoLindene E W Z79.01 PATIENT SUPPORT ASSISTANT (CURRENT) USE OF ANTICOAGULANT 10/08/2016 [place] Tylor E A I48.0 PAROXYSMAL ATRIAL FIBRILLATION 10/08/2016 Riley Tylor E A I48.0 PAROXYSMAL ATRIAL FIBRILLATION 10/09/2016 Dijaseo Tylor E A I48.0 PAROXYSMAL ATRIAL FIBRILLATION 10/10/2016 Ditto, Tylor E A I48.0 PAROXYSMAL ATRIAL FIBRILLATION 10/14/2016 [place]bar[place] Tylor E A I48.0 PAROXYSMAL ATRIAL FIBRILLATION 10/17/2016 Ditto Tylor E A I48.0 PAROXYSMAL ATRIAL FIBRILLATION 10/17/2016 Ditto Tylor E A Z51.81 ENCOUNTER FOR THERAPEUTIC DRUG LEVEL MON 10/17/2016 Tylor Lin W Z79.01 FPC (CURRENT) USE OF ANTICOAGULANT 10/23/2016 Dijaseo Tylor E A I48.0 PAROXYSMAL ATRIAL FIBRILLATION 10/23/2016 Ditto Tylor E A Z51.81 ENCOUNTER FOR THERAPEUTIC DRUG LEVEL MON 10/23/2016 [place] Humberto W Z79.01 PATIENT SUPPORT ASSISTANT (CURRENT) USE OF ANTICOAGULANT 10/30/2016 Ditto Tylor E A I48.0 PAROXYSMAL ATRIAL FIBRILLATION 10/30/2016 Ditto, Tylor E A I48.0 PAROXYSMAL ATRIAL FIBRILLATION 10/30/2016 Ditto Tylor E A I48.0 PAROXYSMAL ATRIAL FIBRILLATION 10/31/2016 SARAH RAMOS I48.0 Paroxysmal atrial fibrillation 10/31/2016 SARAH RAMOS M48.05 Spinal stenosis, thoracolumbar region 10/31/2016 SARAH RAMOS Z01.818 Encounter for other preprocedural examination 11/04/2016 Tylor Lin E A I48.0 PAROXYSMAL ATRIAL FIBRILLATION 11/20/2016 [place] E A I48.0 PAROXYSMAL ATRIAL FIBRILLATION 11/27/2016 [place] E A I48.0 PAROXYSMAL ATRIAL FIBRILLATION 11/28/2016 Riley Tylor E A I48.0 PAROXYSMAL ATRIAL FIBRILLATION 12/01/2016 [place] E A I48.0 PAROXYSMAL ATRIAL FIBRILLATION 12/01/2016 [place] E A Z51.81 ENCOUNTER FOR THERAPEUTIC DRUG LEVEL MON 12/01/2016 Tylor Lin W Z79.01 FPC (CURRENT) USE OF ANTICOAGULANT 12/03/2016 Tylor Lin E A I48.0 PAROXYSMAL ATRIAL FIBRILLATION 12/03/2016 Tylor Lin E A Z51.81 ENCOUNTER FOR THERAPEUTIC DRUG LEVEL MON 12/03/2016 Tylor Lin W Z79.01 FPC (CURRENT) USE OF ANTICOAGULANT 12/18/2016 Tylor Lin E A I48.0 PAROXYSMAL ATRIAL FIBRILLATION 12/18/2016 Tylor Lin E A Z51.81 ENCOUNTER FOR THERAPEUTIC DRUG LEVEL MON 12/18/2016 Tylor Lin W Z79.01 FPC (CURRENT) USE OF ANTICOAGULANT 01/02/2017 SARAH RAMOS G62.9 Polyneuropathy, unspecified ([facility]) 01/02/2017 SARAH RAMOS I48.0 Paroxysmal atrial fibrillation ([facility]) 01/02/2017 SARAH RAMOS M48.05 Spinal stenosis, thoracolumbar region 01/02/2017 [place] E A I48.0 PAROXYSMAL ATRIAL FIBRILLATION 01/02/2017 [place] E A I48.0 PAROXYSMAL ATRIAL FIBRILLATION 01/02/2017 [place] E A I48.0 PAROXYSMAL ATRIAL FIBRILLATION 01/03/2017 [place] E A I48.0 PAROXYSMAL ATRIAL FIBRILLATION 01/07/2017 Tylor Lin A I48.0 PAROXYSMAL ATRIAL FIBRILLATION 01/07/2017 Tylor Lin Z51.81 ENCOUNTER FOR THERAPEUTIC DRUG LEVEL MON 01/07/2017 Tylor Lin W Z79.01 FPC (CURRENT) USE OF ANTICOAGULANT 01/09/2017 Tylor Lin A I48.0 PAROXYSMAL ATRIAL FIBRILLATION 01/09/2017 Tylor Lin Z51.81 ENCOUNTER FOR THERAPEUTIC DRUG LEVEL MON 01/09/2017 Tylor Lin W Z79.01 FPC (CURRENT) USE OF ANTICOAGULANT 01/09/2017 Tylor Lin A I48.0 PAROXYSMAL ATRIAL FIBRILLATION 01/09/2017 Tylor Lin A I48.0 PAROXYSMAL ATRIAL FIBRILLATION 01/09/2017 Tylor Lin Z12.31 ENCNTR SCREEN MAMMOGRAM FOR MALIGNANT NE 01/09/2017 Tylor Lin Z00.00 ENCNTR FOR GENERAL ADULT MEDICAL EXAM W01/10/2017 Tylor Lin I48.0 PAROXYSMAL ATRIAL FIBRILLATION 01/13/2017 Tylor Lin W M06.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, MU 01/13/2017 Tylor Lin M48.06 SPINAL STENOSIS, LUMBAR REGION 01/13/2017 Tylor Lin W M51.36 OTHER INTERVERTEBRAL DISC DEGENERATION, 01/14/2017 Tylor Lin W M06.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, MU 01/14/2017 Tylor Lin M48.06 SPINAL STENOSIS, LUMBAR REGION 01/14/2017 Tylor Lin W M51.36 OTHER INTERVERTEBRAL DISC DEGENERATION, 01/14/2017 Tylor Lin W M06.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, MU 01/14/2017 Tylor Lin A M48.06 SPINAL STENOSIS, LUMBAR REGION 01/14/2017 Tylor Lin W M51.36 OTHER INTERVERTEBRAL DISC DEGENERATION, 01/14/2017 Tylor Lin W M06.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, MU 01/14/2017 Tylor Lin M48.06 SPINAL STENOSIS, LUMBAR REGION 01/14/2017 Tylor Lin W M51.36 OTHER INTERVERTEBRAL DISC DEGENERATION, 01/14/2017 Tylor Lin W M06.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, MU 01/14/2017 Tylor Lin A M48.06 SPINAL STENOSIS, LUMBAR REGION 01/14/2017 Tylor Lin E W M51.36 OTHER INTERVERTEBRAL DISC DEGENERATION, 01/15/2017 Tylor Lin E W M06.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, MU 01/15/2017 Tylor Lin A M48.06 SPINAL STENOSIS, LUMBAR REGION 01/15/2017 Tylor Lin E W M51.36 OTHER INTERVERTEBRAL DISC DEGENERATION, 01/17/2017 Tylor Lin A I48.0 PAROXYSMAL ATRIAL FIBRILLATION 01/19/2017 Tylor Lin A I48.0 PAROXYSMAL ATRIAL FIBRILLATION 01/22/2017 Tylor Lin W M06.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, 01/22/2017 Tylor Lin A M48.06 SPINAL STENOSIS, LUMBAR REGION 01/22/2017 Tylor Lin W M51.36 OTHER INTERVERTEBRAL DISC DEGENERATION, 01/22/2017 Tylor Lin W M06.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, MU 01/22/2017 Tylor Lin A M48.06 SPINAL STENOSIS, LUMBAR REGION 01/22/2017 Tylor Lin E W M51.36 OTHER INTERVERTEBRAL DISC DEGENERATION, 01/23/2017 Tylor Lin W M06.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, MU 01/23/2017 Tylor Lin A M48.06 SPINAL STENOSIS, LUMBAR REGION 01/23/2017 Tylor Lin W M51.36 OTHER INTERVERTEBRAL DISC DEGENERATION, 01/23/2017 Tylor Lin A I48.0 PAROXYSMAL ATRIAL FIBRILLATION 01/24/2017 Tylor Lin A I48.0 PAROXYSMAL ATRIAL FIBRILLATION 01/24/2017 Tylor Lin A I48.0 PAROXYSMAL ATRIAL FIBRILLATION 01/24/2017 Tylor Lin Z51.81 ENCOUNTER FOR THERAPEUTIC DRUG LEVEL [facility] 01/24/2017 Tylor Lin Z79.01 FPC (CURRENT) USE OF ANTICOAGULANT 01/25/2017 Dijaseo Tylor E W M06.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, MU 01/25/2017 Dijaseo Tylor E A M48.06 SPINAL STENOSIS, LUMBAR REGION 01/25/2017 Ditto Tylor E W M51.36 OTHER INTERVERTEBRAL DISC DEGENERATION, 01/28/2017 Ditto Tylor E W M06.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, MU 01/28/2017 Ditto Tylor E A M48.06 SPINAL STENOSIS, LUMBAR REGION 01/28/2017 Ditto Tylor E W M51.36 OTHER INTERVERTEBRAL DISC DEGENERATION, 01/28/2017 Ditto Tylor E A I48.0 PAROXYSMAL ATRIAL FIBRILLATION 01/28/2017 Dijaseo Tylor E A Z51.81 ENCOUNTER FOR THERAPEUTIC DRUG LEVEL MON 01/28/2017 Riley Tylor E W Z79.01 FPC (CURRENT) USE OF ANTICOAGULANT 01/30/2017 Dijaseo Tylor E A I48.0 PAROXYSMAL ATRIAL FIBRILLATION 01/30/2017 Dijaseo Tylor E A Z51.81 ENCOUNTER FOR THERAPEUTIC DRUG LEVEL MON 01/30/2017 Riley Tylor E W Z79.01 PATIENT SUPPORT ASSISTANT (CURRENT) USE OF ANTICOAGULANT 01/31/2017 Riley Tylor E W M06.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, MU 01/31/2017 Dijaseo Tylor E A M48.06 SPINAL STENOSIS, LUMBAR REGION 01/31/2017 Dijaseo Tylor E W M51.36 OTHER INTERVERTEBRAL DISC DEGENERATION, 02/05/2017 Riley Tylor E W M06.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, MU 02/05/2017 Ditto Tylor E A M48.06 SPINAL STENOSIS, LUMBAR REGION 02/05/2017 Ditto Tylor E W M51.36 OTHER INTERVERTEBRAL DISC DEGENERATION, 02/05/2017 Dijaseo Tylor E W M06.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, MU 02/05/2017 Ditto Tylor E A M48.06 SPINAL STENOSIS, LUMBAR REGION 02/05/2017 Ditto Tylor E W M51.36 OTHER INTERVERTEBRAL DISC DEGENERATION, 02/05/2017 Ditto Tylor E A I48.0 PAROXYSMAL ATRIAL FIBRILLATION 02/07/2017 SARAH RAMOS WORKING G62.9 Polyneuropathy, unspecified ([facility] 02/07/2017 SARAH RAMOS WORKING I48.0 Paroxysmal atrial fibrillation ([facility] [place]) 02/07/2017 SARAH RAMOS WORKING M48.05 Spinal stenosis, thoracolumbar region 02/07/2017 Tylor Lin E W M06.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, MU 02/07/2017 [place] E A M48.06 SPINAL STENOSIS, LUMBAR REGION 02/07/2017 [place] Tylor E W M51.36 OTHER INTERVERTEBRAL DISC DEGENERATION, 02/11/2017 Riley Tylor E A I48.0 PAROXYSMAL ATRIAL FIBRILLATION 02/11/2017 [place] Tylor E A I48.0 PAROXYSMAL ATRIAL FIBRILLATION 02/11/2017 [place] Tylor E A Z51.81 ENCOUNTER FOR THERAPEUTIC DRUG LEVEL MON 02/11/2017 [place] E W Z79.01 FPC (CURRENT) USE OF ANTICOAGULANT 02/11/2017 [place] Tylor E A I48.0 PAROXYSMAL ATRIAL FIBRILLATION 02/11/2017 Dijaeso, Tylor E A Z51.81 ENCOUNTER FOR THERAPEUTIC DRUG LEVEL MON 02/11/2017 [place] E W Z79.01 FPC (CURRENT) USE OF ANTICOAGULANT 02/11/2017 [place] Tylor E A I48.0 PAROXYSMAL ATRIAL FIBRILLATION 02/11/2017 [place] Tylor E A I48.0 PAROXYSMAL ATRIAL FIBRILLATION 02/11/2017 [place] Tylor E A Z51.81 ENCOUNTER FOR THERAPEUTIC DRUG LEVEL MON 02/11/2017 Riley Tylor E W Z79.01 FPC (CURRENT) USE OF ANTICOAGULANT 02/11/2017 Barbarao, Tylor E A I48.0 PAROXYSMAL ATRIAL FIBRILLATION 02/11/2017 [place] Tylor E A I48.0 PAROXYSMAL ATRIAL FIBRILLATION 02/12/2017 Ditto Tylor E A I48.0 PAROXYSMAL ATRIAL FIBRILLATION 02/12/2017 Riley Tylor E W M06.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, MU 02/12/2017 Riley Tylor E A M48.06 SPINAL STENOSIS, LUMBAR REGION 02/12/2017 Tylor Lin M51.36 OTHER INTERVERTEBRAL DISC DEGENERATION, 02/13/2017 Tylor Lin D64.89 OTHER SPECIFIED ANEMIAS 02/13/2017 Tylor Lin I48.0 PAROXYSMAL ATRIAL FIBRILLATION 02/13/2017 Tylor Lin Z12.31 ENCNTR SCREEN MAMMOGRAM FOR MALIGNANT NE 02/13/2017 Tylor Lin Z00.00 ENCNTR FOR GENERAL ADULT MEDICAL EXAM W02/13/2017 Tylor Lin W M06.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, MU 02/13/2017 Tylor Lin M48.06 SPINAL STENOSIS, LUMBAR REGION 02/13/2017 Tylor Lin M51.36 OTHER INTERVERTEBRAL DISC DEGENERATION, 02/14/2017 Tylor Lin W M06.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, MU 02/14/2017 Tylor Lin M48.06 SPINAL STENOSIS, LUMBAR REGION 02/14/2017 Tylor Lin M51.36 OTHER INTERVERTEBRAL DISC DEGENERATION, 02/14/2017 Tylor Lin D64.89 OTHER SPECIFIED ANEMIAS 02/14/2017 Tylor Lin I48.0 PAROXYSMAL ATRIAL FIBRILLATION 02/15/2017 Tylor Lin D64.89 OTHER SPECIFIED ANEMIAS 02/15/2017 Tylor Lin I48.0 PAROXYSMAL ATRIAL FIBRILLATION 02/17/2017 Tylor Lin Z01.89 ENCOUNTER FOR OTHER SPECIFIED SPECIAL EX 02/17/2017 Tylor Lin W M06.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, MU 02/17/2017 Tylor Lin M48.06 SPINAL STENOSIS, LUMBAR REGION 02/17/2017 Tylor Lin W M51.36 OTHER INTERVERTEBRAL DISC DEGENERATION, 02/17/2017 Tylor Lin I48.0 PAROXYSMAL ATRIAL FIBRILLATION 02/17/2017 Tylor Lin Z51.81 ENCOUNTER FOR THERAPEUTIC DRUG LEVEL MON 02/17/2017 Tylor Lin Z79.01 FPC (CURRENT) USE OF ANTICOAGULANT 02/18/2017 Tylor Lin M06.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, MU 02/18/2017 Tylor Lin A M48.06 SPINAL STENOSIS, LUMBAR REGION 02/18/2017 Tylor Lin W M51.36 OTHER INTERVERTEBRAL DISC DEGENERATION, 02/18/2017 Tylor Lin A I48.0 PAROXYSMAL ATRIAL FIBRILLATION 02/18/2017 Tylor Lin A Z51.81 ENCOUNTER FOR THERAPEUTIC DRUG LEVEL MON 02/18/2017 Tylor Lin W Z79.01 FPC (CURRENT) USE OF ANTICOAGULANT 02/19/2017 Tylor Lin A I48.0 PAROXYSMAL ATRIAL FIBRILLATION 02/19/2017 Tylor Lin A Z51.81 ENCOUNTER FOR THERAPEUTIC DRUG LEVEL MON 02/19/2017 Tylor Lin Z79.01 FPC (CURRENT) USE OF ANTICOAGULANT 02/19/2017 Tylor Lin W M06.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, MU 02/19/2017 Tylor Lin A M48.06 SPINAL STENOSIS, LUMBAR REGION 02/19/2017 Tylor Lin W M51.36 OTHER INTERVERTEBRAL DISC DEGENERATION, 02/19/2017 Tylor Lin A D64.89 OTHER SPECIFIED ANEMIAS 02/19/2017 Tylor Lin A I48.0 PAROXYSMAL ATRIAL FIBRILLATION 02/19/2017 Tylor Lin A D64.89 OTHER SPECIFIED ANEMIAS 02/19/2017 Tylor Lin A I48.0 PAROXYSMAL ATRIAL FIBRILLATION 02/20/2017 Tylor Lin W M06.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, MU 02/20/2017 Tylor Lin A M48.06 SPINAL STENOSIS, LUMBAR REGION 02/20/2017 Tylor Lin W M51.36 OTHER INTERVERTEBRAL DISC DEGENERATION, 02/21/2017 Tylor Lin A D64.89 OTHER SPECIFIED ANEMIAS 02/21/2017 Tylor Lin A I48.0 PAROXYSMAL ATRIAL FIBRILLATION 03/10/2017 Tylor Lin A I48.0 PAROXYSMAL ATRIAL FIBRILLATION 03/10/2017 Tylor Lin A Z51.81 ENCOUNTER FOR THERAPEUTIC DRUG LEVEL MON 03/10/2017 Ditto, Tylor E W Z79.01 PATIENT SUPPORT ASSISTANT (CURRENT) USE OF ANTICOAGULANT 03/10/2017 Verenice Frances V54.89 OTHER ORTHOPEDIC AFTERCARE 03/10/2017 Verenice Frances Z47.89 ENCOUNTER FOR OTHER ORTHOPEDIC AFTERCARE 03/12/2017 Tylor Lin D64.89 OTHER SPECIFIED ANEMIAS 03/12/2017 Tylor Lin A Z12.11 ENCOUNTER FOR SCREENING FOR MALIGNANT NE 03/12/2017 Tylor Lin A D64.89 OTHER SPECIFIED ANEMIAS 03/12/2017 Tylor Lin A I48.0 PAROXYSMAL ATRIAL FIBRILLATION 03/14/2017 Tylor Lin W D64.89 OTHER SPECIFIED ANEMIAS 03/14/2017 Tylor Lin A Z12.11 ENCOUNTER FOR SCREENING FOR MALIGNANT NE 03/22/2017 ENRIQUE MEJIA MD E Ot D64.9 ANEMIA, UNSPECIFIED 03/22/2017 ENRIQUE MEJIA MD E Ot E21.3 HYPERPARATHYROIDISM, UNSPECIFIED 03/22/2017 ENRIQUE MEJIA MD E Ot E61.1 IRON DEFICIENCY 03/22/2017 ENRIQUE MEJIA MD E Ot E87.6 HYPOKALEMIA 03/22/2017 ENRIQUE MEJIA MD E Ot G60.9 HEREDITARY AND IDIOPATHIC NEUROPATHY, UN 03/22/2017 ENRIQUE MEJIA MD E Ot H40.9 UNSPECIFIED GLAUCOMA 03/22/2017 ENRIQUE MEJIA MD E Ot I10 ESSENTIAL (PRIMARY) HYPERTENSION 03/22/2017 ENRIQUE MEJIA MD E Ot I48.2 CHRONIC ATRIAL FIBRILLATION 03/22/2017 ENRIQUE MEJIA MD E Ot M06.9 RHEUMATOID ARTHRITIS, UNSPECIFIED 03/22/2017 ENRIQUE MEJIA MD E Ot M21.3 72 FOOT DROP, LEFT FOOT 03/22/2017 ENRIQUE MEJIA MD E Ot M48.0 6 SPINAL STENOSIS, LUMBAR REGION 03/22/2017 ENRIQUE MEJIA MD E Ot Z48.8 9 ENCOUNTER FOR OTHER SPECIFIED SURGICAL A 03/22/2017 ENRIQUE MEJIA MD E Ot Z79.0 1 PATIENT SUPPORT ASSISTANT (CURRENT) USE OF ANTICOAGULANT 03/22/2017 ENRIQUE MEJIA MD E Ot Z98.1 ARTHRODESIS STATUS 04/09/2017 Tylor Lin W D64.89 OTHER SPECIFIED ANEMIAS 04/09/2017 DiTylor simmons Z12.11 ENCOUNTER FOR SCREENING FOR MALIGNANT NE 06/11/2017 EVELIN GARCIA WORKING 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 06/11/2017 EVELIN GARCIA WORKING G62.9 Polyneuropathy, unspecified ([facility]) 06/11/2017 EVELIN GARCIA WORKING I48.0 Paroxysmal atrial fibrillation ([facility]) 06/11/2017 EVELIN GARCIA WORKING M48.05 Spinal stenosis, thoracolumbar region 04/04/2018 W 879.8 OPEN WOUND(S) (MULTIPLE) OF UNSPECIFIED SITE(S) EXCEPT LIMBS, WITHOUT MENTION OF COMPLICATION 04/04/2018 W T14.8 OTHE R INJURY OF UNSPECIFIED BODY REGION 11/03/2018 ORA MATTHEWS DO, Ot Z01.818 ENCOUNTER FOR OTHER PREPROCEDURAL EXAMIN 11/04/2018 ORA MATTHEWS DO, Ot Z01.818 ENCOUNTER FOR OTHER PREPROCEDURAL EXAMIN 11/10/2018 ORA MATTHEWS DO Ot I10 ESSENTIAL (PRIMARY) HYPERTENSION 11/10/2018 ORA MATTHEWS DO Ot I48. 91 UNSPECIFIED ATRIAL FIBRILLATION 11/10/2018 ORA MATTHEWS DO Ot K21. 9 GASTRO-ESOPHAGEAL REFLUX DISEASE WITHOUT 11/10/2018 ORA MATTHEWS DO Ot K57. 30 DVRTCLOS OF LG INT W/O PERFORATION OR AB 11/10/2018 ORA MATTHEWS DO Ot Z12. 11 ENCOUNTER FOR SCREENING FOR MALIGNANT NE 11/10/2018 ORA MATTHEWS DO Ot Z79. 01 FPC (CURRENT) USE OF ANTICOAGULANT 11/10/2018 ORA MATTHEWS DO Ot Z79. 82 FPC (CURRENT) USE OF ASPIRIN 11/10/2018 ORA MATTHEWS DO Ot Z79.899 OTHER PATIENT SUPPORT ASSISTANT (CURRENT) DRUG THERAPY 11/10/2018 ORA MATTHEWS DO Ot Z80. 0 FAMILY HISTORY OF MALIGNANT NEOPLASM OF 04/04/2019 W 462 ACUTE PHARYNGITIS 04/04/2019 W J02.9 ACUT E PHARYNGITIS, UNSPECIFIED 02/16/2020 Rodrigo PURDY MD Ot I48 .0 PAROXYSMAL ATRIAL FIBRILLATION 02/19/2020 Rodrigo PURDY MD Ot I48 .0 PAROXYSMAL ATRIAL FIBRILLATION 04/11/2020 GURWINDER CAMACHO, M JESSICA Ot I48 .0 PAROXYSMAL ATRIAL FIBRILLATION 04/12/2020 GURWINDER CAMACHO, M JESSICA Ot I48 .0 PAROXYSMAL ATRIAL FIBRILLATION 04/17/2020 GURWINDER CAMACHO, M JESSICA Ot I48 .0 PAROXYSMAL ATRIAL FIBRILLATION 05/08/2020 Ot I48.0 PARO XYSMAL ATRIAL FIBRILLATION 05/12/2020 ANASTASIIA CAMACHO, MARIO Khan Ot H25.12 AGE-RELATED NUCLEAR CATARACT, LEFT EYE Procedures Code Description Performed By Per formed On ISPROT PRO TIME AND INR POCT 03/11/2016 ISPROT PRO TIME AND INR POCT 04/16/2016 TTE ECHOCA RDIOGRAM - ADULT 05/23/2016 12LEKG 12 LEAD EKG 06/11/[address] CARDIAC MORPHOLOGY W CONTRAST 07/23/2016 ISCRT CREA TININE POCT 07/23/2016 12LEKG 12 LEAD EKG 08/01/2016 ABC CBC WI THOUT DIFFERENTIAL 08/01/2016 BMEP BASIC METABOLIC PANEL 08/01/2016 CCEPABL CV EP ABLATION 08/01/2016 CCTEE CV T EE IN REPEATER OPERATOR 08/01/2016 ECHOLIM LI MITED ECHOCARDIOGRAM 08/01/2016 LIVP HEPAT IC FUNCTION PANEL 08/01/2016 PT PT/INR 08/01/2016 TSH3G TSH 3RD GENERATION 08/01/2016 XRCXR XR C HEST 2 VIEWS 08/01/2016 Results Test Result Range PROTIME AND INR POCT - 03/11/16 09:33 PROTIME POCT UNABLE TO CALCULATE PROTHROM BIN TIME IN SECONDS DUE TO LOW INR VALUE INR POCT <0.9 PROTHROMBIN TIME-PANEL - 07/01/16 07:50 PROTIME WITH INR 22.4 SECONDS 9.0-12.0 INR 2.2 SECONDS Age at Specimen Collection = a PROTIME AND INR POCT - 07/15/16 09:19 PROTIME POCT UNABLE TO CALCULATE PROTHROM BIN TIME IN SECONDS DUE TO LOW INR VALUE INR POCT <0.9 CREATININE POCT - 07/23/16 12:56 GFR ESTIMATED NOT AFR/AM >60 GFR ESTIMATED IF AFR/AM >60 POC COMMENT SEE NOTES CREATININE POCT 0.8 mg/dL 0.6-1.3 CBC WO DIFF - 07/30/16 07:11 WBC 6.1 10*3/uL 4.0-10.8 RBC 3.61 10*6/uL 4.20-5.40 HGB 11.6 g/dL 12.0-16.0 HCT 36.8 % 37.0-47.0 MCV 102 fL 81-99 MCH 32 pg 26.0-34.0 MCHC 31.5 g/dL 31.0-37.0 PLATELET COUNT 192 10*3/uL 150-400 RDWCV 13.1 % 11.5-14.5 ABSOLUTE NUCLEATED RBC 0.00 10*3/uL 0.00 PERCENT NUCLEATED RBC 0.0 % 0.0 MPV 9.3 fL 9.4-12.3 RDW STANDARD DEVIATION 49.2 fL 36.4-46 .3 PT/INR - 07/30/16 07:11 PT 22.7 s 11.8-15.0 INR 2.0 BASIC METABOLIC PANEL - 07/30/16 07:11 POTASSIUM 3.7 mmol/L 3.5-5.1 CALCIUM 9.2 mg/dL 8.5-10.0 GLUCOSE 86 mg/dL 80-115 BUN 12 mg/dL 7-18 CREATININE 0.87 mg/dL 0.55-1.30 SODIUM 144 mmol/L 136-145 CHLORIDE 110 mmol/L 98-107 CO2 27 mmol/L 21-32 GFR ESTIMATED NOT AFR/AM >60 GFR ESTIMATED IF AFR/AM >60 ANION GAP 7 5-15 HEPATIC FUNCTION PANEL - 07/30/16 12:24 ALT-SGPT 34 U/L 13-56 AST-SGOT 36 U/L 15-37 TOTAL PROTEIN,SERUM 6.1 g/dL 6.0-8.3 ALBUMIN 3.0 g/dL 3.4-5.0 ALKALINE PHOSPHATASE 48 U/L 45-117 TOTAL BILIRUBIN 1.1 mg/dL 0.2-1.0 DIRECT BILIRUBIN 0.3 mg/dL 0-0.2 TSH 3RD GENERATION - 07/30/16 12:24 TSH 3RD GENERATION 1.020 u[iU]/mL 0.350- 4.900 PT/INR - 08/01/16 05:22 PT 30.2 s 11.8-15.0 INR 2.9 Total prostate specific antigen (PSA) Nh dicare screening test - 08/02/16 12:50 Automated blood hematocrit 35.0 % 37. 0-47.0 Blood hemoglobin measurement (mass/volume) 11.1 g/ dL 12.5- 16.0 Automated erythrocyte mean corpuscular h emoglobin (mass per erythrocyte) 32 pg 27-31 Automated erythrocyte mean corpuscular h emoglobin concentration measurement (mass/volume) 32 g/dL 33-37 Automated erythrocyte mean corpuscular volume 100 fl 78-100 Automated blood platelet mean volume measurement 9 .1 fl 7.4- 10.4 Automated blood platelet count (count/volume) 207 K/mm3 130- 400 Blood erythrocytes automated count (number/volume) 3.51 M/mm3 4.10-5.30 Automated erythrocyte distribution width ratio 13. 5 % 11.5- 14.5 Blood leukocytes automated count (number/volume) 6 .9 K/mm3 4.8-10.8 Age at Specimen Collection = a PROTHROMBIN TIME-PANEL - 08/02/16 12:50 PROTIME WITH INR 27.8 SECONDS 9.0-12.0 INR 2.8 SECONDS Age at Specimen Collection = a PROTHROMBIN TIME-PANEL - 08/07/16 12:30 PROTIME WITH INR 21.8 SECONDS 9.0-12.0 INR 2.2 SECONDS Age at Specimen Collection = a PROTHROMBIN TIME-PANEL - 08/21/16 08:50 PROTIME WITH INR 32.8 SECONDS 9.0-12.0 INR 3.3 SECONDS Age at Specimen Collection = a PROTHROMBIN TIME-PANEL - 08/28/16 09:30 PROTIME WITH INR 16.9 SECONDS 9.0-12.0 INR 1.7 SECONDS Age at Specimen Collection = a PROTHROMBIN TIME-PANEL - 09/10/16 08:30 PROTIME WITH INR 18.3 SECONDS 9.0-12.0 INR 1.8 SECONDS Age at Specimen Collection = a PROTHROMBIN TIME-PANEL - 09/17/16 10:45 PROTIME WITH INR 25.2 SECONDS 9.0-12.0 INR 2.5 SECONDS Age at Specimen Collection = a PROTHROMBIN TIME-PANEL - 09/24/16 07:55 PROTIME WITH INR 21.8 SECONDS 9.0-12.0 INR 2.2 SECONDS Age at Specimen Collection = a PROTHROMBIN TIME-PANEL - 10/08/16 07:55 PROTIME WITH INR 25.0 SECONDS 9.0-12.0 INR 2.5 Age at Specimen Collection = a PROTHROMBIN TIME-PANEL - 10/29/16 13:50 PROTIME WITH INR 21.8 SECONDS 9.0-12.0 INR 2.2 Age at Specimen Collection = a PROTHROMBIN TIME-PANEL - 11/27/16 12:20 PROTIME WITH INR 30.2 SECONDS 9.0-12.0 INR 3.0 Age at Specimen Collection = a PROTHROMBIN TIME-PANEL - 01/02/17 07:42 PROTIME WITH INR 15.0 SECONDS 9.0-12.0 INR 1.5 Age at Specimen Collection = a PROTHROMBIN TIME-PANEL - 01/09/17 11:40 PROTIME WITH INR 22.3 SECONDS 9.0-12.0 INR 2.2 Age at Specimen Collection = a PROTHROMBIN TIME-PANEL - 01/23/17 14:00 PROTIME WITH INR 22.2 SECONDS 9.0-12.0 INR 2.2 Age at Specimen Collection = a PROTHROMBIN TIME-PANEL - 02/11/17 18:05 PROTIME WITH INR 20.1 SECONDS 9.0-12.0 INR 2.0 Age at Specimen Collection = a FERRITIN - 02/13/17 10:40 FERRITIN 78 ng/mL 11-264 IRON AND IRON BINDING CAPACITY - 7 10:40 TOTAL IRON BINDING CAPACITY 340 ug/dL 26 5-497 IRON,SERUM 67 ug/dL 35-150 % TRANSFERRIN SATURATION,calc 20 % 16-45 Complete blood count (CBC) with automate d white blood cell (WBC) differential - 02/13/17 10:40 NEUTROPHILS % (AUTO) 71.9 % 42.0-75.0 LYMPHOCYTES % (AUTO) 17.0 % 20.0-51.0 ADD MANUAL DIFF NO Blood basophils count (number/volume) 0.0 0.02-0.10 Basophil percentage 0.5 % 0.0-0.5 Blood eosinophils count (number/volume) 0.1 0.04-0.40 Blood eosinophils/100 leukocytes 2.7 % 1.0-5.0 Automated blood hematocrit 36.3 % 37. 0-47.0 Blood hemoglobin measurement (mass/volume) 11.3 g/ dL 12.5- 16.0 Blood lymphocytes count (number/volume) 0.8 1.50-4.00 Automated erythrocyte mean corpuscular h emoglobin (mass per erythrocyte) 31 pg 27-31 Automated erythrocyte mean corpuscular h emoglobin concentration measurement (mass/volume) 31 g/dL 33-37 Automated erythrocyte mean corpuscular volume 101 fl 78-100 Blood monocytes count (number/volume) 0.3 0.20-0.80 Monocyte percentage 7.7 % 1.7-9.3 Automated blood platelet mean volume measurement 9 .3 fl 7.4- 10.4 Blood neutrophils count (number/volume) 3.2 1.40-6.50 Automated blood platelet count (count/volume) 206 K/mm3 130- 400 Blood erythrocytes automated count (number/volume) 3.61 M/mm3 4.10-5.30 Automated erythrocyte distribution width ratio 13. 6 % 11.5- 14.5 Blood leukocytes automated count (number/volume) 4 .4 K/mm3 4.8-10.8 Age at Specimen Collection = a FERRITIN - 02/13/17 10:[address] [facility] Age at Specimen Collection = a IRON AND IRON BINDING CAPACITY - 7 10:40 TOTAL IRON BINDING CAPACITY [facility] Age at Specimen Collection = a Serum iron measurement [facility] % TRANSFERRIN SATURATION,calc [facility] Fecal occult blood testing with three sp ecimens - 03/04/17 14:37 Age at Specimen Collection = a Occult blood test on first specimen NEGATIVE STOOL FOR OCCULT BLOOD-2 NEGATIVE STOOL FOR OCCULT BLOOD-3 NEGATIVE PT panel in platelet poor plasma by coag ulation assay - 03/15/17 05:15 Prothrombin time (PT) in platelet poor plasma by coagu lation assay 13.2 s 12.2-14.7 INR in platelet poor plasma or blood by coagulation as say 1.0 0.8-1.4 Complete blood count (CBC) with automate d white blood cell (WBC) differential - 03/15/17 05:15 Blood leukocytes automated count (number/volume) 4.6 10*3/uL 4.3-11.0 Blood erythrocytes automated count (number/volume) 2.28 10*6/uL 4.35-5.85 Venous blood hemoglobin measurement (mass/volume) 7.1 g/dL 11.5-16.0 Blood hematocrit (volume fraction) 23 % 35-52 Automated erythrocyte mean corpuscular volume 100 [foz_us] 80-99 Automated erythrocyte mean corpuscular h emoglobin (mass per erythrocyte) 31 pg 25-34 Automated erythrocyte mean corpuscular h emoglobin concentration measurement (mass/volume) 31 g/dL 32-36 Automated erythrocyte distribution width ratio 14. 0 % 10.0- 14.5 Automated blood platelet count (count/volume) 195 10*3/uL 130-400 Automated blood platelet mean volume measurement 9.8 [foz_us] 7.4-10.4 Automated blood neutrophils/100 leukocytes 70 % 42-75 Automated blood lymphocytes/100 leukocytes 15 % 12-44 Blood monocytes/100 leukocytes 11 % 0-12 Automated blood eosinophils/100 leukocytes 4 % 0-10 Automated blood basophils/100 leukocytes 0 % 0-10 Blood neutrophils automated count (number/volume) 3.2 10*3 1.8-7.8 Blood lymphocytes automated count (number/volume) 0.7 10*3 1.0-4.0 Blood monocytes automated count (number/volume) 0. 5 10*3 0.0-1.0 Automated eosinophil count 0.2 10*3/uL 0 .0-0.3 Automated blood basophil count (count/volume) 0.0 10*3/uL 0.0-0.1 Comprehensive metabolic panel - 03/15/17 05:15 Serum or plasma sodium measurement (moles/volume) 141 mmol/L 135-145 Serum or plasma potassium measurement (moles/volume) 3.2 mmol/L 3.6-5.0 Serum or plasma chloride measurement (moles/volume) 106 mmol/L 98-107 Carbon dioxide 27 mmol/L 21-32 Serum or plasma anion gap determination (moles/volume) 8 mmol/L 5-14 Serum or plasma urea nitrogen measurement (mass/volume ) 9 mg/dL 7-18 Serum or plasma creatinine measurement (mass/volume) 0.69 mg/dL 0.60-1.30 Serum or plasma urea nitrogen/creatinine mass ratio 13 NRG Serum or plasma creatinine measurement w ith calculation of estimated glomerular filtration rate > NRG Serum or plasma glucose measurement (mass/volume) 95 mg/dL 70-105 Serum or plasma calcium measurement (mass/volume) 8.2 mg/dL 8.5-10.1 Serum or plasma total bilirubin measurement (mass/volu me) 0.7 mg/dL 0.1-1.0 Serum or plasma alkaline phosphatase janene surement (enzymatic activity/volume) 56 U/L 40-136 Serum or plasma aspartate aminotransfera se measurement (enzymatic activity/volume) 32 U/L 5-34 Serum or plasma alanine aminotransferase measurement (enzymatic activity/volume) 36 U/L 0-55 Serum or plasma protein measurement (mass/volume) 5.0 g/dL 6.4-8.2 Serum or plasma albumin measurement (mass/volume) 2.7 g/dL 3.2-4.5 RED CELLS LEUKO REDUCED AS1 - 03/15/17 1 2:20 RED CELLS LEUKO REDUCED AS1 T RANSFUSED 03/15/17 1537 NR Blood type T Indirect antibody screen pa zahraa - 03/15/17 12:20 ABO+Rh group AP NRG Transfusion band number [id number] NRG Blood group antibody screen NEGATIVE NR G PT panel in platelet poor plasma by coag ulation assay - 03/16/17 05:30 Prothrombin time (PT) in platelet poor plasma by coagu lation assay 13.4 s 12.2-14.7 INR in platelet poor plasma or blood by coagulation as say 1.1 0.8-1.4 Complete blood count (CBC) with automate d white blood cell (WBC) differential - 03/16/17 05:30 Blood leukocytes automated count (number/volume) 4.5 10*3/uL 4.3-11.0 Blood erythrocytes automated count (number/volume) 2.95 10*6/uL 4.35-5.85 Venous blood hemoglobin measurement (mass/volume) 8.8 g/dL 11.5-16.0 Blood hematocrit (volume fraction) 28 % 35-52 Automated erythrocyte mean corpuscular volume 96 [ foz_us] 80-99 Automated erythrocyte mean corpuscular h emoglobin (mass per erythrocyte) 30 pg 25-34 Automated erythrocyte mean corpuscular h emoglobin concentration measurement (mass/volume) 31 g/dL 32-36 Automated erythrocyte distribution width ratio 16. 6 % 10.0- 14.5 Automated blood platelet count (count/volume) 222 10*3/uL 130-400 Automated blood platelet mean volume measurement 9.2 [foz_us] 7.4-10.4 Automated blood neutrophils/100 leukocytes 60 % 42-75 Automated blood lymphocytes/100 leukocytes 23 % 12-44 Blood monocytes/100 leukocytes 11 % 0-12 Automated blood eosinophils/100 leukocytes 5 % 0-10 Automated blood basophils/100 leukocytes 0 % 0-10 Blood neutrophils automated count (number/volume) 2.7 10*3 1.8-7.8 Blood lymphocytes automated count (number/volume) 1.0 10*3 1.0-4.0 Blood monocytes automated count (number/volume) 0. 5 10*3 0.0-1.0 Automated eosinophil count 0.2 10*3/uL 0 .0-0.3 Automated blood basophil count (count/volume) 0.0 10*3/uL 0.0-0.1 Comprehensive metabolic panel - 03/16/17 05:30 Serum or plasma sodium measurement (moles/volume) 143 mmol/L 135-145 Serum or plasma potassium measurement (moles/volume) 3.4 mmol/L 3.6-5.0 Serum or plasma chloride measurement (moles/volume) 107 mmol/L 98-107 Carbon dioxide 27 mmol/L 21-32 Serum or plasma anion gap determination (moles/volume) 9 mmol/L 5-14 Serum or plasma urea nitrogen measurement (mass/volume ) 9 mg/dL 7-18 Serum or plasma creatinine measurement (mass/volume) 0.74 mg/dL 0.60-1.30 Serum or plasma urea nitrogen/creatinine mass ratio 12 NRG Serum or plasma creatinine measurement w ith calculation of estimated glomerular filtration rate > NRG Serum or plasma glucose measurement (mass/volume) 90 mg/dL 70-105 Serum or plasma calcium measurement (mass/volume) 8.8 mg/dL 8.5-10.1 Serum or plasma total bilirubin measurement (mass/volu me) 1.0 mg/dL 0.1-1.0 Serum or plasma alkaline phosphatase janene surement (enzymatic activity/volume) 62 U/L 40-136 Serum or plasma aspartate aminotransfera se measurement (enzymatic activity/volume) 41 U/L 5-34 Serum or plasma alanine aminotransferase measurement (enzymatic activity/volume) 44 U/L 0-55 Serum or plasma protein measurement (mass/volume) 5.5 g/dL 6.4-8.2 Serum or plasma albumin measurement (mass/volume) 3.0 g/dL 3.2-4.5 PT panel in platelet poor plasma by coag ulation assay - 03/18/17 06:15 Prothrombin time (PT) in platelet poor plasma by coagu lation assay 13.7 s 12.2-14.7 INR in platelet poor plasma or blood by coagulation as say 1.1 0.8-1.4 Complete blood count (CBC) with automate d white blood cell (WBC) differential - 03/19/17 06:32 Blood leukocytes automated count (number/volume) 5.9 10*3/uL 4.3-11.0 Blood erythrocytes automated count (number/volume) 3.80 10*6/uL 4.35-5.85 Venous blood hemoglobin measurement (mass/volume) 11.5 g/dL 11.5-16.0 Blood hematocrit (volume fraction) 37 % 35-52 Automated erythrocyte mean corpuscular volume 97 [ foz_us] 80-99 Automated erythrocyte mean corpuscular h emoglobin (mass per erythrocyte) 30 pg 25-34 Automated erythrocyte mean corpuscular h emoglobin concentration measurement (mass/volume) 31 g/dL 32-36 Automated erythrocyte distribution width ratio 15. 2 % 10.0- 14.5 Automated blood platelet count (count/volume) 387 10*3/uL 130-400 Automated blood platelet mean volume measurement 8.9 [foz_us] 7.4-10.4 Automated blood neutrophils/100 leukocytes 68 % 42-75 Automated blood lymphocytes/100 leukocytes 18 % 12-44 Blood monocytes/100 leukocytes 7 % 0-12 Automated blood eosinophils/100 leukocytes 6 % 0-10 Automated blood basophils/100 leukocytes 1 % 0-10 Blood neutrophils automated count (number/volume) 4.0 10*3 1.8-7.8 Blood lymphocytes automated count (number/volume) 1.1 10*3 1.0-4.0 Blood monocytes automated count (number/volume) 0. 4 10*3 0.0-1.0 Automated eosinophil count 0.4 10*3/uL 0 .0-0.3 Automated blood basophil count (count/volume) 0.0 10*3/uL 0.0-0.1 PT panel in platelet poor plasma by coag ulation assay - 03/19/17 06:32 Prothrombin time (PT) in platelet poor plasma by coagu lation assay 15.1 s 12.2-14.7 INR in platelet poor plasma or blood by coagulation as say 1.2 0.8-1.4 Comprehensive metabolic panel - 03/19/17 06:32 Serum or plasma sodium measurement (moles/volume) 140 mmol/L 135-145 Serum or plasma potassium measurement (moles/volume) 4.4 mmol/L 3.6-5.0 Serum or plasma chloride measurement (moles/volume) 104 mmol/L 98-107 Carbon dioxide 26 mmol/L 21-32 Serum or plasma anion gap determination (moles/volume) 10 mmol/L 5-14 Serum or plasma urea nitrogen measurement (mass/volume ) 9 mg/dL 7-18 Serum or plasma creatinine measurement (mass/volume) 0.92 mg/dL 0.60-1.30 Serum or plasma urea nitrogen/creatinine mass ratio 10 NRG Serum or plasma creatinine measurement w ith calculation of estimated glomerular filtration rate 60 NRG Serum or plasma glucose measurement (mass/volume) 96 mg/dL 70-105 Serum or plasma calcium measurement (mass/volume) 9.6 mg/dL 8.5-10.1 Serum or plasma total bilirubin measurement (mass/volu me) 0.8 mg/dL 0.1-1.0 Serum or plasma alkaline phosphatase janene surement (enzymatic activity/volume) 75 U/L 40-136 Serum or plasma aspartate aminotransfera se measurement (enzymatic activity/volume) 34 U/L 5-34 Serum or plasma alanine aminotransferase measurement (enzymatic activity/volume) 44 U/L 0-55 Serum or plasma protein measurement (mass/volume) 6.6 g/dL 6.4-8.2 Serum or plasma albumin measurement (mass/volume) 3.6 g/dL 3.2-4.5 Complete blood count (CBC) with automate d white blood cell (WBC) differential - 03/20/17 06:25 Blood leukocytes automated count (number/volume) 4.8 10*3/uL 4.3-11.0 Blood erythrocytes automated count (number/volume) 3.48 10*6/uL 4.35-5.85 Venous blood hemoglobin measurement (mass/volume) 10.6 g/dL 11.5-16.0 Blood hematocrit (volume fraction) 34 % 35-52 Automated erythrocyte mean corpuscular volume 98 [ foz_us] 80-99 Automated erythrocyte mean corpuscular h emoglobin (mass per erythrocyte) 31 pg 25-34 Automated erythrocyte mean corpuscular h emoglobin concentration measurement (mass/volume) 31 g/dL 32-36 Automated erythrocyte distribution width ratio 15. 0 % 10.0- 14.5 Automated blood platelet count (count/volume) 361 10*3/uL 130-400 Automated blood platelet mean volume measurement 8.8 [foz_us] 7.4-10.4 Automated blood neutrophils/100 leukocytes 63 % 42-75 Automated blood lymphocytes/100 leukocytes 22 % 12-44 Blood monocytes/100 leukocytes 7 % 0-12 Automated blood eosinophils/100 leukocytes 9 % 0-10 Automated blood basophils/100 leukocytes 1 % 0-10 Blood neutrophils automated count (number/volume) 3.0 10*3 1.8-7.8 Blood lymphocytes automated count (number/volume) 1.0 10*3 1.0-4.0 Blood monocytes automated count (number/volume) 0. 3 10*3 0.0-1.0 Automated eosinophil count 0.4 10*3/uL 0 .0-0.3 Automated blood basophil count (count/volume) 0.1 10*3/uL 0.0-0.1 PT panel in platelet poor plasma by coag ulation assay - 03/20/17 06:25 Prothrombin time (PT) in platelet poor plasma by coagu lation assay 16.8 s 12.2-14.7 INR in platelet poor plasma or blood by coagulation as say 1.4 0.8-1.4 Comprehensive metabolic panel - 03/20/17 06:25 Serum or plasma sodium measurement (moles/volume) 142 mmol/L 135-145 Serum or plasma potassium measurement (moles/volume) 4.3 mmol/L 3.6-5.0 Serum or plasma chloride measurement (moles/volume) 106 mmol/L 98-107 Carbon dioxide 27 mmol/L 21-32 Serum or plasma anion gap determination (moles/volume) 9 mmol/L 5-14 Serum or plasma urea nitrogen measurement (mass/volume ) 12 mg/dL 7-18 Serum or plasma creatinine measurement (mass/volume) 1.01 mg/dL 0.60-1.30 Serum or plasma urea nitrogen/creatinine mass ratio 12 NRG Serum or plasma creatinine measurement w ith calculation of estimated glomerular filtration rate 53 NRG Serum or plasma glucose measurement (mass/volume) 86 mg/dL 70-105 Serum or plasma calcium measurement (mass/volume) 9.6 mg/dL 8.5-10.1 Serum or plasma total bilirubin measurement (mass/volu me) 0.6 mg/dL 0.1-1.0 Serum or plasma alkaline phosphatase janene surement (enzymatic activity/volume) 69 U/L 40-136 Serum or plasma aspartate aminotransfera se measurement (enzymatic activity/volume) 31 U/L 5-34 Serum or plasma alanine aminotransferase measurement (enzymatic activity/volume) 38 U/L 0-55 Serum or plasma protein measurement (mass/volume) 6.5 g/dL 6.4-8.2 Serum or plasma albumin measurement (mass/volume) 3.6 g/dL 3.2-4.5 Complete blood count (CBC) with automate d white blood cell (WBC) differential - 03/22/17 05:20 Blood leukocytes automated count (number/volume) 3.6 10*3/uL 4.3-11.0 Blood erythrocytes automated count (number/volume) 3.24 10*6/uL 4.35-5.85 Venous blood hemoglobin measurement (mass/volume) 9.8 g/dL 11.5-16.0 Blood hematocrit (volume fraction) 32 % 35-52 Automated erythrocyte mean corpuscular volume 99 [ foz_us] 80-99 Automated erythrocyte mean corpuscular h emoglobin (mass per erythrocyte) 30 pg 25-34 Automated erythrocyte mean corpuscular h emoglobin concentration measurement (mass/volume) 31 g/dL 32-36 Automated erythrocyte distribution width ratio 15. 0 % 10.0- 14.5 Automated blood platelet count (count/volume) 324 10*3/uL 130-400 Automated blood platelet mean volume measurement 8.9 [foz_us] 7.4-10.4 Automated blood neutrophils/100 leukocytes 53 % 42-75 Automated blood lymphocytes/100 leukocytes 27 % 12-44 Blood monocytes/100 leukocytes 8 % 0-12 Automated blood eosinophils/100 leukocytes 11 % 0-10 Automated blood basophils/100 leukocytes 1 % 0-10 Blood neutrophils automated count (number/volume) 1.9 10*3 1.8-7.8 Blood lymphocytes automated count (number/volume) 1.0 10*3 1.0-4.0 Blood monocytes automated count (number/volume) 0. 3 10*3 0.0-1.0 Automated eosinophil count 0.4 10*3/uL 0 .0-0.3 Automated blood basophil count (count/volume) 0.0 10*3/uL 0.0-0.1 PT panel in platelet poor plasma by coag ulation assay - 03/22/17 05:20 Prothrombin time (PT) in platelet poor plasma by coagu lation assay 23.1 s 12.2-14.7 INR in platelet poor plasma or blood by coagulation as say 2.1 0.8-1.4 Comprehensive metabolic panel - 03/22/17 05:20 Serum or plasma sodium measurement (moles/volume) 141 mmol/L 135-145 Serum or plasma potassium measurement (moles/volume) 4.3 mmol/L 3.6-5.0 Serum or plasma chloride measurement (moles/volume) 108 mmol/L 98-107 Carbon dioxide 25 mmol/L 21-32 Serum or plasma anion gap determination (moles/volume) 8 mmol/L 5-14 Serum or plasma urea nitrogen measurement (mass/volume ) 11 mg/dL 7-18 Serum or plasma creatinine measurement (mass/volume) 0.93 mg/dL 0.60-1.30 Serum or plasma urea nitrogen/creatinine mass ratio 12 NRG Serum or plasma creatinine measurement w ith calculation of estimated glomerular filtration rate 59 NRG Serum or plasma glucose measurement (mass/volume) 83 mg/dL 70-105 Serum or plasma calcium measurement (mass/volume) 8.8 mg/dL 8.5-10.1 Serum or plasma total bilirubin measurement (mass/volu me) 0.3 mg/dL 0.1-1.0 Serum or plasma alkaline phosphatase janene surement (enzymatic activity/volume) 63 U/L 40-136 Serum or plasma aspartate aminotransfera se measurement (enzymatic activity/volume) 21 U/L 5-34 Serum or plasma alanine aminotransferase measurement (enzymatic activity/volume) 28 U/L 0-55 Serum or plasma protein measurement (mass/volume) 5.6 g/dL 6.4-8.2 Serum or plasma albumin measurement (mass/volume) 3.1 g/dL 3.2-4.5 Comprehensive Metabolic Panel - 03/25/17 11:36 Albumin 3.9 g/dL 3.6-5.1 ALP 97 U/L 35-130 ALT 29 U/L 6-45 Anion Gap 13 6-14 AST 28 U/L 2-40 BUN 19 mg/dL 5-25 Calcium 9.6 mg/dL 8.3-10.4 Chloride 108 mmol/L 95-114 CO2 23 mEq/L 22-33 Creat 1.02 mg/dL 0.50-1.50 eGFR 53 mL/min/1.73m2 >59 Globulin 3.1 g/dL 2.3-3.5 Glucose 125 mg/dL 70-110 Osmo 293 280-295 Potassium 4.0 mmol/L 3.5-5.3 Sodium 140 mmol/L 134-148 TBil 0.4 mg/dL 0.2-1.2 TP 7.0 g/dL 6.0-8.3 Protime - 04/08/17 10:24 INR 2.2 1.0-4.0 Protime 26.9 Sec 9.9-12.8 Protime - 05/13/17 11:08 INR 2.1 1.0-4.0 Protime 24.9 Sec 9.9-12.8 CBC WO DIFF - 06/11/17 06:27 WBC 4.15 10*3/uL 4.00-10.80 RBC 3.93 10*6/uL 4.20-5.40 HGB 12.3 g/dL 12.0-16.0 HCT 38.6 % 37.0-47.0 MCV 98 fL 81-99 MCH 31 pg 26.0-34.0 MCHC 31.9 g/dL 31.0-37.0 PLATELET COUNT 156 10*3/uL 150-400 RDWCV 13.5 % 11.5-14.5 ABSOLUTE NUCLEATED RBC 0.00 10*3/uL 0.00 PERCENT NUCLEATED RBC 0.0 % 0.0 MPV 10.0 fL 9.4-12.3 RDW STANDARD DEVIATION 49.0 fL 36.4-46 .3 PT/INR - 06/11/17 06:27 PT 12.9 s 11.8-15.0 INR 1.0 BASIC METABOLIC PANEL - 06/11/17 06:27 POTASSIUM 3.7 mmol/L 3.5-5.1 CALCIUM 8.8 mg/dL 8.5-10.0 GLUCOSE 98 mg/dL 80-115 BUN 19 mg/dL 7-18 CREATININE 1.10 mg/dL 0.55-1.30 SODIUM 141 mmol/L 136-145 CHLORIDE 109 mmol/L 98-107 CO2 27 mmol/L 21-32 GFR ESTIMATED NOT AFR/AM 48 GFR ESTIMATED IF AFR/AM 59 ANION GAP 5 5-15 Thyroid Stimulating Hormone - 07/14/17 0 9:23 TSH 7.51 mIU/mL 0.32-5.00 Protime - 08/13/17 10:17 INR 1.8 1.0-4.0 Protime 21.4 Sec 9.9-12.8 Free T4 - 09/08/17 09:35 Free T4 1.82 ng/dL 0.81-1.61 Protime - 10/08/17 15:27 INR 3.6 1.0-4.0 Protime 42.0 Sec 9.9-12.8 Protime - 10/22/17 10:10 INR 2.7 1.0-4.0 Protime 31.3 Sec 9.9-12.8 Thyroid Stimulating Hormone - 10/27/17 1 3:12 TSH 1.70 mIU/mL 0.32-5.00 Free T4 - 10/27/17 13:12 Free T4 1.61 ng/dL 0.81-1.61 Protime - 11/18/17 09:04 INR 3.7 1.0-4.0 Protime 43.5 Sec 9.9-12.8 Protime - 12/19/17 13:20 INR 3.3 1.0-4.0 Protime 38.7 Sec 9.9-12.8 Thyroid Stimulating Hormone - 01/05/18 1 0:15 TSH 2.85 mIU/mL 0.32-5.00 Protime - 01/14/18 11:56 INR 4.1 1.0-4.0 Protime 47.7 Sec 9.9-12.8 Protime - 01/26/18 11:23 INR 1.6 1.0-4.0 Protime 18.8 Sec 9.9-12.8 Protime - 02/11/18 14:28 INR 1.7 1.0-4.0 Protime 19.7 Sec 9.9-12.8 Protime - 02/25/18 09:57 INR 2.4 1.0-4.0 Protime 28.9 Sec 9.9-12.8 Ferritin - 04/04/18 08:43 Ferritin 216.40 ng/mL 4.63-204.00 Protime - 05/12/18 11:48 INR 2.2 1.0-4.0 Protime 25.9 Sec 9.9-12.8 Ferritin - 07/09/18 08:45 Ferritin 223.68 ng/mL 4.63-204.00 Free T4 - 07/09/18 08:45 Free T4 1.54 ng/dL 0.81-1.61 Protime - 07/23/18 09:56 INR 2.2 1.0-4.0 Protime 25.6 Sec 9.9-12.8 Protime - 08/19/18 10:42 INR 2.7 1.0-4.0 Protime 31.8 Sec 9.9-12.8 Ferritin - 09/24/18 09:10 Ferritin 65.26 ng/mL 4.63-204.00 Free T4 - 09/24/18 09:10 Free T4 1.04 ng/dL 0.81-1.61 VIT B-12 - 09/24/18 09:10 Vitamin B12 521.00 pg/mL 213.00-816.00 [place] w/Reflex - 09/24/18 09:10 [place] DIRECT NEGATIVE NEGATIVE Protein Electro, Serum - 09/24/18 09:10 PROTEIN, TOTAL, SERUM 6.3 G/DL 6.0-8.5 ALBUMIN 3.6 G/DL 2.9-4.4 [id number] 0.2 G/DL 0.0-0.4 [id number] 0.6 G/DL 0.4-1.0 BETA GLOBULIN 1.0 G/DL 0.7-1.3 GAMMA GLOBULIN 0.8 G/DL 0.4-1.8 M-SPIKE NOT OBSERVED G/DL NOT OBSERVED GLOBULIN, TOTAL 2.7 G/DL 2.2-3.9 A/G RATIO 1.3 0.7-1.7 PLEASE NOTE: PROTEIN ELECTROPHORESIS SCAN WILL FOLLOW VIA COMPUTER, MAIL, OR.brCOURIER DELIVERY. PDF . Protime - 10/22/18 11:06 INR 1.9 1.0-4.0 Protime 22.2 Sec 9.9-12.8 Protime - 11/05/18 09:59 INR 3.3 1.0-4.0 Protime 39.1 Sec 9.9-12.8 Protime - 12/07/18 13:28 INR 4.4 1.0-4.0 Protime 52.9 Sec 9.9-12.8 Protime - 12/22/18 10:14 INR 2.7 1.0-4.0 Protime 32.1 Sec 9.9-12.8 CBC with Auto Diff - 01/04/19 09:00 Baso% 0.60 % 0.00-2.50 Eos 0.1 K/uL 0.0-0.7 Eos% 4.1 % 0.0-7.0 Hct 39.1 % 36.0-46.0 Hgb 12.4 g/dL 13.0-15.0 Lym 1.01 K/uL 0.60-3.40 Lym% 29.3 % 10.0-50.0 MCH 32.4 pg 27.0-31.0 MCHC 31.7 g/dL 32.0-36.0 MCV 102.1 fL 80.0-97.0 [place]% 6.7 % 0.0-12.0 MPV 10.4 fL 7.4-10.0 Pal% 59.3 % 37.0-80.0 Plt 191 K/uL 150-400 RBC 3.83 M/uL 3.60-5.00 RDW 13.6 % 11.6-14.8 WBC 3.45 K/uL 5.00-10.00 Pal 2.05 K/uL 2.00-6.90 [place] 0.2 K/uL 0.0-0.9 Baso 0.0 K/uL 0.0-0.2 Protime - 02/01/19 09:05 INR 2.1 1.0-4.0 Protime 25.0 Sec 9.9-12.8 Protime - 03/03/19 09:56 INR 2.5 1.0-4.0 Protime 29.3 Sec 9.9-12.8 Thyroid Stimulating Hormone - 03/24/19 0 7:12 TSH 1.40 mIU/mL 0.32-5.00 Protime - 06/21/19 09:11 INR 2.6 1.0-4.0 Protime 31.5 Sec 9.9-12.8 Thyroid Stimulating Hormone - 07/12/19 0 8:14 TSH 1.34 mIU/mL 0.32-5.00 Protime - 07/27/19 12:16 INR 2.6 1.0-4.0 Protime 30.6 Sec 9.9-12.8 Protime - 08/24/19 09:47 INR 2.2 1.0-4.0 Protime 26.2 Sec 9.9-12.8 Free T4 - 09/30/19 08:08 Free T4 1.55 ng/dL 0.81-1.61 Protime - 11/01/19 15:20 INR 3.1 1.0-4.0 Protime 35.7 Sec 9.9-12.8 Protime - 11/29/19 10:20 INR 3.0 1.0-4.0 Protime 35.4 Sec 9.9-12.8 Thyroid Stimulating Hormone - 01/10/20 0 9:02 TSH 1.23 mIU/mL 0.32-5.00 Free T4 - 01/10/20 09:02 Free T4 1.39 ng/dL 0.81-1.61 Protime - 01/24/20 08:59 INR 1.3 1.0-4.0 Protime 15.1 Sec 9.9-12.8 Protime - 01/31/20 09:55 INR 2.1 1.0-4.0 Protime 24.1 Sec 9.9-12.8 Protime - 02/28/20 12:51 INR 3.4 1.0-4.0 Protime 40.1 Sec 9.9-12.8 Protime - 03/29/20 10:13 INR 2.5 1.0-4.0 Protime 28.7 Sec 9.9-12.8 Free T4 - 04/15/20 06:54 Free T4 1.14 ng/dL 0.81-1.61 Coronavirus SARS-CoV-2 SO 2018 0 08:10 Coronavirus Ab [Units/volume] in Serum Negative Negative Coronavirus SARS-CoV-2 SO 2018 0 08:05 Coronavirus Ab [Units/volume] in Serum Negative Negative Encounters ACCT No. Visit Date/Time Discharge Status Pt. Type Provider Facility Loc./Unit Complaint [id number] 05/09/2020 10:04:00 05/09/2020 23:59 :00 DIS Outpatient CIRS SAMPSON [id number] 04/15/2020 06:43:00 04/15/2020 23:59 :00 DIS Outpatient Verenice Frances [id number] 03/29/2020 10:06:00 03/29/2020 23:59 :00 DIS Outpatient Verenice Frances [id number] 02/28/2020 12:45:00 02/28/2020 23:59 :00 DIS Outpatient Verenice Frances [id number] 02/10/2020 13:06:00 02/10/2020 23:59 :00 DIS Outpatient Alex Thompson [id number] 02/10/2020 00:00:00 02/10/2020 23:59 :00 DIS Outpatient Alex Thompson [id number] 01/31/2020 09:52:00 01/31/2020 23:59 :00 DIS Outpatient Verenice Frances [id number] 01/24/2020 08:47:00 01/24/2020 23:59 :00 DIS Outpatient Verenice Frances [id number] 01/11/2020 14:52:00 01/11/2020 23:59 :00 DIS Outpatient CRIS SAMPSON [id number] 01/10/2020 08:57:00 01/10/2020 23:59 :00 DIS Outpatient Vreenice Frances [id number] 01/09/2020 12:17:00 01/09/2020 23:59 :00 DIS Outpatient George Wells [id number] 01/09/2020 11:57:00 01/09/2020 23:59 :00 DIS Outpatient George Wells [id number] 11/29/2019 10:16:00 11/29/2019 23:59 :00 DIS Outpatient Verenice Frances [id number] 11/01/2019 14:56:00 11/01/2019 23:59 :00 DIS Outpatient Verenice Frances [id number] 10/12/2019 11:04:00 10/12/2019 23:59: 00 DIS Outpatient CRIS SAMPSON [id number] 09/30/2019 08:01:00 09/30/2019 23:59: 00 DIS Outpatient Verenice Frances [id number] 08/24/2019 09:43:00 08/24/2019 23:59: 00 DIS Outpatient Verenice Frances [id number] 08/04/2019 13:05:00 08/04/2019 23:59: 00 DIS Outpatient Alex Thompson Sapna [id number] 07/27/2019 12:09:00 07/27/2019 23:59: 00 DIS Outpatient Verenice Frances [id number] 07/16/2019 08:35:00 07/16/2019 23:59: 00 DIS Outpatient FrancesVerenice manrique [id number] 06/21/2019 09:08:00 06/21/2019 23:59: 00 DIS Outpatient Verenice Frances [id number] 05/24/2019 09:16:00 05/24/2019 23:59: 00 DIS Outpatient Verenice Frances [id number] 04/26/2019 08:44:00 04/26/2019 23:59: 00 DIS Outpatient Verenice Frances [id number] 03/24/2019 07:08:00 03/24/2019 23:59: 00 DIS Outpatient Verenice Frances [id number] 03/03/2019 09:46:00 03/03/2019 23:59: 00 DIS Outpatient Verenice Frances [id number] 02/11/2019 14:32:00 02/11/2019 23:59: 00 DIS Outpatient Alex Thompson Sapna [id number] 2019 09:00:00 2019 23:59: 00 DIS Outpatient Verenice Frances [id number] 01/14/2019 09:46:00 01/14/2019 23:59: 00 DIS Outpatient CRIS SAMPSON [id number] 01/04/2019 08:53:00 01/04/2019 23:59: 00 DIS Outpatient Verenice Frances [id number] 12/22/2018 10:09:00 12/22/2018 23:59: 00 DIS Outpatient Verenice Frances [id number] 12/07/2018 13:15:00 12/07/2018 23:59: 00 DIS Outpatient Verenice Frances [id number] 11/05/2018 09:53:00 11/05/2018 23:59: 00 DIS Outpatient Verenice Frances [id number] 10/22/2018 10:56:00 10/22/2018 23:59: 00 DIS Outpatient Verenice Frances [id number] 09/24/2018 09:02:00 09/24/2018 23:59: 00 DIS Outpatient Frances, Verenice [id number] 09/08/2018 11:13:00 09/08/2018 23:59: 00 DIS Outpatient ADRIÁN CRIS [id number] 09/03/2018 13:49:00 09/03/2018 23:59: 00 DIS Outpatient ADRIÁN CRIS [id number] 08/19/2018 10:39:00 08/19/2018 23:59: 00 DIS Outpatient Frances, Verenice [id number] 07/23/2018 09:53:00 07/23/2018 23:59: 00 DIS Outpatient Frances, Verenice [id number] 07/09/2018 08:42:00 07/09/2018 23:59: 00 DIS Outpatient Frances, Verenice [id number] 07/08/2018 10:29:00 07/08/2018 23:59: 00 DIS Outpatient Frances, Verenice [id number] 07/07/2018 08:50:00 07/07/2018 23:59: 00 DIS Outpatient Frances, Verenice [id number] 05/12/2018 11:44:00 05/12/2018 23:59: 00 DIS Outpatient Frances, Verenice [id number] 04/04/2018 08:21:00 04/04/2018 23:59: 00 DIS Outpatient Frances, Verenice [id number] 04/03/2018 14:00:00 04/03/2018 23:59: 00 DIS Outpatient Frances, Verenice [id number] 02/25/2018 09:52:00 02/25/2018 23:59: 00 DIS Outpatient Frances, Verenice [id number] 02/11/2018 14:24:00 02/11/2018 23:59: 00 DIS Outpatient Frances, Verenice [id number] 01/26/2018 11:19:00 01/26/2018 23:59: 00 DIS Outpatient Frances, Verenice [id number] 01/14/2018 11:47:00 01/14/2018 23:59: 00 DIS Outpatient Frances, Verenice [id number] 01/05/2018 10:08:00 01/05/2018 23:59: 00 DIS Outpatient Frances, Verenice [id number] 12/19/2017 13:10:00 12/19/2017 23:59: 00 DIS Outpatient Frances, Verenice [id number] 11/18/2017 08:59:00 11/18/2017 23:59: 00 DIS Outpatient Juan Daniel Verenice [id number] 10/27/2017 13:05:00 10/27/2017 23:59: 00 DIS Outpatient Juan Daniel Verenice [id number] 10/22/2017 10:06:00 10/22/2017 23:59: 00 DIS Outpatient Juan Daniel Verenice [id number] 10/08/2017 15:11:00 10/08/2017 23:59: 00 DIS Outpatient Verenice Frances [id number] 09/08/2017 09:24:00 09/08/2017 23:59: 00 DIS Outpatient Verenice Frances [id number] 08/13/2017 10:04:00 08/13/2017 23:59: 00 DIS Outpatient Verenice Frances [id number] 07/14/2017 09:17:00 07/14/2017 23:59: 00 DIS Outpatient Verenice Frances [id number] 05/26/2017 12:54:00 07/10/2017 09:35: 00 DIS Outpatient Verenice Frances [id number] 07/03/2017 09:49:00 07/03/2017 23:59: 00 DIS Outpatient Verenice Frances [id number] 05/13/2017 10:56:00 05/13/2017 23:59: 00 DIS Outpatient Verenice Frances [id number] 04/08/2017 10:15:00 04/08/2017 23:59: 00 DIS Outpatient Verenice Frances [id number] 03/25/2017 11:26:00 03/25/2017 23:59: 00 DIS Outpatient Verenice Frances [id number] 07/13/2019 08:56:44 Document Registration [id number] 07/12/2019 08:11:35 Document Registration [id number] 04/04/2019 14:19:00 Document Registration [id number] 04/04/2018 09:14:00 Document Registration [id number] 02/13/2017 15:30:00 7 09:00:00 DIS Outpatient Tylor Lin [facility]. [facility] LEFT LEG NUMBNESS/DROP FOOT - BACK PAIN [id number] 02/13/2017 14:54:00 7 23:59:59 CLS Outpatient Ditto, Tylor E [facility] [id number] 06/12/2016 08:51:00 6 23:59:59 [facility] Ditto[facility] [id number] 05/21/2016 11:12:00 6 23:59:59 CLS Outpatient Ditto, Tylor E [facility] [id number] 02/16/2016 07:45:00 6 23:59:59 CLS Outpatient Ditto, [facility] [facility] SCIAT[place], LOW BACK PAIN [id number] 06/06/2015 09:12:00 5 23:59:59 CLS Outpatient Ditto[id number]/18/2015 16:14:00 5 23:59:59 CLS Outpatient Ditto, Tylor E Via [facility] [id number] 11/29/2014 13:24:00 5 23:59:59 CLS [facility]patient [facility] [id number] 06/27/2014 13:14:00 4 23:59:59 CLS Outpatient Ditto[facility] [id number] 06/14/2014 08:33:00 4 23:59:59 CLS Outpatient Ditto, [facility] [id number] 05/12/2014 15:36:00 4 23:59:59 CLS [id number] 05/19/2013 08:40:00 3 23:59:59 CLS Outpatient [id number] 03/04/2017 14:36:00 7 23:59:59 CLS Outpatient Ditto, Tylor E Wam ego [facility] LAB LAB [id number] 02/13/2017 10:34:00 7 23:59:59 CLS Outpatient Ditto, Tylor E Wam ego [facility] LAB LAB [id number] 02/11/2017 17:56:00 7 23:59:59 CLS Outpatient Ditto, Tylor E Wam ego [facility] LAB LAB [id number] 01/23/2017 13:48:00 7 23:59:59 CLS Outpatient Ditto, Tylor E Wam ego [facility] LAB LAB [id number] 01/09/2017 11:34:00 7 23:59:59 CLS Outpatient Ditto, Tylor E Wam ego [facility] LAB LAB [id number] 01/02/2017 07:33:00 7 23:59:59 CLS Outpatient Ditto, Tylor E Wam ego [facility] LAB LAB [id number] 11/27/2016 12:14:00 7 23:59:59 CLS Outpatient Ditto, Tylor E Wam ego [facility] LAB LAB [id number] 10/29/2016 13:43:00 6 23:59:59 CLS Outpatient Ditto, Tylor E Wam ego [facility] LAB LAB [id number] 10/08/2016 07:47:00 6 23:59:59 CLS Outpatient Ditto, Tylor E Wam ego [facility] LAB LAB [id number] 09/24/2016 07:51:00 6 23:59:59 CLS Outpatient Ditto, Tylor E Wam ego [facility] LAB LAB [id number] 09/17/2016 10:24:00 6 23:59:59 CLS Outpatient Ditto, Tylor E Wam ego [facility] LAB LAB [id number] 09/10/2016 08:23:00 6 23:59:59 CLS Outpatient Ditto, Tylor E Wam ego [facility] LAB LAB [id number] 09/03/2016 07:48:00 6 23:59:59 CLS Outpatient Ditto, Tylor E Wam ego [facility] LAB LAB [id number] 08/28/2016 09:23:00 6 23:59:59 CLS Outpatient Ditto, Tylor E Wam ego [facility] LAB LAB [id number] 08/21/2016 08:42:00 6 23:59:59 CLS Outpatient Ditto, Tylor E Wam ego [facility] LAB LAB [id number] 08/07/2016 12:23:00 6 23:59:59 CLS Outpatient Ditto, Tylor E Wam ego [facility] LAB LAB [id number] 08/02/2016 12:38:00 6 23:59:59 CLS Outpatient TARSHA COLLIER APRN [facility] LAB LAB [id number] 08/01/2016 18:19:00 6 19:20:00 DIS Emergency TARSHA COLLIER APRN [facility] ED ER [id number] 07/22/2016 09:33:00 6 23:59:59 CLS Outpatient Barbarao, Tylor E Wam ego [facility] LAB LAB [id number] 07/01/2016 07:45:00 6 23:59:59 CLS Outpatient Ditto, Tylor E Wam ego [facility] LAB LAB [id number] 06/19/2016 11:55:00 6 23:59:59 CLS Outpatient Sarah Ramos [facility] LAB LAB [id number] 06/05/2016 06:57:00 6 23:59:59 CLS Outpatient Ditto, Tylor E Wam ego [facility] LAB LAB [id number] 05/28/2016 09:18:00 6 23:59:59 CLS Outpatient Ditto, Tylor E Wam ego [facility] LAB LAB [id number] 05/21/2016 08:43:00 6 23:59:59 CLS Outpatient Ditto, Tylor E Wam ego [facility] LAB LAB [id number] 05/20/2016 08:03:00 6 23:59:59 CLS Outpatient Ditto, Tylor E Wam ego [facility] LAB [id number] 05/13/2016 07:53:00 6 23:59:59 CLS Outpatient Ditto, Tylor E Wam ego [facility] LAB [id number] 04/29/2016 10:35:00 6 23:59:59 CLS Outpatient Ditto, Tylor E Wam ego [facility] LAB [id number] 03/26/2016 09:36:00 6 23:59:59 CLS Outpatient Ditto, Tylor E Wam ego [facility] LAB [id number] 03/18/2016 08:27:00 6 23:59:59 CLS Outpatient Ditto, Tylor E Wam ego [facility] LAB [id number] 02/14/2016 15:40:00 6 23:59:59 CLS Outpatient Ditto, Tylor E Wam ego [facility] LAB [id number] 01/31/2016 06:43:00 6 23:59:59 CLS Outpatient KRISTIN [employer] [facility] RAD [id number] 01/16/2016 12:09:00 6 23:59:59 CLS Outpatient Ditto, Tylor E Wam ego [facility] LAB [id number] 01/02/2016 11:13:00 6 23:59:59 CLS Outpatient Ditto, Tylor E Wam ego [facility] LAB [id number] 12/26/2015 11:46:00 6 23:59:59 CLS Outpatient Ditto, Tylor E Wam ego [facility] LAB [id number] 12/20/2015 11:09:00 6 23:59:59 CLS Outpatient Ditto, Tylor E Wam ego [facility] LAB [id number] 12/06/2015 09:39:00 6 23:59:59 CLS Outpatient Ditto, Tylor E Wam ego [facility] LAB [id number] 11/29/2015 13:55:00 6 23:59:59 CLS Outpatient Ditto, Tylor E Wam ego [facility] LAB [id number] 11/14/2015 10:34:00 5 23:59:59 CLS Outpatient Ditto, Tylor E Wam ego [facility] LAB [id number] 10/17/2015 07:57:00 5 23:59:59 CLS Outpatient Ditto, Tylor E Wam ego [facility] LAB [id number] 09/19/2015 07:48:00 5 23:59:59 CLS Outpatient Ditto, Tylor E Wam ego [facility] LAB [id number] 12/08/2014 09:35:00 5 23:59:59 CLS Outpatient Ditto, Tylor E Wam ego [facility] LAB [id number] 11/03/2014 08:36:00 4 23:59:59 CLS Outpatient Ditto, Tylor E Wam ego [facility] LAB [id number] 10/06/2014 08:38:00 4 23:59:59 CLS Outpatient Ditto, Tylor E Wam ego [facility] LAB [id number] 09/21/2014 09:03:00 4 23:59:59 CLS Outpatient Ditto, Tylor E Wam ego [facility] LAB [id number] 09/13/2014 08:26:00 4 23:59:59 CLS Outpatient Ditto, Tylor E Wam ego [facility] LAB [id number] 09/06/2014 10:02:00 4 23:59:59 CLS Outpatient [id number] 08/30/2014 12:44:00 4 23:59:59 CLS Outpatient [id number] 08/02/2014 09:54:00 4 23:59:59 CLS Outpatient [id number] 07/05/2014 15:48:00 4 23:59:59 CLS Outpatient [id number] 05/12/2014 10:25:00 4 23:59:59 CLS Outpatient [id number] 05/05/2014 08:59:00 4 23:59:59 CLS Outpatient [id number] 04/05/2014 08:29:00 4 23:59:59 CLS Outpatient [id number] 03/02/2014 14:05:00 4 23:59:59 CLS Outpatient [id number] 02/02/2014 11:52:00 4 23:59:59 CLS Outpatient [id number] 01/18/2014 08:53:00 4 23:59:59 CLS Outpatient [id number] 08/21/2015 08:14:00 Document Registration [id number] 03/04/2017 20:14:00 Document Registration [id number] 02/13/2017 10:50:00 Document Registration [id number] 02/11/2017 19:34:00 Document Registration [id number] 01/23/2017 14:37:00 Document Registration [id number] 01/09/2017 12:04:00 Document Registration [id number] 01/02/2017 08:11:00 Document Registration [id number] 11/27/2016 13:02:00 Document Registration [id number] 10/29/2016 14:47:00 Document Registration [id number] 10/08/2016 08:19:00 Document Registration [id number] 09/24/2016 08:23:00 Document Registration [id number] 09/17/2016 11:23:00 Document Registration [id number] 09/10/2016 09:10:00 Document Registration [id number] 08/28/2016 10:05:00 Document Registration [id number] 08/21/2016 09:10:00 Document Registration [id number] 08/07/2016 13:05:00 Document Registration [id number] 08/02/2016 13:07:00 Document Registration [id number] 07/01/2016 08:20:00 Document Registration [id number] 05/14/2017 11:17:47 7 23:59:59 CLS Outpatient LUCIA WEI [facility] [id number] 05/14/2016 10:28:39 6 23:59:59 CLS Outpatient LUCIA WEI [facility] [id number] 06/11/2017 06:02:00 06/11/2017 11: 47:00 [id number]/2017 00:00:00 06/06/2017 23: 59:59 CLS Outpatient [facility] [id number] 03/04/2017 00:00:00 03/04/2017 23: 59:59 CLS Outpatient [facility] [id number] 02/07/2017 10:02:56 02/07/2017 23: 59:59 CLS Outpatient ELIEZER SARAH [facility] [id number] 01/16/2017 00:00:00 01/16/2017 23: 59:59 CLS Outpatient [facility] [id number] 01/02/2017 14:15:59 01/02/2017 23: 59:59 CLS Outpatient MARANDAAZAELSARAH [facility] [id number] 12/25/2016 00:00:00 12/25/2016 23: 59:59 CLS Outpatient [facility] [id number] 12/12/2016 00:00:00 12/12/2016 23: 59:59 CLS Outpatient [facility] [id number] 12/11/2016 00:00:00 12/11/2016 23: 59:59 CLS Outpatient [facility] [id number] 10/31/2016 10:46:44 10/31/2016 23: 59:59 CLS Outpatient SARAH RAMOS [facility] [id number] 10/15/2016 00:00:00 10/15/2016 23: 59:59 CLS Outpatient [facility] [id number] 10/08/2016 00:00:00 10/08/2016 23: 59:59 CLS Outpatient [facility] [id number] 10/03/2016 00:00:00 10/03/2016 23: 59:59 CLS Outpatient [facility] [id number] 10/03/2016 00:00:00 10/03/2016 23: 59:59 CLS Outpatient [facility] [id number] 10/01/2016 11:48:53 10/01/2016 23: 59:59 [id number]2016 00:00:00 10/01/2016 23: 59:59 CLS Outpatient [facility] [id number] 09/30/2016 00:00:00 09/30/2016 23: 59:59 CLS Outpatient [facility] [id number] 09/26/2016 12:54:10 09/26/2016 23: 59:59 CLS Outpatient MAGDALENAJULIANA [facility] [id number] 09/18/2016 00:00:00 09/18/2016 23: 59:59 CLS Outpatient [facility] [id number] 08/18/2016 00:00:00 08/18/2016 23: 59:59 CLS Outpatient [facility] [id number] 08/16/2016 08:15:00 08/16/2016 23: 59:00 [id number]2016 13:41:26 08/08/2016 23: 59:59 CLS Outpatient MAGDALENAJULIANA [facility] [id number] 08/05/2016 00:00:00 08/05/2016 23: 59:59 CLS Outpatient [facility] [id number] 08/01/2016 00:00:00 08/01/2016 23: 59:59 CLS Outpatient [facility] [id number] 07/30/2016 05:51:00 08/01/2016 12: 54:00 DIS Inpatient MAGDALENAJULIANA [facility] [id number] 07/23/2016 12:13:09 07/23/2016 23: 59:00 DIS Outpatient JULIANA NICHOLS [facility] [id number] 07/12/2016 08:55:12 07/12/2016 23: 59:00 DIS Outpatient TYLOR LIN MD [facility] [id number] 07/08/2016 09:00:28 07/08/2016 23: 59:59 CLS Outpatient JULIANA NICHOLS [facility] [id number] 07/02/2016 13:46:40 07/02/2016 23: 59:00 DIS Outpatient TYLOR LIN MD [facility] [id number] 06/26/2016 00:00:00 06/26/2016 23: 59:59 CLS Outpatient SARAH RAMOS [facility] [id number] 06/21/2016 00:00:00 06/21/2016 23: 59:59 CLS Outpatient [facility] [id number] 06/18/2016 00:00:00 06/18/2016 23: 59:59 CLS Outpatient [facility] [id number] 06/18/2016 00:00:00 06/18/2016 23: 59:59 CLS Outpatient [facility] [id number] 06/18/2016 00:00:00 06/18/2016 23: 59:59 CLS Outpatient [facility] [id number] 06/11/2016 08:53:15 06/11/2016 23: 59:59 CLS Outpatient SARAH RAMOS [facility] [id number] 06/11/2016 00:00:00 06/11/2016 23: 59:59 CLS Outpatient [facility] [id number] 06/11/2016 08:53:45 06/11/2016 23: 59:00 [id number]11/2016 08:00:00 06/11/2016 08: 52:00 DIS Outpatient SARAH RAMOS [facility] [id number] 06/10/2016 00:00:00 06/10/2016 23: 59:59 CLS Outpatient [facility] [id number] 05/23/2016 08:39:24 05/23/2016 23: 59:00 DIS [id number] 04/16/2016 08:43:53 04/16/2016 23: 59:00 DIS Outpatient TYLOR LIN MD [facility] [id number] 03/25/2016 00:00:00 03/25/2016 23: 59:59 CLS Outpatient [facility] [id number] 03/11/2016 08:59:42 03/11/2016 23: 59:00 DIS Outpatient TYLOR LIN MD [facility] [id number] 03/01/2016 08:59:00 03/01/2016 23: 59:00 DIS Outpatient TYLOR LIN MD [facility] [id number] 09/12/2015 11:17:33 09/12/2015 23: 59:59 CLS [facility] [id number] 06/10/2014 08:55:47 06/10/2014 23: 59:59 CLS [facility] [id number] 06/10/2014 08:53:31 06/10/2014 23: 59:00 DIS [facility] [id number] 08/06/2016 08:48:48 Document Registration [id number] 05/16/2020 05:35:00 15:45:00 DIS Outpatient MARIO LAURENT MD [facility] [id number] 05/12/2020 07:48:00 23:59:59 CLS Outpatient MARIO LAURENT MD [facility] CATARACT LEFT EYE [id number] 05/09/2020 05:38:00 06/16/2 020 15:12:00 DIS Outpatient MARIO LAURENT MD [facility] PREOP CATARACT LEFT EYE [id number] 01/12/2020 12:19:00 00:01:00 DIS Outpatient Rodrigo PURDY MD [facility] CARD ATRIAL FIBRILLATION [id number] 11/10/2018 12:18:00 018 15:55:00 DIS Outpatient MATTHEWS ORA WHITAKER [facility] ENDO SCREENING [id number] 11/03/2018 06:13:00 018 12:30:00 DIS Outpatient ORA MATTHEWS DO [facility] PREOP COLONOSCOPY [id number] 03/14/2017 16:15:00 017 10:54:00 DIS Inpatient ENRIQUE MEJIA MD [facility] IRF SPINAL FUSION [id number] 05/19/2020 10:30:00 P EN Preadmit MARIO LAURENT MD [facility] SDC CATARACT RIGHT EYE [id number] 04/12/2020 13:00:00 Document Registration
[2020-05-19] MEDS ORDERED: POVIDONE (BETADINE) OPHTH SOLN 5% 30 ML OP ONE (07:15)
[2020-05-19] MEDS ORDERED: TIMOLOL MALEATE 0.5% 5 ML (TIMOPTIC) BTL OU PRN (07:15)
[2020-05-19] MEDS ORDERED: LIDOCAINE PF 1% 2 ML VIAL IR PRN (07:15)
[2020-05-19] MEDS ORDERED: MOXIFLOXACIN OPHTH SOLN 5 MG/ML 0.3 ML SYRINGE OP ONE (07:15)
[2020-05-19] MEDS: CYCLOPENTOLATE 1% (CYCLOGYL) 2 ML DROPS OP SCH ×3 (07:22→07:34)
[2020-05-19] MEDS: PHENYLEPHRINE 10% OPHTH (NEO-SYN) 5 ML BTL OU SCH ×3 (07:22→07:34)
[2020-05-19] MEDS ORDERED: MIDAZOLAM 2 MG/2 ML (VERSED) VIAL ONE (08:10)
--- NOTE | 2020-05-19 08:15 | Ophthalmologist Pre-Op Note ---
Pre-Operative Progress Note H&P Reviewed The H&P was reviewed, patient examined and no changes noted. Date H&P Reviewed: May 19, 2020 Time H&P Reviewed: 08:15 Pre-Op Dx Cataract, Right Eye MARIO LAURENT MD May 19, 2020 08:15
--- NOTE | 2020-05-19 08:31 | Ophthalmology Operative Report ---
Cataract removal/placement IOL PREOPERATIVE DIAGNOSIS: Cataract Right Eye POSTOPERATIVE DIAGNOSIS: Cataract Right Eye PROCEDURE: Cataract removal and placement of posterior chamber implant, right eye SURGEON: Jackson Laurent ANESTHESIA: Topical with sedation COMPLICATIONS: None ESTIMATED BLOOD LOSS: Minimal DESCRIPTION OF PROCEDURE: After proper informed consent was obtained, the patient, a 80 female, was taken to the Operating Room and the right eye was anesthetized with tetracaine. The right eye was then prepped and draped in the usual manner. A wire lid speculum was placed. A paracentesis was made at the left hand position. Preservative free lidocaine was injected into the anterior chamber followed by viscoelastic. A clear corneal incision was made in the temporal position. A capsulorrhexis was preformed and the central nuclear and cortical material were removed. The posterior capsule was polished and Christopher 21.0 AU00T0 IOL was placed into the capsular bag. The residual viscoelastic was aspirated and balanced saline solution was injected into the anterior chamber. Moxifloxacin was injected into the anterior chamber. The wound was checked and found to be water tight. The patient tolerated the procedure well without complications. JACKSON LAURENT MD May 19, 2020 08:31
[2020-05-19 08:40] VITALS: BP 128/62
--- NOTE | 2020-05-19 10:25 | Anesthesia-General Post-Op ---
MAC Patient Condition Mental Status/LOC: Same as Preop Cardiovascular: Satisfactory Nausea/Vomiting: Absent Respiratory: Satisfactory Pain: Controlled Complications: Absent Post Op Complications Complications None Follow Up Care/Instructions Patient Instructions None needed. Anesthesiology Discharge Order Discharge Order Patient is doing well, no complaints, stable vital signs, no apparent adverse anesthesia problems. No complications reported per nursing. VIVIAN ONEIL CRNA May 19, 2020 10:25
== END 2020-05-19 08:40 | disposition home or self-care (01) ==
LOC: SDC 07:00
PROVIDERS: ATTEND Specialist
DX: H25.11 Age-related nuclear cataract, right eye (principal); Z88.2 Allergy status to sulfonamides; M06.9 Rheumatoid arthritis, unspecified; Z88.6 Allergy status to analgesic agent; I48.91 Unspecified atrial fibrillation; G62.9 Polyneuropathy, unspecified; Z79.01 Long term (current) use of anticoagulants; Z79.899 Other long term (current) drug therapy; Z79.82 Long term (current) use of aspirin
CPT/HCPCS: 66984; V2632

== ENCOUNTER → 2020-09-13 | Outpatient (CLI) | payer MEDICARE ==
[~2020-09-13] MED LIST changes: -PANT40TA3 PO; +PANT40TA52 PO; +WARF4TAB3 PO; -WARF4TAB70 PO
== END ==
LOC: LABNPT 13:01
PROVIDERS: ATTEND Surgery
DX: Z20.828 Contact with and (suspected) exposure to other viral communicable diseases (principal)
CPT/HCPCS: 87635

== ENCOUNTER → 2020-12-12 | Outpatient (CLI) | payer MEDICARE ==
[~2020-12-12] MED LIST changes: -AMIO200T4 PO; +AMIO200T6 PO; -ESCI10TA55 PO; +ESCI10TA64 PO; -FOLI1TAB24 PO; +FOLI1TAB33 PO
== END ==
LOC: CARD 10:53
PROVIDERS: ATTEND Internal Medicine Cardiovascular Disease
DX: I48.0 Paroxysmal atrial fibrillation (principal)
CPT/HCPCS: 93225; 93226

== ENCOUNTER → 2021-01-04 | Outpatient (CLI) | payer MEDICARE ==
[~2021-01-04] MED LIST changes: +ESCI-2 PO; -ESCI10TA64 PO
== END ==
LOC: CARD 14:36
PROVIDERS: ATTEND Internal Medicine Cardiovascular Disease
DX: I48.0 Paroxysmal atrial fibrillation (principal)
CPT/HCPCS: 93225; 93226

== ENCOUNTER → 2023-01-31 | Outpatient (CLI) | payer MEDICARE ==
[~2023-01-31] MED LIST changes: -AMIO200T6 PO; +AMIO200T65 PO; +POTA-160 PO; -POTA10TA6 PO
== END ==
LOC: CARD 10:26
PROVIDERS: ATTEND Nurse Practitioner Family
DX: I51.7 Cardiomegaly (principal); I34.0 Nonrheumatic mitral (valve) insufficiency
CPT/HCPCS: 93306